=== PATIENT | female | born 1965 | race Hispanic/Latino ===

== ENCOUNTER 2016-10-10 19:21 | Emergency (ER) | payer OTHER ==
[2016-10-10 19:27] VITALS: RESP 16
[2016-10-10] MEDS ORDERED: Sodium Chloride 0.9% 1,000 ML IV STA (21:10)
--- NOTE | 2016-10-10 21:24 | ED PDOC ---
HPI: Abdomen Time Seen by Provider: 10/10/16 21:04 Chief Complaint (Nursing): Abdominal Pain Chief Complaint (Provider): Abdominal Pain/Vomiting History Per: Patient History/Exam Limitations: no limitations Onset/Duration Of Symptoms: Days (x1) Current Symptoms Are (Timing): Still Present Location Of Pain/Discomfort: RUQ Additional Complaint(s): 21:02 Allyssa Neumann is a 50 year old female that presents to the ED with a chief complaint of RUQ pain and vomiting since yesterday. Patient states that she ate a fruit cocktail last night, after which she felt pain that started in her RUQ and radiated all over her abdomen. She reports that she then took two Tylenols, which relieved her pain, but that upon waking up this morning, her pain returned and she experienced an episode of vomiting. She is currently experiencing chills, but denies any fever. Past Medical History Reviewed: Historical Data, Nursing Documentation, Vital Signs Vital Signs: Last Vital Signs Temp 98.5 F 10/10/16 19:24 Pulse 104 H 10/10/16 19:24 Resp 16 10/10/16 19:24 BP 151/78 H 10/10/16 19:24 Pulse Ox 100 10/10/16 21:28 - Family History Family History: States: Unknown Family Hx - Home Medications Home Medications: Ambulatory Orders Medication Instructions Recorded traMADol [Ultram] 50 mg PO TID #12 tab 10/10/16 - Allergies Allergies/Adverse Reactions: Allergies Allergy/AdvReac Type Severity Reaction Status Date / Time No Known Allergies Allergy Verified 10/10/16 19:24 Review of Systems Constitutional: Positive for: Chills. Negative for: Fever Gastrointestinal: Positive for: Vomiting, Abdominal Pain (RUQ) Physical Exam - Reviewed Nursing Documentation Reviewed: Yes Vital Signs Reviewed: Yes - Physical Exam Appears: Positive for: Non-toxic, No Acute Distress Head Exam: Positive for: ATRAUMATIC, NORMOCEPHALIC Skin: Positive for: Normal Color, Warm, Dry Eye Exam: Positive for: Normal appearance, EOMI, PERRL Cardiovascular/Chest: Positive for: Regular Rate, Rhythm. Negative for: Murmur Respiratory: Positive for: Normal Breath Sounds. Negative for: Wheezing Gastrointestinal/Abdominal: Positive for: Soft, Tenderness (mild RUQ tenderness) , Other (equivocal Salgado's sign) Neurologic/Psych: Positive for: Alert, Oriented - Laboratory Results Result Diagrams: 10/10/16 21:46 10/10/16 21:46 - ECG O2 Sat by Pulse Oximetry: 100 (RA) Pulse Ox Interpretation: Normal Medical Decision Making Medical Decision Makin:10 Initial Impression: Gallstones vs. Cholecystitis Initial Plan: * CMP * CBC * Lipase * Urinalysis * Sodium Chloride 1000 mL at 500 mLs/hr * Morphine 2 mg IV * Zofran 4 mg IV * US Gallbladder * Reevaluation 1130 Pt. feeling better, tolerating PO, results given, pt. will reach out to PMD tomorrow, referral given to surgery and told to return for worsening or concerning symptoms. IMPRESSION: Mobile stone in the gallbladder; prominent common duct Patient was not tender over the gallbladder Scribe Attestation: Documented by Michelle Rojas, acting as a scribe for George Angulo MD. Provider Scribe Attestation: All medical record entries made by the Scribe were at my direction and personally dictated by me. I have reviewed the chart and agree that the record accurately reflects my personal performance of the history, physical exam, medical decision making, and the department course for this patient. I have also personally directed, reviewed, and agree with the discharge instructions and disposition. Disposition - Clinical Impression Clinical Impression: Cholelithiasis - Disposition Referrals: Siva Arzate MD [Staff Provider] - Disposition: Routine/Home Disposition Time: 23:59 Condition: STABLE Prescriptions: traMADol [Ultram] 50 mg PO TID #12 tab Instructions: Gallstones (ED), Narcotic Pain Management (ED)
[2016-10-10 21:56] LABS: BASO # 0.1 K/uL (0.0-0.2); BASO % 0.8 % (0.0-2.0); EOS % 0.3 % (0.0-4.0); HEMATOCRIT 40.5 % (34.0-47.0); LYMPH # 0.8 K/uL (1.0-4.3); LYMPH % 12.2 % (20.0-40.0); MEAN CELL VOLUME 90.9 fl (81.0-99.0); MEAN CORPUSCULAR HEMOGLOBIN 30.5 pg (27.0-31.0); MEAN CORPUSCULAR HGB CONC 33.5 g/dL (33.0-37.0); MEAN PLATELET VOLUME 7.3 fl (7.2-11.7); MONO # 0.3 K/uL (0.0-0.8); MONO % 4.6 % (0.0-10.0); NEUT # 5.5 K/uL (1.8-7.0); NEUT % 82.1 % (50.0-75.0); NRBC % 0.1 % (0.0-0.0); RED CELL DISTRIBUTION WIDTH 12.7 % (11.5-14.5); WHITE BLOOD COUNT 6.7 K/uL (4.8-10.8)
[2016-10-10 22:02] LABS: ALB/GLOB RATIO 1.3 (1.0-2.1); ALKALINE PHOSPHATASE 90 U/L (38-126); ALT/SGPT 36 U/L (9-52); AST/SGOT 32 U/L (14-36); BILIRUBIN,TOTAL 0.6 mg/dl (0.2-1.3); BLOOD UREA NITROGEN 10 mg/dl (7-17); CALCIUM 9.8 mg/dL (8.4-10.2); CARBON DIOXIDE 27 mmol/L (22-30); CHLORIDE 100 mmol/L (98-107); GFR AFRICAN-AMERICAN > 60; GLUCOSE,RANDOM 98 mg/dL (65-105); LIPASE 113 U/L (23-300); POTASSIUM 3.9 MMOL/L (3.6-5.0); SODIUM 140 mmol/l (132-148); TOTAL PROTEIN 7.4 G/DL (6.3-8.2)
[2016-10-10 22:30] LABS: RBC URINE 17 /hpf (0-3); URINE BACTERIA FEW (<OCC); URINE BILIRUBIN NEGATIVE (NEGATIVE); URINE BLOOD SMALL (NEGATIVE); URINE COLOR YELLOW (YELLOW); URINE GLUCOSE (UA) NEG (Normal); URINE KETONE 80 mg/dL (NEGATIVE); URINE LEUKOCYTE ESTERASE LARGE Leu/uL (Negative); URINE PROTEIN 100 mg/dL (NEGATIVE); URINE UROBILINOGEN 0.2-1.0 mg/dL (0.2-1.0); WBC URINE 65 /hpf (0-5)
--- NOTE | 2016-10-10 22:48 | US ---
EXAM: US Abdomen Limited, Right Upper Quadrant CLINICAL HISTORY: 50 years old, female; Pain; Abdominal pain; Epigastric; Additional info: Ruq pain, vomiting, R/O cholelithiasis/cystitis TECHNIQUE: Real-time ultrasound of the right upper quadrant with image documentation. EXAM DATE/TIME: 10/10/2016 9:10 PM COMPARISON: There are no prior studies for comparison. FINDINGS: Liver: Liver is unremarkable. There is hepatopedal flow in the main portal vein. Gallbladder: Gallbladder is distended. There is a mobile shadowing stone. There is no sludge or wall thickening. Common bile duct: Proximal common duct measures 8 mm in diameter. Distal duct measures 5 mm in diameter. Pancreas: Pancreas is partially obscured by bowel gas. Right kidney: Right kidney is unremarkable. Aorta: Visualized portions of the aorta and inferior vena cava are unremarkable. IMPRESSION: Mobile stone in the gallbladder; prominent common duct Patient was not tender over the gallbladder
[2016-10-11 00:21] VITALS: BP 118/72; PULSE 86; TEMP 98.2; O2SAT 98
== END 2016-10-11 00:26 | disposition home or self-care (01) ==
LOC: H.ER 19:21
DX: K80.20 Calculus of gallbladder without cholecystitis without obstruction (principal); R11.10 Vomiting, unspecified; R10.11 Right upper quadrant pain

== ENCOUNTER 2016-10-14 14:50 | Inpatient (IN) | payer OTHER ==
[2016-10-14] MEDS ORDERED: Sodium Chloride 0.9% 1,000 ML IV STA (16:05)
[2016-10-14 16:33] LABS: BASO % 0.8 % (0.0-2.0); EOS % 0.2 % (0.0-4.0); HEMATOCRIT 36.3 % (34.0-47.0); LYMPH # 1.3 K/uL (1.0-4.3); MEAN CELL VOLUME 90.2 fl (81.0-99.0); MEAN CORPUSCULAR HEMOGLOBIN 30.7 pg (27.0-31.0); MEAN PLATELET VOLUME 7.3 fl (7.2-11.7); MONO # 0.4 K/uL (0.0-0.8); MONO % 7.3 % (0.0-10.0); NEUT # 4.3 K/uL (1.8-7.0); NEUT % 70.7 % (50.0-75.0); RED CELL DISTRIBUTION WIDTH 12.8 % (11.5-14.5)
[2016-10-14 16:44] LABS: ALB/GLOB RATIO 1.3 (1.0-2.1); ALKALINE PHOSPHATASE 90 U/L (38-126); ALT/SGPT 42 U/L (9-52); AST/SGOT 34 U/L (14-36); BILIRUBIN,TOTAL 0.5 mg/dl (0.2-1.3); BLOOD UREA NITROGEN 15 mg/dl (7-17); CALCIUM 9.5 mg/dL (8.4-10.2); CARBON DIOXIDE 29 mmol/L (22-30); CHLORIDE 98 mmol/L (98-107); GFR AFRICAN-AMERICAN > 60; GLUCOSE,RANDOM 94 mg/dL (65-105); LIPASE 780 U/L (23-300); POTASSIUM 3.9 MMOL/L (3.6-5.0); SODIUM 139 mmol/l (132-148); TOTAL PROTEIN 6.6 G/DL (6.3-8.2)
[2016-10-14 17:19] LABS: PARTIAL THROMBOPLASTIN TIME 25.2 SECONDS (23.3-32.5)
--- NOTE | 2016-10-14 17:21 | ED PDOC ---
HPI: Abdomen Time Seen by Provider: 10/14/16 15:43 Chief Complaint (Nursing): Abdominal Pain Chief Complaint (Provider): Abdominal Pain History Per: Patient History/Exam Limitations: no limitations Onset/Duration Of Symptoms: Days (x5 days since monday) Current Symptoms Are (Timing): Still Present Location Of Pain/Discomfort: RUQ (Radiated from ruq to abdomen) Associated Symptoms: denies: Nausea, Vomiting, Diarrhea Additional Complaint(s): Allyssa Neumann is a 50 year old female with no past medical history prior to arrival, but has a surgical history of 2 C-Sections who presents to the ED with a chief complaint of Abdominal pain that was onset since Monday. The patient came to the ED on Monday and was diagnosed with Gallstones, was fine on Monday and Monday and returned on . Patient claims the pain was located in the RUQ and radiated to the abdomen. Patient denies any attractable vomiting, diarrhea, or urinary symptoms. PCP is Dr. Chilel Past Medical History Reviewed: Historical Data, Nursing Documentation, Vital Signs Vital Signs: Last Vital Signs Temp 98.2 F 10/15/16 08:48 Pulse 68 10/15/16 08:48 Resp 20 10/15/16 08:48 BP 111/75 10/15/16 08:48 Pulse Ox 100 10/15/16 08:48 - Medical History Other PMH: Gallstones - Surgical History Surgical History: (2) - Family History Family History: States: Unknown Family Hx - Social History Current smoker - smoking cessation education provided: No Ex-Smoker (has not smoked in the last 12 months): No Alcohol: Social (once every other week) - Home Medications Home Medications: Ambulatory Orders Medication Instructions Recorded No Known Home Med 10/14/16 - Allergies Allergies/Adverse Reactions: Allergies Allergy/AdvReac Type Severity Reaction Status Date / Time No Known Allergies Allergy Verified 10/10/16 19:24 Review of Systems ROS Statement: Except As Marked, All Systems Reviewed And Found Negative Constitutional: Negative for: Fever, Chills, Sweats Gastrointestinal: Negative for: Vomiting, Diarrhea Genitourinary Female: Positive for: Other (No urinary symptoms) Physical Exam - Reviewed Nursing Documentation Reviewed: Yes Vital Signs Reviewed: Yes - Physical Exam Appears: Positive for: Well, Uncomfortable, In Acute Distress (Mild painful distress) Head Exam: Positive for: ATRAUMATIC, NORMAL INSPECTION, NORMOCEPHALIC Skin: Positive for: Normal Color, Warm, Dry Eye Exam: Positive for: Normal appearance, EOMI, PERRL ENT: Positive for: Pharynx Is (cleare), Other (Dry mucus membrane) Neck: Positive for: Normal, Painless ROM, Supple Cardiovascular/Chest: Positive for: Regular Rate, Rhythm, Chest Non Tender. Negative for: Bradycardia, Tachycardia Respiratory: Positive for: Normal Breath Sounds. Negative for: Wheezing, Respiratory Distress Gastrointestinal/Abdominal: Positive for: Normal Exam, Soft, Other (No Murpheys Sign, No Mcburneys Point Tenderness). Negative for: Tenderness, Mass, Distended , Guarding, Rebound Back: Positive for: Normal Inspection. Negative for: Vertebral Tenderness Extremity: Positive for: Normal ROM, Tenderness (Mild tenderness to palpation) Lymphatic: Negative for: Adenopathy Neurologic/Psych: Positive for: Alert, Oriented. Negative for: Motor/Sensory Deficits - Laboratory Results Result Diagrams: 10/14/16 16:20 10/14/16 16:20 - ECG O2 Sat by Pulse Oximetry: 100 (RA) Pulse Ox Interpretation: Normal Medical Decision Making Medical Decision Makin: Initial Impression: Abdominal pain Initial Plan: * Comp metabolic panel * Lact acid plasma * LDH * Lipase * U-Dip * CBC with differentials * Partial thromboplastin time * Dextrose 5%-0.95 1000ml IV * Morphine 2mg * Sodium chloride 1000ml * Famotidine Pepcid 20mg * Ondansetron Zofran 8mg IV * Urine culture * IV insertion * Urinalysis * Abdomen complete US * Re-Eval Accession No. : [id number] Patient Name / ID : ALMA CALLAHAN / [id number] Exam Date : 10/14/2016 16:47:39 ( Approved ) Study Comment : Sex / Age : F / 50Y Creator : Edilia Fairchild MD Dictator : Edilia Fairchild MD Sugar Mill Worker : Precision Assembler : Edilia Fairchild MD Approver2 : Report Date : 10/14/2016 17:29:57 My Comment : HISTORY: abd pain h/o gallstones COMPARISON: Limited abdominal ultrasound performed 10/10/16 TECHNIQUE: Sonographic evaluation of the abdomen. FINDINGS: LIVER: Measures 13.8 cm in sagittal dimension and appears within normal limits of size , shape, and echotexture. No focal hepatic mass identified. The main portal vein appears patent with normal directional flow. No intrahepatic bile duct dilatation. GALLBLADDER: 2.1 x 1.5 x 2.0 cm gallstone. No gallbladder wall thickening or pericholecystic edema. Negative sonographic Salgado's sign as assessed by the mobile ui/ux designer. COMMON BILE DUCT: Measures 7 mm. PANCREAS: Not well visualized. RIGHT KIDNEY: Measures 11.6 x 5.1 x 4.4cm. No obstructing calculus or hydronephrosis identified. LEFT KIDNEY: Measures 10.4 x 5.4 x 4.2cm. 3.2 x 3.5 x 3.2 cm hypoechoic left lower pole renal lesion, likely cyst. No obstructing calculus or hydronephrosis. SPLEEN: Measures approximately 9.8 cm. AORTA: Limited views appear unremarkable. IVC: Limited views appear unremarkable. OTHER FINDINGS: None. IMPRESSION: Mildly dilated common bile duct. Cholelithiasis. 3.5 cm left renal cyst. Labs demonstrated acute increase of lipase, otherwise no clinically significant lab abnormalities. DW Dr Auguste, covering for PMD Dr Chilel. BARRY Solis GI Fellow for Dr Anatoly Ramesh Surgery resident for Dr Caban. Scribe Attestation: Documented by Nestor Pendleton acting as a scribe for Dr.Melissa Vamsi Figueroa MD. Provider Scribe Attestation: All medical record entries made by the Scribe were at my direction and personally dictated by me. I have reviewed the chart and agree that the record accurately reflects my personal performance of the history, physical exam, medical decision making, and the department course for this patient. I have also personally directed, reviewed, and agree with the discharge instructions and disposition. Disposition - Clinical Impression Clinical Impression: Cholelithiasis, Pancreatitis Counseled Patient/Family Regarding: Studies Performed, Diagnosis - Disposition Disposition Time: 19:00 Condition: SERIOUS - Pt Status Changed To: Hospital Disposition Of: Inpatient - Admit Certification Admit to Inpatient:: After my assessment, the patient will require hospitalization for at least two midnights. This is because of the severity of symptoms shown, intensity of services needed, and/or the medical risk in this patient being treated as an outpatient. - POA Present On Arrival: None
--- NOTE | 2016-10-14 17:31 | US ---
HISTORY: abd pain h/o gallstones COMPARISON: Limited abdominal ultrasound performed 10/10/16 TECHNIQUE: Sonographic evaluation of the abdomen. FINDINGS: LIVER: Measures 13.8 cm in sagittal dimension and appears within normal limits of size, shape, and echotexture. No focal hepatic mass identified. The main portal vein appears patent with normal directional flow. No intrahepatic bile duct dilatation. GALLBLADDER: 2.1 x 1.5 x 2.0 cm gallstone. No gallbladder wall thickening or pericholecystic edema. Negative sonographic Salgado's sign as assessed by the call worker. COMMON BILE DUCT: Measures 7 mm. PANCREAS: Not well visualized. RIGHT KIDNEY: Measures 11.6 x 5.1 x 4.4cm. No obstructing calculus or hydronephrosis identified. LEFT KIDNEY: Measures 10.4 x 5.4 x 4.2cm. 3.2 x 3.5 x 3.2 cm hypoechoic left lower pole renal lesion, likely cyst. No obstructing calculus or hydronephrosis. SPLEEN: Measures approximately 9.8 cm. AORTA: Limited views appear unremarkable. IVC: Limited views appear unremarkable. OTHER FINDINGS: None. IMPRESSION: Mildly dilated common bile duct. Cholelithiasis. 3.5 cm left renal cyst.
[2016-10-14 17:48] LABS: RBC URINE 3 /hpf (0-3); URINE BACTERIA FEW (<OCC); URINE BILIRUBIN NEGATIVE (NEGATIVE); URINE BLOOD SMALL (NEGATIVE); URINE COLOR YELLOW (YELLOW); URINE GLUCOSE (UA) NEG (Normal); URINE KETONE 20 mg/dL (NEGATIVE); URINE LEUKOCYTE ESTERASE MOD Leu/uL (Negative); URINE PROTEIN 100 mg/dL (NEGATIVE); WBC URINE 30 /hpf (0-5)
[2016-10-14] MEDS ORDERED: Piperacillin/Tazobact 3.375 GM in Sodium Chloride 0.9% 100 ML IVPB STA (19:26)
[2016-10-14] MEDS ORDERED: Piperacillin/Tazobact 3.375 gm Inj IVPB ONE (19:40)
[2016-10-14 22:05] VITALS: BMI 26.6
--- NOTE | 2016-10-14 23:00 | CP.PCM.CON ---
History of Present Illness - History of Present Illness History of Present Illness: GENERAL SURGERY CONSULT NOTE FOR DR. NICHOLSON 50yo F with no PMHx who presents to the ED with RUQ abdominal pain and vomiting. The pain began Monday night and she came to the ED on Monday, 10/10. The pain was located in the RUQ and worse after eating. She had an ultrasound which showed cholelithiasis but no cholecystitis. Her labs were normal. She was discharged home with tramadol and to follow up with a surgeon. The pain returned night. Last night she vomited about 7 times, non bloody, and the pain was severe. The pain is now located in the RUQ, epigastric, and LUQ areas. She was unable to tolerate PO intake. She denies diarrhea. Her last BM was yesterday. She denies CP, SOB, fever, or chills. PMHx: none Surgeries: Allergies: none Home medications: none Social history: occasional etoh, smokes a pack every 2-4 days Review of Systems - Review of Systems All systems: reviewed and no additional remarkable complaints except (as per HPI ) Past Patient History - Past Medical History & Family History Past Medical History?: Yes - Past Social History Smoking Status: Light Smoker < 10 Cigarettes Daily - CARDIAC Hx Cardiac Disorders: No - PULMONARY Hx Respiratory Disorders: No - NEUROLOGICAL Hx Neurological Disorder: No - HEENT Hx HEENT Problems: No - RENAL Hx Chronic Kidney Disease: No - ENDOCRINE/METABOLIC Hx Endocrine Disorders: No - HEMATOLOGICAL/ONCOLOGICAL Hx Blood Disorders: No Hx AIDS: No Hx Human Immunodeficiency Virus (HIV): No - INTEGUMENTARY Hx Dermatological Problems: No - MUSCULOSKELETAL/RHEUMATOLOGICAL Hx Musculoskeletal Disorders: No Hx Falls: No - GASTROINTESTINAL Other/Comment: gallstone - GENITOURINARY/GYNECOLOGICAL Hx Genitourinary Disorders: No - PSYCHIATRIC Hx Psychophysiologic Disorder: No Hx Substance Use: No - SURGICAL HISTORY Hx Surgeries: No Hx Section: Yes - ANESTHESIA Hx Anesthesia: Yes Hx Anesthesia Reactions: No Meds Allergies/Adverse Reactions: Allergies Allergy/AdvReac Type Severity Reaction Status Date / Time No Known Allergies Allergy Verified 10/10/16 19:24 - Medications Medications: Current Medications Dextrose/Sodium Chloride (Dextrose 5%-0.9% Ns 500 Ml) 1,000 mls @ 100 mls/hr IV .Q10H TAYO Last Admin: 10/14/16 20:25 Dose: 100 mls/hr Piperacillin Sod/Tazobactam (Sod 3.375 gm/ Sodium Chloride) 100 mls @ 100 mls/ hr IVPB Q8 TAYO Morphine Sulfate (Morphine) 2 mg IVP Q6 PRN PRN Reason: Pain, severe (8-10) Ondansetron HCl (Zofran Inj) 4 mg IVP Q4 PRN PRN Reason: Nausea/Vomiting Physical Exam - Constitutional Appears: Well, Non-toxic, No Acute Distress - Head Exam Head Exam: ATRAUMATIC, NORMAL INSPECTION - Eye Exam Eye Exam: EOMI, Normal appearance - Respiratory Exam Respiratory Exam: NORMAL BREATHING PATTERN. absent: Respiratory Distress - Cardiovascular Exam Cardiovascular Exam: +S1, +S2 - GI/Abdominal Exam GI & Abdominal Exam: Soft, Tenderness (mild tenderness on deep palpation of RUQ) . absent: Distended, Firm, Guarding, Rebound, Rigid Additional comments: Negative Salgado's sign - Extremities Exam Extremities exam: Positive for: normal inspection. Negative for: calf tenderness - Neurological Exam Neurological exam: Alert, CN II-XII Intact, Oriented x3 - Psychiatric Exam Psychiatric exam: Normal Affect, Normal Mood - Skin Skin Exam: Dry, Normal Color, Warm Results - Vital Signs Recent Vital Signs: Last Vital Signs Temp 98.6 F 10/14/16 21:30 Pulse 92 H 10/14/16 21:30 Resp 18 10/14/16 21:30 BP 124/77 10/14/16 21:30 Pulse Ox 94 L 10/14/16 21:30 - Labs Result Diagrams: 10/14/16 16:20 10/14/16 16:20 Assessment & Plan - Assessment and Plan (Free Text) Assessment: 50yo F with no PMHx who presented with RUQ abdominal pain and vomiting and was found to have cholelithiasis and pancreatitis - Afebrile, tachycardic on arrival, now HR normal - No leukocytosis - Bilirubin, LFTs WNL - Lipase elevated at 780 (was 113 on 10/10) - US: 2.1x1.5x2.0cm gallstone, no gallbladder wall thickness or pericholecystic edema, negative sonographic Salgado's sign, CBD dilated at 7mm. - NPO - IV Fluids - Zofran and Morphine PRN - MRCP ordered due to dilated CBD - Discussed plan with Dr. Reinaldo Ramesh PGY-2
[2016-10-15] MEDS: Piperacillin/Tazobact 3.375 GM in Sodium Chloride 0.9% 100 ML IVPB SCH ×3 (00:50→16:12)
--- NOTE | 2016-10-15 08:15 | HP ---
CHIEF COMPLAINT: Abdominal pain. HISTORY OF PRESENT ILLNESS: This is a 50-year-old female without significant past medical or surgica l history who was seen in the Emergency Room a few days ago for abdominal pain and was discharged to follow up with surgeon, but patient continued to have pain which got worse, so patient was brought to Emergency Room and was admitted for further management after finding pancreatitis. At this time, th e patient's pain is controlled with pain medication. REVIEW OF SYSTEMS: Negative for headache, dizziness, syncope, loss of consciousness, chest pain, jovanna rtness of breath, nausea, vomiting, diarrhea, constipation, any new joint or extremity pain. Review of systems of all other organ system is unremarkable. PAST MEDICAL HISTORY: Unremarkable. PAST SURGICAL HISTORY: Unremarkable. PERSONAL HISTORY: The patient is currently a nonsmoker, nondrinker, no substance abuse. MEDICATIONS: The patient was prescribed tramadol in Emergency Room visit, but the patient is not on any chronic medications. ALLERGIES: The patient is not allergic to any medication. FAMILY HISTORY: Noncontributory. PHYSICAL EXAMINATION: GENERAL: Well-built, well-nourished 50-year-old female in no acute distress. VITAL SIGNS: Temperature 98.9, pulse 78, respiration 18, blood pressure 100/60. HEENT: Pupils reacting to light. No JVD, no thyromegaly, no lymphadenopathy, no nystagmus. Normoce phalic, atraumatic skull. HEART: S1, S2 normal, regular. No significant murmur, gallop or rub is heard. LUNGS: Show good bilateral air entry. No rales or rhonchi. ABDOMEN: Soft, nontender, no organomegaly, no fluid. ____ epigastric sensitivity. There is no sign of any acute abdomen. No guarding, no rigidity, no rebound. Bowel sounds are plus and normal. EXTREMITIES: No edema, no calf swelling, no tenderness, no acute ischemia. CENTRAL NERVOUS SYSTEM: The patient is alert, awake, oriented x 3. There is no sign of any acute gr oss focal motor or sensory neurological deficit. DIAGNOSTIC DATA: Available diagnostic data reviewed. WBC 6, hemoglobin 12.1, hematocrit 33.3, plate lets 229. PT 10.9, PTT 25.2, sodium 139, potassium 3.9, chloride 98, bicarb 29, BUN 15, creatinine 0 .7. SMA-12 shows LDH of 298, but lipase level is 580. Urinalysis is also consistent with urinary tr act infection. Abdominal sonogram shows dilated common bile duct and renal cyst. EKG shows normal s inus rhythm without any acute ST-T changes. Chest x-ray is clear. Surgical consult noted and apprec iated. ADMITTING IMPRESSION: Acute pancreatitis, gallstone. PLAN: As ordered. Case and plan discussed with patient. Osmany Auguste MD cc: [id number] TT: 10/15/2016 08:14:36 tn
--- NOTE | 2016-10-15 08:39 | RAD ---
HISTORY: abd pain COMPARISON: No prior. FINDINGS: LUNGS: Single frontal portable view of the chest was obtained. No focal infiltrate is seen. No significant interstitial changes are noted. PLEURA: No significant pleural effusion identified, no pneumothorax apparent. CARDIOVASCULAR: Normal. OSSEOUS STRUCTURES: No significant abnormalities. VISUALIZED UPPER ABDOMEN: Normal. OTHER FINDINGS: Aorta appears to be normal in outline on this limited portable chest exam. IMPRESSION: Unremarkable frontal portable view of the chest. Frontal and lateral view would be suggested when the patient is stable.
--- NOTE | 2016-10-15 09:27 | CARD ---
APPROVED REPORT EKG Measurement Heart [id number] <Conclusion> Normal sinus rhythm Possible Left atrial enlargement Borderline ECG
--- NOTE | 2016-10-15 12:15 | CP.PCM.PN ---
Subjective - Date & Time of Evaluation Date of Evaluation: 10/15/16 Time of Evaluation: 10:00 - Subjective Subjective: GENERAL SURGERY PROGRESS NOTE FOR DR. NICHOLSON Patient seen and examined at bedside. She states that her pain is better than yesterday but still there. The pain is mostly on her right upper lateral abdomen. She denies nausea, vomiting, or back pain. Objective - Vital Signs/Intake and Output Vital Signs (last 24 hours): Temp Pulse Resp BP Pulse Ox 98.2 F 68 20 111/75 100 10/15/16 08:48 10/15/16 08:48 10/15/16 08:48 10/15/16 08:48 10/15/16 08:48 - Medications Medications: Current Medications Dextrose/Sodium Chloride (Dextrose 5%-0.9% Ns 500 Ml) 1,000 mls @ 100 mls/hr IV .Q10H [facility] Last Admin: 10/15/16 02:10 Dose: Not Given Piperacillin Sod/Tazobactam (Sod 3.375 gm/ Sodium Chloride) 100 mls @ 100 mls/ hr IVPB Q8 TAYO Last Admin: 10/15/16 09:31 Dose: 100 mls/hr Morphine Sulfate (Morphine) 2 mg IVP Q6 PRN PRN Reason: Pain, severe (8-10) Last Admin: 10/15/16 12:01 Dose: 2 mg Ondansetron HCl (Zofran Inj) 4 mg IVP Q4 PRN PRN Reason: Nausea/Vomiting - Labs Labs: PT 10.9 SECONDS (9.6-11.2) 10/14/16 16:20 INR 1.05 (0.92-1.08) 10/14/16 16:20 APTT 25.2 SECONDS (23.3-32.5) 10/14/16 16:20 - Constitutional Appears: Non-toxic, No Acute Distress - Head Exam Head Exam: ATRAUMATIC, NORMAL INSPECTION - Respiratory Exam Respiratory Exam: NORMAL BREATHING PATTERN. absent: Respiratory Distress - Cardiovascular Exam Cardiovascular Exam: +S1, +S2 - GI/Abdominal Exam GI & Abdominal Exam: Soft, Tenderness (mild tenderness on deep palpation of RUQ) . absent: Distended, Firm, Guarding, Rigid, Rebound - Neurological Exam Neurological Exam: Alert, Awake, Oriented x3 - Psychiatric Exam Psychiatric exam: Normal Affect, Normal Mood - Skin Skin Exam: Dry, Normal Color, Warm Assessment and Plan - Assessment and Plan (Free Text) Assessment: 50yo F with no PMHx who presented with RUQ abdominal pain and vomiting and was found to have gallstone pancreatitis and dilated CBD - Afebrile, VSS - Bilirubin, LFTs WNL - Lipase elevated at 780 yesterday, will FU tomorrows labs and trend - US: 2.1x1.5x2.0cm gallstone, no gallbladder wall thickness or pericholecystic edema, negative sonographic Salgado's sign, CBD dilated at 7mm. - NPO - IV Fluids - Zofran and Morphine PRN - MRCP done due to dilated CBD, awaiting official report - If MRCP negative, option given to patient of inpatient cholecystectomy once pancreatitis cools down or outpatient elective cholecystectomy - Discussed plan with Dr. Reinaldo Ramesh PGY-2
--- NOTE | 2016-10-15 12:47 | CP.PCM.CON ---
<Kishor Pena - Last Filed: 10/15/16 12:44> History of Present Illness - History of Present Illness History of Present Illness: PGY4 GI Fellow Consult Note Patient is a 50yo female with no significant PMHx who presented to the ED with abdominal pain. The patient presented to the ED on 10/10/16 with complaints of abdominal pain, predominantly in the RUQ. Lab work was unremarkable and U/S revealed cholelithiasis. She was discharged home from the ED with Ultram and given referral for surgical evaluation for elective cholecystectomy. She continued to have pain following returning home and became nauseated with multiple bouts of bilious, nonbloody emesis in the 24 hours leading up to return to the ED. She became unable to tolerate oral intake and thus came to the ED for evaluation. Repeat lab work was again unremarkable and U/S continues to reveal cholelithiais. CBD was noted at 8mm. At present, she has some mild epigastric and RUQ/LUQ abdominal pain. No nausea, vomiting. Eager to eat. PMHx: See HPI PSHx: FHx: Discussed with patient and denies any significant family history Social: 1/2ppd smoker, occasional EtOH use, denies illicit drug use Review of Systems - Constitutional Constitutional: Anorexia, Fatigue. absent: Chills, Fever - EENT Eyes: absent: Change in Vision Nose/Mouth/Throat: absent: Sore Throat - Cardiovascular Cardiovascular: absent: Chest Pain, Dyspnea, Edema - Respiratory Respiratory: absent: Cough, Hemoptysis, Excessive Mucous Production - Gastrointestinal Gastrointestinal: Abdominal Pain, Constipation, Nausea, Vomiting. absent: Belching, Bloating, Cramping, Diarrhea, Dyspepsia, Dysphagia, Heartburn, Hematemesis, Hematochezia, Melena - Genitourinary Genitourinary: absent: Dysuria, Urinary Frequency, Urinary Urgency - Musculoskeletal Musculoskeletal: absent: Back Pain, Neck Pain - Integumentary Integumentary: absent: Dry Skin, New Lesions, Rash - Neurological Neurological: absent: Dizziness, Numbness, Focal Weakness - Psychiatric Psychiatric: absent: Anxiety, Depression - Endocrine Endocrine: absent: Polydipsia, Polyphagia, Polyuria - Hematologic/Lymphatic Hematologic: absent: Easy Bleeding, Easy Bruising, Lymphadenopathy Past Patient History - Past Medical History & Family History Past Medical History?: Yes - Past Social History Smoking Status: Light Smoker < 10 Cigarettes Daily - CARDIAC Hx Cardiac Disorders: No - PULMONARY Hx Respiratory Disorders: No - NEUROLOGICAL Hx Neurological Disorder: No - HEENT Hx HEENT Problems: No - RENAL Hx Chronic Kidney Disease: No - ENDOCRINE/METABOLIC Hx Endocrine Disorders: No - HEMATOLOGICAL/ONCOLOGICAL Hx Blood Disorders: No Hx AIDS: No Hx Human Immunodeficiency Virus (HIV): No - INTEGUMENTARY Hx Dermatological Problems: No - MUSCULOSKELETAL/RHEUMATOLOGICAL Hx Musculoskeletal Disorders: No Hx Falls: No - GASTROINTESTINAL Other/Comment: gallstone - GENITOURINARY/GYNECOLOGICAL Hx Genitourinary Disorders: No - PSYCHIATRIC Hx Psychophysiologic Disorder: No Hx Substance Use: No - SURGICAL HISTORY Hx Surgeries: No Hx Section: Yes - ANESTHESIA Hx Anesthesia: Yes Hx Anesthesia Reactions: No Meds Allergies/Adverse Reactions: Allergies Allergy/AdvReac Type Severity Reaction Status Date / Time No Known Allergies Allergy Verified 10/10/16 19:24 - Medications Medications: Current Medications Dextrose/Sodium Chloride (Dextrose 5%-0.9% Ns 500 Ml) 1,000 mls @ 100 mls/hr IV .Q10H [facility] Last Admin: 10/15/16 02:10 Dose: Not Given Piperacillin Sod/Tazobactam (Sod 3.375 gm/ Sodium Chloride) 100 mls @ 100 mls/ hr IVPB Q8 [facility] Last Admin: 10/15/16 09:31 Dose: 100 mls/hr Morphine Sulfate (Morphine) 2 mg IVP Q6 PRN PRN Reason: Pain, severe (8-10) Last Admin: 10/15/16 12:01 Dose: 2 mg Ondansetron HCl (Zofran Inj) 4 mg IVP Q4 PRN PRN Reason: Nausea/Vomiting Physical Exam - Constitutional Appears: Non-toxic, No Acute Distress - Eye Exam Eye Exam: EOMI, PERRL - ENT Exam ENT Exam: Mucous Membranes Moist - Respiratory Exam Respiratory Exam: Clear to Auscultation Bilateral. absent: Rales, Rhonchi, Wheezes - Cardiovascular Exam Cardiovascular Exam: RRR, +S1, +S2 - GI/Abdominal Exam GI & Abdominal Exam: Normal Bowel Sounds, Soft. absent: Distended, Firm, Guarding, Rigid, Tenderness Additional comments: Salgado's negative - Extremities Exam Extremities exam: Positive for: normal inspection. Negative for: pedal edema - Neurological Exam Neurological exam: Alert, Oriented x3 - Psychiatric Exam Psychiatric exam: Normal Affect, Normal Mood - Skin Skin Exam: Dry, Warm Results - Vital Signs Recent Vital Signs: Last Vital Signs Temp 98.2 F 10/15/16 08:48 Pulse 68 10/15/16 08:48 Resp 20 10/15/16 08:48 BP 111/75 10/15/16 08:48 Pulse Ox 100 10/15/16 08:48 - Labs Result Diagrams: 10/14/16 16:20 10/14/16 16:20 Assessment & Plan - Assessment and Plan (Free Text) Assessment: Patient is a 50yo female with no significant PMHx who presented to the ED with abdominal pain. -Abdominal pain, suspect biliary colic; r/o PUD -Cholelithiasis Plan: -U/S x 2 reviewed; CBD mildly dilated; no evidence of obstruction on lab work and clinically comfortable -MRCP ordered by surgical service, pending - will determine plan based on findings -Advance to clear liquids -Surgical recommendations appreciated -May benefit from nonemergent endoscopy if persistent -Start protonix 40mg PO QAMAC - Date & Time Date: 10/15/16 Time: 12:00 <Jerry Ledbetter MD - Last Filed: 10/15/16 15:53> Meds - Medications Medications: Current Medications Dextrose/Sodium Chloride (Dextrose 5%-0.9% Ns 500 Ml) 1,000 mls @ 100 mls/hr IV .Q10H [facility] Last Admin: 10/15/16 02:10 Dose: Not Given Piperacillin Sod/Tazobactam (Sod 3.375 gm/ Sodium Chloride) 100 mls @ 100 mls/ hr IVPB Q8 [facility] Last Admin: 10/15/16 09:31 Dose: 100 mls/hr Morphine Sulfate (Morphine) 2 mg IVP Q6 PRN PRN Reason: Pain, severe (8-10) Last Admin: 10/15/16 12:01 Dose: 2 mg Ondansetron HCl (Zofran Inj) 4 mg IVP Q4 PRN PRN Reason: Nausea/Vomiting Pantoprazole Sodium (Protonix Ec Tab) 40 mg PO ACB [facility] Polyethylene Glycol (Miralax) 17 gm PO DAILY [facility] Last Admin: 10/15/16 15:27 Dose: 17 gm Results - Vital Signs Recent Vital Signs: Last Vital Signs Temp 98.2 F 10/15/16 08:48 Pulse 68 10/15/16 08:48 Resp 20 10/15/16 08:48 BP 111/75 10/15/16 08:48 Pulse Ox 100 10/15/16 08:48 - Labs Result Diagrams: 10/14/16 16:20 10/14/16 16:20 Attending/Attestation - Attestation I have personally seen and examined this patient.: Yes I have fully participated in the care of the patient.: Yes I have reviewed all pertinent clinical information: Yes Notes (Text): 10/15/16 15:51 Patient seen with GI fellow on rounds. This is a 50 yo female with no significant PMHx who presented to the ED with abdominal pain suspected biliary colic and sonogram showing CBD mildly dilated and cholelithiasis with normal LFT. Pending MRCP read. Clear liquid diet today pending read. Further care as per imaging. PPI daily. .
--- NOTE | 2016-10-15 13:46 | MRI ---
PROCEDURE: Magnetic Resonance Cholangiopancreatography HISTORY: COMPARISON: Ultrasound 10/14/2016. TECHNIQUE: Multiplanar, multisequence MR images of the abdomen were obtained, including heavily T2 weighted MRCP images of the biliary system. Rotating maximum intensity projection images of the biliary system were generated. FINDINGS: MRCP: The common bile duct measures 7-8 millimeters but tapers distally. No ampullary mass is are seen. . No evidence of choledocholithiasis. No intrahepatic biliary ductal dilatation. LIVER: No focal liver mass or intrahepatic ductal dilatation is seen. Liver is otherwise normal in size and signal. GALLBLADDER: Single gallstone is noted in the gallbladder. This measures 1.8 centimeters by 1.6 centimeters in size. No gallbladder wall thickening or pericholecystic fluid is noted. SPLEEN: Unremarkable. PANCREAS: Unremarkable. ADRENALS: Unremarkable. KIDNEYS: There is evidence of a round smoothly marginated anterior midpole left renal cyst measuring 3.3 centimeters x 2.7 centimeters by 3.3 centimeters in size. There appears to be left renal pelvocaliceal dilatation with perhaps minor left ureteral dilatation. No renal calculus is identified on the left. Right kidney is normal in size and signal intensity without pelvocaliceal dilatation, cyst, or calculus. AORTA: No aneurysm. ASCITES: None. OTHER FINDINGS: None. IMPRESSION: No evidence of common bile duct calculus. No evidence of stricture. Common bile duct measures 7-8 millimeters proximally with normal distal tapering. Small gallstone. No gallbladder wall thickening. No intrahepatic ductal dilatation. Left renal cyst. In addition there is evidence of nonspecific left renal pelvocaliceal dilatation, perhaps with minor left ureteral dilatation. An element of UPJ obstruction is not excluded. This requires further clinical follow-up.
[2016-10-15] MEDS: POLYETHYLENE GLYCOL 3350 17 GM/Dose PACKET PO SCH (15:27)
[2016-10-16] MEDS: Piperacillin/Tazobact 3.375 GM in Sodium Chloride 0.9% 100 ML IVPB SCH ×3 (00:19→16:36)
[2016-10-16] MEDS: Pantoprazole 40 mg EC Tab PO SCH (06:35)
[2016-10-16 06:45] LABS: MEAN CELL VOLUME 91.8 fl (81.0-99.0); MEAN CORPUSCULAR HEMOGLOBIN 30.5 pg (27.0-31.0); MEAN CORPUSCULAR HGB CONC 33.3 g/dL (33.0-37.0); RED CELL DISTRIBUTION WIDTH 12.8 % (11.5-14.5); WHITE BLOOD COUNT 4.3 K/uL (4.8-10.8)
[2016-10-16 07:00] LABS: ALB/GLOB RATIO 1.1 (1.0-2.1); ALKALINE PHOSPHATASE 69 U/L (38-126); ALT/SGPT 37 U/L (9-52); AMYLASE 77 U/L (30-110); AST/SGOT 25 U/L (14-36); BILIRUBIN,TOTAL 0.4 mg/dl (0.2-1.3); BLOOD UREA NITROGEN 7 mg/dl (7-17); CALCIUM 8.6 mg/dL (8.4-10.2); CARBON DIOXIDE 28 mmol/L (22-30); CHLORIDE 106 mmol/L (98-107); GFR AFRICAN-AMERICAN > 60; GLUCOSE,RANDOM 105 mg/dL (65-105); LIPASE 284 U/L (23-300); POTASSIUM 3.6 MMOL/L (3.6-5.0); SODIUM 142 mmol/l (132-148); TOTAL PROTEIN 5.5 G/DL (6.3-8.2)
--- NOTE | 2016-10-16 07:58 | PN ---
DATE: 10/16/2016 The patient seen and examined. Interim events noted. Consults noted, appreciated. Surgical and gas troenterology followup and intervention noted and appreciated. The patient remains on regular medica l floor. The patient had increased episodes of pain. Currently, pain is controlled. No chest pain, no shortness of breath. No nausea, vomiting or diarrhea. PHYSICAL EXAMINATION: GENERAL: The patient is in no acute distress. VITAL SIGNS: Stable. HEART: S1, S2 normal, regular. LUNGS: Good bilateral air exchange. ABDOMEN: Soft, nontender. No organomegaly, no fluid. There is mild right upper quadrant. No sign of acute abdomen. No guarding, no rigidity, no rebound. EXTREMITIES: No edema, no calf swelling, no tenderness, no acute ischemia. CENTRAL NERVOUS SYSTEM: Essentially unchanged. DIAGNOSTIC DATA: Available reviewed. MRCP is negative. The patient might need inpatient cholecystectomy. Case and plan discussed with patient. Osmany Auguste MD cc: [id number] TT: 10/16/2016 07:57:19 Confirmation # [id number] Dictation # [id number]
[2016-10-16] MEDS: POLYETHYLENE GLYCOL 3350 17 GM/Dose PACKET PO SCH (08:23)
--- NOTE | 2016-10-16 09:33 | CP.PCM.PN ---
Subjective - Date & Time of Evaluation Date of Evaluation: 10/16/16 Time of Evaluation: 07:00 - Subjective Subjective: GENERAL SURGERY PROGRESS NOTE FOR DR. NICHOLSON Patient seen and examined at bedside. She states that she had some worsening RUQ abdominal pain around 6pm yesterday. Her primary doctor was called and her pain medications were increased which allowed her to sleep some. The pain is now just "discomfort". When she was having the pain, she felt nauseous but it has resolved. GI team advanced patient to [facility] yesterday. Patient states that she is scared to eat because she is afraid the pain will come back. Patient has + UTI however she denies dysuria, frequency or any problems urinating. She is passing flatus and ambulating. Objective - Vital Signs/Intake and Output Vital Signs (last 24 hours): Temp Pulse Resp BP Pulse Ox 97.7 F 69 20 120/74 98 10/16/16 08:23 10/16/16 08:23 10/16/16 08:23 10/16/16 08:23 10/16/16 08:23 - Medications Medications: Current Medications Dextrose/Sodium Chloride (Dextrose 5%-0.9% Ns 500 Ml) 1,000 mls @ 100 mls/hr IV .Q10H [facility] Last Admin: 10/16/16 08:23 Dose: 100 mls/hr Piperacillin Sod/Tazobactam (Sod 3.375 gm/ Sodium Chloride) 100 mls @ 100 mls/ hr IVPB Q8 [facility] Last Admin: 10/16/16 08:23 Dose: 100 mls/hr Morphine Sulfate (Morphine) 4 mg IVP Q4 PRN PRN Reason: Pain, severe (8-10) Last Admin: 10/16/16 04:21 Dose: 4 mg Ondansetron HCl (Zofran Inj) 4 mg IVP Q4 PRN PRN Reason: Nausea/Vomiting Last Admin: 10/15/16 17:26 Dose: 4 mg Pantoprazole Sodium (Protonix Ec Tab) 40 mg PO ACB [facility] Last Admin: 10/16/16 06:35 Dose: 40 mg Polyethylene Glycol (Miralax) 17 gm PO DAILY [facility] Last Admin: 10/16/16 08:23 Dose: 17 gm - Labs Labs: 10/16/16 05:45 10/16/16 05:45 PT 10.9 SECONDS (9.6-11.2) 10/14/16 16:20 INR 1.05 (0.92-1.08) 10/14/16 16:20 APTT 25.2 SECONDS (23.3-32.5) 10/14/16 16:20 - Constitutional Appears: Non-toxic, No Acute Distress - Eye Exam Eye Exam: EOMI, Normal appearance - Respiratory Exam Respiratory Exam: NORMAL BREATHING PATTERN. absent: Respiratory Distress - Cardiovascular Exam Cardiovascular Exam: +S1, +S2 - GI/Abdominal Exam GI & Abdominal Exam: Soft, Tenderness (RUQ). absent: Distended, Firm, Guarding , Rigid, Rebound - Neurological Exam Neurological Exam: Alert, Awake, Oriented x3 - Psychiatric Exam Psychiatric exam: Normal Affect, Normal Mood - Skin Skin Exam: Dry, Normal Color, Warm Assessment and Plan - Assessment and Plan (Free Text) Assessment: 50yo F with no PMHx who presented with RUQ abdominal pain and vomiting and was found to have gallstone pancreatitis and dilated CBD - Afebrile, VSS - Urine cx: gram - rods, pt asymptomatic - Bilirubin, LFTs WNL - Lipase decreased to 284 today, down from 780 on admission - US: 2.1x1.5x2.0cm gallstone, no gallbladder wall thickness or pericholecystic edema, negative sonographic Salgado's sign, CBD dilated at 7mm. - MRCP showed a single gallstone and was negative for cholecystitis or choledocholithiasis - NPO - IV Fluids - Zofran and Morphine PRN - Tentatively plan for OR cholecystectomy on Monday - Discussed plan with Dr. Reinaldo Ramesh PGY-2
--- NOTE | 2016-10-16 12:20 | CP.PCM.PN ---
<Kishor Pena - Last Filed: 10/16/16 12:17> Subjective - Date & Time of Evaluation Date of Evaluation: 10/16/16 Time of Evaluation: 11:50 - Subjective Subjective: PGY4 GI Fellow Progress Note Patient seen and examined bedside this morning. The patient admits to continued RUQ discomfort. Ate liquids but continued to have pain thereafter and was made NPO by surgical service. No other issues. 12 system ROS performed and negative except where stated. Objective - Vital Signs/Intake and Output Vital Signs (last 24 hours): Temp Pulse Resp BP Pulse Ox 97.7 F 69 20 120/74 98 10/16/16 08:23 10/16/16 08:23 10/16/16 08:23 10/16/16 08:23 10/16/16 08:23 - Medications Medications: Current Medications Dextrose/Sodium Chloride (Dextrose 5%-0.9% Ns 500 Ml) 1,000 mls @ 100 mls/hr IV .Q10H [facility] Last Admin: 10/16/16 08:23 Dose: 100 mls/hr Piperacillin Sod/Tazobactam (Sod 3.375 gm/ Sodium Chloride) 100 mls @ 100 mls/ hr IVPB Q8 [facility] Last Admin: 10/16/16 08:23 Dose: 100 mls/hr Morphine Sulfate (Morphine) 4 mg IVP Q4 PRN PRN Reason: Pain, severe (8-10) Last Admin: 10/16/16 10:14 Dose: 4 mg Ondansetron HCl (Zofran Inj) 4 mg IVP Q4 PRN PRN Reason: Nausea/Vomiting Last Admin: 10/15/16 17:26 Dose: 4 mg Pantoprazole Sodium (Protonix Ec Tab) 40 mg PO ACB [facility] Last Admin: 10/16/16 06:35 Dose: 40 mg Polyethylene Glycol (Miralax) 17 gm PO DAILY [facility] Last Admin: 10/16/16 08:23 Dose: 17 gm - Labs Labs: 10/16/16 05:45 10/16/16 05:45 PT 10.9 SECONDS (9.6-11.2) 10/14/16 16:20 INR 1.05 (0.92-1.08) 10/14/16 16:20 APTT 25.2 SECONDS (23.3-32.5) 10/14/16 16:20 - Constitutional Appears: Non-toxic, No Acute Distress - Eye Exam Eye Exam: EOMI, PERRL - ENT Exam ENT Exam: Mucous Membranes Moist - Respiratory Exam Respiratory Exam: Clear to Ausculation Bilateral. absent: Rales, Rhonchi, Wheezes - Cardiovascular Exam Cardiovascular Exam: RRR, +S1, +S2 - GI/Abdominal Exam GI & Abdominal Exam: Guarding, Soft, Tenderness (RUQ), Normal Bowel Sounds. absent: Distended, Firm, Rigid, Organomegaly - Extremities Exam Extremities Exam: Normal Inspection. absent: Pedal Edema - Neurological Exam Neurological Exam: Alert, Awake, Oriented x3 - Psychiatric Exam Psychiatric exam: Normal Affect, Normal Mood - Skin Skin Exam: Dry, Warm Assessment and Plan - Assessment and Plan (Free Text) Assessment: Patient is a 50yo female with no significant PMHx who presented to the ED with abdominal pain. -Abdominal pain, suspect biliary colic -Cholelithiasis Plan: -MRCP unremarkable for choledocolithiasis; only showing cholelithiasis -Plan for inpatient cholecystectomy per surgical service, possibly Monday -Surgery team wants patient NPO, OK to give clear liquids from GI standpoint unless pain becomes severe -There is no evidence of cholangitis -Will defer management to surgical team and sign off at this time. Thank you for letting us participate in the care of your patient. <Jerry Ledbetter MD - Last Filed: 10/16/16 16:40> Objective - Vital Signs/Intake and Output Vital Signs (last 24 hours): Temp Pulse Resp BP Pulse Ox 97.7 F 69 20 120/74 98 10/16/16 08:23 10/16/16 08:23 10/16/16 08:23 10/16/16 08:23 10/16/16 08:23 - Medications Medications: Current Medications Dextrose/Sodium Chloride (Dextrose 5%-0.9% Ns 500 Ml) 1,000 mls @ 100 mls/hr IV .Q10H [facility] Last Admin: 10/16/16 08:23 Dose: 100 mls/hr Piperacillin Sod/Tazobactam (Sod 3.375 gm/ Sodium Chloride) 100 mls @ 100 mls/ hr IVPB Q8 [facility] Last Admin: 10/16/16 08:23 Dose: 100 mls/hr Morphine Sulfate (Morphine) 4 mg IVP Q4 PRN PRN Reason: Pain, severe (8-10) Last Admin: 10/16/16 14:48 Dose: 4 mg Ondansetron HCl (Zofran Inj) 4 mg IVP Q4 PRN PRN Reason: Nausea/Vomiting Last Admin: 10/15/16 17:26 Dose: 4 mg Pantoprazole Sodium (Protonix Ec Tab) 40 mg PO ACB [facility] Last Admin: 10/16/16 06:35 Dose: 40 mg Polyethylene Glycol (Miralax) 17 gm PO DAILY [facility] Last Admin: 10/16/16 08:23 Dose: 17 gm - Labs Labs: 10/16/16 05:45 10/16/16 05:45 PT 10.9 SECONDS (9.6-11.2) 10/14/16 16:20 INR 1.05 (0.92-1.08) 10/14/16 16:20 APTT 25.2 SECONDS (23.3-32.5) 10/14/16 16:20 Attending/Attestation - Attestation I have personally seen and examined this patient.: Yes I have fully participated in the care of the patient.: Yes I have reviewed all pertinent clinical information, including history, physical exam and plan: Yes Notes (Text): 10/16/16 16:38 Patient seen with GI fellow. This is a 50 yo female with no significant PMHx who presented to the ED with abdominal pain in setting of cholelithiasis. MRCP negative for choledocholithiasis. No GI endoluminal procedure planned. Rest of plan as per Surgery. Recommend cholecystectomy. Will sign off now. Thank you for letting us participate in the care of your patient. .
[2016-10-16] MEDS: DiphenhydrAMINE 50 mg/ml Inj IVP PRN (18:06)
[2016-10-17 06:23] LABS: BASO % 0.5 % (0.0-2.0); EOS # 0.1 K/uL (0.0-0.7); EOS % 2.1 % (0.0-4.0); HEMATOCRIT 28.5 % (34.0-47.0); LYMPH # 1.1 K/uL (1.0-4.3); LYMPH % 22.8 % (20.0-40.0); MEAN CELL VOLUME 91.2 fl (81.0-99.0); MEAN PLATELET VOLUME 7.4 fl (7.2-11.7); MONO # 0.3 K/uL (0.0-0.8); MONO % 6.9 % (0.0-10.0); NEUT # 3.2 K/uL (1.8-7.0); NEUT % 67.7 % (50.0-75.0); RED CELL DISTRIBUTION WIDTH 12.7 % (11.5-14.5); WHITE BLOOD COUNT 4.8 K/uL (4.8-10.8)
[2016-10-17 06:34] LABS: ALKALINE PHOSPHATASE 76 U/L (38-126); ALT/SGPT 38 U/L (9-52); AST/SGOT 30 U/L (14-36); BILIRUBIN,TOTAL 0.7 mg/dl (0.2-1.3); BLOOD UREA NITROGEN 5 mg/dl (7-17); CALCIUM 8.6 mg/dL (8.4-10.2); CARBON DIOXIDE 29 mmol/L (22-30); CHLORIDE 102 mmol/L (98-107); GFR AFRICAN-AMERICAN > 60; GLUCOSE,RANDOM 109 mg/dL (65-105); POTASSIUM 3.4 MMOL/L (3.6-5.0); SODIUM 139 mmol/l (132-148); TOTAL PROTEIN 5.6 G/DL (6.3-8.2)
[2016-10-17 06:35] LABS: ALB/GLOB RATIO 1.1 (1.0-2.1)
--- NOTE | 2016-10-17 07:48 | CP.PCM.PN ---
<Gianna Ramirez - Last Filed: 10/17/16 07:45> Subjective - Date & Time of Evaluation Date of Evaluation: 10/17/16 Time of Evaluation: 07:45 - Subjective Subjective: General Surgery - Dr. Naik Pt S&E. AGNES. PT has RUQ/R Flank pain, unchanged. She denies any other complaints. Pt was advanced to [facility] over weekend but was nauseous so she remains NPO at this time. No current N/V, F/C, SOB/Cp. Objective - Vital Signs/Intake and Output Vital Signs (last 24 hours): Temp Pulse Resp BP Pulse Ox 98.9 F 79 18 112/73 96 10/17/16 07:28 10/17/16 07:28 10/17/16 07:28 10/17/16 07:28 10/17/16 07:28 - Medications Medications: Current Medications Diphenhydramine HCl (Benadryl) 50 mg IVP Q6 PRN PRN Reason: Itching / Pruritus Last Admin: 10/16/16 18:06 Dose: 50 mg Dextrose/Sodium Chloride (Dextrose 5%-0.9% Ns 500 Ml) 1,000 mls @ 100 mls/hr IV .Q10H [facility] Last Admin: 10/17/16 03:21 Dose: 100 mls/hr Levofloxacin/Dextrose (Levaquin 500mg) 500 mg in 100 mls @ 100 mls/hr IVPB DAILY [facility] Morphine Sulfate (Morphine) 4 mg IVP Q4 PRN PRN Reason: Pain, severe (8-10) Last Admin: 10/17/16 03:18 Dose: 4 mg Ondansetron HCl (Zofran Inj) 4 mg IVP Q4 PRN PRN Reason: Nausea/Vomiting Last Admin: 10/15/16 17:26 Dose: 4 mg Pantoprazole Sodium (Protonix Ec Tab) 40 mg PO ACB [facility] Last Admin: 10/16/16 06:35 Dose: 40 mg Polyethylene Glycol (Miralax) 17 gm PO DAILY [facility] Last Admin: 10/16/16 08:23 Dose: 17 gm - Labs Labs: 10/17/16 05:50 10/17/16 05:50 PT 10.9 SECONDS (9.6-11.2) 10/14/16 16:20 INR 1.05 (0.92-1.08) 10/14/16 16:20 APTT 25.2 SECONDS (23.3-32.5) 10/14/16 16:20 - Constitutional Appears: No Acute Distress - Head Exam Head Exam: ATRAUMATIC, NORMAL INSPECTION, NORMOCEPHALIC - Eye Exam Eye Exam: Normal appearance. absent: Scleral icterus - ENT Exam ENT Exam: Mucous Membranes Moist - Respiratory Exam Respiratory Exam: NORMAL BREATHING PATTERN. absent: Respiratory Distress - GI/Abdominal Exam GI & Abdominal Exam: Guarding, Soft, Tenderness (RUQ). absent: Distended, Rigid - Neurological Exam Neurological Exam: Alert, Oriented x3 - Psychiatric Exam Psychiatric exam: Normal Affect, Normal Mood - Skin Skin Exam: Dry, Intact Assessment and Plan - Assessment and Plan (Free Text) Assessment: 50F w/ no PMH, with gallstone pancreatitis - Labs improved, LFTs wnl - MRCP negative for choledocholithiasis - Maintain NPO, IVF, Pain control - Tentative plan for Cholecystectomy Monday - Dr Heena Ramirez PGY2 <Daniel Naik - Last Filed: 10/17/16 09:58> Subjective - Date & Time of Evaluation Time of Evaluation: 09:45 - Subjective Subjective: Patient was seen and examined at the bedside. Agree with resident's note above Objective - Vital Signs/Intake and Output Vital Signs (last 24 hours): Temp Pulse Resp BP Pulse Ox 98.9 F 79 18 112/73 96 10/17/16 07:28 10/17/16 07:28 10/17/16 07:28 10/17/16 07:28 10/17/16 07:28 - Medications Medications: Current Medications Diphenhydramine HCl (Benadryl) 50 mg IVP Q6 PRN PRN Reason: Itching / Pruritus Last Admin: 10/16/16 18:06 Dose: 50 mg Levofloxacin/Dextrose (Levaquin 500mg) 500 mg in 100 mls @ 100 mls/hr IVPB DAILY [facility] Last Admin: 10/17/16 08:16 Dose: 100 mls/hr Potassium Chloride 20 meq/ (Sodium Chloride) 1,010 mls @ 125 mls/hr IV .Q8H5M [facility] Stop: 10/18/16 07:53 Morphine Sulfate (Morphine) 4 mg IVP Q4 PRN PRN Reason: Pain, severe (8-10) Last Admin: 10/17/16 03:18 Dose: 4 mg Ondansetron HCl (Zofran Inj) 4 mg IVP Q4 PRN PRN Reason: Nausea/Vomiting Last Admin: 10/15/16 17:26 Dose: 4 mg Pantoprazole Sodium (Protonix Ec Tab) 40 mg PO ACB [facility] Last Admin: 10/17/16 08:16 Dose: 40 mg Polyethylene Glycol (Miralax) 17 gm PO DAILY [facility] Last Admin: 10/17/16 08:16 Dose: Not Given - Labs Labs: 10/17/16 05:50 10/17/16 05:50 PT 10.9 SECONDS (9.6-11.2) 10/14/16 16:20 INR 1.05 (0.92-1.08) 10/14/16 16:20 APTT 25.2 SECONDS (23.3-32.5) 10/14/16 16:20 Assessment and Plan - Assessment and Plan (Free Text) Plan: - Start clear liquid diet - Pain control - IV fluids - Zofran prn - NPO after midnight - Plan for cholecystectomy tomorrow
[2016-10-17] MEDS ORDERED: Potassium Chloride 20 mEq ER Tab PO ONE (07:54)
[2016-10-17] MEDS: Pantoprazole 40 mg EC Tab PO SCH (08:16)
[2016-10-17] MEDS: levoFLOXacin 500 mg in D5W 500 MG/100 ML BAG IVPB SCH (08:16)
[2016-10-17] MEDS: POLYETHYLENE GLYCOL 3350 17 GM/Dose PACKET PO SCH (08:16)
--- NOTE | 2016-10-17 19:13 | PN ---
DATE: 10/17/2016 SUBJECTIVE: The patient is seen today on 10/17/2016. The patient has less abdominal pain. She was admitted for cholecystectomy tomorrow. PHYSICAL EXAMINATION: VITAL SIGNS: Her blood pressure is 133/77, temperature 99, respiratory rate 18, and pulse is 69. HEENT: Pupils equal, reactive to light. Normal-appearing mucosa of the conjunctivae, oropharyngeal and nasal membrane mucosa. NECK: Supple. No JVD, no carotid bruit, no lymph node, no thyromegaly. CHEST AND LUNGS: Bilateral symmetrical expansion, good air exchange. No rales, no rhonchi. CARDIOVASCULAR: PMI not localized. S1, S2. No additional sounds. ABDOMEN: Normoactive bowel sounds. There is mild right upper quadrant tenderness. No organomegaly, no masses. EXTREMITIES: No cyanosis, no clubbing, no edema. CENTRAL NERVOUS SYSTEM: Alert, awake, oriented x 3. No neurological deficits could be appreciated. ASSESSMENT: 1. Acute cholecystitis and pancreatitis. 2. Hypokalemia. PLAN: Supplement potassium, check magnesium, continue IV fluids and follow surgical recommendations. [facility] Alyson Chilel MD cc: [phone] TT: 10/17/2016 19:13:07 Confirmation # [id number] Dictation # [id number] mn
[2016-10-17] MEDS: DiphenhydrAMINE 50 mg/ml Inj IVP PRN (22:06)
[2016-10-18 06:50] LABS: HEMATOCRIT 29.1 % (34.0-47.0); MEAN CELL VOLUME 90.2 fl (81.0-99.0); MEAN CORPUSCULAR HEMOGLOBIN 30.7 pg (27.0-31.0); RED CELL DISTRIBUTION WIDTH 12.4 % (11.5-14.5); WHITE BLOOD COUNT 4.2 K/uL (4.8-10.8)
[2016-10-18 07:08] LABS: PARTIAL THROMBOPLASTIN TIME 27.5 SECONDS (23.3-32.5)
[2016-10-18 07:15] LABS: ALB/GLOB RATIO 1.4 (1.0-2.1); ALKALINE PHOSPHATASE 86 U/L (38-126); ALT/SGPT 50 U/L (9-52); AST/SGOT 40 U/L (14-36); BILIRUBIN,TOTAL 0.6 mg/dl (0.2-1.3); BLOOD UREA NITROGEN 5 mg/dl (7-17); CALCIUM 8.7 mg/dL (8.4-10.2); CARBON DIOXIDE 27 mmol/L (22-30); CHLORIDE 103 mmol/L (98-107); GFR AFRICAN-AMERICAN > 60; GLUCOSE,RANDOM 76 mg/dL (65-105); POTASSIUM 3.9 MMOL/L (3.6-5.0); SODIUM 140 mmol/l (132-148); TOTAL PROTEIN 5.5 G/DL (6.3-8.2)
[2016-10-18] MEDS: Pantoprazole 40 mg EC Tab PO SCH (08:20)
[2016-10-18] MEDS: POLYETHYLENE GLYCOL 3350 17 GM/Dose PACKET PO SCH (08:20)
[2016-10-18] MEDS: levoFLOXacin 500 mg in D5W 500 MG/100 ML BAG IVPB SCH (08:21)
[2016-10-18] MEDS ORDERED: Propofol 10 mg/ml Inj (20 ML) ONE (12:52)
[2016-10-18] MEDS ORDERED: Midazolam 2 MG/2 ML VIAL ONE (12:52)
[2016-10-18] MEDS ORDERED: Rocuronium 10 mg/ml (5 ml) ONE (12:52)
[2016-10-18] MEDS ORDERED: Neostigmine Methylsulfate 3mg/3ml Syringe IV ONE (12:53)
[2016-10-18] MEDS ORDERED: Succinylcholine 200 mg/10 ml Inj IV ONE (12:53)
[2016-10-18] MEDS ORDERED: Bupivacaine 0.5% Inj(30mL) ONE (12:59)
[2016-10-18] MEDS ORDERED: Lidocaine 1% Inj (20ml) ONE (12:59)
[2016-10-18] MEDS ORDERED: Iohexol 300 100 ML IJ ONE (13:19)
[2016-10-18] MEDS ORDERED: Lactated Ringer's 1,000 ML IV ONE ×2 (13:37→15:55)
[2016-10-18] MEDS ORDERED: Bupivacaine 0.5% 50 ML IJ ONE ×2 (14:07)
--- NOTE | 2016-10-18 14:57 | PCM.SURG1 ---
Surgeon's Initial Post Op Note - Surgeon's Notes Surgeon: Dr. Najera Color Printer Operator: Dr. Naik, Dr. Mathis PGY-1 Type of Anesthesia: General Endo Pre-Operative Diagnosis: Gallstone Pancreatitis Operative Findings: See operative Note Post-Operative Diagnosis: Gallstone Pancreatitis Operation Performed: Laparoscopic Cholecystectomy Specimen/Specimens Removed: Gallbladder Estimated Blood Loss: EBL {In ML}: 5 Blood Products Given: N/A Drains Used: No Drains Post-Op Condition: Good Date of Surgery/Procedure: 10/18/16 Time of Surgery/Procedure: 14:57
[2016-10-18] MEDS ORDERED: HYDROmorphone 0.5 mg/0.5 ml ISec IVP PRN ×2 (14:58→15:21)
[2016-10-18] MEDS ORDERED: DiphenhydrAMINE 50 mg/ml Inj IVP PRN (15:21)
[2016-10-18] MEDS ORDERED: Lactated Ringer's 500 ML IV ONE (15:55)
--- NOTE | 2016-10-18 16:03 | OP ---
PROCEDURE DATE: 10/18/2016 OPERATION PERFORMED: Laparoscopic cholecystectomy. SURGEON: Fracisco Najera MD FLAT KNITTER HELPER: Daniel Naik MD SECOND FLAT KNITTER HELPER: ANESTHESIA: General. PREOPERATIVE DIAGNOSIS: Pancreatitis. POSTOPERATIVE DIAGNOSIS: Pancreatitis. OPERATIVE FINDINGS: Cystic duct, cystic artery, critical view obtained. ESTIMATED BLOOD LOSS: Minimal. PREPARATION AND PROCEDURE: The patient was taken to the Operating Room and placed supine on the oper ating table. After induction of general anesthesia, the abdomen was prepped and draped in a standard surgical fashion. A Veress needle was inserted into the abdomen through the umbilicus. The abdomen was insufflated. Once sufficient CO2 was entered into the abdomen, a 10 mm trocar was placed throug h the umbilicus and a diagnostic laparoscopy was performed. The patient was then placed into the rev ersed Trendelenburg left side down position and the subxiphoid and two right-sided trocars were place d under direct vision. The gallbladder was grasped from the fundus and pulled upwards and the neck o f the gallbladder was pulled outwards exposing the triangle of Calot. Blunt dissection with a Kamila grant dissector was used to isolate the contents of the triangle of Calot. Once the contents of the tri angle were isolated. The cystic duct was identified and seen to be entering the gallbladder. The cy stic duct was then clipped and divided. The cystic artery was then encircled clipped and divided in a similar fashion. The gallbladder was then taken off the gallbladder fossa using the electrocautery . Once the gallbladder was off the gallbladder fossa, it was placed into an EndoCatch bag. The righ t upper quadrant was copiously irrigated. The gallbladder fossa was checked for bleeding. There was no evidence of bleeding. The irrigant was removed. The gallbladder was then removed via the umbili peri trocar site. The trocars were then removed under direct vision. The umbilical trocar site was c losed using #0 Vicryl. The skin incisions were closed using #4-0 Monocryl and the patient had 10 cc of 1% Marcaine infiltrated into all the wounds. The patient tolerated the procedure well. There wer e no complications. The sponge, instrument and needle counts were correct at the end of the case. POSTOPERATIVE CONDITION: The patient was then awakened from general anesthesia, transported to the ecovery Room in satisfactory condition. Fracisco Najera MD cc: [id number] TT: 10/18/2016 16:02:40 en
[2016-10-18] MEDS: Lactated Ringer's 1,000 ML IV SCH (16:36)
[2016-10-18] MEDS: DiphenhydrAMINE 50 mg/ml Inj IVP PRN (23:42)
[2016-10-19] MEDS: Lactated Ringer's 1,000 ML IV SCH ×2 (00:21→11:22)
--- NOTE | 2016-10-19 02:04 | PN ---
DATE: 10/18/2016 SUBJECTIVE: The patient is seen today on 10/18/2016, after cholecystectomy. The patient has abdomin al pain. PHYSICAL EXAMINATION: VITAL SIGNS: Blood pressure is 138/83, temperature 99.2, respiratory rate 18, and pulse 89. HEENT: Pupils equal, reactive to light. Normal-appearing mucosa of the conjunctivae, oropharyngeal, and nasal membrane mucosa. NECK: Supple, no JVD, no carotid bruit, no lymph node, no thyromegaly. CHEST AND LUNGS: Bilateral symmetrical expansion, good air exchange, no rales, no rhonchi. CARDIOVASCULAR: PMI not localized. S1, S2. No additional sounds. ABDOMEN: Normoactive bowel sounds, no tenderness, no organomegaly, no masses. EXTREMITIES: No cyanosis, no clubbing, no edema. CENTRAL NERVOUS SYSTEM: Alert, awake, oriented x 3. No neurological deficits could be appreciated. ASSESSMENT: 1. Postoperative status post laparoscopic cholecystectomy. 2. Status post pancreatitis and cholecystitis. PLAN: Follow up surgical recommendations, continue IV fluid, and current pain medications. Kiko Chilel MD cc: [phone] TT: 10/19/2016 02:03:49 Confirmation # [id number] Dictation # [id number] vn
[2016-10-19 07:04] LABS: ALB/GLOB RATIO 1.4 (1.0-2.1); ALKALINE PHOSPHATASE 87 U/L (38-126); ALT/SGPT 57 U/L (9-52); AST/SGOT 50 U/L (14-36); BILIRUBIN,TOTAL 0.6 mg/dl (0.2-1.3); BLOOD UREA NITROGEN 7 mg/dl (7-17); CALCIUM 8.5 mg/dL (8.4-10.2); CARBON DIOXIDE 27 mmol/L (22-30); CHLORIDE 99 mmol/L (98-107); GFR AFRICAN-AMERICAN > 60; GLUCOSE,RANDOM 68 mg/dL (65-105); POTASSIUM 3.8 MMOL/L (3.6-5.0); SODIUM 137 mmol/l (132-148); TOTAL PROTEIN 5.6 G/DL (6.3-8.2)
[2016-10-19 07:07] LABS: BASO % 0.4 % (0.0-2.0); EOS # 0.1 K/uL (0.0-0.7); EOS % 1.2 % (0.0-4.0); HEMATOCRIT 30.2 % (34.0-47.0); LYMPH # 0.9 K/uL (1.0-4.3); LYMPH % 17.9 % (20.0-40.0); MEAN CORPUSCULAR HEMOGLOBIN 30.3 pg (27.0-31.0); MEAN CORPUSCULAR HGB CONC 33.2 g/dL (33.0-37.0); MEAN PLATELET VOLUME 7.7 fl (7.2-11.7); MONO # 0.4 K/uL (0.0-0.8); MONO % 8.5 % (0.0-10.0); NEUT # 3.7 K/uL (1.8-7.0); RED CELL DISTRIBUTION WIDTH 12.6 % (11.5-14.5); WHITE BLOOD COUNT 5.1 K/uL (4.8-10.8)
--- NOTE | 2016-10-19 08:02 | CP.PCM.PN ---
<Michelle Alvarez - Last Filed: 10/19/16 07:58> Subjective - Date & Time of Evaluation Date of Evaluation: 10/19/16 Time of Evaluation: 07:58 - Subjective Subjective: This is a general surgery note for Dr. Najera: 50 y/o female seen at bedside 1 day s/p vira ron. Patient appears in NAd and AAOx3. patient denies any acute events overnight. She states that her pain has improved since yesterday. patient is tolerating liquid diet. Patient denies n/f/ v/d/c/sob. Objective - Vital Signs/Intake and Output Vital Signs (last 24 hours): Temp Pulse Resp BP Pulse Ox 98.4 F 85 20 122/76 95 10/19/16 07:42 10/19/16 07:42 10/19/16 07:42 10/19/16 07:42 10/19/16 07:42 - Medications Medications: Current Medications Diphenhydramine HCl (Benadryl) 50 mg IVP Q6 PRN PRN Reason: Itching / Pruritus Last Admin: 10/18/16 23:42 Dose: 50 mg Hydromorphone HCl (Dilaudid) 0.5 mg IVP Q4 PRN PRN Reason: Pain, severe (8-10) Levofloxacin/Dextrose (Levaquin 500mg) 500 mg in 100 mls @ 100 mls/hr IVPB DAILY [facility] Last Admin: 10/18/16 08:21 Dose: 100 mls/hr Lactated Ringer's (Lactated Ringer's) 1,000 mls @ 100 mls/hr IV .Q10H [facility] Last Admin: 10/19/16 00:21 Dose: 100 mls/hr Morphine Sulfate (Morphine) 4 mg IVP Q4 PRN PRN Reason: Pain, severe (8-10) Last Admin: 10/19/16 04:08 Dose: 4 mg Ondansetron HCl (Zofran Inj) 4 mg IVP Q4 PRN PRN Reason: Nausea/Vomiting Last Admin: 10/15/16 17:26 Dose: 4 mg Pantoprazole Sodium (Protonix Ec Tab) 40 mg PO ACB [facility] Last Admin: 10/18/16 08:20 Dose: Not Given Polyethylene Glycol (Miralax) 17 gm PO DAILY [facility] Last Admin: 10/18/16 08:20 Dose: Not Given - Labs Labs: 10/19/16 06:20 10/19/16 06:20 PT 12.7 SECONDS (9.6-11.2) H 10/18/16 05:35 INR 1.22 (0.92-1.08) H 10/18/16 05:35 APTT 27.5 SECONDS (23.3-32.5) 10/18/16 05:35 - Constitutional Appears: Well, Non-toxic, No Acute Distress - GI/Abdominal Exam GI & Abdominal Exam: Soft, Normal Bowel Sounds Assessment and Plan - Assessment and Plan (Free Text) Assessment: 50 y/o female seen at bedside 1 day s/p lap asaf Plan: -1 day s/p lap asaf -advance to regular diet -patient stable for d/c -follow up with Dr. Najera as outpatient -recommend no heavy lifting over 10 lbs for 4 weeks <Daniel Naik - Last Filed: 10/19/16 11:08> Subjective - Date & Time of Evaluation Time of Evaluation: 11:00 - Subjective Subjective: Patient was seen and examined at the bedside. Agree with resident's note above. Objective - Vital Signs/Intake and Output Vital Signs (last 24 hours): Temp Pulse Resp BP Pulse Ox 98.4 F 85 20 122/76 95 10/19/16 07:42 10/19/16 07:42 10/19/16 07:42 10/19/16 07:42 10/19/16 07:42 - Medications Medications: Current Medications Diphenhydramine HCl (Benadryl) 50 mg IVP Q6 PRN PRN Reason: Itching / Pruritus Last Admin: 10/18/16 23:42 Dose: 50 mg Hydromorphone HCl (Dilaudid) 0.5 mg IVP Q4 PRN PRN Reason: Pain, severe (8-10) Levofloxacin/Dextrose (Levaquin 500mg) 500 mg in 100 mls @ 100 mls/hr IVPB DAILY [facility] Last Admin: 10/19/16 08:50 Dose: 100 mls/hr Lactated Ringer's (Lactated Ringer's) 1,000 mls @ 100 mls/hr IV .Q10H [facility] Last Admin: 10/19/16 00:21 Dose: 100 mls/hr Morphine Sulfate (Morphine) 4 mg IVP Q4 PRN PRN Reason: Pain, severe (8-10) Last Admin: 10/19/16 08:37 Dose: 4 mg Ondansetron HCl (Zofran Inj) 4 mg IVP Q4 PRN PRN Reason: Nausea/Vomiting Last Admin: 10/15/16 17:26 Dose: 4 mg Oxycodone/Acetaminophen (Percocet 5/325 Mg Tab) 1 tab PO Q4 PRN PRN Reason: Pain, moderate (4-7) Stop: 10/22/16 09:47 Pantoprazole Sodium (Protonix Ec Tab) 40 mg PO ACB [facility] Last Admin: 10/19/16 08:41 Dose: 40 mg Polyethylene Glycol (Miralax) 17 gm PO DAILY [facility] Last Admin: 10/19/16 08:41 Dose: Not Given - Labs Labs: 10/19/16 06:20 10/19/16 06:20 PT 12.7 SECONDS (9.6-11.2) H 10/18/16 05:35 INR 1.22 (0.92-1.08) H 10/18/16 05:35 APTT 27.5 SECONDS (23.3-32.5) 10/18/16 05:35 Assessment and Plan - Assessment and Plan (Free Text) Plan: - Clear for discharge home from the surgical stand point - Patient will follow up with Dr. Najera in the office in 10 days to 2 weeks for post-op visit
[2016-10-19] MEDS: Pantoprazole 40 mg EC Tab PO SCH (08:41)
[2016-10-19] MEDS: POLYETHYLENE GLYCOL 3350 17 GM/Dose PACKET PO SCH (08:41)
[2016-10-19] MEDS: levoFLOXacin 500 mg in D5W 500 MG/100 ML BAG IVPB SCH (08:50)
[2016-10-19] MEDS: Oxycodone/Acetaminophen 5/325 mg Tab PO PRN ×2 (12:43→20:11)
--- NOTE | 2016-10-19 13:30 | CP.PCM.PN ---
<Chayito Hernandez - Last Filed: 10/19/16 13:27> Subjective - Date & Time of Evaluation Date of Evaluation: 10/19/16 Time of Evaluation: 13:27 - Subjective Subjective: evaluated with attending. no overnight events. s/p lap asaf. mild abd pain, pain well controlled. Denies f/c, n/v, chest pain, SOB. Tolerating PO, making urine. Objective - Vital Signs/Intake and Output Vital Signs (last 24 hours): Temp Pulse Resp BP Pulse Ox 98.4 F 85 20 122/76 95 10/19/16 07:42 10/19/16 07:42 10/19/16 07:42 10/19/16 07:42 10/19/16 07:42 - Medications Medications: Current Medications Diphenhydramine HCl (Benadryl) 50 mg IVP Q6 PRN PRN Reason: Itching / Pruritus Last Admin: 10/18/16 23:42 Dose: 50 mg Hydromorphone HCl (Dilaudid) 0.5 mg IVP Q4 PRN PRN Reason: Pain, severe (8-10) Levofloxacin/Dextrose (Levaquin 500mg) 500 mg in 100 mls @ 100 mls/hr IVPB DAILY [facility] Last Admin: 10/19/16 08:50 Dose: 100 mls/hr Lactated Ringer's (Lactated Ringer's) 1,000 mls @ 100 mls/hr IV .Q10H [facility] Last Admin: 10/19/16 11:22 Dose: Not Given Morphine Sulfate (Morphine) 4 mg IVP Q4 PRN PRN Reason: Pain, severe (8-10) Last Admin: 10/19/16 08:37 Dose: 4 mg Ondansetron HCl (Zofran Inj) 4 mg IVP Q4 PRN PRN Reason: Nausea/Vomiting Last Admin: 10/15/16 17:26 Dose: 4 mg Oxycodone/Acetaminophen (Percocet 5/325 Mg Tab) 1 tab PO Q4 PRN PRN Reason: Pain, moderate (4-7) Stop: 10/22/16 09:47 Last Admin: 10/19/16 12:43 Dose: 1 tab Pantoprazole Sodium (Protonix Ec Tab) 40 mg PO ACB [facility] Last Admin: 10/19/16 08:41 Dose: 40 mg Polyethylene Glycol (Miralax) 17 gm PO DAILY [facility] Last Admin: 10/19/16 08:41 Dose: Not Given - Labs Labs: 10/19/16 06:20 10/19/16 06:20 PT 12.7 SECONDS (9.6-11.2) H 10/18/16 05:35 INR 1.22 (0.92-1.08) H 10/18/16 05:35 APTT 27.5 SECONDS (23.3-32.5) 10/18/16 05:35 - Constitutional Appears: Non-toxic, No Acute Distress - Head Exam Head Exam: NORMAL INSPECTION - Eye Exam Eye Exam: Normal appearance - ENT Exam ENT Exam: Mucous Membranes Moist - Neck Exam Neck Exam: Normal Inspection - Respiratory Exam Respiratory Exam: Clear to Ausculation Bilateral - Cardiovascular Exam Cardiovascular Exam: REGULAR RHYTHM - GI/Abdominal Exam GI & Abdominal Exam: Soft, Tenderness (minimal), Normal Bowel Sounds Additional comments: bandage CDI - Extremities Exam Extremities Exam: Normal Inspection - Neurological Exam Neurological Exam: Alert, Oriented x3 - Skin Skin Exam: Dry, Warm Assessment and Plan - Assessment and Plan (Free Text) Assessment: 50yo F with no PMHx admitted for cholelithiasis and acute pancreatitis. POD#1 s/p lap asaf -regular diet -pain control -surgery on board, appreciate input -zofran pancreatitis -likely 2/2 cholelithisis -MIVF -advance diet as tolerated -pain control -zofran DVT ppx -SCDs Dispo: likely d/c Thurs if tolerating PO <Osmany Auguste K - Last Filed: 10/21/16 15:52> Objective - Vital Signs/Intake and Output Vital Signs (last 24 hours): Temp Pulse Resp BP Pulse Ox 97.6 F 81 18 112/73 96 10/20/16 16:18 10/20/16 16:18 10/20/16 16:18 10/20/16 16:18 10/20/16 16:18 - Labs Labs: 10/20/16 06:00 10/20/16 06:00 PT 12.7 SECONDS (9.6-11.2) H 10/18/16 05:35 INR 1.22 (0.92-1.08) H 10/18/16 05:35 APTT 27.5 SECONDS (23.3-32.5) 10/18/16 05:35 Assessment and Plan - Assessment and Plan (Free Text) Assessment: Patient seen and examined with residents in rounds. Case, condition, investigative work up and plan discussed in detail. Agree with residents progress note. Plan: As ordered. (Osmany Auguste MD)
[2016-10-20] MEDS: Oxycodone/Acetaminophen 5/325 mg Tab PO PRN (02:26)
[2016-10-20 06:49] LABS: HEMATOCRIT 29.7 % (34.0-47.0); MEAN CELL VOLUME 90.8 fl (81.0-99.0); MEAN CORPUSCULAR HEMOGLOBIN 30.1 pg (27.0-31.0); MEAN CORPUSCULAR HGB CONC 33.2 g/dL (33.0-37.0); RED CELL DISTRIBUTION WIDTH 12.7 % (11.5-14.5); WHITE BLOOD COUNT 4.6 K/uL (4.8-10.8)
[2016-10-20 07:05] LABS: BLOOD UREA NITROGEN 10 mg/dl (7-17); CALCIUM 8.7 mg/dL (8.4-10.2); CARBON DIOXIDE 30 mmol/L (22-30); CHLORIDE 98 mmol/L (98-107); GFR AFRICAN-AMERICAN > 60; GLUCOSE,RANDOM 86 mg/dL (65-105); POTASSIUM 3.9 MMOL/L (3.6-5.0); SODIUM 137 mmol/l (132-148)
--- NOTE | 2016-10-20 09:17 | PN ---
DATE: 10/19/2016 SUBJECTIVE: The patient is seen today 10/19/2016, as she started complaining of significant abdomina l pain and generalized weakness. She is postoperative day #1 status post laparoscopic cholecystectom y. PHYSICAL EXAMINATION: VITAL SIGNS: Blood pressure 121/73, temperature 99, respiratory rate 18, and pulse is 79. HEENT: Pupils equal, reactive to light. Normal-appearing mucosa of the conjunctivae, oropharyngeal and nasal membrane mucosa. NECK: Supple. No JVD. No carotid bruit. CHEST AND LUNGS: Symmetrical expansion, good air exchange. No rales. No rhonchi. CARDIOVASCULAR: PMI not localized. S1, S2. No additional sounds. ABDOMEN: Normoactive bowel sounds. No organomegaly, no masses. The patient has diffuse upper abdom inal tenderness, but no rebound tenderness. No rigidity. EXTREMITIES: No cyanosis, no clubbing, no edema. CENTRAL NERVOUS SYSTEM: Alert, awake, oriented x 3. No neurological deficits could be appreciated. ASSESSMENT: 1. Postoperative day #1 status post laparoscopic cholecystectomy. 2. Status post cholecystitis and pancreatitis. PLAN: Continue current medications, pain management, refer due to the patient's abdomina l pain, and if she continues will be discharged home tomorrow. Kiko Chilel MD cc: [phone] TT: 10/19/2016 21:56:12 Confirmation # [id number] Dictation # [id number] mn
[2016-10-20] MEDS: POLYETHYLENE GLYCOL 3350 17 GM/Dose PACKET PO SCH (09:47)
[2016-10-20] MEDS: Pantoprazole 40 mg EC Tab PO SCH (09:47)
--- NOTE | 2016-10-20 10:06 | CP.PCM.CON ---
History of Present Illness - History of Present Illness History of Present Illness: General Surgery Progress Note for Dr. Najera This 50F was seen and examined this AM at bedside. She reports no acute events overnight. She reports pain yesterday after meals however she denies any current pain. Patient is reporting flatus denying BM. She also denies nausea, vomiting, chest pain, SOB. Past Patient History - Past Medical History & Family History Past Medical History?: Yes - Past Social History Alcohol: Social (once every other week) - CARDIAC Hx Cardiac Disorders: No - PULMONARY Hx Respiratory Disorders: No - NEUROLOGICAL Hx Neurological Disorder: No - HEENT Hx HEENT Problems: No - RENAL Hx Chronic Kidney Disease: No - ENDOCRINE/METABOLIC Hx Endocrine Disorders: No - HEMATOLOGICAL/ONCOLOGICAL Hx Blood Disorders: No Hx AIDS: No Hx Human Immunodeficiency Virus (HIV): No - INTEGUMENTARY Hx Dermatological Problems: No - MUSCULOSKELETAL/RHEUMATOLOGICAL Hx Musculoskeletal Disorders: No Hx Falls: No - GASTROINTESTINAL Other/Comment: gallstone - GENITOURINARY/GYNECOLOGICAL Hx Genitourinary Disorders: No - PSYCHIATRIC Hx Psychophysiologic Disorder: No Hx Substance Use: No - SURGICAL HISTORY Hx Surgeries: No Hx Section: Yes - ANESTHESIA Hx Anesthesia: Yes Hx Anesthesia Reactions: No Meds Home Medications: Home Medication List Medication Instructions Recorded Confirmed Type oxyCODONE/Acetaminophen [Percocet 1 tab PO Q4 PRN #30 tab 10/19/16 Rx 5/325 mg Tab] Allergies/Adverse Reactions: Allergies Allergy/AdvReac Type Severity Reaction Status Date / Time No Known Allergies Allergy Verified 10/10/16 19:24 - Medications Medications: Current Medications Diphenhydramine HCl (Benadryl) 50 mg IVP Q6 PRN PRN Reason: Itching / Pruritus Last Admin: 10/18/16 23:42 Dose: 50 mg Hydromorphone HCl (Dilaudid) 0.5 mg IVP Q4 PRN PRN Reason: Pain, severe (8-10) Lactated Ringer's (Lactated Ringer's) 1,000 mls @ 100 mls/hr IV .Q10H [facility] Last Admin: 10/19/16 11:22 Dose: Not Given Ondansetron HCl (Zofran Inj) 4 mg IVP Q4 PRN PRN Reason: Nausea/Vomiting Last Admin: 10/15/16 17:26 Dose: 4 mg Oxycodone/Acetaminophen (Percocet 5/325 Mg Tab) 1 tab PO Q4 PRN PRN Reason: Pain, moderate (4-7) Stop: 10/22/16 09:47 Last Admin: 10/20/16 02:26 Dose: 1 tab Pantoprazole Sodium (Protonix Ec Tab) 40 mg PO ACB [facility] Last Admin: 10/20/16 09:47 Dose: 40 mg Polyethylene Glycol (Miralax) 17 gm PO DAILY [facility] Last Admin: 10/20/16 09:47 Dose: 17 gm Results - Vital Signs Recent Vital Signs: Last Vital Signs Temp 99.0 F 10/20/16 08:09 Pulse 91 H 10/20/16 08:09 Resp 20 10/20/16 08:09 BP 97/63 L 10/20/16 08:09 Pulse Ox 97 10/20/16 08:09 - Labs Result Diagrams: 10/20/16 06:00 10/20/16 06:00 Labs: Laboratory Results - last 24 hr 10/20/16 10/20/16 06:00 06:00 WBC 4.6 L RBC 3.27 L Hgb 9.9 L Hct 29.7 L MCV 90.8 MCH 30.1 MCHC 33.2 RDW 12.7 Plt Count 160 Sodium 137 Potassium 3.9 Chloride 98 Carbon Dioxide 30 Anion Gap 13 BUN 10 Creatinine 0.7 Est GFR ( Amer) > 60 Est GFR (Non-Af Amer) > 60 Random Glucose 86 Calcium 8.7
--- NOTE | 2016-10-20 10:11 | CP.PCM.PN ---
Subjective - Date & Time of Evaluation Date of Evaluation: 10/20/16 Time of Evaluation: 10:08 - Subjective Subjective: General Surgery Progress Note for Dr. Najera This 89F was seen and examined this AM at bedside. Last night she experienced abdominal pain after eating so she stayed in the hospital an extra night. She is now tolerating diet, passing flatus no nausea or vomiting. Patient denies bowel movements. Patient denies fevers, chills, chest pain, nausea, vomiting or diarrhea. Objective - Vital Signs/Intake and Output Vital Signs (last 24 hours): Temp Pulse Resp BP Pulse Ox 99.0 F 91 H 20 97/63 L 97 10/20/16 08:09 10/20/16 08:09 10/20/16 08:09 10/20/16 08:09 10/20/16 08:09 - Medications Medications: Current Medications Diphenhydramine HCl (Benadryl) 50 mg IVP Q6 PRN PRN Reason: Itching / Pruritus Last Admin: 10/18/16 23:42 Dose: 50 mg Hydromorphone HCl (Dilaudid) 0.5 mg IVP Q4 PRN PRN Reason: Pain, severe (8-10) Lactated Ringer's (Lactated Ringer's) 1,000 mls @ 100 mls/hr IV .Q10H [facility] Last Admin: 10/19/16 11:22 Dose: Not Given Ondansetron HCl (Zofran Inj) 4 mg IVP Q4 PRN PRN Reason: Nausea/Vomiting Last Admin: 10/15/16 17:26 Dose: 4 mg Oxycodone/Acetaminophen (Percocet 5/325 Mg Tab) 1 tab PO Q4 PRN PRN Reason: Pain, moderate (4-7) Stop: 10/22/16 09:47 Last Admin: 10/20/16 02:26 Dose: 1 tab Pantoprazole Sodium (Protonix Ec Tab) 40 mg PO ACB [facility] Last Admin: 10/20/16 09:47 Dose: 40 mg Polyethylene Glycol (Miralax) 17 gm PO DAILY [facility] Last Admin: 10/20/16 09:47 Dose: 17 gm - Labs Labs: 10/20/16 06:00 10/20/16 06:00 PT 12.7 SECONDS (9.6-11.2) H 10/18/16 05:35 INR 1.22 (0.92-1.08) H 10/18/16 05:35 APTT 27.5 SECONDS (23.3-32.5) 10/18/16 05:35 - Constitutional Appears: Non-toxic, No Acute Distress - Head Exam Head Exam: ATRAUMATIC, NORMOCEPHALIC - Eye Exam Eye Exam: EOMI, Normal appearance - Respiratory Exam Respiratory Exam: NORMAL BREATHING PATTERN - Cardiovascular Exam Cardiovascular Exam: REGULAR RHYTHM - GI/Abdominal Exam GI & Abdominal Exam: Soft. absent: Firm, Guarding, Rigid, Tenderness - Extremities Exam Extremities Exam: Normal Inspection - Neurological Exam Neurological Exam: Alert, Awake - Psychiatric Exam Psychiatric exam: Normal Affect, Normal Mood - Skin Skin Exam: Dry, Intact Assessment and Plan - Assessment and Plan (Free Text) Assessment: This is a 50F POD#2 s/p lap asaf and doing well PT is clear for discharge, followup in 7-10. Will discuss with Dr. Reinaldo Mathis PGY-1
[2016-10-20] MEDS ORDERED: Simethicone 80 mg Chewtab PO ONE (14:18)
[2016-10-20 16:19] VITALS: BP 112/73; PULSE 81; RESP 18; TEMP 97.6; O2SAT 96
--- NOTE | 2016-10-21 01:09 | DS ---
REASON FOR ADMISSION: This is a 50-year-old female with no significant past medical histor y, was admitted for cholecystitis and pancreatitis. COURSE OF HOSPITALIZATION: The patient was started on IV fluid and her abdominal pain eventually res olved. The patient had a surgical consultation done and she underwent laparoscopic cholecystectomy. The patient's postoperative course was uneventful and patient was discharged home in stable conditio n to continue pain medications as needed and follow up with primary care physician. FINAL DIAGNOSES: 1. Acute calculous cholecystitis. 2. Pancreatitis. [facility] Alyson Chilel MD cc: 167 TT: 10/21/2016 01:08:55 mn
== END 2016-10-20 16:31 | disposition home or self-care (01) | DRG 417 ==
LOC: H.ER 14:50 → H.ERHOLD 19:23 → H.MEDSURG1 21:34
PROVIDERS: ADMIT Internal Medicine; ATTEND Internal Medicine
PROC: 0FT44ZZ Resection of Gallbladder, Percutaneous Endoscopic Approach (ICD-10-PCS; principal; 2016-10-18 13:00)
DX: K80.00 Calculus of gallbladder with acute cholecystitis without obstruction (principal); K85.90 Acute pancreatitis without necrosis or infection, unspecified; N39.0 Urinary tract infection, site not specified; E87.6 Hypokalemia

== ENCOUNTER 2016-10-27 14:30 | Inpatient (IN) | payer OTHER ==
[2016-10-28 02:11] LABS: ALB/GLOB RATIO 1.4 (1.0-2.1); ALKALINE PHOSPHATASE 118 U/L (38-126); ALT/SGPT 43 U/L (9-52); AST/SGOT 44 U/L (14-36); BILIRUBIN,TOTAL 0.6 mg/dl (0.2-1.3); BLOOD UREA NITROGEN 15 mg/dl (7-17); CALCIUM 9.6 mg/dL (8.4-10.2); CARBON DIOXIDE 21 mmol/L (22-30); CHLORIDE 97 mmol/L (98-107); GFR AFRICAN-AMERICAN > 60; GLUCOSE,RANDOM 67 mg/dL (65-105); LIPASE 131 U/L (23-300); POTASSIUM 4.3 MMOL/L (3.6-5.0); SODIUM 136 mmol/l (132-148); TOTAL PROTEIN 6.8 G/DL (6.3-8.2)
[2016-10-28 02:13] LABS: BASO % 0.7 % (0.0-2.0); EOS % 0.5 % (0.0-4.0); HEMATOCRIT 34.4 % (34.0-47.0); LYMPH # 0.9 K/uL (1.0-4.3); LYMPH % 17.4 % (20.0-40.0); MEAN CELL VOLUME 89.8 fl (81.0-99.0); MEAN CORPUSCULAR HEMOGLOBIN 29.3 pg (27.0-31.0); MEAN CORPUSCULAR HGB CONC 32.7 g/dL (33.0-37.0); MEAN PLATELET VOLUME 7.9 fl (7.2-11.7); MONO # 0.3 K/uL (0.0-0.8); MONO % 5.9 % (0.0-10.0); NEUT # 3.8 K/uL (1.8-7.0); NEUT % 75.5 % (50.0-75.0); NRBC % 0.1 % (0.0-0.0); RED CELL DISTRIBUTION WIDTH 12.9 % (11.5-14.5)
--- NOTE | 2016-10-28 09:40 | CP.PCM.CON ---
<Reji Mathis - Last Filed: 10/28/16 09:57> History of Present Illness - History of Present Illness History of Present Illness: General Surgery Consult Note for Dr. Naik CC: RUQ pain and nausea and vomiting X 3 days This is a 50F with no PMHx who presents to the ED with RUQ abdominal pain and non bloody non bilious emesis since Monday. Patient had a Lap asaf done on 10/17 at [facility]. The pain began wednesday 10/25 and is described as cramping. The patient reports that she has how nothing to eat since monday. She reports that her last BM was monday, however she continues to have flatus. She denies dysuria, SOB, chest pain, diarrhea, fevers, or chills. PMHx: none Surgeries: Allergies: none Home medications: none Social history: occasional etoh, smokes a pack every 2-4 days Review of Systems - Review of Systems All systems: reviewed and no additional remarkable complaints except Past Patient History - Past Medical History & Family History Past Medical History?: Yes - Past Social History Smoking Status: Light Smoker < 10 Cigarettes Daily - CARDIAC Hx Cardiac Disorders: No - PULMONARY Hx Respiratory Disorders: No - NEUROLOGICAL Hx Neurological Disorder: No - HEENT Hx HEENT Problems: No - RENAL Hx Chronic Kidney Disease: No - ENDOCRINE/METABOLIC Hx Endocrine Disorders: No - HEMATOLOGICAL/ONCOLOGICAL Hx Blood Disorders: No Hx AIDS: No Hx Human Immunodeficiency Virus (HIV): No - INTEGUMENTARY Hx Dermatological Problems: No - MUSCULOSKELETAL/RHEUMATOLOGICAL Hx Musculoskeletal Disorders: No Hx Falls: No - GASTROINTESTINAL Other/Comment: gallstone - GENITOURINARY/GYNECOLOGICAL Hx Genitourinary Disorders: No - PSYCHIATRIC Hx Psychophysiologic Disorder: No Hx Substance Use: No - SURGICAL HISTORY Hx Surgeries: No Hx Section: Yes (x1) Hx Cholecystectomy: Yes - ANESTHESIA Hx Anesthesia: Yes Hx Anesthesia Reactions: No Meds Allergies/Adverse Reactions: Allergies Allergy/AdvReac Type Severity Reaction Status Date / Time No Known Allergies Allergy Verified 10/10/16 19:24 - Medications Medications: Current Medications Famotidine (Pepcid) 40 mg IVP DAILY [facility] Physical Exam - Constitutional Appears: Non-toxic, No Acute Distress - Head Exam Head Exam: ATRAUMATIC, NORMOCEPHALIC - Eye Exam Eye Exam: EOMI, Normal appearance - ENT Exam ENT Exam: Mucous Membranes Moist - Respiratory Exam Respiratory Exam: NORMAL BREATHING PATTERN - Cardiovascular Exam Cardiovascular Exam: REGULAR RHYTHM - GI/Abdominal Exam GI & Abdominal Exam: Soft. absent: Distended, Firm, Guarding, Hernia Results - Vital Signs Recent Vital Signs: Last Vital Signs Temp 98.1 F 10/28/16 07:35 Pulse 78 10/28/16 07:35 Resp 18 10/28/16 07:35 BP 112/76 10/28/16 07:35 Pulse Ox 98 10/28/16 07:35 - Labs Result Diagrams: 10/27/16 17:54 10/27/16 17:54 Assessment & Plan - Assessment and Plan (Free Text) Assessment: This is a 50F with no PMH who is POD# 10 s/p lap asaf who presented due to right sided abdominal pain, CT abdomen shows gastric wall thickening. Recommend GI Consult Continue Pepcid recommend Clear liquid diet Serial abdominal exams Continue managment per primary team. D/W Dr. Heena Mathis PGY-1 <Daniel Naik - Last Filed: 10/28/16 10:07> History of Present Illness - History of Present Illness History of Present Illness: Patient was seen and examined at the bedside. Agree with resident's note above Meds - Medications Medications: Current Medications Famotidine (Pepcid) 40 mg IVP DAILY [facility] Results - Vital Signs Recent Vital Signs: Last Vital Signs Temp 98.1 F 10/28/16 07:35 Pulse 78 10/28/16 07:35 Resp 18 10/28/16 07:35 BP 112/76 10/28/16 07:35 Pulse Ox 98 10/28/16 07:35 - Labs Result Diagrams: 10/27/16 17:54 10/27/16 17:54 Assessment & Plan - Assessment and Plan (Free Text) Plan: - start clear liquid diet - Pain control - IV fluids - Pepcid - Recommend GI consultation - Repeat labs in am - Will follow
[2016-10-28 11:11] LABS: AMYLASE 83 U/L (30-110); LIPASE 134 U/L (23-300)
--- NOTE | 2016-10-28 16:43 | CT ---
PROCEDURE: CT Abdomen and Pelvis without intravenous contrast HISTORY: S/P Cholecystectomy, Pain COMPARISON: Comparison is made to the previous MRI dated 10/15/2016. TECHNIQUE: Axial and reformatted coronal and sagittal CT images of the abdomen and pelvis were obtained without IV or oral contrast administration.. Contrast Dose: 0 Radiation dose: Total exam DLP = 447.45 mGy-cm. This CT exam was performed using one or more of the following dose reduction techniques: Automated exposure control, adjustment of the mA and/or kV according to patient size, and/or use of iterative reconstruction technique. FINDINGS: LOWER THORAX: Unremarkable. LIVER: Mild hepatomegaly seen P GALLBLADDER AND BILE DUCTS: Status post cholecystectomy. There is [id number] dilated CBD. PANCREAS: Unremarkable. No gross lesion or ductal dilatation. SPLEEN: Unremarkable. ADRENALS: Unremarkable. No mass. KIDNEYS AND URETERS: The left kidney is smaller than the right. There is 5 millimeter nonobstructing calculus at the upper pole of the left kidney. Cystic lesions seen at the mid to lower left kidney. Mild left hydronephrosis and hydroureter is seen without evidence of obstructing stone. The right kidney is grossly unremarkable. VASCULATURE: Unremarkable. No aortic aneurysm. BOWEL: There is fullness and haziness seen at the region of the pyloric and gastric antrum. Findings could be due to edema. Underlying neoplasm or gastritis is not totally excluded. Mildly dilated small bowel loops at the mid and lower abdomen. Correlate clinically for enteritis. APPENDIX: Unremarkable. Normal appendix. PERITONEUM: Unremarkable. No free fluid. No free air. LYMPH NODES: Unremarkable. No enlarged lymph nodes. BLADDER: Unremarkable. REPRODUCTIVE: Unremarkable. BONES: No acute fracture. OTHER FINDINGS: None. IMPRESSION: Status post cholecystectomy since the previous MRI. Mildly dilated CBD. Fullness seen at the region of the gastric antrum and pyloric as well as proximal duodenum of uncertain etiology. The differential diagnosis includes gastritis or underlying mass or collection. If clinically warranted further assessment or follow up study may be obtained. Left kidney smaller than the right contains nonobstructing calculi. Mild left hydronephrosis noted. Dilated small bowel loops suspicious for enteritis. Preliminary report was submitted by [facility].
[2016-10-29] MEDS: Oxycodone/Acetaminophen 5/325 mg Tab PO PRN ×3 (00:21→20:01)
--- NOTE | 2016-10-29 06:39 | CP.PCM.PN ---
Subjective - Date & Time of Evaluation Date of Evaluation: 10/29/16 Time of Evaluation: 06:32 - Subjective Subjective: General Surgery Progress Note for Dr. Rey This 50F was seen and examined this AM at bedside. Overnight her abdominal pain returned and it was controlled with PO percocet. She currently denies pain, nausea, vomiting, fevers, chills, or chest pain. Objective - Vital Signs/Intake and Output Vital Signs (last 24 hours): Temp Pulse Resp BP Pulse Ox 99 F 85 17 111/74 96 10/29/16 01:00 10/29/16 01:00 10/29/16 01:00 10/29/16 01:00 10/29/16 01:00 Intake and Output: 10/28/16 10/29/16 18:59 06:59 Intake Total 1200 Balance 1200 - Medications Medications: Current Medications Ondansetron HCl (Zofran Inj) 4 mg IVP Q6 PRN PRN Reason: Nausea/Vomiting Oxycodone/Acetaminophen (Percocet 5/325 Mg Tab) 1 tab PO Q8 PRN PRN Reason: Pain, moderate (4-7) Stop: 11/01/16 01:01 Last Admin: 10/29/16 00:21 Dose: 1 tab Pantoprazole Sodium (Protonix Inj) 40 mg IVP ACB TAYO - Constitutional Appears: Non-toxic, No Acute Distress - Head Exam Head Exam: ATRAUMATIC, NORMOCEPHALIC - Eye Exam Eye Exam: EOMI, Normal appearance - ENT Exam ENT Exam: Mucous Membranes Moist - Respiratory Exam Respiratory Exam: Clear to Ausculation Bilateral - Cardiovascular Exam Cardiovascular Exam: REGULAR RHYTHM - GI/Abdominal Exam GI & Abdominal Exam: Soft. absent: Firm, Guarding, Rigid, Tenderness - Extremities Exam Extremities Exam: Normal Inspection - Neurological Exam Neurological Exam: Alert, Awake - Psychiatric Exam Psychiatric exam: Normal Affect, Normal Mood - Skin Skin Exam: Normal Color, Warm Assessment and Plan - Assessment and Plan (Free Text) Assessment: This is a 50F with no PMH who is POD# 11 s/p lap asaf who presented due to right sided abdominal pain, CT abdomen shows gastric wall thickening. Recommend GI Consult Continue Pepcid recommend Clear liquid diet Serial abdominal exams Continue Pain managment Continue management per primary team. D/W Dr. Heena Mathis PGY-1
[2016-10-29] MEDS: Sodium Chloride 0.9% 1,000 ML IV SCH ×2 (08:41→16:57)
--- NOTE | 2016-10-29 11:40 | CP.PCM.CON ---
<Kishor Pena - Last Filed: 10/29/16 11:38> History of Present Illness - History of Present Illness History of Present Illness: PGY4 GI Fellow Consult Note Patient is a 50yo female with no significant PMHx who presented to the ED with recurrent abdominal pain. She was recently admitted and treated for biliary colic with cholecystectoym performed on 10/18/16. She did well post-operatively and returned home without issue. In the initial days following her procedure she was using Percocet to control pain, however symptoms resolved. This past Monday, she developed RUQ and R flank discomfort which was again relieved by her Percocet. On , pain became more severe and Percocet was not helping to alleviate symptoms so she returned to the ED for further evaluation. There is no correlation between meals and onset of pain. Since admission she notes improvement in symptoms, though pain does persist in the right flank. She denies any nausea, vomiting, diarrhea, constipation, anorexia, fever, chills. PMHx: Denies PSHx: FHx: Discussed with patient and denies any significant family history Social: 1/2ppd smoker, occasional EtOH use, denies illicit drug use Endo: EGD ~10 years ago - hiatal hernia per patient Review of Systems - Constitutional Constitutional: absent: Anorexia, Chills, Fatigue, Fever - EENT Eyes: absent: Change in Vision Nose/Mouth/Throat: absent: Sore Throat - Cardiovascular Cardiovascular: absent: Chest Pain, Dyspnea, Edema - Respiratory Respiratory: absent: Cough, Dyspnea, Excessive Mucous Production - Gastrointestinal Gastrointestinal: Abdominal Pain. absent: Constipation, Cramping, Diarrhea, Dyspepsia, Dysphagia, Heartburn, Hematemesis, Hematochezia, Melena, Nausea, Vomiting - Genitourinary Genitourinary: absent: Dysuria, Urinary Frequency, Urinary Urgency - Musculoskeletal Musculoskeletal: absent: Back Pain, Neck Pain - Integumentary Integumentary: Pruritus, Rash. absent: New Lesions - Neurological Neurological: absent: Dizziness, Numbness, Focal Weakness - Psychiatric Psychiatric: absent: Anxiety, Depression - Endocrine Endocrine: absent: Polydipsia, Polyphagia, Polyuria - Hematologic/Lymphatic Hematologic: absent: Easy Bleeding, Easy Bruising, Lymphadenopathy Past Patient History - Past Medical History & Family History Past Medical History?: Yes - Past Social History Smoking Status: Never Smoked - CARDIAC Hx Cardiac Disorders: No - PULMONARY Hx Respiratory Disorders: No - NEUROLOGICAL Hx Neurological Disorder: No - HEENT Hx HEENT Problems: No Other/Comment: reading glasses - RENAL Hx Chronic Kidney Disease: No - ENDOCRINE/METABOLIC Hx Endocrine Disorders: No - HEMATOLOGICAL/ONCOLOGICAL Hx AIDS: No Hx Human Immunodeficiency Virus (HIV): No - INTEGUMENTARY Hx Dermatological Problems: No - MUSCULOSKELETAL/RHEUMATOLOGICAL Hx Falls: No - GASTROINTESTINAL Other/Comment: gallstone - GENITOURINARY/GYNECOLOGICAL Hx Genitourinary Disorders: No - PSYCHIATRIC Hx Psychophysiologic Disorder: No Hx Substance Use: No - SURGICAL HISTORY Hx Surgeries: Yes Hx Section: Yes (x1) Hx Cholecystectomy: Yes (choly lap 10 days ago) - ANESTHESIA Hx Anesthesia: Yes Hx Anesthesia Reactions: No Hx Malignant Hyperthermia: No Has any member of the family had a problem w/ anesthesia?: No Meds Allergies/Adverse Reactions: Allergies Allergy/AdvReac Type Severity Reaction Status Date / Time pcn AdvReac ITCHING Uncoded 10/28/16 17:08 - Medications Medications: Current Medications Sodium Chloride (Sodium Chloride 0.9%) 1,000 mls @ 100 mls/hr IV .Q10H TAY[facility] Stop: 10/30/16 06:37 Last Admin: 10/29/16 08:41 Dose: 100 mls/hr Ondansetron HCl (Zofran Inj) 4 mg IVP Q6 PRN PRN Reason: Nausea/Vomiting Oxycodone/Acetaminophen (Percocet 5/325 Mg Tab) 1 tab PO Q8 PRN PRN Reason: Pain, moderate (4-7) Stop: 11/01/16 01:01 Last Admin: 10/29/16 00:21 Dose: 1 tab Pantoprazole Sodium (Protonix Inj) 40 mg IVP ACB TAYO Last Admin: 10/29/16 08:42 Dose: 40 mg Physical Exam - Constitutional Appears: Non-toxic, No Acute Distress - Eye Exam Eye Exam: EOMI, PERRL - ENT Exam ENT Exam: Mucous Membranes Moist - Respiratory Exam Respiratory Exam: Clear to Auscultation Bilateral. absent: Rales, Rhonchi, Wheezes - Cardiovascular Exam Cardiovascular Exam: RRR, +S1, +S2 - GI/Abdominal Exam GI & Abdominal Exam: Normal Bowel Sounds, Soft. absent: Distended, Firm, Guarding, Organomegaly, Rigid, Tenderness - Extremities Exam Extremities exam: Positive for: normal inspection. Negative for: pedal edema - Neurological Exam Neurological exam: Alert, Oriented x3 - Psychiatric Exam Psychiatric exam: Normal Affect, Normal Mood - Skin Skin Exam: Dry, Rash (chest wall, arms, upper back papular lesions), Warm Results - Vital Signs Recent Vital Signs: Last Vital Signs Temp 98.2 F 10/29/16 08:39 Pulse 77 10/29/16 08:39 Resp 20 10/29/16 08:39 BP 121/76 10/29/16 08:39 Pulse Ox 98 10/29/16 08:39 - Labs Result Diagrams: 10/27/16 17:54 10/27/16 17:54 Assessment & Plan - Assessment and Plan (Free Text) Assessment: Patient is a 50yo female with no significant PMHx who presented to the ED with recurrent abdominal pain. -Right flank pain -Pruritic rash - suspected drug reaction Plan: -CT A/P noted - noncontrast study limits the evaluation of the bowel -If pain persists tomorrow, changes or becomes more severe, consider PO contrast enhanced CT A/P -Protonix 40mg PO QAMAC -Advance diet as tolerated - changed to full liquid - if advanced further recommend low fat meals -Surgery has no plans for intervention at this time; no concern for biliary leak thus we will defer a HIDA scan for now; lab work not suggestive of this and no collections noted on CT -Patient would benefit from non-urgent EGD, however if symptoms continue to improve and she is tolerating diet, patient can be D/C from GI standpoint and this can be performed as an outpatient -Would also benefit from age appropriate colon cancer screening with colonoscopy as she is 50yo, can be performed outpatient -If patient to remain in house, can consider EGD on Monday - Date & Time Date: 10/29/16 Time: 08:00 <Roseline Isidro - Last Filed: 10/29/16 12:15> Meds - Medications Medications: Current Medications Sodium Chloride (Sodium Chloride 0.9%) 1,000 mls @ 100 mls/hr IV .Q10H TAYO Stop: 10/30/16 06:37 Last Admin: 10/29/16 08:41 Dose: 100 mls/hr Ondansetron HCl (Zofran Inj) 4 mg IVP Q6 PRN PRN Reason: Nausea/Vomiting Oxycodone/Acetaminophen (Percocet 5/325 Mg Tab) 1 tab PO Q8 PRN PRN Reason: Pain, moderate (4-7) Stop: 11/01/16 01:01 Last Admin: 10/29/16 11:59 Dose: 1 tab Pantoprazole Sodium (Protonix Ec Tab) 40 mg PO ACB TAYO Results - Vital Signs Recent Vital Signs: Last Vital Signs Temp 98.2 F 10/29/16 08:39 Pulse 77 10/29/16 08:39 Resp 20 10/29/16 08:39 BP 121/76 10/29/16 08:39 Pulse Ox 98 10/29/16 08:39 - Labs Result Diagrams: 10/27/16 17:54 10/27/16 17:54 Attending/Attestation - Attestation I have personally seen and examined this patient.: Yes I have fully participated in the care of the patient.: Yes I have reviewed all pertinent clinical information: Yes Notes (Text): Patient seen and examined with GI fellow. Agree with his note as documented above with the following additions/exceptions. This is a 50 year old female with h/o recent cholecystectomy who is admitted with RUQ abdominal/flank pain. Non contrast CT with pre pyloric/antral wall thickening. She is tolerating liquid diet without nausea or vomiting. Still having mild abdominal pain, maybe slightly improved. Her LFTs, T bili are normal. Last EGD >10 years ago, never had colonoscopy. Recommend continued supportive care, PPI therapy, advance diet slowly as tolerated. Consider HIDA if no improvement. She will need EGD for further evaluation of CT findings; this can be pursued electively as outpatient if pain improves and she is tolerating PO, otherwise can schedule non urgently on Monday. Follow up surgery recommendations. 10/29/16 12:10
[2016-10-29] MEDS: POLYETHYLENE GLYCOL 3350 17 GM/Dose PACKET PO SCH (12:44)
--- NOTE | 2016-10-29 18:34 | HP ---
DATE: 10/28/2016, computer was down. This is a late entry. HISTORY OF PRESENT ILLNESS: The patient is a 50-year-old female with recent history of laparoscopic cholecystectomy who presented for 3 day history of nausea, abdominal pain and vomiting. The patient called Dr. Najera who advised the patient to come to the hospital and she reported to the Emergency Room and she had a workup done including abdominal CAT scan, it showed abnormality at the region of gastric antrum and pyloric as well as proximal duodenum of uncertain etiology. Differential diagnosis includes gastritis, or underlying mass or collection. The patient was kept n.p.o. and admitted for further management and gastroenterology evaluation. The patient stated that after she was discharged from the hospital after the laparoscopic cholecystectomy, she was asymptomatic for 3 days after which she started to develop these new symptoms. OTHER REVIEW OF SYSTEMS: Negative. PHYSICAL EXAMINATION: VITAL SIGNS: Blood pressure over 111/74, temperature 99.5, respiratory rate 17 , pulse 85. HEENT: Pupils equal, reactive to light. Normal-appearing mucosa of the conjunctivae, oropharyngeal and nasal membrane mucosa. NECK: Supple, no JVD, no carotid bruit, no lymph node, no thyromegaly. CHEST AND LUNGS: Bilateral symmetrical expansion, good air exchange, no rales, no rhonchi. CARDIOVASCULAR: PMI not localized. S1, S2. No additional sounds. ABDOMEN: Normoactive bowel sounds, no tenderness, no organomegaly, no masses. EXTREMITIES: No cyanosis, no clubbing, no edema. CENTRAL NERVOUS SYSTEM: Alert, awake, oriented x 3. No neurological deficits could be appreciated. ASSESSMENT: Persistent abdominal pain and vomiting with abnormal CAT scan finding of the stomach and duodenum as per CAT scan report. PLAN: We will keep patient n.p.o., advance diet as tolerated, IV fluids. GI consult and follow recommendations. Protonix and Zofran p.r.n. for nausea and vomiting. Kiko Chilel MD cc: 167 TT: 10/29/2016 18:33:29 jn MTDD
--- NOTE | 2016-10-30 02:21 | CP.PCM.PN ---
Subjective - Date & Time of Evaluation Date of Evaluation: 10/30/16 Time of Evaluation: 02:19 - Subjective Subjective: SURGERY NOTE 50F seen and examined at bedside. Patient resting very comfortably, awake and alert. continues to complain of pain, denies nausea, vomiting. She is tolerating liquid. She states pain is 5/5. Controlled with medication. Objective - Vital Signs/Intake and Output Vital Signs (last 24 hours): Temp Pulse Resp BP Pulse Ox 98.6 F 61 20 126/79 98 10/30/16 00:43 10/30/16 00:43 10/30/16 00:43 10/30/16 00:43 10/30/16 00:43 - Medications Medications: Current Medications Sodium Chloride (Sodium Chloride 0.9%) 1,000 mls @ 100 mls/hr IV .Q10H [facility] Stop: 10/30/16 06:37 Last Admin: 10/29/16 16:57 Dose: Not Given Ondansetron HCl (Zofran Inj) 4 mg IVP Q6 PRN PRN Reason: Nausea/Vomiting Oxycodone/Acetaminophen (Percocet 5/325 Mg Tab) 1 tab PO Q8 PRN PRN Reason: Pain, moderate (4-7) Stop: 11/01/16 01:01 Last Admin: 10/29/16 20:01 Dose: 1 tab Pantoprazole Sodium (Protonix Ec Tab) 40 mg PO ACB TAYO Polyethylene Glycol (Miralax) 17 gm PO DAILY [facility] Last Admin: 10/29/16 12:44 Dose: 17 gm - Constitutional Appears: Non-toxic, Toxic - Head Exam Head Exam: ATRAUMATIC - Respiratory Exam Respiratory Exam: Clear to Ausculation Bilateral, NORMAL BREATHING PATTERN - Cardiovascular Exam Cardiovascular Exam: REGULAR RHYTHM, +S1, +S2 - GI/Abdominal Exam GI & Abdominal Exam: Soft. absent: Distended, Firm, Guarding, Rigid, Tenderness , Rebound Additional comments: previous surgical incisions are clear dry and intact - Neurological Exam Neurological Exam: Alert, Awake - Skin Skin Exam: Dry, Intact, Normal Color, Warm Assessment and Plan - Assessment and Plan (Free Text) Assessment: This is a 50F with no PMH who is POD# 12 s/p lap asaf who presented due to right sided abdominal pain, CT abdomen shows gastric wall thickening. -GI plan EGD monday vs outpatient -Recommend Clear liquid diet -Serial abdominal exams -Continue Pain management -Continue management per primary team. Further recs discuss with attending. Remington Palomares, PGY1
[2016-10-30] MEDS: Oxycodone/Acetaminophen 5/325 mg Tab PO PRN ×2 (03:41→16:36)
[2016-10-30] MEDS ORDERED: Pantoprazole 40 mg EC Tab PO SCH (07:30)
[2016-10-30 07:44] LABS: BASO % 0.6 % (0.0-2.0); EOS # 0.1 K/uL (0.0-0.7); EOS % 2.5 % (0.0-4.0); HEMATOCRIT 28.3 % (34.0-47.0); LYMPH % 32.1 % (20.0-40.0); MEAN CELL VOLUME 89.1 fl (81.0-99.0); MEAN CORPUSCULAR HEMOGLOBIN 29.4 pg (27.0-31.0); MEAN CORPUSCULAR HGB CONC 32.9 g/dL (33.0-37.0); MEAN PLATELET VOLUME 7.7 fl (7.2-11.7); MONO # 0.3 K/uL (0.0-0.8); MONO % 8.6 % (0.0-10.0); NEUT # 1.7 K/uL (1.8-7.0); NEUT % 56.2 % (50.0-75.0); NRBC % 0.1 % (0.0-0.0); RED CELL DISTRIBUTION WIDTH 12.9 % (11.5-14.5); WHITE BLOOD COUNT 3.1 K/uL (4.8-10.8)
[2016-10-30 07:56] LABS: ALB/GLOB RATIO 1.3 (1.0-2.1); ALKALINE PHOSPHATASE 118 U/L (38-126); ALT/SGPT 35 U/L (9-52); AST/SGOT 36 U/L (14-36); BILIRUBIN,TOTAL 0.3 mg/dl (0.2-1.3); BLOOD UREA NITROGEN 5 mg/dl (7-17); CALCIUM 8.7 mg/dL (8.4-10.2); CARBON DIOXIDE 28 mmol/L (22-30); CHLORIDE 103 mmol/L (98-107); GFR AFRICAN-AMERICAN > 60; GLUCOSE,RANDOM 82 mg/dL (65-105); SODIUM 138 mmol/l (132-148); TOTAL PROTEIN 5.4 G/DL (6.3-8.2)
--- NOTE | 2016-10-30 08:32 | PN ---
DATE: 10/29/2016 The patient is seen today, 10/29/2016. She is still complaining of right upper quadrant pain that ___ __. PHYSICAL EXAMINATION: VITAL SIGNS: Blood pressure is 114/69, temperature 97.7, respiratory rate 20, and pulse 82. HEENT: Pupils equal, reactive to light. Normal appearing mucosa of the conjunctivae, oropharyngeal and nasal membrane mucosa. NECK: Supple, no JVD, no carotid bruit, no lymph node, no thyromegaly. CHEST AND LUNGS: Bilateral symmetrical expansion, good air exchange, no rales, no rhonchi. CARDIOVASCULAR: PMI not localized. S1, S2. No additional sounds. ABDOMEN: Normoactive bowel sounds, no tenderness, no organomegaly, no masses. EXTREMITIES: No cyanosis, no clubbing, no edema. CENTRAL NERVOUS SYSTEM: Alert, awake, oriented x 2. No neurological deficits could be appreciated. ASSESSMENT: Postoperative right upper quadrant pain with abnormal findings in the CAT scan. COURSE OF HOSPITALIZATION: Continue pain management. We will advance diet. The patient was seen by gastroenterology, will schedule patient for upper endoscopy. [facility] cc: 167 TT: 10/30/2016 08:32:14 Confirmation # [id number] Dictation # [id number]
[2016-10-30] MEDS: POLYETHYLENE GLYCOL 3350 17 GM/Dose PACKET PO SCH (08:40)
--- NOTE | 2016-10-30 11:06 | CP.PCM.PN ---
<Kishor Pena - Last Filed: 10/30/16 11:03> Subjective - Date & Time of Evaluation Date of Evaluation: 10/30/16 Time of Evaluation: 10:30 - Subjective Subjective: PGY4 GI Fellow Progress Note Patient seen and examined bedside this morning. The patient continues to complain of intermittent right flank pain. No nausea, vomiting. Tolerating advancement in diet without issue. Does have some gas discomfort. No BM since Monday. Denies any recent falls/trauma. 12 system ROS performed and negative except where stated. Objective - Vital Signs/Intake and Output Vital Signs (last 24 hours): Temp Pulse Resp BP Pulse Ox 98.1 F 72 20 118/79 98 10/30/16 08:13 10/30/16 08:13 10/30/16 08:13 10/30/16 08:13 10/30/16 08:13 - Medications Medications: Current Medications Ondansetron HCl (Zofran Inj) 4 mg IVP Q6 PRN PRN Reason: Nausea/Vomiting Oxycodone/Acetaminophen (Percocet 5/325 Mg Tab) 1 tab PO Q8 PRN PRN Reason: Pain, moderate (4-7) Stop: 11/01/16 01:01 Last Admin: 10/30/16 03:41 Dose: 1 tab Pantoprazole Sodium (Protonix Ec Tab) 40 mg PO ACB TAYO Last Admin: 10/30/16 08:40 Dose: 40 mg Polyethylene Glycol (Miralax) 17 gm PO DAILY [facility] Last Admin: 10/30/16 08:40 Dose: 17 gm - Labs Labs: 10/30/16 05:30 10/30/16 05:30 - Constitutional Appears: Non-toxic, No Acute Distress - Eye Exam Eye Exam: EOMI, PERRL - ENT Exam ENT Exam: Mucous Membranes Moist - Respiratory Exam Respiratory Exam: Clear to Ausculation Bilateral. absent: Rales, Rhonchi, Wheezes - Cardiovascular Exam Cardiovascular Exam: RRR, +S1, +S2 - GI/Abdominal Exam GI & Abdominal Exam: Soft, Normal Bowel Sounds. absent: Distended, Firm, Guarding, Rigid, Tenderness, Organomegaly - Extremities Exam Extremities Exam: Normal Inspection. absent: Pedal Edema - Neurological Exam Neurological Exam: Alert, Awake, Oriented x3 - Psychiatric Exam Psychiatric exam: Normal Affect, Normal Mood - Skin Skin Exam: Dry, Warm Assessment and Plan - Assessment and Plan (Free Text) Assessment: Patient is a 50yo female with no significant PMHx who presented to the ED with recurrent abdominal pain. -Right flank pain -Pruritic rash - suspected drug reaction, improved Plan: -Given CT findings and persistent pain, will perform EGD tomorrow -NPO past MN -Tolerating diet as ordered -Continue Protonix 40mg PO QAMAC -Miralax 17g PO QD -Request outpatient follow up for screening colonoscopy <Roseline Isidro - Last Filed: 10/30/16 13:23> Objective - Vital Signs/Intake and Output Vital Signs (last 24 hours): Temp Pulse Resp BP Pulse Ox 98.1 F 72 20 118/79 98 10/30/16 08:13 10/30/16 08:13 10/30/16 08:13 10/30/16 08:13 10/30/16 08:13 - Medications Medications: Current Medications Ondansetron HCl (Zofran Inj) 4 mg IVP Q6 PRN PRN Reason: Nausea/Vomiting Oxycodone/Acetaminophen (Percocet 5/325 Mg Tab) 1 tab PO Q8 PRN PRN Reason: Pain, moderate (4-7) Stop: 11/01/16 01:01 Last Admin: 10/30/16 03:41 Dose: 1 tab Pantoprazole Sodium (Protonix Ec Tab) 40 mg PO ACB TAYO Last Admin: 10/30/16 08:40 Dose: 40 mg Polyethylene Glycol (Miralax) 17 gm PO DAILY [facility] Last Admin: 10/30/16 08:40 Dose: 17 gm - Labs Labs: 10/30/16 05:30 10/30/16 05:30 Attending/Attestation - Attestation I have personally seen and examined this patient.: Yes I have fully participated in the care of the patient.: Yes I have reviewed all pertinent clinical information, including history, physical exam and plan: Yes Notes (Text): Patient seen and examined with GI fellow. Agree with his note as documented above with the following additions/exceptions. This is a 50 year old female with h/o recent lap cholecystectomy who is admitted with abdominal pain. Non contrast CT shows pre pyloric fullness/ thickening of duodenum. Surgical service following. Continue supportive care, PPI therapy. Keep NPO p MN for EGD evaluation tomorrow. Will need elective outpatient screening colonoscopy. 10/30/16 13:22
[2016-10-31] MEDS: Oxycodone/Acetaminophen 5/325 mg Tab PO PRN ×2 (00:45→18:32)
[2016-10-31 07:52] LABS: EOS # 0.1 K/uL (0.0-0.7); EOS % 2.6 % (0.0-4.0); HEMATOCRIT 28.6 % (34.0-47.0); LYMPH # 0.8 K/uL (1.0-4.3); LYMPH % 33.3 % (20.0-40.0); MEAN CELL VOLUME 87.4 fl (81.0-99.0); MEAN CORPUSCULAR HEMOGLOBIN 30.1 pg (27.0-31.0); MEAN CORPUSCULAR HGB CONC 34.5 g/dL (33.0-37.0); MEAN PLATELET VOLUME 7.3 fl (7.2-11.7); MONO # 0.2 K/uL (0.0-0.8); MONO % 7.1 % (0.0-10.0); NEUT # 1.4 K/uL (1.8-7.0); NRBC % 0.1 % (0.0-0.0); RED CELL DISTRIBUTION WIDTH 12.9 % (11.5-14.5); WHITE BLOOD COUNT 2.5 K/uL (4.8-10.8)
[2016-10-31 08:12] LABS: ALB/GLOB RATIO 1.3 (1.0-2.1); ALKALINE PHOSPHATASE 109 U/L (38-126); ALT/SGPT 34 U/L (9-52); AST/SGOT 27 U/L (14-36); BILIRUBIN,TOTAL 0.2 mg/dl (0.2-1.3); BLOOD UREA NITROGEN 5 mg/dl (7-17); CALCIUM 8.6 mg/dL (8.4-10.2); CARBON DIOXIDE 27 mmol/L (22-30); CHLORIDE 103 mmol/L (98-107); GFR AFRICAN-AMERICAN > 60; GLUCOSE,RANDOM 88 mg/dL (65-105); POTASSIUM 3.7 MMOL/L (3.6-5.0); SODIUM 139 mmol/l (132-148); TOTAL PROTEIN 5.6 G/DL (6.3-8.2)
--- NOTE | 2016-10-31 08:34 | CP.PCM.PN ---
<Gianna Ramirez - Last Filed: 10/31/16 08:32> Subjective - Date & Time of Evaluation Date of Evaluation: 10/31/16 Time of Evaluation: 08:33 - Subjective Subjective: General Surgery - Dr. Naik pt S&E. AGNES. Pt states she was tolerating regular food yesterday but she is currently NPO for EGD this morning. She states her pain is improving. She denies any N/V, F/C, SOB/Cp Objective - Vital Signs/Intake and Output Vital Signs (last 24 hours): Temp Pulse Resp BP Pulse Ox 98.3 F 80 16 114/73 97 10/31/16 08:04 10/31/16 08:04 10/31/16 08:04 10/31/16 08:04 10/31/16 08:04 - Medications Medications: Current Medications Ondansetron HCl (Zofran Inj) 4 mg IVP Q6 PRN PRN Reason: Nausea/Vomiting Oxycodone/Acetaminophen (Percocet 5/325 Mg Tab) 1 tab PO Q8 PRN PRN Reason: Pain, moderate (4-7) Stop: 11/01/16 01:01 Last Admin: 10/31/16 00:45 Dose: 1 tab Pantoprazole Sodium (Protonix Ec Tab) 40 mg PO ACB [facility] Last Admin: 10/30/16 08:40 Dose: 40 mg Polyethylene Glycol (Miralax) 17 gm PO DAILY [facility] Last Admin: 10/30/16 08:40 Dose: 17 gm - Labs Labs: 10/31/16 07:46 10/31/16 07:46 - Constitutional Appears: No Acute Distress - Head Exam Head Exam: ATRAUMATIC, NORMAL INSPECTION, NORMOCEPHALIC - Eye Exam Eye Exam: Normal appearance - ENT Exam ENT Exam: Mucous Membranes Moist - Respiratory Exam Respiratory Exam: NORMAL BREATHING PATTERN. absent: Respiratory Distress - Cardiovascular Exam Cardiovascular Exam: REGULAR RHYTHM - GI/Abdominal Exam GI & Abdominal Exam: Soft. absent: Distended, Guarding, Tenderness, Rebound - Neurological Exam Neurological Exam: Alert, Oriented x3 - Psychiatric Exam Psychiatric exam: Normal Affect, Normal Mood - Skin Skin Exam: Dry, Intact <Daniel Naik - Last Filed: 10/31/16 10:13> Subjective - Date & Time of Evaluation Time of Evaluation: 09:30 - Subjective Subjective: Patient was seen and examined at the bedside. Agree with resident's note above Objective - Vital Signs/Intake and Output Vital Signs (last 24 hours): Temp Pulse Resp BP Pulse Ox 98.3 F 80 16 114/73 97 10/31/16 08:04 10/31/16 08:04 10/31/16 08:04 10/31/16 08:04 10/31/16 08:04 - Medications Medications: Current Medications Diphenhydramine HCl (Benadryl) 25 mg IVP ONCE ONE Stop: 10/31/16 10:10 Ondansetron HCl (Zofran Inj) 4 mg IVP Q6 PRN PRN Reason: Nausea/Vomiting Oxycodone/Acetaminophen (Percocet 5/325 Mg Tab) 1 tab PO Q8 PRN PRN Reason: Pain, moderate (4-7) Stop: 11/01/16 01:01 Last Admin: 10/31/16 00:45 Dose: 1 tab Pantoprazole Sodium (Protonix Ec Tab) 40 mg PO ACB [facility] Last Admin: 10/30/16 08:40 Dose: 40 mg Polyethylene Glycol (Miralax) 17 gm PO DAILY [facility] Last Admin: 10/30/16 08:40 Dose: 17 gm - Labs Labs: 10/31/16 07:46 10/31/16 07:46 PT 13.9 SECONDS (9.6-11.2) H 10/31/16 07:46 INR 1.34 (0.92-1.08) H 10/31/16 07:46 Assessment and Plan - Assessment and Plan (Free Text) Plan: - NPO - IV fluids - Pain control - Protonix - For EGD today with GI - Will follow
[2016-10-31] MEDS ORDERED: DiphenhydrAMINE 50 mg/ml Inj IVP ONE ×2 (10:09→23:50)
[2016-10-31] MEDS: Dextrose 5%/0.45% NS 1,000 ML IV SCH ×2 (10:37→20:00)
[2016-10-31] MEDS ORDERED: Lactated Ringer's 500 ML IV ONE (12:58)
[2016-10-31] MEDS ORDERED: Propofol 10 mg/ml Inj (20 ML) ONE ×2 (13:38→13:50)
[2016-10-31] MEDS: POLYETHYLENE GLYCOL 3350 17 GM/Dose PACKET PO SCH (17:53)
[2016-10-31] MEDS: Pantoprazole 40 mg EC Tab PO SCH (17:53)
--- NOTE | 2016-10-31 23:45 | PN ---
DATE: 10/31/2016 SUBJECTIVE: The patient was seen today, 10/31/2016. She still has upper abdominal pain. PHYSICAL EXAMINATION: VITAL SIGNS: Blood pressure 114/73, temperature 98.3, respiratory rate 16 and pulse 80. HEENT: Pupils equal, reactive to light. Normal-appearing mucosa of the conjunctivae, oropharyngeal and nasal membrane mucosa. NECK: Supple, no JVD, no carotid bruit, no lymph node, no thyromegaly. CHEST AND LUNGS: Bilateral symmetrical expansion, good air exchange, no rales, no rhonchi. CARDIOVASCULAR: PMI not localized. S1, S2. No additional sounds. ABDOMEN: Normoactive bowel sounds, no tenderness, no organomegaly, no masses. EXTREMITIES: No cyanosis, no clubbing, no edema. CENTRAL NERVOUS SYSTEM: Alert, awake, oriented x 3. No neurological deficits could be appreciated. ASSESSMENT: Persistent epigastric pain with abnormal finding on CAT scan, rule out peptic ulcer dise ase. Status post laparoscopic cholecystectomy. PLAN: The patient is for an upper endoscopy and will follow recommendations. Continue pain manageme nt. Kiko Chilel MD cc: [phone] TT: 10/31/2016 23:44:35 Confirmation # [id number] Dictation # [id number]
[2016-11-01] MEDS: Oxycodone/Acetaminophen 5/325 mg Tab PO PRN ×3 (00:35→23:33)
[2016-11-01] MEDS ORDERED: Iohexol 240 (50 ml) PO ONE (06:00)
[2016-11-01] MEDS: Dextrose 5%/0.45% NS 1,000 ML IV SCH (06:04)
--- NOTE | 2016-11-01 07:23 | CP.PCM.PN ---
<Reji Mathis - Last Filed: 11/01/16 07:20> Subjective - Date & Time of Evaluation Date of Evaluation: 11/01/16 Time of Evaluation: 07:20 - Subjective Subjective: General Surgery Progress Note for Dr. Najera This 50F was seen and examined this AM at bedside. She reports no acute events overnight. Port sites are clean dry and intact. She is moving her bowels and passing gas. She denies any fevers chills chest pain SOB nausea vomiting or diarrhea. Objective - Vital Signs/Intake and Output Vital Signs (last 24 hours): Temp Pulse Resp BP Pulse Ox 98.5 F 74 20 159/85 H 99 11/01/16 00:21 11/01/16 00:21 11/01/16 00:21 11/01/16 00:21 11/01/16 00:21 - Medications Medications: Current Medications Hydromorphone HCl (Dilaudid) 1 mg IVP Q4H PRN PRN Reason: Pain, severe (8-10) Dextrose/Sodium Chloride (Dextrose 5%/0.45% Ns 1000 Ml) 1,000 mls @ 100 mls/hr IV .Q10H [facility] Stop: 11/01/16 10:15 Last Admin: 11/01/16 06:04 Dose: 100 mls/hr Ondansetron HCl (Zofran Inj) 4 mg IVP Q6 PRN PRN Reason: Nausea/Vomiting Oxycodone/Acetaminophen (Percocet 5/325 Mg Tab) 1 tab PO Q6 PRN PRN Reason: Pain, moderate (4-7) Stop: 11/03/16 18:00 Last Admin: 11/01/16 00:35 Dose: 1 tab Pantoprazole Sodium (Protonix Ec Tab) 40 mg PO BID [facility] Last Admin: 10/31/16 17:53 Dose: 40 mg Polyethylene Glycol (Miralax) 17 gm PO DAILY [facility] Last Admin: 10/31/16 17:53 Dose: 17 gm - Labs Labs: 10/31/16 07:46 10/31/16 07:46 PT 13.9 SECONDS (9.6-11.2) H 10/31/16 07:46 INR 1.34 (0.92-1.08) H 10/31/16 07:46 - Constitutional Appears: Non-toxic, No Acute Distress - Head Exam Head Exam: ATRAUMATIC, NORMOCEPHALIC - Eye Exam Eye Exam: EOMI, Normal appearance - ENT Exam ENT Exam: Mucous Membranes Moist - Respiratory Exam Respiratory Exam: NORMAL BREATHING PATTERN - Cardiovascular Exam Cardiovascular Exam: REGULAR RHYTHM - GI/Abdominal Exam GI & Abdominal Exam: Soft, Tenderness. absent: Distended, Firm, Guarding, Rigid - Extremities Exam Extremities Exam: Normal Inspection - Neurological Exam Neurological Exam: Alert, Awake - Skin Additional comments: Rash noted on upper chest Assessment and Plan - Assessment and Plan (Free Text) Assessment: This is a 50F who is S/P lap aasf on 10/18 who returned with abdominal pain EGD on 10/31 showed a bleeding gastric ulcer. Continue management per gastroenterology Serial abdominal exams Followup CT abdomen Will discuss with Dr. Reinaldo Mathis PGY-3 <Daniel Naik - Last Filed: 11/01/16 18:37> Subjective - Date & Time of Evaluation Time of Evaluation: 18:00 - Subjective Subjective: Patient was seen and examined at the bedside. Agree with resident's note above. EGD results noted. Objective - Vital Signs/Intake and Output Vital Signs (last 24 hours): Temp Pulse Resp BP Pulse Ox 98.8 F 69 20 108/74 98 11/01/16 16:32 11/01/16 16:32 11/01/16 16:32 11/01/16 16:32 11/01/16 16:32 - Medications Medications: Current Medications Diphenhydramine HCl (Benadryl) 25 mg IVP Q6 PRN PRN Reason: Itching / Pruritus Enoxaparin Sodium (Lovenox) 40 mg SC DAILY [facility] PRN Reason: Protocol Last Admin: 11/01/16 15:31 Dose: 40 mg Hydromorphone HCl (Dilaudid) 1 mg IVP Q4H PRN PRN Reason: Pain, severe (8-10) Sodium Chloride (Sodium Chloride 0.9%) 1,000 mls @ 80 mls/hr IV .[id number] [facility] Stop: 11/02/16 13:38 Last Admin: 11/01/16 15:31 Dose: 80 mls/hr Ondansetron HCl (Zofran Inj) 4 mg IVP Q6 PRN PRN Reason: Nausea/Vomiting Oxycodone/Acetaminophen (Percocet 5/325 Mg Tab) 1 tab PO Q6 PRN PRN Reason: Pain, moderate (4-7) Stop: 11/03/16 18:00 Last Admin: 11/01/16 10:57 Dose: 1 tab Pantoprazole Sodium (Protonix Ec Tab) 40 mg PO BID [facility] Last Admin: 11/01/16 17:31 Dose: 40 mg Polyethylene Glycol (Miralax) 17 gm PO DAILY [facility] Last Admin: 11/01/16 08:55 Dose: Not Given - Labs Labs: 11/01/16 07:05 10/31/16 07:46 PT 13.9 SECONDS (9.6-11.2) H 10/31/16 07:46 INR 1.34 (0.92-1.08) H 10/31/16 07:46 Assessment and Plan - Assessment and Plan (Free Text) Plan: - Continue diet - Protonix - Monitor Hb/Hct - Will await the results of the biopsy - Will follow
[2016-11-01 07:50] LABS: HEMATOCRIT 29.4 % (34.0-47.0); MEAN CORPUSCULAR HEMOGLOBIN 29.6 pg (27.0-31.0); MEAN CORPUSCULAR HGB CONC 33.2 g/dL (33.0-37.0); WHITE BLOOD COUNT 2.8 K/uL (4.8-10.8)
[2016-11-01] MEDS ORDERED: Iohexol 300 100 ML IJ ONE (08:47)
[2016-11-01] MEDS ORDERED: Sodium Chloride 0.9% 50 ML IV ONE (08:48)
[2016-11-01] MEDS: POLYETHYLENE GLYCOL 3350 17 GM/Dose PACKET PO SCH (08:55)
[2016-11-01] MEDS: Pantoprazole 40 mg EC Tab PO SCH ×3 (08:55→17:31)
--- NOTE | 2016-11-01 12:04 | CT ---
PROCEDURE: CT scan chest abdomen pelvis dated 11/01/2016 HISTORY: Rule out lymphadenopathy COMPARISON: Comparison made with CT scan abdomen and pelvis dated 10/27/2016. Correlation also made with MRCP 10/15/2016. TECHNIQUE: IV dose administered: 95 cc Omnipaque 300 contrast material. Radiation dose: Total exam DLP = 838.4 mGy-cm. This CT exam was performed using one or more of the following dose reduction techniques: Automated exposure control, adjustment of the mA and/or kV according to patient size, and/or use of iterative reconstruction technique. FINDINGS: CT CHEST WITH CONTRAST: LUNGS: No linear/curvilinear areas of atelectasis some both lower lung wilcox. No evidence of a focal consolidation effusion or pneumothorax. There are no parenchymal nodules or masses seen. MEDIASTINUM: Heart size is within range of normal. No significant pericardial effusion identified. Ascending thoracic aorta measures approximately 2.5 cm and descending thoracic aorta measures approximately 1.95 cm. Pulmonary trunk measures 3.41 cm. Rule out underlying pulmonary arterial hypertension. . There is tiny hiatal hernia. Slight wall thickening of the distal esophagus could be due to protrusion gastric mucosa. Possibility of esophagitis not excluded. . LYMPH NODES: Multiple small to medium sized nonspecific mediastinal lymph nodes are seen in the upper mediastinum as well as pretracheal AP window and periaortic as well as subcarinal regions. . Small bilateral hilar lymph nodes are also present. PLEURA: Unremarkable. No pneumothorax. No pleural fluid. BONES: Minor multilevel degenerative spondylosis of the thoracic spine. There are no compression fracture nor retropulsed fragments. Vertebral bodies exhibit normal stature alignment. Facets normally. OTHER FINDINGS: None. CT ABDOMEN AND PELVIS: LIVER: Liver exhibits normal size measuring approximately 14 cm CC dimension. The mild diffuse fatty hepatic infiltration. No obvious hepatic mass or collection. Minimal central intrahepatic biliary ductal dilatation. Portal and splenic veins are opacified. GALLBLADDER AND BILE DUCTS: Patient is status post cholecystectomy. There appears to be small amount of fluid within the gallbladder fossa ; while this could be postoperative in nature, the possibility of a small bile leak not excluded.. There is also mild dilatation of the common bile duct likely due to cholecystectomy. PANCREAS: The head of the pancreas appears somewhat heterogeneous in appearance possibly due to recent postoperative sequela however some mild edema of cannot be excluded. No while there is no discrete mass seen, consider followup MRI of the pancreas SPLEEN: Spleen exhibits normal size and attenuation pattern without mass collection or calcification. . ADRENALS: Right adrenal nodule unchanged. Slightly nodular appearance of the left adrenal gland suggesting underlying small nodule as well. KIDNEYS AND URETERS: Kidneys exhibit symmetric nephrograms. Again noted is a small calculus measuring approximately 2.99 cm upper pole left kidney. . Persistent the left-sided hydronephrosis with no definitive evidence of obstructing calculus within the left ureter. Again noted is a partially exophytic cyst arising from the anterior aspect midpole left kidney measuring approximately 3.7 cm in dimension. VASCULATURE: Unremarkable. No aortic aneurysm. BOWEL: Evaluation of the bowel is limited due to the incomplete opacification. The stomach is incompletely distended which in part accounts for thick-walled appearance. There does appear to be some edematous changes within the distal half of the gastric arango. Rule out gastritis. Other intrinsic/invasive wall lesion cannot be excluded. EGD may be necessary for definitive diagnosis. . Visualized loops of small bowel exhibit normal contour and caliber. No evidence of acute mechanical small bowel obstruction. Oral contrast material has extended into the colon to the level of the hepatic flexure region. No definitive evidence of abnormal mural wall thickening so far as can be seen. APPENDIX: Re- demonstrated is partially air and contrast filled appendix best visualized on axial series image [id number] PERITONEUM: No gross free intraperitoneal air. LYMPH NODES: Multiple small to medium sized nonspecific retroperitoneal lymph nodes are present. B largest of lymph node in the right inferior the mid body of the pancreas measures approximately 16 mm. BLADDER: Urinary bladder is incompletely distended which may account for thick-walled appearance. Given the patient's mild left-sided hydronephrosis consider cystoscopy followup. REPRODUCTIVE: Uterus and adnexal structures grossly unremarkable. There is small amount of fluid within the cul de sac right greater than left. BONES: Minor multilevel degenerative spondylosis of the lower thoracic and lumbar spine. No acute compression fractures no retropulsed fragments. OTHER FINDINGS: None. IMPRESSION: Status post cholecystectomy with what appears represent small amount of fluid in the gallbladder fossa ; while this could be postoperative in nature, the possibility of a small bile leak not excluded. . Mild intrahepatic biliary ductal dilatation and mild dilatation of the common bile duct. Multiple on small to medium sized retroperitoneal lymph nodes as detailed above. The pancreatic head is somewhat heterogeneous in appearance which could be due to recent postoperative sequela and adjacent crossing duodenum. No definitive mass seen in the pancreatic head however follow-up of MRI of the pancreas may be prudent. Evaluation of the bowel is limited due to the incomplete opacification. The stomach is incompletely distended which in part accounts for thick-walled appearance. There does appear to be some edematous changes within the distal half of the gastric arango. Rule out gastritis. Other intrinsic/invasive wall lesion cannot be excluded. EGD may be necessary for definitive diagnosis. . Again noted is a small calculus measuring approximately 2.85 the facet 100 echo cm upper pole left kidney. . Persistent the left-sided hydronephrosis with no definitive evidence of obstructing calculus within the left ureter. Multiple small to medium-sized nonspecific mediastinal lymph nodes. Small amount of free fluid is felt be present within the cul de sac. Mild linear/curvilinear atelectasis in the posterior lower lung zones. Right adrenal nodule. Nodular appearing left adrenal nodule as above. Findings discussed with nurse practitioner Nini at 11:56 a.m. with written down and read back verification.
[2016-11-01] MEDS ORDERED: DiphenhydrAMINE 50 mg/ml Inj IVP PRN (13:35)
--- NOTE | 2016-11-01 15:15 | NM ---
PROCEDURE: Nuclear Medicine Hepatobiliary Scan Advance point will remain with his HISTORY: R/o bile leak COMPARISON: [facility] 11/01/2016. CT abdomen and pelvis. TECHNIQUE: 5.2 mCi of technetium 99m Mebrofenin was administered intravenously. Planar images of the abdomen were obtained at 5 min intervals to 60 mins. Delayed images were also obtained. FINDINGS: LIVER: Timely and homogenous uptake. COMMON BILE DUCT: identified at 10.0 mins. No evidence of leak of radionuclide status post cholecystectomy. SMALL BOWEL: Identified at 15 mins. IMPRESSION: Status postcholecystectomy, there is no scintigraphic evidence of bile leak.
[2016-11-01] MEDS: Sodium Chloride 0.9% 1,000 ML IV SCH ×2 (15:30→15:31)
[2016-11-01] MEDS: Enoxaparin 40 mg Syringe SC SCH (15:31)
--- NOTE | 2016-11-01 20:20 | CP.PCM.PN ---
Subjective - Date & Time of Evaluation Date of Evaluation: 11/01/16 Time of Evaluation: 13:00 - Subjective Subjective: Tried to see patient but she was off floor for HIDA scan which is negative She is s/p EGD yesterday for persistent RUQ pain EGD - please see full report in [facility]. Cratered deep necrotic ulcer with friability 2.5x2 cm in pre pylorus with pyloric and duodenal bulb edema. Multiple biopsies taken Objective - Vital Signs/Intake and Output Vital Signs (last 24 hours): Temp Pulse Resp BP Pulse Ox 98.8 F 69 20 108/74 98 11/01/16 16:32 11/01/16 16:32 11/01/16 16:32 11/01/16 16:32 11/01/16 16:32 - Medications Medications: Current Medications Diphenhydramine HCl (Benadryl) 25 mg IVP Q6 PRN PRN Reason: Itching / Pruritus Enoxaparin Sodium (Lovenox) 40 mg SC DAILY [facility] PRN Reason: Protocol Last Admin: 11/01/16 15:31 Dose: 40 mg Hydromorphone HCl (Dilaudid) 1 mg IVP Q4H PRN PRN Reason: Pain, severe (8-10) Sodium Chloride (Sodium Chloride 0.9%) 1,000 mls @ 80 mls/hr IV .[id number] [facility] Stop: 11/02/16 13:38 Last Admin: 11/01/16 15:31 Dose: 80 mls/hr Ondansetron HCl (Zofran Inj) 4 mg IVP Q6 PRN PRN Reason: Nausea/Vomiting Oxycodone/Acetaminophen (Percocet 5/325 Mg Tab) 1 tab PO Q6 PRN PRN Reason: Pain, moderate (4-7) Stop: 11/03/16 18:00 Last Admin: 11/01/16 10:57 Dose: 1 tab Pantoprazole Sodium (Protonix Ec Tab) 40 mg PO BID [facility] Last Admin: 11/01/16 17:31 Dose: 40 mg Polyethylene Glycol (Miralax) 17 gm PO DAILY [facility] Last Admin: 11/01/16 08:55 Dose: Not Given - Labs Labs: 11/01/16 07:05 10/31/16 07:46 PT 13.9 SECONDS (9.6-11.2) H 10/31/16 07:46 INR 1.34 (0.92-1.08) H 10/31/16 07:46 Assessment and Plan - Assessment and Plan (Free Text) Assessment: 50 yr old F with CCY 2 weeks ago admitted with persistent RUQ pain s/p EGD showing deep cratered ulcer in pre pylorus. Biopsy pending. Duodenal edema likely cause of early staiety. CT chest and abdomen with lymphadenopathy. Patient can be discharged to home with outpatient follow up for pathology and further work up. HIDA negative for bile leak
[2016-11-02] MEDS: Sodium Chloride 0.9% 1,000 ML IV SCH (02:16)
[2016-11-02 07:40] VITALS: O2SAT 97
--- NOTE | 2016-11-02 07:41 | CP.PCM.PN ---
<Michelle Alvarez - Last Filed: 11/02/16 07:44> Subjective - Date & Time of Evaluation Date of Evaluation: 11/02/16 Time of Evaluation: 07:38 - Subjective Subjective: General Surgery Progress Note for Dr. Najera This 50F was seen and examined this AM at bedside. She reports no acute events overnight. Port sites are clean dry and intact. She is moving her bowels and passing gas. She denies any fevers chills chest pain SOB nausea vomiting or diarrhea. Objective - Vital Signs/Intake and Output Vital Signs (last 24 hours): Temp Pulse Resp BP Pulse Ox 98.3 F 69 19 110/69 99 11/02/16 00:24 11/02/16 00:24 11/02/16 00:24 11/02/16 00:24 11/02/16 00:24 - Medications Medications: Current Medications Diphenhydramine HCl (Benadryl) 25 mg IVP Q6 PRN PRN Reason: Itching / Pruritus Enoxaparin Sodium (Lovenox) 40 mg SC DAILY [facility] PRN Reason: Protocol Last Admin: 11/01/16 15:31 Dose: 40 mg Hydromorphone HCl (Dilaudid) 1 mg IVP Q4H PRN PRN Reason: Pain, severe (8-10) Sodium Chloride (Sodium Chloride 0.9%) 1,000 mls @ 80 mls/hr IV .[id number] [facility] Stop: 11/02/16 13:38 Last Admin: 11/02/16 02:16 Dose: 80 mls/hr Ondansetron HCl (Zofran Inj) 4 mg IVP Q6 PRN PRN Reason: Nausea/Vomiting Oxycodone/Acetaminophen (Percocet 5/325 Mg Tab) 1 tab PO Q6 PRN PRN Reason: Pain, moderate (4-7) Stop: 11/03/16 18:00 Last Admin: 11/01/16 23:33 Dose: 1 tab Pantoprazole Sodium (Protonix Ec Tab) 40 mg PO BID [facility] Last Admin: 11/01/16 17:31 Dose: 40 mg Polyethylene Glycol (Miralax) 17 gm PO DAILY [facility] Last Admin: 11/01/16 08:55 Dose: Not Given - Labs Labs: 11/01/16 07:05 10/31/16 07:46 PT 13.9 SECONDS (9.6-11.2) H 10/31/16 07:46 INR 1.34 (0.92-1.08) H 10/31/16 07:46 - Constitutional Appears: Well, Non-toxic, No Acute Distress - GI/Abdominal Exam GI & Abdominal Exam: Soft, Tenderness Assessment and Plan - Assessment and Plan (Free Text) Assessment: This is a 50F who is S/P lap asaf on 10/18 who returned with abdominal pain EGD on 10/31 showed a bleeding gastric ulcer. Continue management per gastroenterology Serial abdominal exams HIDA- negative for bile leak Will discuss with Dr. Najera <Daniel Naik - Last Filed: 11/02/16 10:21> Subjective - Subjective Subjective: Patient was seen and examined at the bedside. Agree with resident's note above Objective - Vital Signs/Intake and Output Vital Signs (last 24 hours): Temp Pulse Resp BP Pulse Ox 98.0 F 66 17 109/70 97 11/02/16 07:40 11/02/16 07:40 11/02/16 07:40 11/02/16 07:40 11/02/16 07:40 - Medications Medications: Current Medications Diphenhydramine HCl (Benadryl) 25 mg IVP Q6 PRN PRN Reason: Itching / Pruritus Enoxaparin Sodium (Lovenox) 40 mg SC DAILY [facility] PRN Reason: Protocol Last Admin: 11/02/16 08:39 Dose: 40 mg Hydromorphone HCl (Dilaudid) 1 mg IVP Q4H PRN PRN Reason: Pain, severe (8-10) Sodium Chloride (Sodium Chloride 0.9%) 1,000 mls @ 80 mls/hr IV .[id number] [facility] Stop: 11/02/16 13:38 Last Admin: 11/02/16 02:16 Dose: 80 mls/hr Ondansetron HCl (Zofran Inj) 4 mg IVP Q6 PRN PRN Reason: Nausea/Vomiting Oxycodone/Acetaminophen (Percocet 5/325 Mg Tab) 1 tab PO Q6 PRN PRN Reason: Pain, moderate (4-7) Stop: 11/03/16 18:00 Last Admin: 11/01/16 23:33 Dose: 1 tab Pantoprazole Sodium (Protonix Ec Tab) 40 mg PO BID [facility] Last Admin: 11/02/16 08:40 Dose: 40 mg Polyethylene Glycol (Miralax) 17 gm PO DAILY [facility] Last Admin: 11/02/16 08:39 Dose: Not Given - Labs Labs: 11/01/16 07:05 10/31/16 07:46 PT 13.9 SECONDS (9.6-11.2) H 10/31/16 07:46 INR 1.34 (0.92-1.08) H 10/31/16 07:46 Assessment and Plan - Assessment and Plan (Free Text) Plan: - Continue diet - Protonix - Will await for the results of the biopsy - Clear for discharge home from the general surgery stand point - General surgery will sign off - Continue care as per medical team - Please re-consult as needed
[2016-11-02] MEDS: Enoxaparin 40 mg Syringe SC SCH (08:39)
[2016-11-02] MEDS: POLYETHYLENE GLYCOL 3350 17 GM/Dose PACKET PO SCH (08:39)
[2016-11-02] MEDS: Pantoprazole 40 mg EC Tab PO SCH ×2 (08:40→16:07)
--- NOTE | 2016-11-02 10:14 | CP.PCM.PN ---
Subjective - Date & Time of Evaluation Date of Evaluation: 11/02/16 Time of Evaluation: 10:08 - Subjective Subjective: 50 year old female aprox 2 weeks poat op for choleycystectomy, who presented with right flank pain,nausea and vomiting, vomiting and pain has now subsided. ct shows left non obstructing stone with renal calculi mild fullness of collecting system and no obstrucing stone. A incedendental mild hydro not related to present admission. Suggest pt should have urological follow up on discharge. [place] Objective - Vital Signs/Intake and Output Vital Signs (last 24 hours): Temp Pulse Resp BP Pulse Ox 98.0 F 66 17 109/70 97 11/02/16 07:40 11/02/16 07:40 11/02/16 07:40 11/02/16 07:40 11/02/16 07:40 - Medications Medications: Current Medications Diphenhydramine HCl (Benadryl) 25 mg IVP Q6 PRN PRN Reason: Itching / Pruritus Enoxaparin Sodium (Lovenox) 40 mg SC DAILY [facility] PRN Reason: Protocol Last Admin: 11/02/16 08:39 Dose: 40 mg Hydromorphone HCl (Dilaudid) 1 mg IVP Q4H PRN PRN Reason: Pain, severe (8-10) Sodium Chloride (Sodium Chloride 0.9%) 1,000 mls @ 80 mls/hr IV .[id number] [facility] Stop: 11/02/16 13:38 Last Admin: 11/02/16 02:16 Dose: 80 mls/hr Ondansetron HCl (Zofran Inj) 4 mg IVP Q6 PRN PRN Reason: Nausea/Vomiting Oxycodone/Acetaminophen (Percocet 5/325 Mg Tab) 1 tab PO Q6 PRN PRN Reason: Pain, moderate (4-7) Stop: 11/03/16 18:00 Last Admin: 11/01/16 23:33 Dose: 1 tab Pantoprazole Sodium (Protonix Ec Tab) 40 mg PO BID [facility] Last Admin: 11/02/16 08:40 Dose: 40 mg Polyethylene Glycol (Miralax) 17 gm PO DAILY [facility] Last Admin: 11/02/16 08:39 Dose: Not Given - Labs Labs: 11/01/16 07:05 10/31/16 07:46 PT 13.9 SECONDS (9.6-11.2) H 10/31/16 07:46 INR 1.34 (0.92-1.08) H 10/31/16 07:46
--- NOTE | 2016-11-02 10:16 | CP.PCM.CON ---
History of Present Illness - History of Present Illness History of Present Illness: This is a 50 yrs 0ld female who had a cholecystectomy 2 weeks ago. She came in to the ER with c/o right upper quadrant pain. She was found to have a little fullness in the gastric fundus area, but the endoscopy showed a deep ulcer in the gastric fundal area. Her pain is a little less now. The he pathology report is not yet ready. She however has 2-2.5 cms sized lymph nodes in the abdomen which could be from the surgery or the ulcer.. But she also has some mediastinal nodes and pretracheal nodes as well. She does smoke 3-4 cigarettes a week, but has not had a cough or hemoptysis. / Past Patient History - Past Medical History & Family History Past Medical History?: Yes - Past Social History Smoking Status: Never Smoked - CARDIAC Hx Cardiac Disorders: No - PULMONARY Hx Respiratory Disorders: No - NEUROLOGICAL Hx Neurological Disorder: No - HEENT Hx HEENT Problems: No Other/Comment: reading glasses - RENAL Hx Chronic Kidney Disease: No - ENDOCRINE/METABOLIC Hx Endocrine Disorders: No - HEMATOLOGICAL/ONCOLOGICAL Hx AIDS: No Hx Human Immunodeficiency Virus (HIV): No - INTEGUMENTARY Hx Dermatological Problems: No - MUSCULOSKELETAL/RHEUMATOLOGICAL Hx Falls: No - GASTROINTESTINAL Other/Comment: gallstone - GENITOURINARY/GYNECOLOGICAL Hx Genitourinary Disorders: No - PSYCHIATRIC Hx Psychophysiologic Disorder: No Hx Substance Use: No - SURGICAL HISTORY Hx Surgeries: Yes Hx Section: Yes (x1) Hx Cholecystectomy: Yes (choly lap 10 days ago) - ANESTHESIA Hx Anesthesia: Yes Hx Anesthesia Reactions: No Hx Malignant Hyperthermia: No Has any member of the family had a problem w/ anesthesia?: No Meds Allergies/Adverse Reactions: Allergies Allergy/AdvReac Type Severity Reaction Status Date / Time pcn AdvReac ITCHING Uncoded 10/28/16 17:08 - Medications Medications: Current Medications Diphenhydramine HCl (Benadryl) 25 mg IVP Q6 PRN PRN Reason: Itching / Pruritus Enoxaparin Sodium (Lovenox) 40 mg SC DAILY [facility] PRN Reason: Protocol Last Admin: 11/02/16 08:39 Dose: 40 mg Hydromorphone HCl (Dilaudid) 1 mg IVP Q4H PRN PRN Reason: Pain, severe (8-10) Sodium Chloride (Sodium Chloride 0.9%) 1,000 mls @ 80 mls/hr IV .[id number] [facility] Stop: 11/02/16 13:38 Last Admin: 11/02/16 02:16 Dose: 80 mls/hr Ondansetron HCl (Zofran Inj) 4 mg IVP Q6 PRN PRN Reason: Nausea/Vomiting Oxycodone/Acetaminophen (Percocet 5/325 Mg Tab) 1 tab PO Q6 PRN PRN Reason: Pain, moderate (4-7) Stop: 11/03/16 18:00 Last Admin: 11/01/16 23:33 Dose: 1 tab Pantoprazole Sodium (Protonix Ec Tab) 40 mg PO BID [facility] Last Admin: 11/02/16 08:40 Dose: 40 mg Polyethylene Glycol (Miralax) 17 gm PO DAILY [facility] Last Admin: 11/02/16 08:39 Dose: Not Given Physical Exam - Additional Findings Additional findings: Physical exam; Alert, well oriented in no acute distress neck; Supple, no adenopathy Chest; Clear, no rales or rhonchi Heart; RSR, no murmur Abd; Soft, no mass. no h/s megaly Some tenderness RUQ. Results - Vital Signs Recent Vital Signs: Last Vital Signs Temp 98.0 F 11/02/16 07:40 Pulse 66 11/02/16 07:40 Resp 17 11/02/16 07:40 BP 109/70 11/02/16 07:40 Pulse Ox 97 11/02/16 07:40 - Labs Result Diagrams: 11/01/16 07:05 10/31/16 07:46 Assessment & Plan - Assessment and Plan (Free Text) Assessment: Impression; Gastric ulcer s/p cholecystectomy Diffuse adenopathy ? reactive. Plan: PLan; Pt proobably has reactive lymphadenopathy. I would repeat the scan in 3 weeks to see if they are bigger, Have ordered LDH to see if there is any possibility of this being a lymphoma. Will await result of the biopsy from the gastric ulcer. - Date & Time Date: 11/02/16 Time: 10:41
[2016-11-02] MEDS: Oxycodone/Acetaminophen 5/325 mg Tab PO PRN (10:22)
--- NOTE | 2016-11-02 13:17 | CP.PCM.PN ---
Subjective - Date & Time of Evaluation Date of Evaluation: 11/02/16 Time of Evaluation: 13:14 - Subjective Subjective: RFV: Gastric ulcer S: no acute events. No bleeding, vomiting. She feels a bit better but still with upper abdominal pain. Tolerating diet. going home today Objective - Vital Signs/Intake and Output Vital Signs (last 24 hours): Temp Pulse Resp BP Pulse Ox 98.0 F 66 17 109/70 97 11/02/16 07:40 11/02/16 07:40 11/02/16 07:40 11/02/16 07:40 11/02/16 07:40 - Medications Medications: Current Medications Diphenhydramine HCl (Benadryl) 25 mg IVP Q6 PRN PRN Reason: Itching / Pruritus Enoxaparin Sodium (Lovenox) 40 mg SC DAILY [facility] PRN Reason: Protocol Last Admin: 11/02/16 08:39 Dose: 40 mg Hydromorphone HCl (Dilaudid) 1 mg IVP Q4H PRN PRN Reason: Pain, severe (8-10) Sodium Chloride (Sodium Chloride 0.9%) 1,000 mls @ 80 mls/hr IV .[id number] [facility] Stop: 11/02/16 13:38 Last Admin: 11/02/16 02:16 Dose: 80 mls/hr Ondansetron HCl (Zofran Inj) 4 mg IVP Q6 PRN PRN Reason: Nausea/Vomiting Oxycodone/Acetaminophen (Percocet 5/325 Mg Tab) 1 tab PO Q6 PRN PRN Reason: Pain, moderate (4-7) Stop: 11/03/16 18:00 Last Admin: 11/02/16 10:22 Dose: 1 tab Pantoprazole Sodium (Protonix Ec Tab) 40 mg PO BID [facility] Last Admin: 11/02/16 08:40 Dose: 40 mg Polyethylene Glycol (Miralax) 17 gm PO DAILY [facility] Last Admin: 11/02/16 08:39 Dose: Not Given - Labs Labs: 11/01/16 07:05 10/31/16 07:46 PT 13.9 SECONDS (9.6-11.2) H 10/31/16 07:46 INR 1.34 (0.92-1.08) H 10/31/16 07:46 - Constitutional Appears: Well, No Acute Distress - Head Exam Head Exam: ATRAUMATIC, NORMOCEPHALIC - Eye Exam Eye Exam: PERRL Pupil Exam: NORMAL ACCOMODATION - ENT Exam ENT Exam: Mucous Membranes Moist, Normal Oropharynx - Respiratory Exam Respiratory Exam: Clear to Ausculation Bilateral, NORMAL BREATHING PATTERN - Cardiovascular Exam Cardiovascular Exam: REGULAR RHYTHM, +S1, +S2 - GI/Abdominal Exam GI & Abdominal Exam: Soft. absent: Tenderness - Neurological Exam Neurological Exam: Alert, Oriented x3 Assessment and Plan - Assessment and Plan (Free Text) Assessment: 50 year old female with recent cholecysectomy ago admitted with persistent RUQ pain s/p EGD showing deep cratered ulcer in pre pylorus. 1. Gastric ulcer Plan: -await path -continue PPI therapy -diet as tolerated -outpatient follow up for path results and further eval/treatment -HIDA reviewed, no leak -avoid nsaids
--- NOTE | 2016-11-02 14:17 | CP.PCM.PN ---
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 Her CT chest and abdomen was positive for lymph nodes Will schedule EUS for cancer staging Biopsy sent to [facility] for staining and final report Needs oncology and surgical consult Biopsy discussed with patient in detail Biopsy and further plan of care discussed with Dr Chilel Objective - Vital Signs/Intake and Output Vital Signs (last 24 hours): Temp Pulse Resp BP Pulse Ox 98.0 F 66 17 109/70 97 11/02/16 07:40 11/02/16 07:40 11/02/16 07:40 11/02/16 07:40 11/02/16 07:40 - Medications Medications: Current Medications Diphenhydramine HCl (Benadryl) 25 mg IVP Q6 PRN PRN Reason: Itching / Pruritus Enoxaparin Sodium (Lovenox) 40 mg SC DAILY [facility] PRN Reason: Protocol Last Admin: 11/02/16 08:39 Dose: 40 mg Hydromorphone HCl (Dilaudid) 1 mg IVP Q4H PRN PRN Reason: Pain, severe (8-10) Ondansetron HCl (Zofran Inj) 4 mg IVP Q6 PRN PRN Reason: Nausea/Vomiting Oxycodone/Acetaminophen (Percocet 5/325 Mg Tab) 1 tab PO Q6 PRN PRN Reason: Pain, moderate (4-7) Stop: 11/03/16 18:00 Last Admin: 11/02/16 10:22 Dose: 1 tab Pantoprazole Sodium (Protonix Ec Tab) 40 mg PO BID [facility] Last Admin: 11/02/16 08:40 Dose: 40 mg Polyethylene Glycol (Miralax) 17 gm PO DAILY [facility] Last Admin: 11/02/16 08:39 Dose: Not Given - Labs Labs: 11/01/16 07:05 10/31/16 07:46 PT 13.9 SECONDS (9.6-11.2) H 10/31/16 07:46 INR 1.34 (0.92-1.08) H 10/31/16 07:46
[2016-11-02 16:27] VITALS: BP 113/74; PULSE 63; RESP 18; TEMP 99
--- NOTE | 2016-11-03 03:17 | DS ---
REASON FOR ADMISSION: This is a 50-year-old female with history of multiple medical histor y of laparoscopic cholecystectomy, was admitted for upper abdominal pain with nausea and vomiting. COURSE OF HOSPITALIZATION: The patient was admitted to medical floor and she was started on IV fluid for hydration. The patient had a GI consultation done by Dr. Ledbetter. The patient underwent an uppe r endoscopy that showed gastric ulcer was jejunal extension. The patient had a CAT scan of the abdom en that showed lymphadenopathy. The patient's final pathology report was pending at the time of this discharge. Surgical and oncology consultation also were done. The patient will be discharged home on Protonix and pain management to follow up with Dr. Almendarez on Monday at [facility] for end oscopic ultrasound and follow up with Dr. Najera. FINAL DIAGNOSIS: 1. Malignant gastric pouch. 2. Status post cholecystectomy. Kiko Chilel MD cc: 167 TT: 11/03/2016 03:16:38 an
--- NOTE | 2016-11-03 08:04 | PN ---
DATE: 11/01/2016 SUBJECTIVE: The patient was seen on 11/01/2016. She was still complaining of upper abdominal pain. The patient had upper endoscopy done by Dr. Win and she was found to gastric ulcer with some duodenal pathology. PHYSICAL EXAMINATION: VITAL SIGNS: Blood pressure 119/72, temperature 97.8, respiratory rate 16, pulse 76. HEENT: Pupils equal and reactive to light. Normal-appearing mucosa of the conjunctivae, oropharyngeal . NECK: . No carotid bruit. No lymphadenopathy. CHEST AND LUNGS: , no rales, no rhonchi. CARDIOVASCULAR: PMI not localized, S1 and S2. normal intensity. ABDOMEN: Normoactive bowel sounds. No tenderness, no organomegaly, no masses. EXTREMITIES: No cyanosis, no clubbing, no edema. CENTRAL NERVOUS SYSTEM: Awake, alert, and oriented x 3. No neurological deficits could be appreciated. ASSESSMENT: Deep gastric ulcer with duodenal pathology, rule out malignant ulcer. Biopsies were taken and will follow the results. PLAN: The patient also had a CAT scan of the abdomen and pelvis and as well as HIDA . We will follow the recommendations of surgery and oncology. Kiko Chilel MD cc: 167 TT: 11/02/2016 23:40:35 Confirmation # [id number] Dictation # [id number] [id number]
== END 2016-11-02 19:12 | disposition home or self-care (01) | DRG 374 ==
LOC: H.ER 14:30 → H.ERHOLD 10-28 01:20 → H.TEL 10-28 06:39 → H.MEDSURG1 10-28 23:15 → OBSVTOIN 10-29 18:27
PROVIDERS: ADMIT Internal Medicine; ATTEND Internal Medicine
PROC: 0DB78ZX Excision of Stomach, Pylorus, Via Natural or Artificial Opening Endoscopic, Diagnostic (ICD-10-PCS; 2016-10-31)
PROC: 0DB58ZX Excision of Esophagus, Via Natural or Artificial Opening Endoscopic, Diagnostic (ICD-10-PCS; 2016-10-31)
PROC: 0DB98ZX Excision of Duodenum, Via Natural or Artificial Opening Endoscopic, Diagnostic (ICD-10-PCS; principal; 2016-10-31 14:00)
DX: C16.4 Malignant neoplasm of pylorus (principal); K25.4 Chronic or unspecified gastric ulcer with hemorrhage; F17.200 Nicotine dependence, unspecified, uncomplicated; K44.9 Diaphragmatic hernia without obstruction or gangrene; K20.9 Esophagitis, unspecified; L29.9 Pruritus, unspecified; K31.9 Disease of stomach and duodenum, unspecified; Z88.0 Allergy status to penicillin; R59.1 Generalized enlarged lymph nodes

== ENCOUNTER 2016-11-19 14:00 | Inpatient (IN) | payer OTHER ==
[2016-11-19 14:10] VITALS: BMI 25.0
[2016-11-19] MEDS ORDERED: Iohexol 240 (50 ml) PO ONE (14:20)
[2016-11-19] MEDS ORDERED: Sodium Chloride 0.9% 1,000 ML IV STA (14:20)
--- NOTE | 2016-11-19 14:26 | ED PDOC ---
HPI: Abdomen Time Seen by Provider: 11/19/16 14:10 Chief Complaint (Nursing): Abdominal Pain Chief Complaint (Provider): Abd pain History Per: Patient History/Exam Limitations: no limitations Additional Complaint(s): Pt. with pain abd diffuse ongoing since mon. Also with vomit, nonbloody. Suppose to take pain meds percocet but insurance won't cover it till Monday. Was taking tramadol, but got rash from it, so stopped by Dr. Chilel. Pt. dx with stomach CA few days ago after MRI, CT, and endoscopy. Pt. has no back pain , dyspnea, chest pain, fever, cough. No leg pain, dizziness. Past Medical History Reviewed: Nursing Documentation, Vital Signs Vital Signs: Last Vital Signs Temp Pulse 79 11/19/16 17:35 Resp 85 H 11/19/16 17:35 BP 101/62 11/19/16 17:35 Pulse Ox 100 11/19/16 18:26 - Medical History PMH: Denies: HIV, Chronic Kidney Disease Other PMH: Stomach CA - Surgical History Surgical History: Cholecystectomy, (2) Denies: Pacemaker - Family History Family History: States: Unknown Family Hx - Living Arrangements Living Arrangements: With Family - Social History Current smoker - smoking cessation education provided: No Alcohol: None Drugs: Denies - Home Medications Home Medications: Ambulatory Orders Medication Instructions Recorded oxyCODONE/Acetaminophen [Percocet 1 tab PO Q4 PRN #30 tab 10/19/16 5/325 mg Tab] Pantoprazole [Protonix EC Tab] 40 mg PO BID #60 ect 11/02/16 traMADol [Ultram] 1 tab PO Q6 PRN 11/09/16 - Allergies Allergies/Adverse Reactions: Allergies Allergy/AdvReac Type Severity Reaction Status Date / Time peach Allergy RASH Verified 11/04/16 13:43 pcn AdvReac ITCHING Uncoded 10/28/16 17:08 Review of Systems ROS Statement: Except As Marked, All Systems Reviewed And Found Negative Gastrointestinal: Positive for: Nausea, Vomiting, Abdominal Pain. Negative for : Diarrhea Physical Exam - Reviewed Nursing Documentation Reviewed: Yes Vital Signs Reviewed: Yes - Physical Exam Appears: Positive for: Non-toxic, No Acute Distress Head Exam: Positive for: ATRAUMATIC, NORMAL INSPECTION, NORMOCEPHALIC Skin: Positive for: Normal Color, Warm, DRY Eye Exam: Positive for: EOMI, Normal appearance, PERRL ENT: Positive for: Normal ENT Inspection Neck: Positive for: Normal, Painless ROM Cardiovascular/Chest: Positive for: Regular Rate, Rhythm, Chest Non Tender, Other (chest with a scaly nontender erythematous rash 6cm diameter; nonblanching.). Negative for: Edema Respiratory: Positive for: CNT, Normal Breath Sounds Gastrointestinal/Abdominal: Positive for: Bowel Sounds, Soft, Tenderness ( diffuse) Back: Positive for: Normal Inspection. Negative for: L CVA Tenderness, R CVA Tenderness Extremity: Positive for: Normal ROM. Negative for: Tenderness, Pedal Edema Neurologic/Psych: Positive for: Alert, Oriented - Laboratory Results Result Diagrams: 11/19/16 15:32 11/19/16 15:32 Interpretation Of Abn Labs: no acute - ECG ECG: Positive for: Interpreted By Me, Viewed By Me ECG Rhythm: Positive for: Normal QRS, Normal ST Segment, Sinus Rhythm O2 Sat by Pulse Oximetry: 100 Pulse Ox Interpretation: Normal ED OBSERVATION Date of observation admission: 11/19/16 Time of observation admission: 18:23 - Observation admission statement Patient is being placed in observation because:: Abd pain - Goals of Observation Goals of observation are:: eval for pain - Progress Note Progress Note: 11/19/16 18:52 Dr. Gu to take over care. Fu on ct abd/pelvis. Disposition - Clinical Impression Clinical Impression: Abdominal pain - Patient ED Disposition Is Patient to be Admitted: Transfer of Care - Disposition Disposition: Transfer of Care Disposition Time: 18:53 Condition: STABLE Patient Signed Over To: Joel Gu
[2016-11-19] MEDS ORDERED: Iohexol 240 (50 ml) ONE (15:39)
[2016-11-19 15:44] LABS: BASO % 0.3 % (0.0-2.0); HEMATOCRIT 34.9 % (34.0-47.0); LYMPH # 0.4 K/uL (1.0-4.3); LYMPH % 9.4 % (20.0-40.0); MEAN CELL VOLUME 87.3 fl (81.0-99.0); MEAN CORPUSCULAR HEMOGLOBIN 28.4 pg (27.0-31.0); MEAN CORPUSCULAR HGB CONC 32.5 g/dL (33.0-37.0); MEAN PLATELET VOLUME 7.9 fl (7.2-11.7); MONO # 0.2 K/uL (0.0-0.8); MONO % 4.5 % (0.0-10.0); NEUT # 3.5 K/uL (1.8-7.0); NEUT % 85.8 % (50.0-75.0); PLATELET COUNT 207 K/uL (130-400); RED CELL DISTRIBUTION WIDTH 13.9 % (11.5-14.5); WHITE BLOOD COUNT 4.1 K/uL (4.8-10.8)
[2016-11-19 15:55] LABS: ALB/GLOB RATIO 1.6 (1.0-2.1); ALKALINE PHOSPHATASE 122 U/L (38-126); ALT/SGPT 38 U/L (9-52); AST/SGOT 98 U/L (14-36); BILIRUBIN,TOTAL 0.8 mg/dl (0.2-1.3); BLOOD UREA NITROGEN 11 mg/dl (7-17); CALCIUM 9.7 mg/dL (8.4-10.2); CARBON DIOXIDE 20 mmol/L (22-30); CHLORIDE 99 mmol/L (98-107); GFR AFRICAN-AMERICAN > 60; GLUCOSE,RANDOM 83 mg/dL (65-105); LIPASE 132 U/L (23-300); POTASSIUM 3.8 MMOL/L (3.6-5.0); SODIUM 141 mmol/l (132-148); TOTAL PROTEIN 7.3 G/DL (6.3-8.2)
[2016-11-19 16:11] LABS: PARTIAL THROMBOPLASTIN TIME 26.8 Seconds (25.6-37.1)
[2016-11-19 17:00] LABS: NEUTROPHIL 85 % (42-75); REACTIVE LYMPHOCYTES 2 % (0-0); TOTAL CELLS COUNTED 100
[2016-11-19] MEDS ORDERED: Iohexol 300 100 ML IJ ONE (19:12)
[2016-11-19] MEDS ORDERED: Sodium Chloride 0.9% 50 ML IV ONE (19:13)
--- NOTE | 2016-11-19 19:31 | ED PDOC ---
- Laboratory Results Result Diagrams: 11/19/16 15:32 11/19/16 15:32 - ECG O2 Sat by Pulse Oximetry: 100 (RA) Pulse Ox Interpretation: Normal Medical Decision Making Medical Decision Making: Time: 19:00 --Patient is pending CT, reevaluation, and disposition. Time: 20:16 --Ondansetron 4 mg IV --Morphine 4 mg IV --Revaluation Time: 21:06 --CT Abd Pelvis PO & IV Contrast FINDINGS: LOWER THORAX: No infiltrate seen in the lung bases. ABDOMEN: LIVER: Diffuse fatty infiltration of the liver. Focal area of low density in the liver, abutting the falciform ligament, most compatible with focal fatty infiltration. GALLBLADDER AND BILE DUCTS: Focal fluid density again seen in the cholecystectomy bed, suspicious for a small chronic fluid collection. This appears stable compared to the prior CT, measuring 3.3 cm maximally. It does not contain gas. It is most likely a chronic seroma or resolving hematoma, although superimposed infection is difficult to exclude. Stable- appearing biliary ductal dilatation, which may be secondary to the postcholecystectomy state. Recommend correlation with LFTs for laboratory evidence of biliary obstruction. PANCREAS: No evidence of acute pancreatitis. SPLEEN: No acute abnormality of the spleen identified. ADRENALS: Stable appearance of bilateral indeterminate adrenal lesions, the larger, on the right measuring 1.5 cm. KIDNEYS AND URETERS: Stable appearance of moderate to severe left hydroureteronephrosis, with no causative obstructing stones seen. Tiny, nonobstructing left renal stone. Low density lesions in the kidneys bilaterally, the largest, in the left kidney, measuring 3.7 cm, most likely representing cysts. STOMACH AND BOWEL: Grossly stable appearance of a heterogeneously enhancing, masslike area of soft tissue density in the right abdomen, abutting the distal stomach posteriorly and closely associated with its wall, presumably representing the known gastric cancer. Appearance is suggestive of an exophytic mass arising from the distal stomach posterior wall. This measures approximately 6 x 3 cm. It also abuts the proximal pancreas. Stomach is diffusely, mildly thick walled. No evidence of gastric perforation or significant gastric obstruction. There is normal passage of enteric contrast through the stomach, into the small bowel. Otherwise, no significant abnormality of the bowel is identified. No evidence of bowel obstruction. APPENDIX: Appendix is seen, and is within normal limits in appearance. PELVIS: BLADDER: No acute abnormality of the bladder identified. REPRODUCTIVE:No acute abnormality of the reproductive organs is seen. No acute abnormality of the uterus identified. No evidence of large adnexal masses. ABDOMEN and PELVIS: INTRAPERITONEAL SPACE: Compared to the prior study, there is been interval development of infiltrative soft tissue in the omentum, highly suspicious for omental/ peritoneal metastases. Small amount of pelvic free fluid, also seen on the prior CT. No evidence of free air. BONES/JOINTS: Bony structures appear demineralized. SOFT TISSUES: No acute abnormality of the visualized soft tissues is seen. VASCULATURE: No evidence of abdominal aortic aneurysm. No evidence of periaortic hemorrhage. LYMPH NODES: Diffuse lymphadenopathy in the abdomen. This involves the retroperitoneum, including the celiac axis, periportal, portacaval, periaortic, and aortocaval regions. Compared to the prior study, this appears progressed. The largest lymph node, and the celiac axis region, measures 2.5 cm. IMPRESSION: - Compared to a prior CT of 11/01/2016, there are findings suspicious for progression of the known gastric cancer, with development of suspected omental metastases and interval worsening of lymphadenopathy. - Otherwise, no significant change is seen. - Stable 3.3 cm chronic fluid collection in the cholecystectomy bed, most likely a chronic seroma or resolving hematoma. - Persistence of moderate to severe left hydroureteronephrosis, cause not identified. - Small amount pelvic free fluid. - Bilateral indeterminate adrenal lesions. - See above for remaining findings. Time: 20:16 --Ondansetron 4 mg IV --Morphine 4 mg IV Time: 21:58 --Admit to hospital Routine: As inpatient in Med/Surg for gastric cancer under PCP: Dr. Kiko Chilel MD Time: 22:11 --General Surgery Consult: for gastric CA with consulting physician Dr. Vladimir Rey MD. Dr. Naik (Who is covering for Dr. Rey) is already aware. Provider was unable to reach Dr Mir Vizcaino, but consult order placed. Scribe Attestation: Documented by Isamar Blue, acting as a scribe for Joel Gu MD. Provider Scribe Attestation: All medical record entries made by the Scribe were at my direction and personally dictated by me. I have reviewed the chart and agree that the record accurately reflects my personal performance of the history, physical exam, medical decision making, and the department course for this patient. I have also personally directed, reviewed, and agree with the discharge instructions and disposition. Disposition Discussed With DrMainor: Kiko Chilel (Dr Naik aware) - Clinical Impression Clinical Impression: Abdominal pain, Gastric cancer - POA Present On Arrival: None - Disposition Disposition: Routine/Home Disposition Time: 16:20 Condition: STABLE
--- NOTE | 2016-11-19 21:07 | CT ---
EXAM: CT Abdomen and Pelvis With Intravenous Contrast CLINICAL HISTORY: 51 years old, female; Pain; Abdominal pain; Generalized; Prior surgery; Surgery date: 1-6 months; Surgery type: Cholecystectomy oct 18 2016. Gastric ca. Generalized abd pain most ruq luq unable to swallow n v TECHNIQUE: Axial computed tomography images of the abdomen and pelvis with intravenous contrast. This CT exam was performed using one or more of the following dose reduction techniques: automated exposure control, adjustment of the mA and/or kV according to patient size, and/or use of iterative reconstruction technique. Coronal and sagittal reformatted images were created and reviewed. CONTRAST: 98 mL of OMNIPAQUE administered intravenously. EXAM DATE/TIME: 11/19/2016 2:19 PM COMPARISON: Prior CT abdomen and pelvis of 11/01/2016 FINDINGS: LOWER THORAX: No infiltrate seen in the lung bases. ABDOMEN: LIVER: Diffuse fatty infiltration of the liver. Focal area of low density in the liver, abutting the falciform ligament, most compatible with focal fatty infiltration. GALLBLADDER AND BILE DUCTS: Focal fluid density again seen in the cholecystectomy bed, suspicious for a small chronic fluid collection. This appears stable compared to the prior CT, measuring 3.3 cm maximally. It does not contain gas. It is most likely a chronic seroma or resolving hematoma, although superimposed infection is difficult to exclude. Stable-appearing biliary ductal dilatation, which may be secondary to the postcholecystectomy state. Recommend correlation with LFTs for laboratory evidence of biliary obstruction. PANCREAS: No evidence of acute pancreatitis. SPLEEN: No acute abnormality of the spleen identified. ADRENALS: Stable appearance of bilateral indeterminate adrenal lesions, the larger, on the right measuring 1.5 cm. KIDNEYS AND URETERS: Stable appearance of moderate to severe left hydroureteronephrosis, with no causative obstructing stones seen. Tiny, nonobstructing left renal stone. Low density lesions in the kidneys bilaterally, the largest, in the left kidney, measuring 3.7 cm, most likely representing cysts. STOMACH AND BOWEL: Grossly stable appearance of a heterogeneously enhancing, masslike area of soft tissue density in the right abdomen, abutting the distal stomach posteriorly and closely associated with its wall, presumably representing the known gastric cancer. Appearance is suggestive of an exophytic mass arising from the distal stomach posterior wall. This measures approximately 6 x 3 cm. It also abuts the proximal pancreas. Stomach is diffusely, mildly thick walled. No evidence of gastric perforation or significant gastric obstruction. There is normal passage of enteric contrast through the stomach, into the small bowel. Otherwise, no significant abnormality of the bowel is identified. No evidence of bowel obstruction. APPENDIX: Appendix is seen, and is within normal limits in appearance. PELVIS: BLADDER: No acute abnormality of the bladder identified. REPRODUCTIVE:No acute abnormality of the reproductive organs is seen. No acute abnormality of the uterus identified. No evidence of large adnexal masses. ABDOMEN and PELVIS: INTRAPERITONEAL SPACE: Compared to the prior study, there is been interval development of infiltrative soft tissue in the omentum, highly suspicious for omental/peritoneal metastases. Small amount of pelvic free fluid, also seen on the prior CT. No evidence of free air. BONES/JOINTS: Bony structures appear demineralized. SOFT TISSUES: No acute abnormality of the visualized soft tissues is seen. VASCULATURE: No evidence of abdominal aortic aneurysm. No evidence of periaortic hemorrhage. LYMPH NODES: Diffuse lymphadenopathy in the abdomen. This involves the retroperitoneum, including the celiac axis, periportal, portacaval, periaortic, and aortocaval regions. Compared to the prior study, this appears progressed. The largest lymph node, and the celiac axis region, measures 2.5 cm. IMPRESSION: - Compared to a prior CT of 11/01/2016, there are findings suspicious for progression of the known gastric cancer, with development of suspected omental metastases and interval worsening of lymphadenopathy. - Otherwise, no significant change is seen. - Stable 3.3 cm chronic fluid collection in the cholecystectomy bed, most likely a chronic seroma or resolving hematoma. - Persistence of moderate to severe left hydroureteronephrosis, cause not identified. - Small amount pelvic free fluid. - Bilateral indeterminate adrenal lesions. - See above for remaining findings.
[2016-11-20] MEDS: Potassium Chl 20 mEq in D5-NS 1,000 ML IV SCH ×3 (00:45→20:04)
--- NOTE | 2016-11-20 08:46 | CP.PCM.CON ---
<Dane Palomares D - Last Filed: 11/20/16 08:41> History of Present Illness - History of Present Illness History of Present Illness: SURGERY CONSULT NOTE FOR DR. NAIK 51F presents to [facility] with abdominal pain and vomiting that started on Monday after eating. She states the pain resolved after vomiting both on Monday and but persisted on Monday. She states she was recently diagnosed with stage 3 gastric cancer couple of weeks ago. She received an endoscopy for persistent epigastric pain at that time and that was when the mass was found. Repeat Endoscopy staged it as stage 3. She denies change bowel function, fevers , or chills. Abdominal is improving and nausea is also improving. Patient also recently developed rash that she states began when she started taking tramadol. PMH: GastricCa PSH: lap cholecystectomy, EGD Social: tobacco abuse, quit couple weeks ago, rarely drinks alcohol, denies illicit drugs Allergies: peach, tramadol, PCN Past Patient History - Past Medical History & Family History Past Medical History?: Yes - Past Social History Smoking Status: Former Smoker - CARDIAC Hx Cardiac Disorders: No Hx Pacemaker: No - PULMONARY Hx Respiratory Disorders: No - NEUROLOGICAL Hx Neurological Disorder: No - HEENT Hx HEENT Problems: No Other/Comment: reading glasses - RENAL Hx Chronic Kidney Disease: No - ENDOCRINE/METABOLIC Hx Endocrine Disorders: No - HEMATOLOGICAL/ONCOLOGICAL Hx Blood Disorders: No Hx AIDS: No Hx Human Immunodeficiency Virus (HIV): No - INTEGUMENTARY Hx Dermatological Problems: No - MUSCULOSKELETAL/RHEUMATOLOGICAL Hx Musculoskeletal Disorders: No Hx Falls: No - GASTROINTESTINAL Hx Gastrointestinal Disorders: Yes Other/Comment: gallstone - GENITOURINARY/GYNECOLOGICAL Hx Genitourinary Disorders: No - PSYCHIATRIC Hx Psychophysiologic Disorder: No Hx Emotional Abuse: No Hx Physical Abuse: No Hx Substance Use: No - SURGICAL HISTORY Hx Surgeries: Yes Hx Cholecystectomy: Yes - ANESTHESIA Hx Anesthesia: Yes Hx Anesthesia Reactions: No Hx Malignant Hyperthermia: No Has any member of the family had a problem w/ anesthesia?: No Meds Allergies/Adverse Reactions: Allergies Allergy/AdvReac Type Severity Reaction Status Date / Time peach Allergy RASH Verified 11/04/16 13:43 tramadol AdvReac RASH Verified 11/19/16 23:57 pcn AdvReac ITCHING Uncoded 10/28/16 17:08 - Medications Medications: Current Medications Hydromorphone HCl (Dilaudid) 1 mg IVP Q6 PRN PRN Reason: Pain, moderate (4-7) Last Admin: 11/20/16 08:33 Dose: 1 mg Potassium Chloride/Dextrose/Sod Cl (Potassium Chl 20 Meq In D5-Ns) 1,000 mls @ 99.01 mls/hr IV .Q10H6M [facility] Last Admin: 11/20/16 00:45 Dose: 99.01 mls/hr Ondansetron HCl (Zofran Inj) 8 mg IVP Q6 PRN PRN Reason: Nausea/Vomiting Last Admin: 11/20/16 08:03 Dose: 8 mg Pantoprazole Sodium (Protonix Inj) 40 mg IVP Q12 [facility] Last Admin: 11/20/16 08:03 Dose: 40 mg Physical Exam - Constitutional Appears: Non-toxic, No Acute Distress - Head Exam Head Exam: ATRAUMATIC - Eye Exam Eye Exam: EOMI, PERRL - ENT Exam ENT Exam: Mucous Membranes Dry - Respiratory Exam Respiratory Exam: Clear to Auscultation Bilateral, NORMAL BREATHING PATTERN - Cardiovascular Exam Cardiovascular Exam: REGULAR RHYTHM, +S1, +S2 - GI/Abdominal Exam GI & Abdominal Exam: Mass (epigastric), Soft, Tenderness (mildly tender on palpation). absent: Distended, Firm, Guarding, Rebound, Rigid - Extremities Exam Extremities exam: Negative for: pedal edema, tenderness - Neurological Exam Neurological exam: Alert, Oriented x3 - Psychiatric Exam Psychiatric exam: Normal Affect, Normal Mood - Skin Skin Exam: Dry, Intact, Normal Color, Rash (rash on forehead/ears/arms/ neck region (sun exposure pattern) /back), Warm Results - Vital Signs Recent Vital Signs: Last Vital Signs Temp 98.4 F 11/20/16 07:28 Pulse 74 11/20/16 07:28 Resp 20 11/20/16 07:28 BP 106/64 11/20/16 07:28 Pulse Ox 98 11/20/16 07:28 - Labs Result Diagrams: 11/19/16 15:32 11/19/16 15:32 Assessment & Plan - Assessment and Plan (Free Text) Assessment: 51F presents with Gastric cancer CT: progression of known GastricCa with developments of suspected omental mets, worsening of lymphadenopathy abuts pancreas, no sign of perforation or obstruction Plan: - ADAT, pain control - Anti-emetic - Serial abdominal exams - DVT/GI ppx - No surgical intervention required at this time Discussed with Dr Heena Palomares, PGY1 <Daniel Naik - Last Filed: 11/20/16 12:55> History of Present Illness - History of Present Illness History of Present Illness: Patient was seen and examined at the bedside. Agree with resident's note above. Meds - Medications Medications: Current Medications Hydromorphone HCl (Dilaudid) 1 mg IVP Q6 PRN PRN Reason: Pain, moderate (4-7) Last Admin: 11/20/16 08:33 Dose: 1 mg Potassium Chloride/Dextrose/Sod Cl (Potassium Chl 20 Meq In D5-Ns) 1,000 mls @ 99.01 mls/hr IV .Q10H6M [facility] Last Admin: 11/20/16 00:45 Dose: 99.01 mls/hr Ondansetron HCl (Zofran Inj) 8 mg IVP Q6 PRN PRN Reason: Nausea/Vomiting Last Admin: 11/20/16 08:03 Dose: 8 mg Pantoprazole Sodium (Protonix Inj) 40 mg IVP Q12 [facility] Last Admin: 11/20/16 08:03 Dose: 40 mg Results - Vital Signs Recent Vital Signs: Last Vital Signs Temp 98.4 F 11/20/16 07:28 Pulse 74 11/20/16 07:28 Resp 20 11/20/16 07:28 BP 106/64 11/20/16 07:28 Pulse Ox 98 11/20/16 07:28 - Labs Result Diagrams: 11/19/16 15:32 11/19/16 15:32 - Imaging and Cardiology CT scan - abdomen Status: Image reviewed by me, Report reviewed by me Assessment & Plan - Assessment and Plan (Free Text) Plan: - Start clear liquid diet - pain control - Zofran prn - No general surgery intervention at present time - Will follow
--- NOTE | 2016-11-20 14:50 | CARD ---
APPROVED REPORT EKG Measurement Heart [id number] <Conclusion> Normal sinus rhythm Normal ECG
[2016-11-20] MEDS ORDERED: Potassium Chl 20 mEq in NS 1,000 ML IV SCH (17:45)
[2016-11-21] MEDS: Potassium Chl 20 mEq in D5-NS 1,000 ML IV SCH ×2 (00:59→06:36)
[2016-11-21 07:23] LABS: BASO % 0.5 % (0.0-2.0); EOS % 0.7 % (0.0-4.0); HEMATOCRIT 29.6 % (34.0-47.0); LYMPH # 0.7 K/uL (1.0-4.3); LYMPH % 15.8 % (20.0-40.0); MEAN CELL VOLUME 87.9 fl (81.0-99.0); MEAN PLATELET VOLUME 8.2 fl (7.2-11.7); MONO # 0.4 K/uL (0.0-0.8); MONO % 8.5 % (0.0-10.0); NEUT # 3.2 K/uL (1.8-7.0); NEUT % 74.5 % (50.0-75.0); NRBC % 0.1 % (0.0-0.0); RED CELL DISTRIBUTION WIDTH 13.8 % (11.5-14.5); WHITE BLOOD COUNT 4.2 K/uL (4.8-10.8)
[2016-11-21 07:58] LABS: ALB/GLOB RATIO 1.4 (1.0-2.1); ALKALINE PHOSPHATASE 92 U/L (38-126); ALT/SGPT 30 U/L (9-52); BILIRUBIN,TOTAL 0.6 mg/dl (0.2-1.3); BLOOD UREA NITROGEN 6 mg/dl (7-17); CALCIUM 8.7 mg/dL (8.4-10.2); CARBON DIOXIDE 29 mmol/L (22-30); CHLORIDE 106 mmol/L (98-107); GFR AFRICAN-AMERICAN > 60; GLUCOSE,RANDOM 99 mg/dL (65-105); LIPASE 182 U/L (23-300); POTASSIUM 3.5 MMOL/L (3.6-5.0); SODIUM 144 mmol/l (132-148); TOTAL PROTEIN 5.9 G/DL (6.3-8.2)
[2016-11-21 07:59] LABS: AST/SGOT 71 U/L (14-36)
--- NOTE | 2016-11-21 08:00 | CP.PCM.PN ---
<JamesGianna - Last Filed: 11/21/16 08:08> Subjective - Date & Time of Evaluation Date of Evaluation: 11/21/16 Time of Evaluation: 07:58 - Subjective Subjective: General surgery - Dr. Naik Pt S&E. AGNES. Pt complains of epigastric abdominal pain and nausea. She states she is unable to tolerate anything PO. No Fevers/Chills, SOB/CP. Objective - Vital Signs/Intake and Output Vital Signs (last 24 hours): Temp Pulse Resp BP Pulse Ox 98 F 78 20 132/80 97 11/21/16 07:31 11/21/16 07:31 11/21/16 07:31 11/21/16 07:31 11/21/16 07:31 - Medications Medications: Current Medications Hydromorphone HCl (Dilaudid) 1 mg IVP Q3H PRN PRN Reason: Pain, severe (8-10) Potassium Chloride/Dextrose/Sod Cl (Potassium Chl 20 Meq In D5-Ns) 1,000 mls @ 99.01 mls/hr IV .Q10H6M [facility] Last Admin: 11/21/16 06:36 Dose: Not Given Metoclopramide HCl (Reglan) 10 mg IVP ACHS [facility] Ondansetron HCl (Zofran Inj) 4 mg IVP Q4 PRN PRN Reason: Nausea/Vomiting Last Admin: 11/21/16 01:37 Dose: 4 mg Pantoprazole Sodium (Protonix Inj) 40 mg IVP Q12 [facility] Last Admin: 11/20/16 21:40 Dose: 40 mg - Labs Labs: 11/21/16 06:30 PT 15.8 Seconds (9.8-13.1) H 11/19/16 15:32 INR 1.4 (0.9-1.2) H 11/19/16 15:32 APTT 26.8 Seconds (25.6-37.1) 11/19/16 15:32 - Constitutional Appears: No Acute Distress - Head Exam Head Exam: ATRAUMATIC, NORMAL INSPECTION, NORMOCEPHALIC - Eye Exam Eye Exam: Normal appearance - ENT Exam ENT Exam: Mucous Membranes Dry - Respiratory Exam Respiratory Exam: NORMAL BREATHING PATTERN. absent: Respiratory Distress - GI/Abdominal Exam GI & Abdominal Exam: Firm, Soft, Tenderness (epigastric). absent: Distended, Guarding, Rigid, Rebound - Neurological Exam Neurological Exam: Alert, Oriented x3 - Psychiatric Exam Psychiatric exam: Normal Affect, Normal Mood - Skin Skin Exam: Dry, Intact Assessment and Plan - Assessment and Plan (Free Text) Assessment: 51F w/ Gastric AdenoCa -CT concerning for omental mets -Continue liquid diet as tolerated, ice chips -Reglan achs -F/U Oncology recc. -Will follow Dw Dr Heena Ramirez PGy2 <Daniel Naik - Last Filed: 11/21/16 11:19> Subjective - Date & Time of Evaluation Time of Evaluation: 11:00 - Subjective Subjective: Patient was seen and examined at the bedside. Agree with resident's note above. Objective - Vital Signs/Intake and Output Vital Signs (last 24 hours): Temp Pulse Resp BP Pulse Ox 98 F 78 20 132/80 97 11/21/16 07:31 11/21/16 07:31 11/21/16 07:31 11/21/16 07:31 11/21/16 07:31 - Medications Medications: Current Medications Enoxaparin Sodium (Lovenox) 40 mg SC DAILY [facility] PRN Reason: Protocol Hydromorphone HCl (Dilaudid) 1 mg IVP Q3H PRN PRN Reason: Pain, severe (8-10) Last Admin: 11/21/16 09:17 Dose: 1 mg Hydroxyzine Pamoate (Vistaril) 25 mg PO Q8 PRN PRN Reason: Allergy symptoms Last Admin: 11/21/16 10:36 Dose: 25 mg Potassium Chloride/Dextrose/Sod Cl (D5-Ns1l+40meq Kcl) 1,000 mls @ 100 mls/hr IV .Q10H [facility] Stop: 11/22/16 08:10 Last Admin: 11/21/16 11:12 Dose: 100 mls/hr Metoclopramide HCl (Reglan) 10 mg IVP ACHS [facility] Last Admin: 11/21/16 08:15 Dose: 10 mg Ondansetron HCl (Zofran Inj) 4 mg IVP Q4 PRN PRN Reason: Nausea/Vomiting Last Admin: 11/21/16 01:37 Dose: 4 mg Pantoprazole Sodium (Protonix Inj) 40 mg IVP Q12 [facility] Last Admin: 11/21/16 08:12 Dose: 40 mg - Labs Labs: 11/21/16 06:30 11/21/16 06:30 PT 15.8 Seconds (9.8-13.1) H 11/19/16 15:32 INR 1.4 (0.9-1.2) H 11/19/16 15:32 APTT 26.8 Seconds (25.6-37.1) 11/19/16 15:32 Assessment and Plan - Assessment and Plan (Free Text) Plan: - NPO after midnight - Plan for Port-a-cath placement tomorrow - Will follow
--- NOTE | 2016-11-21 08:20 | HP ---
The patient is seen today, 11/20/2016. She is a 51-year-old female recently diagnosed with a gastric adenocarcinoma, presented to Emergency Room with symptoms of upper abdominal pain associate d with severe nausea and decreased oral intake. Initially, patient was treated with PPIs and she was supposed to follow up with oncologist. The patient's pain prompted her to come to Emergency Room fo r management and she further evaluation and management. REVIEW OF SYSTEMS: Other review of systems negative. ALLERGIES: THE PATIENT HAS ALLERGY TO TRAMADOL AND TO PEACH. SOCIAL HISTORY: Ex-smoker, no ETOH or substance abuse. FAMILY HISTORY: Not contributory. MEDICATIONS: Percocet 1 tablet every 4 hours p.r.n. and pantoprazole 40 mg twice a day. PHYSICAL EXAMINATION: GENERAL: The patient is in bed, comfortable, not in any cardiopulmonary distress. VITAL SIGNS: Blood pressure /64, temperature 98.4, respiratory rate 20 and pulse 74. HEENT: Pupils equal, reactive to light. Normal-appearing mucosa of the conjunctivae, oropharyngeal and nasal membrane mucosa. NECK: Supple, no JVD, no carotid bruit, no lymph node, no thyromegaly. CHEST AND LUNGS: Bilateral symmetrical expansion. Good air exchange. CARDIOVASCULAR: PMI not localized. S1, S2. No additional sounds. ABDOMEN: Normoactive bowel sounds. No tenderness, no organomegaly, no masses. EXTREMITIES: clubbing, no edema. CENTRAL NERVOUS SYSTEM: Alert, awake, oriented x 3. No neurological deficits could be appreciated. ASSESSMENT: Worsening gastric ulcer with persistent pain and nausea and vomiting. PLAN: We will start patient on Compazine 25 mg 3 times a day as needed as well as and PPI. Kiko Chilel MD cc: [id number] TT: 11/21/2016 08:19:30 en
--- NOTE | 2016-11-21 08:53 | CP.PCM.CON ---
History of Present Illness - History of Present Illness History of Present Illness: This is a 50 yrs old female who had a cholecystectomy on 10/27/16. 10 days later he started having abdominal pain nausea, vomiting, unable to keep anything down.She had a endoscopy which showed a deep crater ulcer in the prepyloric area of the stomach. The biopsy showed it to be a poorly differentiated adenocarcinoma. A EUS done showed some nodes along the greater curvature. There was an exophytic mass continuous with the mass in the stomach. , She has continued to have nausea and vomiting. No hemetemesis. She also continues to have crampy abdominal maureen. When she had the cholecystectomy she was given antibiotics and developed a rash , which was fading when she was adnitted last time. It got a little better, but once she was started on tramadol. the rash appeared again. Initially there were some retroperitoneal nodes present, but these are less than 2 cms. She now she is on percocet. She has a past h/o 1 c section and cholecystectomy. Was a smoker 1 pack per 3-4 days Drinks socially Past Patient History - Past Medical History & Family History Past Medical History?: Yes - Past Social History Smoking Status: Former Smoker - CARDIAC Hx Cardiac Disorders: No Hx Pacemaker: No - PULMONARY Hx Respiratory Disorders: No - NEUROLOGICAL Hx Neurological Disorder: No - HEENT Hx HEENT Problems: No Other/Comment: reading glasses - RENAL Hx Chronic Kidney Disease: No - ENDOCRINE/METABOLIC Hx Endocrine Disorders: No - HEMATOLOGICAL/ONCOLOGICAL Hx Blood Disorders: No Hx AIDS: No Hx Human Immunodeficiency Virus (HIV): No - INTEGUMENTARY Hx Dermatological Problems: No - MUSCULOSKELETAL/RHEUMATOLOGICAL Hx Musculoskeletal Disorders: No Hx Falls: No - GASTROINTESTINAL Hx Gastrointestinal Disorders: Yes Other/Comment: gallstone - GENITOURINARY/GYNECOLOGICAL Hx Genitourinary Disorders: No - PSYCHIATRIC Hx Psychophysiologic Disorder: No Hx Emotional Abuse: No Hx Physical Abuse: No Hx Substance Use: No - SURGICAL HISTORY Hx Surgeries: Yes Hx Cholecystectomy: Yes - ANESTHESIA Hx Anesthesia: Yes Hx Anesthesia Reactions: No Hx Malignant Hyperthermia: No Has any member of the family had a problem w/ anesthesia?: No Meds Allergies/Adverse Reactions: Allergies Allergy/AdvReac Type Severity Reaction Status Date / Time peach Allergy RASH Verified 11/04/16 13:43 tramadol AdvReac RASH Verified 11/19/16 23:57 pcn AdvReac ITCHING Uncoded 10/28/16 17:08 - Medications Medications: Current Medications Hydromorphone HCl (Dilaudid) 1 mg IVP Q3H PRN PRN Reason: Pain, severe (8-10) Hydroxyzine Pamoate (Vistaril) 25 mg PO Q8 PRN PRN Reason: Allergy symptoms Potassium Chloride/Dextrose/Sod Cl (D5-Ns1l+40meq Kcl) 1,000 mls @ 100 mls/hr IV .Q10H [facility] Stop: 11/22/16 08:10 Metoclopramide HCl (Reglan) 10 mg IVP ACHS [facility] Last Admin: 11/21/16 08:15 Dose: 10 mg Ondansetron HCl (Zofran Inj) 4 mg IVP Q4 PRN PRN Reason: Nausea/Vomiting Last Admin: 11/21/16 01:37 Dose: 4 mg Pantoprazole Sodium (Protonix Inj) 40 mg IVP Q12 [facility] Last Admin: 11/21/16 08:12 Dose: 40 mg Physical Exam - Additional Findings Additional findings: Physical exam; Alert, well oriented in no acute distress. neck; supple, no adenopathy Chest; Clear, no rales or rhonchi Heart;RSR, no murmur Abd; Soft, no mass, no h/s megaly Some tenderness in the epigastric area. Has generalised diffuse urticarial rash all over the body. She feels it is due to the tramadol. Results - Vital Signs Recent Vital Signs: Last Vital Signs Temp 98 F 11/21/16 07:31 Pulse 78 11/21/16 07:31 Resp 20 11/21/16 07:31 BP 132/80 11/21/16 07:31 Pulse Ox 97 11/21/16 07:31 - Labs Result Diagrams: 11/21/16 06:30 11/21/16 06:30 Labs: Laboratory Results - last 24 hr 11/21/16 11/21/16 06:30 06:30 WBC 4.2 L RBC 3.37 L Hgb 9.8 L Hct 29.6 L MCV 87.9 MCH 29.0 MCHC 33.0 RDW 13.8 Plt Count 149 MPV 8.2 Neut % (Auto) 74.5 Lymph % (Auto) 15.8 L [place] % (Auto) 8.5 Eos % (Auto) 0.7 Baso % (Auto) 0.5 Neut # 3.2 Lymph # 0.7 L [place] # 0.4 Eos # 0.0 Baso # 0.0 Sodium 144 Potassium 3.5 L Chloride 106 Carbon Dioxide 29 Anion Gap 13 BUN 6 L Creatinine 0.6 L Est GFR ( Amer) > 60 Est GFR (Non-Af Amer) > 60 Random Glucose 99 Calcium 8.7 Total Bilirubin 0.6 AST 71 H D ALT 30 Alkaline Phosphatase 92 Total Protein 5.9 L Albumin 3.4 L D Globulin 2.5 Albumin/Globulin Ratio 1.4 Lipase 182 Assessment & Plan - Assessment and Plan (Free Text) Assessment: Impression; Gastric cancer stage III. Urticarial rash probably secondary to the tramadol. Plan: Plan; Will request surgeon to place a life port, and will then start alejandra adjuvant chemotherapy with [place] day one and Fluorouracil over 5 days as a continuous infusion.Repeat cycle afer after 28 days . - Date & Time Date: 11/21/16 Time: 09:32
[2016-11-21] MEDS: Potassium Chl 40 mEq in D5-NS 1,000 ML IV SCH ×3 (11:12→23:40)
[2016-11-21] MEDS: Enoxaparin 40 mg Syringe SC SCH (11:57)
[2016-11-21] MEDS: Desoximetasone 0.25% Cream(15 gm) TOP SCH (14:57)
[2016-11-22] MEDS: Potassium Chl 40 mEq in D5-NS 1,000 ML IV SCH (04:40)
[2016-11-22 06:36] LABS: HEMATOCRIT 28.3 % (34.0-47.0); MEAN CELL VOLUME 88.9 fl (81.0-99.0); MEAN CORPUSCULAR HEMOGLOBIN 28.4 pg (27.0-31.0); RED CELL DISTRIBUTION WIDTH 13.8 % (11.5-14.5); WHITE BLOOD COUNT 4.4 K/uL (4.8-10.8)
[2016-11-22 07:04] LABS: BLOOD UREA NITROGEN 3 mg/dl (7-17); CALCIUM 8.5 mg/dL (8.4-10.2); CARBON DIOXIDE 32 mmol/L (22-30); CHLORIDE 103 mmol/L (98-107); GFR AFRICAN-AMERICAN > 60; GLUCOSE,RANDOM 97 mg/dL (65-105); POTASSIUM 4.2 MMOL/L (3.6-5.0); SODIUM 141 mmol/l (132-148)
--- NOTE | 2016-11-22 08:24 | CP.PCM.PN ---
Subjective - Date & Time of Evaluation Date of Evaluation: 11/22/16 Time of Evaluation: 08:21 - Subjective Subjective: Pt seems a little better today. No more nausea or vomiting, and the rash is fading as well. She is going to have a life port placed today, will srat chemotherapytomorrow. Objective - Vital Signs/Intake and Output Vital Signs (last 24 hours): Temp Pulse Resp BP Pulse Ox 98.5 F 109 H 20 122/79 94 L 11/22/16 07:55 11/22/16 07:55 11/22/16 07:55 11/22/16 07:55 11/22/16 07:55 - Medications Medications: Current Medications Desoximetasone (Topicort 0.25%) 0.25 ea TOP DAILY [facility] Last Admin: 11/21/16 14:57 Dose: 1 applic Enoxaparin Sodium (Lovenox) 40 mg SC DAILY [facility] PRN Reason: Protocol Last Admin: 11/21/16 11:57 Dose: 40 mg Hydromorphone HCl (Dilaudid) 1 mg IVP Q3H PRN PRN Reason: Pain, severe (8-10) Last Admin: 11/22/16 07:48 Dose: 1 mg Hydroxyzine HCl (Atarax) 25 mg PO Q8 PRN PRN Reason: Itching / Pruritus Last Admin: 11/22/16 01:22 Dose: 25 mg Metoclopramide HCl (Reglan) 10 mg IVP ACHS [facility] Last Admin: 11/22/16 07:46 Dose: 10 mg Ondansetron HCl (Zofran Inj) 4 mg IVP Q4 PRN PRN Reason: Nausea/Vomiting Last Admin: 11/22/16 04:14 Dose: 4 mg Pantoprazole Sodium (Protonix Inj) 40 mg IVP Q12 [facility] Last Admin: 11/21/16 21:50 Dose: 40 mg - Labs Labs: 11/22/16 05:25 11/22/16 05:25 PT 15.8 Seconds (9.8-13.1) H 11/19/16 15:32 INR 1.4 (0.9-1.2) H 11/19/16 15:32 APTT 26.8 Seconds (25.6-37.1) 11/19/16 15:32
[2016-11-22] MEDS: Desoximetasone 0.25% Cream(15 gm) TOP SCH (09:20)
[2016-11-22] MEDS ORDERED: Lidocaine 1% Inj (20ml) ONE (13:06)
[2016-11-22] MEDS ORDERED: Propofol 10 mg/ml Inj (20 ML) ONE (14:07)
[2016-11-22] MEDS ORDERED: Midazolam 2 MG/2 ML VIAL ONE (14:07)
[2016-11-22] MEDS ORDERED: Succinylcholine 200 mg/10 ml Inj IV ONE (14:08)
[2016-11-22] MEDS ORDERED: Lactated Ringer's 1,000 ML IV ONE (14:20)
[2016-11-22] MEDS ORDERED: ePHEDrine 50 mg/ml Inj ONE (14:34)
[2016-11-22] MEDS ORDERED: Lidocaine 1% Inj (20ml) IJ ONE (14:43)
--- NOTE | 2016-11-22 15:01 | CON ---
DATE: 11/22/2016 REASON FOR CONSULTATION: Left hydronephrosis. BRIEF HISTORY: The patient is a 51-year-old white female with recently diagnosed gastric cancer whic h is now progressing and possibly associated with omental metastasis. The patient comes to the [facility] for this admission with acute right-sided abdominal pain now advancing towards the mid abdominal area. The patient voids with a usual normal stream. She denies any dysuria, gross hematuria, renal colic. She also denies any left quadrant pain or left back pain or renal colic. PAST SURGICAL HISTORY: Includes a lap cholecystectomy done on 10/18/2016 and also done in 1983 and a bone marrow donation many years ago. SOCIAL HISTORY: She was a light smoker, but she stopped 1 month ago. She is a very occasional socia l drinker. ALLERGY: PENICILLIN, TRAMADOL, PEACHES. FAMILY HISTORY: Positive for cancer regarding her sister who had leukemia and a cousin who had cance r. IMAGING: Abdominal pelvic CT done on this admission and compared to the previous CT showed again mod [id number] left hydronephrosis, but similar to the previous CT. She does have worsening of her mass in the right abdomen, indicating a progression of her gastric cancer and now possibly involving the omentum. PAST MEDICAL HISTORY: Includes gastric cancer. PHYSICAL EXAMINATION: GENERAL: Today, she is a well-developed, well-nourished white female. She is alert, she is oriented . VITAL SIGNS: Temperature today is 98.5, pulse rate is 109, blood pressure is 122/79 and respiratory rate is 20. Her O2 sat was 94 on room air. HEENT: Grossly within normal limits. NECK: Supple. Thyroid not palpable. ABDOMEN: Soft, not distended. She has no CVA tenderness, especially on the left side. She does hav e right flank and quadrant tenderness and now also involving the right mid abdominal area. EXTREMITIES: She has full range of motion of both upper and lower extremities. LABORATORY EVALUATION: Today, 11/22/2016, shows a CBC with a WBC count of 4.4, hemoglobin of 9.0, he matocrit of 28.3 and a platelet count of 126,000, which was low. PT, PTT on 11/19/2016 showed a PT o f 15.8, INR of 1.4 and a PTT of 26.8. Also, on 11/19/2016, chemistry showed a sodium of 141, potassi um 3.8, chloride 99, CO2 20, BUN and creatinine were 11 and 0.6 with a GFR of greater than 60, indica ting good renal function. Her glucose was 83, calcium was 9.7, total bilirubin was 0.8, AST was elev ated at 98 and ALT was 38. Alkaline phosphatase was 122. Lipase was 132. UROLOGIC DIAGNOSIS: For this patient is [id number] left hydronephrosis. Etiology or cause f or this is unknown at this time. The patient is relatively asymptomatic regarding her left hydroneph rosis at this time and her renal function is relatively normal. DIAGNOSTIC IMPRESSION: Right now is asymptomatic moderate to severe left hydronephrosis. PLAN: Just to order a urinalysis and observation at this time regarding her left hydronephrosis whic h has been stable since her previous CAT scan. Javon Briceno MD cc:Javon Briceno MD; Kiko Chilel MD [id number] TT: 11/22/2016 14:59:57 Confirmation # [id number] Dictation # [id number] dn
--- NOTE | 2016-11-22 15:17 | PCM.SURG1 ---
Surgeon's Initial Post Op Note - Surgeon's Notes Surgeon: Dr. Najera Commissary Manager: Daria Coyne, PGY1 Pre-Operative Diagnosis: Gastric adenocarcinoma, skin lesions Operative Findings: same Post-Operative Diagnosis: same Operation Performed: life port insertion on L side, biopsy of the left anterior chest skin lesion Specimen/Specimens Removed: skin lesion biopsy Estimated Blood Loss: EBL {In ML}: 3 Date of Surgery/Procedure: 11/22/16 Time of Surgery/Procedure: 14:15
[2016-11-22] MEDS ORDERED: Dexamethasone 4 mg/1 ml IVP PRN (15:20)
[2016-11-22] MEDS ORDERED: HYDROmorphone 0.5 mg/0.5 ml ISec IVP PRN (15:20)
--- NOTE | 2016-11-22 17:23 | RAD ---
PROCEDURE: CHEST RADIOGRAPH, 1 VIEW. Technique: Single view portable semi erect @ 15:50. HISTORY: s/p port placement COMPARISON: 10/14/2016. FINDINGS: LUNGS: Clear. PLEURA: No pneumothorax or pleural fluid seen. CARDIOVASCULAR: No radiographic findings to suggest acute or significant cardiovascular disease. Venous access catheter in stable, satisfactory position. OSSEOUS STRUCTURES: No significant abnormalities. VISUALIZED UPPER ABDOMEN: Normal. OTHER FINDINGS: None. IMPRESSION: No active disease. No acute/significant interval changes.
[2016-11-22 18:41] LABS: RBC URINE 2 /hpf (0-3); URINE BACTERIA RARE (<OCC); URINE BILIRUBIN NEGATIVE (NEGATIVE); URINE BLOOD SMALL (NEGATIVE); URINE COLOR YELLOW (YELLOW); URINE GLUCOSE (UA) NEG (Normal); URINE KETONE NEGATIVE (NEGATIVE); URINE LEUKOCYTE ESTERASE NEG Leu/uL (Negative); URINE PROTEIN 30 mg/dL (NEGATIVE); WBC URINE 2 /hpf (0-5)
--- NOTE | 2016-11-22 21:40 | PN ---
DATE: 11/22/2016 SUBJECTIVE: The patient is seen today, 11/22/2016. She is waiting for a LifePort insertion by milana tan. PHYSICAL EXAMINATION: VITAL SIGNS: Blood pressure was 120/70, temperature 99.5, respiratory rate 20 and pulse 100. HEENT: Pupils equal, reactive to light. Normal-appearing mucosa of the conjunctivae, oropharyngeal and nasal membrane mucosa. NECK: Supple, no JVD. No carotid bruit, no lymph node, no thyromegaly. CHEST AND LUNGS: Bilateral symmetrical expansion, good air exchange. No rales, no rhonchi. CARDIOVASCULAR: PMI not localized, S1, S2, no additional sounds. ABDOMEN: Normoactive bowel sounds. No tenderness, no organomegaly, no masses. EXTREMITIES: No cyanosis, no clubbing, no edema. CENTRAL NERVOUS SYSTEM: Alert, awake, oriented x 3. No neurological deficits could be appreciated. SKIN: The patient had multiple skin rashes maculopapular as well as erythematous patches in the uppe r chest wall as well as in both upper extremities and lower extremities. ASSESSMENT: 1. Stage IV gastric ulcer. 2. Left hydroureter-hydronephrosis. PLAN: The patient does support my suggestion of starting chemotherapy. Will continue . Kiko Chilel MD cc: [phone] TT: 11/22/2016 21:39:44 Confirmation # [id number] Dictation # [id number] mn
[2016-11-22] MEDS ORDERED: Potassium Chl 20 mEq in D5-NS 1,000 ML IV SCH (23:00)
[2016-11-23] MEDS ORDERED: Simethicone 40 mg/0.6 ml Liquid (30 ml) PO ONE (03:24)
[2016-11-23 06:57] LABS: BASO % 0.5 % (0.0-2.0); EOS % 0.2 % (0.0-4.0); HEMATOCRIT 28.1 % (34.0-47.0); LYMPH # 0.4 K/uL (1.0-4.3); LYMPH % 8.5 % (20.0-40.0); MEAN CELL VOLUME 87.8 fl (81.0-99.0); MEAN CORPUSCULAR HEMOGLOBIN 28.2 pg (27.0-31.0); MEAN CORPUSCULAR HGB CONC 32.1 g/dL (33.0-37.0); MEAN PLATELET VOLUME 8.7 fl (7.2-11.7); MONO # 0.5 K/uL (0.0-0.8); NEUT # 4.2 K/uL (1.8-7.0); NEUT % 80.8 % (50.0-75.0); PLATELET COUNT 108 K/uL (130-400); RED CELL DISTRIBUTION WIDTH 14.1 % (11.5-14.5); WHITE BLOOD COUNT 5.2 K/uL (4.8-10.8)
[2016-11-23 07:21] LABS: BLOOD UREA NITROGEN 3 mg/dl (7-17); CALCIUM 8.2 mg/dL (8.4-10.2); CARBON DIOXIDE 29 mmol/L (22-30); CHLORIDE 101 mmol/L (98-107); GFR AFRICAN-AMERICAN > 60; GLUCOSE,RANDOM 104 mg/dL (65-105); POTASSIUM 3.4 MMOL/L (3.6-5.0); SODIUM 139 mmol/l (132-148)
--- NOTE | 2016-11-23 07:43 | CP.PCM.PN ---
Subjective - Date & Time of Evaluation Date of Evaluation: 11/23/16 Time of Evaluation: 07:41 - Subjective Subjective: General Surgery - Dr. Naik Pt S&E. AGNES. Pt had port-a-cath insertion and skin bx yesterday. She is tolerating small amounts of clear liquid diet. Her only complaint is some intermittent stomach pain. She is still having nausea and intermittent vomiting. No F/C, SOB/Cp. Objective - Vital Signs/Intake and Output Vital Signs (last 24 hours): Temp Pulse Resp BP Pulse Ox 98.5 F 113 H 20 113/68 93 L 11/23/16 00:31 11/23/16 00:31 11/23/16 00:31 11/23/16 00:31 11/23/16 00:31 - Medications Medications: Current Medications Desoximetasone (Topicort 0.25%) 0.25 ea TOP DAILY TAYO Last Admin: 11/22/16 09:20 Dose: 1 applic Enoxaparin Sodium (Lovenox) 40 mg SC DAILY TAYO PRN Reason: Protocol Last Admin: 11/21/16 11:57 Dose: 40 mg Hydromorphone HCl (Dilaudid) 1 mg IVP Q3H PRN PRN Reason: Pain, severe (8-10) Last Admin: 11/23/16 05:19 Dose: 1 mg Hydroxyzine HCl (Atarax) 25 mg PO Q8 PRN PRN Reason: Itching / Pruritus Last Admin: 11/22/16 01:22 Dose: 25 mg Potassium Chloride/Dextrose/Sod Cl (Potassium Chl 20 Meq In D5-Ns) 1,000 mls @ 100 mls/hr IV .Q10H TAYO Stop: 11/23/16 22:32 Last Admin: 11/23/16 02:13 Dose: 100 mls/hr Metoclopramide HCl (Reglan) 10 mg IVP ACHS TAYO Last Admin: 11/23/16 07:24 Dose: 10 mg Ondansetron HCl (Zofran Inj) 4 mg IVP Q4 PRN PRN Reason: Nausea/Vomiting Last Admin: 11/23/16 00:38 Dose: 4 mg Pantoprazole Sodium (Protonix Inj) 40 mg IVP Q12 TAYO Last Admin: 11/22/16 21:39 Dose: 40 mg - Labs Labs: 11/23/16 05:30 11/22/16 05:25 PT 15.8 Seconds (9.8-13.1) H 11/19/16 15:32 INR 1.4 (0.9-1.2) H 11/19/16 15:32 APTT 26.8 Seconds (25.6-37.1) 11/19/16 15:32 - Constitutional Appears: No Acute Distress - Head Exam Head Exam: ATRAUMATIC, NORMAL INSPECTION, NORMOCEPHALIC - Eye Exam Eye Exam: Normal appearance - Respiratory Exam Respiratory Exam: NORMAL BREATHING PATTERN. absent: Respiratory Distress - Cardiovascular Exam Additional comments: portacath in place, dressing C/d/I - GI/Abdominal Exam GI & Abdominal Exam: Soft, Tenderness (mild epigstric ttp). absent: Distended - Neurological Exam Neurological Exam: Alert, Oriented x3 - Psychiatric Exam Psychiatric exam: Normal Affect, Normal Mood - Skin Skin Exam: Dry, Intact Assessment and Plan - Assessment and Plan (Free Text) Assessment: 51F w/ Gastric AdenoCa -Continue liquid diet as tolerated, ice chips and supplements -Reglan achs and zofran q4h pRN -Chemotherapy to start as per Dr. Vizcaino -F/U Skin Bx results Dw Dr Heena Ramirez PGY2
[2016-11-23] MEDS ORDERED: Potassium Chl 40 mEq in D5-NS 1,000 ML IV SCH (08:00)
[2016-11-23] MEDS: Enoxaparin 40 mg Syringe SC SCH (08:25)
[2016-11-23] MEDS: Desoximetasone 0.25% Cream(15 gm) TOP SCH (08:29)
[2016-11-23] MEDS ORDERED: SODIUM CHLORIDE 0.9% IV SCH (08:30)
[2016-11-23] MEDS ORDERED: CISPLATIN IV SCH (08:30)
[2016-11-23] MEDS ORDERED: Mannitol 12.5 gm/50 ml Inj IV ONE (08:40)
--- NOTE | 2016-11-23 08:46 | CP.PCM.PN ---
Subjective - Date & Time of Evaluation Date of Evaluation: 11/23/16 Time of Evaluation: 08:44 - Subjective Subjective: Pt is still in a fair amount of pain, but the nausea is better, and the rash is slowly fading. She will start her chemotheray today with cisplatin today and fluorouracil as continuous infusion over 24 hrs x 5 days. Objective - Vital Signs/Intake and Output Vital Signs (last 24 hours): Temp Pulse Resp BP Pulse Ox 97.3 F L 122 H 20 133/70 96 11/23/16 07:58 11/23/16 07:58 11/23/16 07:58 11/23/16 07:58 11/23/16 07:58 - Medications Medications: Current Medications Desoximetasone (Topicort 0.25%) 0.25 ea TOP DAILY TAYO Last Admin: 11/23/16 08:29 Dose: 1 applic Enoxaparin Sodium (Lovenox) 40 mg SC DAILY TAYO PRN Reason: Protocol Last Admin: 11/23/16 08:25 Dose: 40 mg Famotidine (Pepcid) 20 mg IVP STAT STA Stop: 11/23/16 08:25 Hydromorphone HCl (Dilaudid) 1 mg IVP Q3H PRN PRN Reason: Pain, severe (8-10) Last Admin: 11/23/16 08:20 Dose: 1 mg Hydroxyzine HCl (Atarax) 25 mg PO Q8 PRN PRN Reason: Itching / Pruritus Last Admin: 11/22/16 01:22 Dose: 25 mg Diphenhydramine HCl 25 mg/ (Sodium Chloride) 50.5 mls @ 101 mls/hr IVPB ONCE ONE Stop: 11/23/16 08:51 Dexamethasone 10 mg/ Sodium (Chloride) 51 mls @ 102 mls/hr IVPB ONCE ONE Stop: 11/23/16 08:51 Fosaprepitant 150 mg/ Sodium (Chloride) 250 mls @ 500 mls/hr IVPB ONCE ONE Stop: 11/23/16 08:55 Sodium Chloride (Sodium Chloride 0.9%) 500 mls @ 125 mls/hr IV .Q4H TAYO Ondansetron HCl 16 mg/ Sodium (Chloride) 58 mls @ 116 mls/hr IVPB ONCE ONE Stop: 11/23/16 08:51 Cisplatin 130 mg/ Sodium (Chloride) 630 mls @ 0 mls/hr IV ONCE ONE PRN Reason: As Directed Stop: 11/23/16 08:31 Fluorouracil 1,384 mg/ Sodium (Chloride) 1,027.68 mls @ 0 mls/hr IV DAILY TAYO PRN Reason: As Directed Potassium Chloride 20 meq/Magnesium Sulfate 1 gm/ Sodium Chloride 1,012 mls @ 125 mls/hr IV .Q8H6M TAYO Stop: 11/24/16 08:38 Lidocaine/Prilocaine (Lidocaine/Prilocaine 2.5%-2.5%) 1 applic TP ONCE ONE Stop: 11/23/16 08:23 Mannitol (Mannitol) 12.5 gm IV BID ONE Stop: 11/23/16 08:41 Metoclopramide HCl (Reglan) 10 mg IVP ACHS [facility] Last Admin: 11/23/16 07:24 Dose: 10 mg Ondansetron HCl (Zofran Inj) 4 mg IVP Q4 PRN PRN Reason: Nausea/Vomiting Last Admin: 11/23/16 00:38 Dose: 4 mg Pantoprazole Sodium (Protonix Inj) 40 mg IVP Q12 TAYO Last Admin: 11/23/16 08:26 Dose: 40 mg - Labs Labs: 11/23/16 05:30 11/23/16 05:30 PT 15.8 Seconds (9.8-13.1) H 11/19/16 15:32 INR 1.4 (0.9-1.2) H 11/19/16 15:32 APTT 26.8 Seconds (25.6-37.1) 11/19/16 15:32
[2016-11-23] MEDS ORDERED: Fosaprepitant 150 MG in Sodium Chloride 0.9% 250 ML IVPB SCH (09:15)
[2016-11-23] MEDS ORDERED: FAMOTIDINE IVP SCH (09:15)
[2016-11-23] MEDS ORDERED: Dexamethasone 10 MG in Sodium Chloride 0.9% 50 ML IVPB SCH (09:15)
[2016-11-23] MEDS ORDERED: Lidocaine/Prilocaine CREAM 5GM TP SCH (09:15)
[2016-11-23] MEDS ORDERED: SODIUM CHLORIDE 0.9% IVP SCH (09:15)
--- NOTE | 2016-11-23 09:18 | CP.PCM.CON ---
History of Present Illness - History of Present Illness History of Present Illness: 51 yo woman recently diagnosed with stomach cancer, about to start chemotherapy , is referred for pain management. Patient had cholecystectomy in October for abdominal pain, but the pain had persisted despite surgery. She was then diagnosed with gastric CA s/p endo. She continues to have pain in the right abdomen. She's currently on Dilaudid IV, which helps her effectively but only lasts 1-2 hours. She had been on Tramadol before, which caused rash but wasn't effective. She had tolerated Percocet during previous admission, but is now not tolerating PO as of yet. Past Patient History - Past Medical History & Family History Past Medical History?: Yes - Past Social History Smoking Status: Former Smoker - CARDIAC Hx Cardiac Disorders: No Hx Pacemaker: No - PULMONARY Hx Respiratory Disorders: No - NEUROLOGICAL Hx Neurological Disorder: No - HEENT Hx HEENT Problems: No Other/Comment: reading glasses - RENAL Hx Chronic Kidney Disease: No - ENDOCRINE/METABOLIC Hx Endocrine Disorders: No - HEMATOLOGICAL/ONCOLOGICAL Hx Blood Disorders: No Hx AIDS: No Hx Human Immunodeficiency Virus (HIV): No - INTEGUMENTARY Hx Dermatological Problems: No - MUSCULOSKELETAL/RHEUMATOLOGICAL Hx Musculoskeletal Disorders: No Hx Falls: No - GASTROINTESTINAL Hx Gastrointestinal Disorders: Yes Other/Comment: gallstone - GENITOURINARY/GYNECOLOGICAL Hx Genitourinary Disorders: No - PSYCHIATRIC Hx Psychophysiologic Disorder: No Hx Emotional Abuse: No Hx Physical Abuse: No Hx Substance Use: No - SURGICAL HISTORY Hx Surgeries: Yes Hx Cholecystectomy: Yes - ANESTHESIA Hx Anesthesia: Yes Hx Anesthesia Reactions: No Hx Malignant Hyperthermia: No Has any member of the family had a problem w/ anesthesia?: No Meds Allergies/Adverse Reactions: Allergies Allergy/AdvReac Type Severity Reaction Status Date / Time peach Allergy RASH Verified 11/04/16 13:43 tramadol AdvReac RASH Verified 11/19/16 23:57 pcn AdvReac ITCHING Uncoded 10/28/16 17:08 - Medications Medications: Current Medications Desoximetasone (Topicort 0.25%) 0.25 ea TOP DAILY TAYO Last Admin: 11/23/16 08:29 Dose: 1 applic Enoxaparin Sodium (Lovenox) 40 mg SC DAILY TAYO PRN Reason: Protocol Last Admin: 11/23/16 08:25 Dose: 40 mg Hydromorphone HCl (Dilaudid) 1 mg IVP Q3H PRN PRN Reason: Pain, severe (8-10) Last Admin: 11/23/16 08:20 Dose: 1 mg Hydroxyzine HCl (Atarax) 25 mg PO Q8 PRN PRN Reason: Itching / Pruritus Last Admin: 11/22/16 01:22 Dose: 25 mg Diphenhydramine HCl 25 mg/ (Sodium Chloride) 50.5 mls @ 101 mls/hr IVPB ONCE TAYO Stop: 11/23/16 15:00 Dexamethasone 10 mg/ Sodium (Chloride) 51 mls @ 102 mls/hr IVPB ONCE TAYO Stop: 11/23/16 15:00 Fosaprepitant 150 mg/ Sodium (Chloride) 250 mls @ 500 mls/hr IVPB ONCE TAYO Stop: 11/23/16 15:00 Sodium Chloride (Sodium Chloride 0.9%) 500 mls @ 125 mls/hr IV .Q4H TAYO Ondansetron HCl 16 mg/ Sodium (Chloride) 58 mls @ 116 mls/hr IVPB ONCE [facility] Stop: 11/23/16 15:00 Cisplatin 130 mg/ Sodium (Chloride) 630 mls @ 0 mls/hr IV ONCE ONE PRN Reason: As Directed Stop: 11/23/16 08:31 Fluorouracil 1,384 mg/ Sodium (Chloride) 1,027.68 mls @ 0 mls/hr IV DAILY TAYO PRN Reason: As Directed Magnesium Sulfate 1 gm/Potassium Chloride/Sodium Chloride 1,002 mls @ 123.763 mls/hr IV .Q8H6M [facility] Stop: 11/24/16 08:38 Famotidine 20 mg/ Sodium (Chloride) 102 mls @ 204 mls/hr IVP ONCE [facility] Stop: 11/23/16 15:00 Lidocaine/Prilocaine (Lidocaine/Prilocaine 2.5%-2.5%) 1 applic TP ONCE [facility] Stop: 11/23/16 15:00 Mannitol (Mannitol) 12.5 gm IV BID ONE Stop: 11/23/16 08:41 Metoclopramide HCl (Reglan) 10 mg IVP ACHS [facility] Last Admin: 11/23/16 07:24 Dose: 10 mg Ondansetron HCl (Zofran Inj) 4 mg IVP Q4 PRN PRN Reason: Nausea/Vomiting Last Admin: 11/23/16 00:38 Dose: 4 mg Pantoprazole Sodium (Protonix Inj) 40 mg IVP Q12 TAYO Last Admin: 11/23/16 08:26 Dose: 40 mg Potassium Chloride (K-Dur 20 Meq Er Tab) 20 meq PO DAILY TAYO Physical Exam - Respiratory Exam Respiratory Exam: Clear to Auscultation Bilateral - Cardiovascular Exam Cardiovascular Exam: REGULAR RHYTHM - GI/Abdominal Exam GI & Abdominal Exam: Soft, Tenderness Results - Vital Signs Recent Vital Signs: Last Vital Signs Temp 97.3 F L 11/23/16 07:58 Pulse 122 H 11/23/16 07:58 Resp 20 11/23/16 07:58 BP 133/70 11/23/16 07:58 Pulse Ox 96 11/23/16 07:58 - Labs Result Diagrams: 11/23/16 05:30 11/23/16 05:30 Labs: Laboratory Results - last 24 hr 11/22/16 11/23/16 11/23/16 18:26 05:30 05:30 WBC 5.2 RBC 3.20 L Hgb 9.0 L Hct 28.1 L MCV 87.8 MCH 28.2 MCHC 32.1 L RDW 14.1 Plt Count 108 L MPV 8.7 Neut % (Auto) 80.8 H Lymph % (Auto) 8.5 L [place] % (Auto) 10.0 Eos % (Auto) 0.2 Baso % (Auto) 0.5 Neut # 4.2 Lymph # 0.4 L [place] # 0.5 Eos # 0.0 Baso # 0.0 Sodium 139 Potassium 3.4 L Chloride 101 Carbon Dioxide 29 Anion Gap 12 BUN 3 L Creatinine 0.5 L Est GFR ( Amer) > 60 Est GFR (Non-Af Amer) > 60 Random Glucose 104 Calcium 8.2 L Urine Color Yellow Urine Clarity Clear Urine pH 6.0 Ur Specific [place] 1.014 Urine Protein 30 Urine Glucose (UA) Neg Urine Ketones Negative Urine Blood Small Urine Nitrate Negative Urine Bilirubin Negative Urine Urobilinogen 4.0 H Ur Leukocyte Esterase Neg Urine RBC (Auto) 2 Urine Microscopic WBC 2 Ur Squamous Epith Cells 3 Urine Bacteria Rare Assessment & Plan (1) Gastric cancer Assessment and Plan: 51 yo woman w/ newly diagnosed gastric cancer. Patient not tolerating PO well, Dilaudid IV is only helping for 1-2 hours at a time. - start Duragesic 25mcg/hr q72h - continue Dilaudid IV for now, can transition to Percocet after she tolerates PO better Status: Acute
[2016-11-23 10:09] LABS: EOSINOPHIL 2 % (0-7); MYELOCYTE 1 % (0-0); NEUTROPHIL 88 % (42-75); TOTAL CELLS COUNTED 100
[2016-11-23 10:13] LABS: LARGE PLATELETS PRESENT
[2016-11-23] MEDS: NS IV SCH ×2 (10:33→23:26)
[2016-11-23] MEDS: MAGNESIUM SULFATE IV SCH ×2 (10:33→23:26)
[2016-11-23] MEDS: POTASSIUM CHL IV SCH ×2 (10:33→23:26)
[2016-11-23] MEDS: Potassium Chloride 20 mEq ER Tab PO SCH (10:42)
[2016-11-23] MEDS: WATER IV SCH ×2 (13:00→15:48)
[2016-11-23] MEDS: MANNITOL IV SCH ×2 (13:00→15:48)
[2016-11-23] MEDS: DEXTROSE 5% IV SCH ×2 (13:00→15:48)
[2016-11-23] MEDS: Sodium Chloride 0.9% 500 ML IV SCH (13:50)
--- NOTE | 2016-11-23 15:42 | RAD ---
PROCEDURE: Fluoroscopy up to 1 hr. HISTORY: LIFE PORT COMPARISON: None TECHNIQUE: Standard protocol for this study/examination. FINDINGS: Total fluoroscopic time (continuous mode) utilized during the procedure: 15.9 seconds. One image submitted. IMPRESSION: Less than 1 hr fluoroscopic time utilized during performance of the procedure.
[2016-11-23] MEDS: FLUOROURACIL IV SCH (17:00)
[2016-11-23] MEDS: SODIUM CHLORIDE 0.9% IV SCH (17:00)
--- NOTE | 2016-11-23 23:24 | PN ---
DATE: 11/23/2016 SUBJECTIVE: The patient is seen today, 11/23/2016. Her pain is better controlled. The patient had life port inserted yesterday. PHYSICAL EXAMINATION: VITAL SIGNS: Blood pressure is 113/68, temperature 98.5, respiratory rate 20, and pulse 100. HEENT: Pupils equal, reactive to light. Normal-appearing mucosa of the conjunctivae, oropharyngeal and nasal membrane mucosa. NECK: Supple, no JVD, no carotid bruit, no lymph node, no thyromegaly. CHEST AND LUNGS: Bilateral symmetrical expansion, good air exchange, no rales, no rhonchi. CARDIOVASCULAR: PMI not localized. S1, S2. No additional sounds. ABDOMEN: Normoactive bowel sounds, no tenderness, no organomegaly, no masses. EXTREMITIES: No cyanosis, no clubbing, no edema. CENTRAL NERVOUS SYSTEM: Alert, awake, oriented x 3. No neurological deficits could be appreciated. ASSESSMENT: Stage IV malignant gastric ulcer for chemotherapy today by Dr. Vizcaino. PLAN: Continue proton pump inhibitors and pain management. Kiko Chilel MD cc: [id number] TT: 11/23/2016 23:23:41 Confirmation # [id number] Dictation # [id number]
[2016-11-24] MEDS: POTASSIUM CHL IV SCH (00:41)
[2016-11-24] MEDS: MAGNESIUM SULFATE IV SCH (00:41)
[2016-11-24] MEDS: NS IV SCH (00:41)
[2016-11-24] MEDS: Sodium Chloride 0.9% 500 ML IV SCH ×5 (00:42→16:46)
[2016-11-24 06:50] LABS: HEMATOCRIT 27.8 % (34.0-47.0); MEAN CELL VOLUME 87.5 fl (81.0-99.0); MEAN CORPUSCULAR HEMOGLOBIN 28.8 pg (27.0-31.0); MEAN CORPUSCULAR HGB CONC 32.9 g/dL (33.0-37.0); RED CELL DISTRIBUTION WIDTH 14.1 % (11.5-14.5); WHITE BLOOD COUNT 4.9 K/uL (4.8-10.8)
[2016-11-24 07:12] LABS: BLOOD UREA NITROGEN 6 mg/dl (7-17); CALCIUM 8.3 mg/dL (8.4-10.2); CARBON DIOXIDE 29 mmol/L (22-30); CHLORIDE 100 mmol/L (98-107); GFR AFRICAN-AMERICAN > 60; GLUCOSE,RANDOM 100 mg/dL (65-105); POTASSIUM 4.2 MMOL/L (3.6-5.0); SODIUM 137 mmol/l (132-148)
--- NOTE | 2016-11-24 08:04 | CP.PCM.PN ---
Subjective - Date & Time of Evaluation Date of Evaluation: 11/24/16 Time of Evaluation: 08:02 - Subjective Subjective: Pt tolerated the chemo well, and claims she is a littlebetter today. She had one episode of diarrhea today, but is otherwise well. No nausea, vomiting or any other symptoms. She is on the 2nd day of Fluorouracil infusion. Objective - Vital Signs/Intake and Output Vital Signs (last 24 hours): Temp Pulse Resp BP Pulse Ox 98.4 F 81 20 129/81 96 11/24/16 00:20 11/24/16 00:20 11/24/16 00:20 11/24/16 00:20 11/24/16 00:20 - Medications Medications: Current Medications Desoximetasone (Topicort 0.25%) 0.25 ea TOP DAILY TAYO Last Admin: 11/23/16 08:29 Dose: 1 applic Enoxaparin Sodium (Lovenox) 40 mg SC DAILY TAYO PRN Reason: Protocol Last Admin: 11/23/16 08:25 Dose: 40 mg Fentanyl (Duragesic) 1 patch TD Q3D TAYO PRN Reason: Protocol Last Admin: 11/23/16 10:41 Dose: 1 patch Hydromorphone HCl (Dilaudid) 1 mg IVP Q3H PRN PRN Reason: Pain, severe (8-10) Last Admin: 11/24/16 01:45 Dose: 1 mg Hydroxyzine HCl (Atarax) 25 mg PO Q8 PRN PRN Reason: Itching / Pruritus Last Admin: 11/22/16 01:22 Dose: 25 mg Sodium Chloride (Sodium Chloride 0.9%) 500 mls @ 125 mls/hr IV .Q4H TAYO Last Admin: 11/24/16 05:08 Dose: Not Given Cisplatin 130 mg/ Sodium (Chloride) 630 mls @ 420 mls/hr IV ONCE TAYO PRN Reason: As Directed Last Admin: 11/23/16 13:52 Dose: 420 mls/hr Fluorouracil 1,384 mg/ Sodium (Chloride) 1,027.68 mls @ 42.82 mls/hr IV DAILY TAYO PRN Reason: As Directed Stop: 11/28/16 08:59 Last Admin: 11/23/16 17:00 Dose: 42.82 mls/hr Magnesium Sulfate 1 gm/Potassium Chloride/Sodium Chloride 1,002 mls @ 123.763 mls/hr IV .Q8H6M [facility] Stop: 11/24/16 08:38 Last Admin: 11/24/16 00:41 Dose: Not Given Metoclopramide HCl (Reglan) 10 mg IVP ACHS [facility] Last Admin: 11/23/16 21:05 Dose: 10 mg Ondansetron HCl (Zofran Inj) 4 mg IVP Q4 PRN PRN Reason: Nausea/Vomiting Last Admin: 11/23/16 00:38 Dose: 4 mg Pantoprazole Sodium (Protonix Inj) 40 mg IVP Q12 [facility] Last Admin: 11/23/16 21:00 Dose: 40 mg Potassium Chloride (K-Dur 20 Meq Er Tab) 20 meq PO DAILY [facility] Last Admin: 11/23/16 10:42 Dose: 20 meq - Labs Labs: 11/24/16 05:45 11/24/16 05:45 PT 15.8 Seconds (9.8-13.1) H 11/19/16 15:32 INR 1.4 (0.9-1.2) H 11/19/16 15:32 APTT 26.8 Seconds (25.6-37.1) 11/19/16 15:32
[2016-11-24] MEDS: Potassium Chloride 20 mEq ER Tab PO SCH (08:15)
[2016-11-24] MEDS: Enoxaparin 40 mg Syringe SC SCH (08:16)
[2016-11-24] MEDS: Desoximetasone 0.25% Cream(15 gm) TOP SCH (08:16)
--- NOTE | 2016-11-24 08:22 | CP.PCM.PN ---
Subjective - Date & Time of Evaluation Date of Evaluation: 11/24/16 Time of Evaluation: 08:00 - Subjective Subjective: The Fentanyl patch was placed yesterday in the afternoon. The pain is better controlled but she still needed IV pain meds for breakthrough overnight. She denies side effects from the patch. The pain continues to be in the abdomen diffusely. Objective - Vital Signs/Intake and Output Vital Signs (last 24 hours): Temp Pulse Resp BP Pulse Ox 98.4 F 97 H 20 151/92 H 96 11/24/16 08:08 11/24/16 08:08 11/24/16 08:08 11/24/16 08:08 11/24/16 08:08 - Medications Medications: Current Medications Desoximetasone (Topicort 0.25%) 0.25 ea TOP DAILY TAYO Last Admin: 11/24/16 08:16 Dose: 1 applic Enoxaparin Sodium (Lovenox) 40 mg SC DAILY TAYO PRN Reason: Protocol Last Admin: 11/24/16 08:16 Dose: 40 mg Fentanyl (Duragesic) 1 patch TD Q3D TAYO PRN Reason: Protocol Last Admin: 11/23/16 10:41 Dose: 1 patch Hydromorphone HCl (Dilaudid) 1 mg IVP Q3H PRN PRN Reason: Pain, severe (8-10) Last Admin: 11/24/16 08:12 Dose: 1 mg Hydroxyzine HCl (Atarax) 25 mg PO Q8 PRN PRN Reason: Itching / Pruritus Last Admin: 11/22/16 01:22 Dose: 25 mg Sodium Chloride (Sodium Chloride 0.9%) 500 mls @ 125 mls/hr IV .Q4H TAYO Last Admin: 11/24/16 08:17 Dose: Not Given Cisplatin 130 mg/ Sodium (Chloride) 630 mls @ 420 mls/hr IV ONCE TAYO PRN Reason: As Directed Last Admin: 11/23/16 13:52 Dose: 420 mls/hr Fluorouracil 1,384 mg/ Sodium (Chloride) 1,027.68 mls @ 42.82 mls/hr IV DAILY TAYO PRN Reason: As Directed Stop: 11/28/16 08:59 Last Admin: 11/23/16 17:00 Dose: 42.82 mls/hr Magnesium Sulfate 1 gm/Potassium Chloride/Sodium Chloride 1,002 mls @ 123.763 mls/hr IV .Q8H6M [facility] Stop: 11/24/16 08:38 Last Admin: 11/24/16 00:41 Dose: Not Given Metoclopramide HCl (Reglan) 10 mg IVP ACHS [facility] Last Admin: 11/24/16 08:14 Dose: 10 mg Ondansetron HCl (Zofran Inj) 4 mg IVP Q4 PRN PRN Reason: Nausea/Vomiting Last Admin: 11/23/16 00:38 Dose: 4 mg Pantoprazole Sodium (Protonix Inj) 40 mg IVP Q12 [facility] Last Admin: 11/24/16 08:14 Dose: 40 mg Potassium Chloride (K-Dur 20 Meq Er Tab) 20 meq PO DAILY [facility] Last Admin: 11/24/16 08:15 Dose: 20 meq - Labs Labs: 11/24/16 05:45 11/24/16 05:45 PT 15.8 Seconds (9.8-13.1) H 11/19/16 15:32 INR 1.4 (0.9-1.2) H 11/19/16 15:32 APTT 26.8 Seconds (25.6-37.1) 11/19/16 15:32 - Respiratory Exam Respiratory Exam: NORMAL BREATHING PATTERN - Cardiovascular Exam Cardiovascular Exam: REGULAR RHYTHM - GI/Abdominal Exam GI & Abdominal Exam: Soft, Tenderness Assessment and Plan (1) Gastric cancer Assessment & Plan: 51 yo woman w/ gastric CA. On Chemo. - continue Duragesic patch - continue IV Dilaudid for breakthrough for now, can transition to Percocet once she's tolerating PO better - please reconsult PRN Status: Acute
--- NOTE | 2016-11-24 08:56 | CP.PCM.PN ---
Subjective - Date & Time of Evaluation Date of Evaluation: 11/24/16 Time of Evaluation: 07:48 - Subjective Subjective: General Surgery - Dr. Naik Pt S&E. NAEO. 2 days s/p port-a-cath insertion and skin bx. She is tolerating small amounts of clear liquid diet. Pt complains of epigastric abdominal pain accompanied by mild nausea. No V/F/C, SOB/Cp. Objective - Vital Signs/Intake and Output Vital Signs (last 24 hours): Temp Pulse Resp BP Pulse Ox 98.4 F 97 H 20 151/92 H 96 11/24/16 08:08 11/24/16 08:08 11/24/16 08:08 11/24/16 08:08 11/24/16 08:08 - Medications Medications: Current Medications Desoximetasone (Topicort 0.25%) 0.25 ea TOP DAILY TAYO Last Admin: 11/24/16 08:16 Dose: 1 applic Enoxaparin Sodium (Lovenox) 40 mg SC DAILY TAYO PRN Reason: Protocol Last Admin: 11/24/16 08:16 Dose: 40 mg Fentanyl (Duragesic) 1 patch TD Q3D TAYO PRN Reason: Protocol Last Admin: 11/23/16 10:41 Dose: 1 patch Hydromorphone HCl (Dilaudid) 1 mg IVP Q3H PRN PRN Reason: Pain, severe (8-10) Last Admin: 11/24/16 08:12 Dose: 1 mg Hydroxyzine HCl (Atarax) 25 mg PO Q8 PRN PRN Reason: Itching / Pruritus Last Admin: 11/22/16 01:22 Dose: 25 mg Sodium Chloride (Sodium Chloride 0.9%) 500 mls @ 125 mls/hr IV .Q4H TAYO Last Admin: 11/24/16 08:17 Dose: Not Given Cisplatin 130 mg/ Sodium (Chloride) 630 mls @ 420 mls/hr IV ONCE [facility]AYO PRN Reason: As Directed Last Admin: 11/23/16 13:52 Dose: 420 mls/hr Fluorouracil 1,384 mg/ Sodium (Chloride) 1,027.68 mls @ 42.82 mls/hr IV DAILY TAYO PRN Reason: As Directed Stop: 11/28/16 08:59 Last Admin: 11/23/16 17:00 Dose: 42.82 mls/hr Metoclopramide HCl (Reglan) 10 mg IVP ACHS [facility] Last Admin: 11/24/16 08:14 Dose: 10 mg Ondansetron HCl (Zofran Inj) 4 mg IVP Q4 PRN PRN Reason: Nausea/Vomiting Last Admin: 11/23/16 00:38 Dose: 4 mg Pantoprazole Sodium (Protonix Inj) 40 mg IVP Q12 [facility] Last Admin: 11/24/16 08:14 Dose: 40 mg Potassium Chloride (K-Dur 20 Meq Er Tab) 20 meq PO DAILY [facility] Last Admin: 11/24/16 08:15 Dose: 20 meq - Labs Labs: 11/24/16 05:45 11/24/16 05:45 PT 15.8 Seconds (9.8-13.1) H 11/19/16 15:32 INR 1.4 (0.9-1.2) H 11/19/16 15:32 APTT 26.8 Seconds (25.6-37.1) 11/19/16 15:32 - Constitutional Appears: Well, Non-toxic, No Acute Distress - Head Exam Head Exam: ATRAUMATIC, NORMAL INSPECTION, NORMOCEPHALIC - Eye Exam Eye Exam: Normal appearance - ENT Exam ENT Exam: Mucous Membranes Dry - Respiratory Exam Respiratory Exam: NORMAL BREATHING PATTERN. absent: Respiratory Distress - GI/Abdominal Exam GI & Abdominal Exam: Firm, Soft, Tenderness. absent: Rebound - Rectal Exam Rectal Exam: Deferred - Neurological Exam Neurological Exam: Alert, Awake, Oriented x3 - Psychiatric Exam Psychiatric exam: Normal Affect, Normal Mood - Skin Skin Exam: Normal Color, Warm Assessment and Plan - Assessment and Plan (Free Text) Assessment: 51F w/ Gastric AdenoCa Plan: -Encourage PO intake as tolerated -Reglan achs and zofran q4h pRN -Continue Chemotherapy as per Dr. Vizcaino -F/U Skin Bx results Dw Dr Naik
[2016-11-24] MEDS: FLUOROURACIL IV SCH ×2 (16:44→18:15)
[2016-11-24] MEDS: SODIUM CHLORIDE 0.9% IV SCH ×2 (16:44→18:15)
--- NOTE | 2016-11-24 22:58 | PN ---
DATE: 11/24/2016 SUBJECTIVE: The patient is seen today, 11/24/2016. She was started on chemotherapy yesterday after insertion of the port. PHYSICAL EXAMINATION: VITAL SIGNS: , respiratory rate 20, and pulse is 90. HEENT: Pupils equal, reactive to light. Normal-appearing mucosa of the conjunctivae, oropharyngeal, and nasal membrane mucosa. NECK: Supple, no JVD. No carotid bruit. No lymph node. No thyromegaly. CHEST AND LUNGS: Bilateral and symmetric expansion, good air exchange. No rales. No rhonchi. CARDIOVASCULAR: PMI not localized. S1, S2. No additional sounds. ABDOMEN: Normoactive bowel sounds. No tenderness. No organomegaly. No masses. EXTREMITIES: No cyanosis. No clubbing. No edema. CENTRAL NERVOUS SYSTEM: Alert, awake, oriented x 3. No neurological deficits could be appreciated. ASSESSMENT: Stage IV medications, pain management, follow oncology recommendations. Kiko Chilel MD cc: [id number] TT: 11/24/2016 22:57:39 Confirmation # [id number] Dictation # [id number]
[2016-11-25] MEDS: Sodium Chloride 0.9% 500 ML IV SCH ×4 (09:01→21:48)
[2016-11-25] MEDS: Potassium Chloride 20 mEq ER Tab PO SCH (09:12)
[2016-11-25] MEDS: Enoxaparin 40 mg Syringe SC SCH (09:12)
[2016-11-25] MEDS: Desoximetasone 0.25% Cream(15 gm) TOP SCH (09:13)
--- NOTE | 2016-11-25 10:08 | CP.PCM.PN ---
Subjective - Date & Time of Evaluation Date of Evaluation: 11/25/16 Time of Evaluation: 06:30 - Subjective Subjective: General Surgery progress note for Dr. Najera, covering for Dr. Naik Pt s/e at bedside this AM. JASEO. Chemotherapy infusions working well through the port. No complaints of pain from the surgery site. Objective - Vital Signs/Intake and Output Vital Signs (last 24 hours): Temp Pulse Resp BP Pulse Ox 97.8 F 75 20 126/80 99 11/25/16 07:52 11/25/16 07:52 11/25/16 07:52 11/25/16 07:52 11/25/16 07:52 - Medications Medications: Current Medications Desoximetasone (Topicort 0.25%) 0.25 ea TOP DAILY [facility] Last Admin: 11/25/16 09:13 Dose: 1 applic Enoxaparin Sodium (Lovenox) 40 mg SC DAILY [facility] PRN Reason: Protocol Last Admin: 11/25/16 09:12 Dose: 40 mg Fentanyl (Duragesic) 1 patch TD Q3D [facility] PRN Reason: Protocol Last Admin: 11/23/16 10:41 Dose: 1 patch Hydromorphone HCl (Dilaudid) 1 mg IVP Q3H PRN PRN Reason: Pain, severe (8-10) Last Admin: 11/25/16 05:28 Dose: 1 mg Hydroxyzine HCl (Atarax) 25 mg PO Q8 PRN PRN Reason: Itching / Pruritus Last Admin: 11/22/16 01:22 Dose: 25 mg Sodium Chloride (Sodium Chloride 0.9%) 500 mls @ 125 mls/hr IV .Q4H [facility] Last Admin: 11/25/16 09:01 Dose: Not Given Cisplatin 130 mg/ Sodium (Chloride) 630 mls @ 420 mls/hr IV ONCE [facility]O PRN Reason: As Directed Last Admin: 11/23/16 13:52 Dose: 420 mls/hr Fluorouracil 1,384 mg/ Sodium (Chloride) 1,027.68 mls @ 42.82 mls/hr IV DAILY@ 1700 TAYO PRN Reason: As Directed Stop: 11/28/16 16:59 Last Admin: 11/24/16 16:44 Dose: 42.82 mls/hr Metoclopramide HCl (Reglan) 10 mg IVP ACHS [facility] Last Admin: 11/25/16 09:13 Dose: 10 mg Ondansetron HCl (Zofran Inj) 4 mg IVP Q4 PRN PRN Reason: Nausea/Vomiting Last Admin: 11/25/16 03:38 Dose: 4 mg Pantoprazole Sodium (Protonix Inj) 40 mg IVP Q12 [facility] Last Admin: 11/25/16 09:12 Dose: 40 mg Potassium Chloride (K-Dur 20 Meq Er Tab) 20 meq PO DAILY [facility] Last Admin: 11/25/16 09:12 Dose: 20 meq - Labs Labs: 11/24/16 05:45 11/24/16 05:45 PT 15.8 Seconds (9.8-13.1) H 11/19/16 15:32 INR 1.4 (0.9-1.2) H 11/19/16 15:32 APTT 26.8 Seconds (25.6-37.1) 11/19/16 15:32 - Constitutional Appears: Well, Non-toxic, No Acute Distress - Head Exam Head Exam: ATRAUMATIC, NORMOCEPHALIC - Eye Exam Eye Exam: Normal appearance. absent: Conjunctival injection, Scleral icterus - ENT Exam ENT Exam: Mucous Membranes Moist, Normal Oropharynx - Respiratory Exam Respiratory Exam: NORMAL BREATHING PATTERN. absent: Accessory Muscle Use, Respiratory Distress - GI/Abdominal Exam GI & Abdominal Exam: Soft. absent: Distended - Extremities Exam Extremities Exam: absent: Calf Tenderness, Pedal Edema, Tenderness - Neurological Exam Neurological Exam: Alert, Awake, Oriented x3 - Psychiatric Exam Psychiatric exam: Normal Affect, Normal Mood - Skin Additional comments: Multiple discoid red lesions on the arms and legs BL. Area of confluent erythematous skin lesion on the chest around the neck. Surgical incision well approximated with dermabond, no active drainage or bleeding, port working well, no evidence of hematoma Assessment and Plan - Assessment and Plan (Free Text) Assessment: 51F w/ Gastric AdenoCa, POD#3 s/p lifeport placement and skin biopsy Skin pathology: solar elastosis, chronic inflammatory changes, no malignancy Port functioning well, no complications at the incision sites Plan: - Continue Chemotherapy as per Dr. Vizcaino - Patient may benefit from an evaluation for a celiac plexus block for pain management - No further surgical intervention planned at this time - Surgery will sign off at this point--please reach out with any further questions or concerns D/w Dr Reinaldo Coyne, PGY1
[2016-11-25] MEDS: SODIUM CHLORIDE 0.9% IV SCH ×2 (15:55→17:37)
[2016-11-25] MEDS: FLUOROURACIL IV SCH ×2 (15:55→17:37)
--- NOTE | 2016-11-25 23:24 | PN ---
DATE: 11/25/2016 The patient is seen today on 11/25/2016. Pain is better controlled and the patient is currently on c hemotherapy ____. PHYSICAL EXAMINATION: VITAL SIGNS: Blood pressure 131/86, temperature 97.3, respiratory rate 20 and pulse was 72. HEENT: Pupils equal and reactive to light. Normal-appearing mucosa of the conjunctivae, oropharynx and nasal membrane mucosa. NECK: Supple, no JVD, no carotid bruit, no lymph nodes and no thyromegaly. CHEST AND LUNGS: Bilateral symmetrical expansion, good air exchange, no rales and no rhonchi. CARDIOVASCULAR: ____. ABDOMEN: Normoactive bowel sounds, no tenderness, no organomegaly and no masses. EXTREMITIES: No cyanosis, no clubbing and no edema. CENTRAL NERVOUS SYSTEM: Alert, awake and oriented x 3. No neurological deficits could be appreciate d. ASSESSMENT: Stage IV malignant gastric ulcer. PLAN: 1. Continue current chemotherapy and follow recommendations of oncologist. 2. Pain management. Kiko Chilel MD cc: 167 TT: 11/25/2016 23:23:48 Confirmation # [id number] Dictation # [id number]
[2016-11-26] MEDS: Sodium Chloride 0.9% 500 ML IV SCH ×6 (05:06→20:31)
[2016-11-26] MEDS: Potassium Chloride 20 mEq ER Tab PO SCH (08:41)
[2016-11-26] MEDS: Enoxaparin 40 mg Syringe SC SCH (08:41)
[2016-11-26] MEDS: Desoximetasone 0.25% Cream(15 gm) TOP SCH (08:43)
--- NOTE | 2016-11-26 13:42 | PN ---
DATE: 11/26/2016 SUBJECTIVE: The patient is seen today, 11/26/2016. She is on day 4 of chemotherapy. PHYSICAL EXAMINATION: VITAL SIGNS: Blood pressure 131/73, temperature 97.7, respiratory rate 20 and pulse 60. HEENT: Pupils equal, reactive to light. Normal-appearing mucosa of the conjunctivae, oropharyngeal and nasal membrane mucosa. NECK: Supple, no JVD, no carotid bruit, no lymph node, no thyromegaly. CHEST AND LUNGS: Bilateral symmetrical expansion, good air exchange, no rales, no rhonchi. CARDIOVASCULAR: PMI not localized. S1, S2. No additional sounds. ABDOMEN: Normoactive bowel sounds, no tenderness, no organomegaly, no masses. EXTREMITIES: No cyanosis, no clubbing, no edema. CENTRAL NERVOUS SYSTEM: Alert, awake, oriented x 3. No neurological deficits could be appreciated. ASSESSMENT: Stage IV malignant gastric ulcer. PLAN: Continue current chemotherapy and pain management and advance feeding as tolerated. Kiko Chilel MD cc: 167 TT: 11/26/2016 13:42:18 Confirmation # [id number] Dictation # [id number] tn
[2016-11-26] MEDS: SODIUM CHLORIDE 0.9% IV SCH (20:03)
[2016-11-26] MEDS: FLUOROURACIL IV SCH (20:03)
[2016-11-27] MEDS: Sodium Chloride 0.9% 500 ML IV SCH ×5 (00:30→19:36)
[2016-11-27] MEDS: Enoxaparin 40 mg Syringe SC SCH (08:53)
[2016-11-27] MEDS: Potassium Chloride 20 mEq ER Tab PO SCH (08:53)
[2016-11-27] MEDS: Desoximetasone 0.25% Cream(15 gm) TOP SCH (08:54)
--- NOTE | 2016-11-27 10:04 | CP.PCM.PN ---
Subjective - Date & Time of Evaluation Date of Evaluation: 11/27/16 Time of Evaluation: 10:01 - Subjective Subjective: Pt is feeling much better, with no nausea only occasionally. Pain is also better. She appears to be in good spirits She will start the last bag of fluorouracil today. Objective - Vital Signs/Intake and Output Vital Signs (last 24 hours): Temp Pulse Resp BP Pulse Ox 99.1 F 83 20 112/73 98 11/27/16 08:41 11/27/16 08:41 11/27/16 08:41 11/27/16 08:41 11/27/16 08:41 - Medications Medications: Current Medications Desoximetasone (Topicort 0.25%) 0.25 ea TOP DAILY [facility] Last Admin: 11/27/16 08:54 Dose: 1 applic Enoxaparin Sodium (Lovenox) 40 mg SC DAILY [facility] PRN Reason: Protocol Last Admin: 11/27/16 08:53 Dose: 40 mg Fentanyl (Duragesic) 1 patch TD Q3D [facility] PRN Reason: Protocol Last Admin: 11/26/16 15:57 Dose: 1 patch Hydromorphone HCl (Dilaudid) 1 mg IVP Q3H PRN PRN Reason: Pain, severe (8-10) Last Admin: 11/26/16 21:50 Dose: 1 mg Hydroxyzine HCl (Atarax) 25 mg PO Q8 PRN PRN Reason: Itching / Pruritus Last Admin: 11/22/16 01:22 Dose: 25 mg Sodium Chloride (Sodium Chloride 0.9%) 500 mls @ 125 mls/hr IV .Q4H [facility] Last Admin: 11/27/16 08:59 Dose: Not Given Cisplatin 130 mg/ Sodium (Chloride) 630 mls @ 420 mls/hr IV ONCE [facility] PRN Reason: As Directed Last Admin: 11/23/16 13:52 Dose: 420 mls/hr Fluorouracil 1,384 mg/ Sodium (Chloride) 1,027.68 mls @ 42.82 mls/hr IV DAILY@ 1700 T[facility]O PRN Reason: As Directed Stop: 11/28/16 16:59 Last Admin: 11/26/16 20:03 Dose: 42.82 mls/hr Metoclopramide HCl (Reglan) 10 mg IVP ACHS [facility] Last Admin: 11/27/16 07:31 Dose: 10 mg Ondansetron HCl (Zofran Inj) 4 mg IVP Q4 PRN PRN Reason: Nausea/Vomiting Last Admin: 11/27/16 02:16 Dose: 4 mg Pantoprazole Sodium (Protonix Inj) 40 mg IVP Q12 [facility] Last Admin: 11/27/16 08:53 Dose: 40 mg Potassium Chloride (K-Dur 20 Meq Er Tab) 20 meq PO DAILY [facility] Last Admin: 11/27/16 08:53 Dose: 20 meq - Labs Labs: 11/24/16 05:45 11/24/16 05:45 PT 15.8 Seconds (9.8-13.1) H 11/19/16 15:32 INR 1.4 (0.9-1.2) H 11/19/16 15:32 APTT 26.8 Seconds (25.6-37.1) 11/19/16 15:32
[2016-11-27] MEDS: FLUOROURACIL IV SCH (15:54)
[2016-11-27] MEDS: SODIUM CHLORIDE 0.9% IV SCH (15:54)
--- NOTE | 2016-11-27 23:03 | PN ---
DATE: 11/27/2016 SUBJECTIVE: The patient is seen today, 11/27/2016. She is on the last day of chemotherapy. PHYSICAL EXAMINATION: VITAL SIGNS: Blood pressure 112/73, temperature 99.1, respiratory rate 20, and pulse 83. HEENT: Pupils equal, reactive to light. Normal-appearing mucosa of the conjunctivae, oropharyngeal and nasal membrane mucosa. NECK: Supple, no JVD, no carotid bruit, no lymph node, no thyromegaly. CHEST AND LUNGS: Bilateral symmetrical expansion, good air exchange, no rales, no rhonchi. CARDIOVASCULAR: PMI not localized. S1, S2. No additional sounds. ABDOMEN: Normoactive bowel sounds, no tenderness, no organomegaly, no masses. EXTREMITIES: No cyanosis, no clubbing, no edema. CENTRAL NERVOUS SYSTEM: Alert, awake, oriented x 3. No neurological deficits could be appreciated. ASSESSMENT: Stage IV malignant gastric ulcer, currently on chemotherapy day #5. PLAN: Continue current medications and follow oncology recommendations. Pain management. Kiko Chilel MD cc: 167 TT: 11/27/2016 23:02:44 Confirmation # [id number] Dictation # [id number]
[2016-11-28] MEDS: Sodium Chloride 0.9% 500 ML IV SCH ×4 (00:35→12:47)
[2016-11-28] MEDS: Potassium Chloride 20 mEq ER Tab PO SCH (09:05)
[2016-11-28] MEDS: Enoxaparin 40 mg Syringe SC SCH (09:05)
[2016-11-28] MEDS: Desoximetasone 0.25% Cream(15 gm) TOP SCH (09:06)
[2016-11-28 09:39] LABS: HEMATOCRIT 29.4 % (34.0-47.0); MEAN CELL VOLUME 86.9 fl (81.0-99.0); MEAN CORPUSCULAR HEMOGLOBIN 28.1 pg (27.0-31.0); MEAN CORPUSCULAR HGB CONC 32.3 g/dL (33.0-37.0); RED CELL DISTRIBUTION WIDTH 14.1 % (11.5-14.5); WHITE BLOOD COUNT 2.8 K/uL (4.8-10.8)
[2016-11-28 09:50] LABS: BLOOD UREA NITROGEN 13 mg/dl (7-17); CARBON DIOXIDE 33 mmol/L (22-30); CHLORIDE 89 mmol/L (98-107); GFR AFRICAN-AMERICAN > 60; GLUCOSE,RANDOM 97 mg/dL (65-105); POTASSIUM 3.5 MMOL/L (3.6-5.0); SODIUM 133 mmol/l (132-148)
--- NOTE | 2016-11-28 11:32 | CP.PCM.PN ---
Subjective - Date & Time of Evaluation Date of Evaluation: 11/28/16 Time of Evaluation: 11:30 - Subjective Subjective: Pt has done well with chemotherapy ,no side effects . Will be discharged today, to return in 4weeks for the next course of chemotherapy She is on the last day of the fluorocil infusion Objective - Vital Signs/Intake and Output Vital Signs (last 24 hours): Temp Pulse Resp BP Pulse Ox 98.6 F 88 18 99/67 L 97 11/28/16 07:35 11/28/16 07:35 11/28/16 07:35 11/28/16 07:35 11/28/16 07:35 - Medications Medications: Current Medications Desoximetasone (Topicort 0.25%) 0.25 ea TOP DAILY [facility] Last Admin: 11/28/16 09:06 Dose: 1 applic Enoxaparin Sodium (Lovenox) 40 mg SC DAILY [facility] PRN Reason: Protocol Last Admin: 11/28/16 09:05 Dose: 40 mg Fentanyl (Duragesic) 1 patch TD Q3D [facility] PRN Reason: Protocol Last Admin: 11/26/16 15:57 Dose: 1 patch Hydromorphone HCl (Dilaudid) 1 mg IVP Q3H PRN PRN Reason: Pain, severe (8-10) Last Admin: 11/28/16 09:01 Dose: 1 mg Hydroxyzine HCl (Atarax) 25 mg PO Q8 PRN PRN Reason: Itching / Pruritus Last Admin: 11/22/16 01:22 Dose: 25 mg Sodium Chloride (Sodium Chloride 0.9%) 500 mls @ 125 mls/hr IV .Q4H [facility] Last Admin: 11/28/16 09:06 Dose: Not Given Cisplatin 130 mg/ Sodium (Chloride) 630 mls @ 420 mls/hr IV ONCE [facility] PRN Reason: As Directed Last Admin: 11/23/16 13:52 Dose: 420 mls/hr Fluorouracil 1,384 mg/ Sodium (Chloride) 1,027.68 mls @ 42.82 mls/hr IV DAILY@ 1700 [facility] PRN Reason: As Directed Stop: 11/28/16 16:59 Last Admin: 11/27/16 15:54 Dose: 42.82 mls/hr Metoclopramide HCl (Reglan) 10 mg IVP ACHS [facility] Last Admin: 11/28/16 06:40 Dose: 10 mg Ondansetron HCl (Zofran Inj) 4 mg IVP Q4 PRN PRN Reason: Nausea/Vomiting Last Admin: 11/27/16 19:58 Dose: 4 mg Pantoprazole Sodium (Protonix Inj) 40 mg IVP Q12 [facility] Last Admin: 11/28/16 09:06 Dose: 40 mg Potassium Chloride (K-Dur 20 Meq Er Tab) 20 meq PO DAILY [facility] Last Admin: 11/28/16 09:05 Dose: 20 meq - Labs Labs: 11/28/16 09:31 11/28/16 09:31 PT 15.8 Seconds (9.8-13.1) H 11/19/16 15:32 INR 1.4 (0.9-1.2) H 11/19/16 15:32 APTT 26.8 Seconds (25.6-37.1) 11/19/16 15:32
[2016-11-28] MEDS ORDERED: Potassium Chloride 20 mEq ER Tab PO ONE (11:56)
[2016-11-28 16:18] VITALS: BP 101/62; PULSE 93; RESP 20; TEMP 98.3; O2SAT 94
--- NOTE | 2016-11-29 14:24 | DS ---
REASON FOR ADMISSION: This is a 51-year-old female who was recently diagnosed history of s tage IV malignant gastric ulcer, was admitted with severe abdominal pain and persistent vomiting. COURSE OF HOSPITALIZATION: The patient was admitted to medical floor, and she was started on IV flui d and antiemetic medications. The patient also was kept on Protonix 40 mg daily, and she was started on chemotherapy after ____. The patient tolerated the first cycle of chemotherapy very well, and sh diana was discharged in a stable condition to follow up with Dr. Vizcaino. FINAL DIAGNOSES: 1. Stage IV with malignant gastric ulcer, metastatic. 2. Persistent vomiting. Jesus Alyson Chilel MD cc: 167 TT: 11/29/2016 14:23:47 jn
--- NOTE | 2016-11-30 17:11 | OP ---
PROCEDURE DATE: 11/22/2016 OPERATION PERFORMED: Left subclavian Life-Port placement. SURGEON: Fracisco Najera MD SKIP HOIST ENGINEER: vice president integrated. ANESTHESIA: General anesthesia. PREOPERATIVE DIAGNOSIS: Gastric carcinoma. POSTOPERATIVE DIAGNOSIS: Gastric carcinoma. OPERATION: The patient was brought to the Operating Room and placed in the supine position. The rig ht chest was prepped and draped in the usual manner. After adequate IV sedation, the right infraclav icular region was infiltrated with 1% Lidocaine. A transverse incision was made and a subcutaneous p ocket was constructed using blunt and sharp dissection to accept the reservoir. At this point, hemos tasis was obtained using fine chromic catgut ligatures. A percutaneous tapping of the subclavian vei n was done, the guide wire was passed and under direct visualization, making sure the guide wire was passed in the superior vena cava, the needle was removed. A peel-off introducer was passed over the guide wire and the guide wire was removed. At this point, the Life-Port catheter was passed, making sure that the tip was in the superior vena cava. The peel-off was removed and the catheter was conto ured proximally. The catheter and the reservoir were assembled using a bayonet and tying it with a f ine silk tie. At this point, the reservoir was placed within the previously constructed pocket and p rimed with heparinized saline. The subcutaneous tissue was approximated using fine chromic. The ski n was approximated using fine Vicryl. POSTOPERATIVE CONDITION: The patient tolerated the procedure well and was transferred to the Recover y Room in good general status. Fracisco Najera MD cc: 139 TT: 11/30/2016 17:10:08 karyn
== END 2016-11-28 16:56 | disposition home or self-care (01) | DRG 375 ==
LOC: H.ER 14:00 → H.EROBSV 16:21 → OBSVTOIN 21:58 → H.ERHOLD 22:03 → H.MEDSURG1 23:29
PROVIDERS: ADMIT Internal Medicine; ATTEND Internal Medicine
PROC: 0HB5XZX Excision of Chest Skin, External Approach, Diagnostic (ICD-10-PCS; 2016-11-22)
PROC: 0JH60XZ Insertion of Tunneled Vascular Access Device into Chest Subcutaneous Tissue and Fascia, Open Approach (ICD-10-PCS; 2016-11-22)
PROC: 05H633Z Insertion of Infusion Device into Left Subclavian Vein, Percutaneous Approach (ICD-10-PCS; principal; 2016-11-22 14:00)
PROC: 3E03305 Introduction of Other Antineoplastic into Peripheral Vein, Percutaneous Approach (ICD-10-PCS; 2016-11-23)
DX: C16.4 Malignant neoplasm of pylorus (principal); C78.6 Secondary malignant neoplasm of retroperitoneum and peritoneum; N13.30 Unspecified hydronephrosis; Z88.6 Allergy status to analgesic agent; Z88.0 Allergy status to penicillin; Z91.018 Allergy to other foods; Z87.891 Personal history of nicotine dependence; R59.1 Generalized enlarged lymph nodes; L57.8 Other skin changes due to chronic exposure to nonionizing radiation; L50.0 Allergic urticaria; T40.4X5A Adverse effect of other synthetic narcotics, initial encounter; K25.9 Gastric ulcer, unspecified as acute or chronic, without hemorrhage or perforation

== ENCOUNTER 2016-12-04 17:27 | Inpatient (IN) | payer OTHER ==
[2016-12-04 17:28] VITALS: BMI 25.0
[2016-12-04] MEDS ORDERED: Sodium Chloride 0.9% 1,000 ML IV STA (18:55)
--- NOTE | 2016-12-04 18:58 | ED PDOC ---
HPI: Abdomen Time Seen by Provider: 12/04/16 18:07 Chief Complaint (Nursing): Abdominal Pain History Per: Patient Onset/Duration Of Symptoms: Days (2) Current Symptoms Are (Timing): Still Present Location Of Pain/Discomfort: Diffuse Quality Of Discomfort: Unable To Describe Associated Symptoms: Nausea. denies: Vomiting, Diarrhea Exacerbating Factors: None Alleviating Factors: None Additional Complaint(s): Mild diffuse abd pain assoc with nausea. Able to have BM today with small amount of blood. But still ahs urge to go. No fever. Past Medical History Vital Signs: Last Vital Signs Temp 98.3 F 12/04/16 17:53 Pulse 103 H 12/04/16 17:53 Resp 20 12/04/16 17:53 BP 113/71 12/04/16 17:53 Pulse Ox 99 12/04/16 18:57 - Medical History PMH: Malignancy (Gastric) Denies: HIV, Chronic Kidney Disease - Surgical History Surgical History: Cholecystectomy, (2) Denies: Pacemaker - Family History Family History: States: Unknown Family Hx - Home Medications Home Medications: Ambulatory Orders Medication Instructions Recorded Desoximetasone 0.05% [Topicort 0.05 % TP BID 11/19/16 0.05%] Ondansetron [Zofran] 4 mg PO Q6 PRN #20 tab 11/28/16 Pantoprazole [Protonix EC Tab] 40 mg PO BID #30 ect 11/28/16 oxyCODONE/Acetaminophen [Percocet 1 tab PO Q6 #16 tab 11/28/16 5/325 mg Tab] - Allergies Allergies/Adverse Reactions: Allergies Allergy/AdvReac Type Severity Reaction Status Date / Time peach Allergy RASH Verified 12/04/16 18:02 tramadol AdvReac RASH Verified 12/04/16 18:02 pcn AdvReac ITCHING Uncoded 12/04/16 18:02 Review of Systems ROS Statement: Except As Marked, All Systems Reviewed And Found Negative Gastrointestinal: Positive for: Nausea, Abdominal Pain, Hematochezia Physical Exam - Reviewed Nursing Documentation Reviewed: Yes Vital Signs Reviewed: Yes - Physical Exam Appears: Positive for: Non-toxic, No Acute Distress Head Exam: Positive for: ATRAUMATIC, NORMAL INSPECTION, NORMOCEPHALIC Skin: Positive for: Normal Color, Warm, DRY Eye Exam: Positive for: EOMI, Normal appearance, PERRL ENT: Positive for: Normal ENT Inspection Neck: Positive for: Normal, Painless ROM Cardiovascular/Chest: Positive for: Regular Rate, Rhythm Respiratory: Positive for: CNT, Normal Breath Sounds Gastrointestinal/Abdominal: Positive for: Bowel Sounds, Soft, Tenderness (Mild lower abd tenderness bilat) Back: Positive for: Normal Inspection Extremity: Positive for: Normal ROM Neurologic/Psych: Positive for: Alert, Oriented - Laboratory Results Result Diagrams: 12/04/16 19:30 12/04/16 18:05 - ECG O2 Sat by Pulse Oximetry: 99 Disposition - Clinical Impression Clinical Impression: Gastric cancer, Renal failure, Pancytopenia - Patient ED Disposition Is Patient to be Admitted: Yes - Disposition Disposition Time: 20:24 Condition: FAIR - Pt Status Changed To: Hospital Disposition Of: Inpatient - Admit Certification Admit to Inpatient:: After my assessment, the patient will require hospitalization for at least two midnights. This is because of the severity of symptoms shown, intensity of services needed, and/or the medical risk in this patient being treated as an outpatient. - POA Present On Arrival: None
[2016-12-04 19:23] LABS: ALB/GLOB RATIO 1.4 (1.0-2.1); ALBUMIN 4.1 g/dL (3.5-5.0); CALCIUM 8.3 mg/dL (8.4-10.2)
[2016-12-04 19:50] LABS: BASO % 0.4 % (0.0-2.0); HEMOGLOBIN 9.3 g/dL (12.0-16.0); LYMPH # 0.4 K/uL (1.0-4.3); LYMPH % 20.7 % (20.0-40.0); MEAN CELL VOLUME 83.7 fl (81.0-99.0); MEAN CORPUSCULAR HEMOGLOBIN 27.8 pg (27.0-31.0); MEAN CORPUSCULAR HGB CONC 33.2 g/dL (33.0-37.0); MEAN PLATELET VOLUME 8.8 fl (7.2-11.7); MONO # 0.1 K/uL (0.0-0.8); MONO % 5.9 % (0.0-10.0); NEUT # 1.5 K/uL (1.8-7.0); NRBC % 0.2 % (0.0-0.0); RBC 3.33 Mil/uL (3.80-5.20); RED CELL DISTRIBUTION WIDTH 13.9 % (11.5-14.5)
[2016-12-04 19:54] LABS: PLATELET COUNT 32 K/uL (130-400)
[2016-12-04] MEDS ORDERED: Potassium Chloride 10 mEq ER Tab PO STA (19:55)
[2016-12-04] MEDS ORDERED: Potassium Chloride 10 mEq ER Tab PO ONE (20:11)
[2016-12-04 21:57] LABS: BANDS 1 % (0-2); EOSINOPHIL 1 % (0-7); LYMPHOCYTE 28 % (20-50); MONOCYTE 4 % (0-10); NEUTROPHIL 65 % (42-75); TOTAL CELLS COUNTED 100
[2016-12-04 21:58] LABS: PLATELET ESTIMATE MARKEDLY DECREASED (NORMAL)
[2016-12-04 22:08] LABS: ANISOCYTOSIS SLIGHT; MICROCYTOSIS MODERATE; OVALOCYTES SLIGHT; POIKILOCYTOSIS SLIGHT
[2016-12-04 22:09] LABS: HYPOCHROMIC SLIGHT
[2016-12-04 22:37] LABS: URIC ACID 11.4 mg/Dl (2.2-7.5)
[2016-12-04 22:42] LABS: CALCIUM 7.9 mg/dL (8.4-10.2)
[2016-12-05] MEDS ORDERED: Potassium Chloride 20 mEq ER Tab PO ONE (06:05)
[2016-12-05] MEDS ORDERED: Sodium Chloride 0.9% 1,000 ML IV SCH (06:15)
[2016-12-05 07:28] LABS: BASO % 0.1 % (0.0-2.0); EOS % 0.3 % (0.0-4.0); HEMOGLOBIN 8.2 g/dL (12.0-16.0); LYMPH # 0.4 K/uL (1.0-4.3); LYMPH % 6.3 % (20.0-40.0); MEAN CELL VOLUME 84.1 fl (81.0-99.0); MEAN CORPUSCULAR HEMOGLOBIN 28.1 pg (27.0-31.0); MEAN CORPUSCULAR HGB CONC 33.5 g/dL (33.0-37.0); MEAN PLATELET VOLUME 8.1 fl (7.2-11.7); MONO # 0.1 K/uL (0.0-0.8); NEUT # 6.2 K/uL (1.8-7.0); NEUT % 91.3 % (50.0-75.0); RBC 2.92 Mil/uL (3.80-5.20); RED CELL DISTRIBUTION WIDTH 14.2 % (11.5-14.5); WHITE BLOOD COUNT 6.8 K/uL (4.8-10.8)
[2016-12-05 07:45] LABS: PLATELET COUNT 19 K/uL (130-400)
[2016-12-05 07:48] LABS: ALB/GLOB RATIO 1.4 (1.0-2.1); ALBUMIN 3.5 g/dL (3.5-5.0); CALCIUM 7.6 mg/dL (8.4-10.2)
[2016-12-05 08:46] LABS: BANDS 1 % (0-2); LYMPHOCYTE 7 % (20-50); MONOCYTE 1 % (0-10); NEUTROPHIL 91 % (42-75); TOTAL CELLS COUNTED 100
[2016-12-05 08:48] LABS: BURR CELLS SLIGHT; HYPOCHROMIC SLIGHT; OVALOCYTES SLIGHT; PLATELET ESTIMATE DECREASED (NORMAL); TOXIC GRANULATION PRESENT
[2016-12-05] MEDS: Pantoprazole 40 mg EC Tab PO SCH ×2 (09:00→17:07)
[2016-12-05] MEDS ORDERED: DESOXIMETASONE 0.05% TP SCH (09:00)
--- NOTE | 2016-12-05 09:50 | CP.PCM.CON ---
History of Present Illness - History of Present Illness History of Present Illness: This patient who is 51 years of age, came to the emergency room complaining of abdomen pain. Patient was admitted because of multiple problems she was fond to have abnormal kidney function patient apparently was given chemotherapy about 10 days ago and including 5 fluorouracil and cis-confederated goshute. Patient has normal kidney function approximately at the time of this chemotherapy a week ago or so and now serum creatinine going up. Also noted patient has electrolyte imbalance including sodium chloride and potassium. 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 Review of Systems - Constitutional Constitutional: Anorexia, Weight Loss, Weakness - EENT Nose/Mouth/Throat: As Per HPI - Breasts Breasts: As Per HPI - Cardiovascular Cardiovascular: absent: Chest Pain, Leg Edema - Respiratory Respiratory: absent: Cough, Hemoptysis - Gastrointestinal Gastrointestinal: Abdominal Pain, Bloating, Nausea - Genitourinary Genitourinary: As Per HPI, Nocturia - Musculoskeletal Musculoskeletal: Muscle Weakness - Integumentary Integumentary: As Per HPI - Neurological Neurological: As Per HPI - Hematologic/Lymphatic Hematologic: As Per HPI Past Patient History - Infectious Disease Hx of Infectious Diseases: None - Past Medical History & Family History Past Medical History?: Yes - Past Social History Smoking Status: Former Smoker - CARDIAC Hx Pacemaker: No - PULMONARY Hx Respiratory Disorders: No - NEUROLOGICAL Hx Neurological Disorder: No - HEENT Hx HEENT Problems: No Other/Comment: reading glasses - RENAL Hx Chronic Kidney Disease: No - ENDOCRINE/METABOLIC Hx Endocrine Disorders: No - HEMATOLOGICAL/ONCOLOGICAL Hx AIDS: No Hx Cancer: Yes (Gastric Cancer) Hx Chemotherapy: Yes Hx Human Immunodeficiency Virus (HIV): No - INTEGUMENTARY Hx Dermatological Problems: No - MUSCULOSKELETAL/RHEUMATOLOGICAL Hx Musculoskeletal Disorders: No Hx Falls: No - GASTROINTESTINAL Hx Gastrointestinal Disorders: Yes Other/Comment: gallstone - GENITOURINARY/GYNECOLOGICAL Hx Genitourinary Disorders: No - PSYCHIATRIC Hx Psychophysiologic Disorder: No Hx Emotional Abuse: No Hx Physical Abuse: No Hx Substance Use: No - SURGICAL HISTORY Hx Section: Yes Hx Cholecystectomy: Yes - ANESTHESIA Hx Anesthesia: Yes Hx Anesthesia Reactions: No Hx Malignant Hyperthermia: No Has any member of the family had a problem w/ anesthesia?: No Meds Allergies/Adverse Reactions: Allergies Allergy/AdvReac Type Severity Reaction Status Date / Time peach Allergy RASH Verified 12/04/16 18:02 tramadol AdvReac RASH Verified 12/04/16 18:02 pcn AdvReac ITCHING Uncoded 12/04/16 18:02 - Medications Medications: Current Medications Allopurinol (Zyloprim) 300 mg PO DAILY [facility] Home Med (Desoximetasone 0.05% [Topicort 0.05%]) 0.05 % TP BID [facility] Sodium Chloride (Sodium Chloride 0.9%) 1,000 mls @ 80 mls/hr IV .[id number] [facility] Stop: 12/06/16 06:13 Last Admin: 12/05/16 06:30 Dose: 80 mls/hr Ondansetron HCl (Zofran Inj) 4 mg IVP Q6 PRN PRN Reason: Nausea/Vomiting Last Admin: 12/05/16 09:04 Dose: 4 mg Oxycodone/Acetaminophen (Percocet 5/325 Mg Tab) 1 tab PO Q6 PRN PRN Reason: Pain, severe (8-10) Stop: 12/08/16 06:20 Pantoprazole Sodium (Protonix Ec Tab) 40 mg PO BID [facility] Last Admin: 12/05/16 09:00 Dose: 40 mg Physical Exam - Constitutional Appears: No Acute Distress - ENT Exam ENT Exam: Mucous Membranes Moist - Respiratory Exam Respiratory Exam: NORMAL BREATHING PATTERN. absent: Chest Wall Tenderness - Cardiovascular Exam Cardiovascular Exam: REGULAR RHYTHM. absent: Rubs - GI/Abdominal Exam GI & Abdominal Exam: Guarding - Extremities Exam Extremities exam: Negative for: calf tenderness - Back Exam Back exam: absent: CVA tenderness (L), CVA tenderness (R) - Neurological Exam Neurological exam: Alert - Psychiatric Exam Psychiatric exam: Anxious Results - Vital Signs Recent Vital Signs: Last Vital Signs Temp 98.3 F 12/05/16 08:08 Pulse 83 12/05/16 08:08 Resp 18 12/05/16 08:08 BP 108/70 12/05/16 08:08 Pulse Ox 98 12/05/16 08:08 - Labs Result Diagrams: 12/05/16 06:30 12/05/16 06:30 Labs: Laboratory Results - last 24 hr 12/04/16 12/05/16 12/05/16 22:24 06:30 06:30 WBC 6.8 D RBC 2.92 L Hgb 8.2 L Hct 24.5 L MCV 84.1 MCH 28.1 MCHC 33.5 RDW 14.2 Plt Count 19 L* D MPV 8.1 Neut % (Auto) 91.3 H Lymph % (Auto) 6.3 L [place] % (Auto) 2.0 Eos % (Auto) 0.3 Baso % (Auto) 0.1 Neut # 6.2 Lymph # 0.4 L [place] # 0.1 Eos # 0.0 Baso # 0.0 Neutrophils % (Manual) 91 H Band Neutrophils % 1 Lymphocytes % (Manual) 7 L Monocytes % (Manual) 1 Toxic Granulation Present Platelet Estimate Decreased L Hypochromasia (manual) Slight Ovalocytes Slight Delta Cells Slight Sodium 124 L Potassium 3.0 L Chloride 86 L Carbon Dioxide 25 Anion Gap 16 BUN 45 H Creatinine 5.4 H Est GFR ( Amer) 10 Est GFR (Non-Af Amer) 8 Random Glucose 71 Uric Acid 11.4 H Calcium 7.9 L 7.6 L Phosphorus 4.4 Total Bilirubin 0.7 AST 55 H ALT 48 Alkaline Phosphatase 102 Total Protein 6.1 L Albumin 3.5 Globulin 2.5 Albumin/Globulin Ratio 1.4 Assessment & Plan (1) Acute renal injury Assessment and Plan: Most likely patient has acute kidney injury. Serum creatinine hand has risen rapidly in the past couple of days since she was here with normal kidney function than. However today repeat serum creatinine started trending down. Etiology of acute kidney injury could be multifactorial related to perhaps cis- confederated goshute, hyperuricemia . Patient has severe electrolyte imbalance including hyponatremia hypochloremia hypokalemia disease are consistent perhaps with cis-confederated goshute in addition to dehydration. Also patient has left hydroureter from previous study CT scan which was done last admission. My recommendation Continue intravenous 0.9 normal saline patient did not have normal saline overnight at 80 mL/h. Also to give allopurinol 300 mg daily. Stat urinalysis with stat Spot urine for sodium osmolality and creatinine and eosinophils Case discussed with the employment training specialist Dr. Vizcaino. Patient also has pancytopenia which is being monitored. Status: Acute (2) Electrolyte abnormality Status: Acute (3) Gastric cancer Status: Chronic (4) Pancytopenia Status: Acute
--- NOTE | 2016-12-05 10:37 | CP.PCM.CON ---
History of Present Illness - History of Present Illness History of Present Illness: This is a 51 yrs old female who was diagnosed to have a gastric cancer 2 weeks ago. She was given chemotherapy with cisplatin and 5 days of continuous fluorouracil infusion. She had tolerated the treatment well, but came back with weakness , dehydration. She had a cbc of 2.o but the ANC was 1500. Platelets were low tpp. What was surprising was that her creatinine which was normal last week increased to 5.7. and uric acid was 11.5. She is being evaluated by the tent assembler for possible dialysis.. She claims that her appetite is very poor , she has not had much fluid to drink., which may be the cause of her renal failure after the cisplatin. Past Patient History - Infectious Disease Hx of Infectious Diseases: None - Past Medical History & Family History Past Medical History?: Yes - Past Social History Smoking Status: Former Smoker - CARDIAC Hx Pacemaker: No - PULMONARY Hx Respiratory Disorders: No - NEUROLOGICAL Hx Neurological Disorder: No - HEENT Hx HEENT Problems: No Other/Comment: reading glasses - RENAL Hx Chronic Kidney Disease: No - ENDOCRINE/METABOLIC Hx Endocrine Disorders: No - HEMATOLOGICAL/ONCOLOGICAL Hx AIDS: No Hx Cancer: Yes (Gastric Cancer) Hx Chemotherapy: Yes Hx Human Immunodeficiency Virus (HIV): No - INTEGUMENTARY Hx Dermatological Problems: No - MUSCULOSKELETAL/RHEUMATOLOGICAL Hx Musculoskeletal Disorders: No Hx Falls: No - GASTROINTESTINAL Hx Gastrointestinal Disorders: Yes Other/Comment: gallstone - GENITOURINARY/GYNECOLOGICAL Hx Genitourinary Disorders: No - PSYCHIATRIC Hx Psychophysiologic Disorder: No Hx Emotional Abuse: No Hx Physical Abuse: No Hx Substance Use: No - SURGICAL HISTORY Hx Section: Yes Hx Cholecystectomy: Yes - ANESTHESIA Hx Anesthesia: Yes Hx Anesthesia Reactions: No Hx Malignant Hyperthermia: No Has any member of the family had a problem w/ anesthesia?: No Meds Allergies/Adverse Reactions: Allergies Allergy/AdvReac Type Severity Reaction Status Date / Time peach Allergy RASH Verified 12/04/16 18:02 tramadol AdvReac RASH Verified 12/04/16 18:02 pcn AdvReac ITCHING Uncoded 12/04/16 18:02 - Medications Medications: Current Medications Allopurinol (Zyloprim) 300 mg PO DAILY [facility] (Desoximetasone 0.05% [Topicort 0.05%]) 0.05 % TP BID [facility] Sodium Chloride (Sodium Chloride 0.9%) 1,000 mls @ 80 mls/hr IV .[id number] [facility] Stop: 12/06/16 06:13 Last Admin: 12/05/16 06:30 Dose: 80 mls/hr Ondansetron HCl (Zofran Inj) 4 mg IVP Q6 PRN PRN Reason: Nausea/Vomiting Last Admin: 12/05/16 09:04 Dose: 4 mg Oxycodone/Acetaminophen (Percocet 5/325 Mg Tab) 1 tab PO Q6 PRN PRN Reason: Pain, severe (8-10) Stop: 12/08/16 06:20 Pantoprazole Sodium (Protonix Ec Tab) 40 mg PO BID [facility] Last Admin: 12/05/16 09:00 Dose: 40 mg Physical Exam - Additional Findings Additional findings: Physical therapy; Pt is alert, well oriented in no acute distress neck; Supple, no adenopathy Chest; clear, no rales or rhonchi Heart; RSR, no mrmur Abd; Soft, no mass. no h/s megalyTenderness present in the epigastric area. Results - Vital Signs Recent Vital Signs: Last Vital Signs Temp 98.3 F 12/05/16 08:08 Pulse 83 12/05/16 08:08 Resp 18 12/05/16 08:08 BP 108/70 12/05/16 08:08 Pulse Ox 98 12/05/16 08:08 - Labs Result Diagrams: 12/05/16 06:30 12/05/16 06:30 Labs: Laboratory Results - last 24 hr 12/04/16 12/05/16 12/05/16 22:24 06:30 06:30 WBC 6.8 D RBC 2.92 L Hgb 8.2 L Hct 24.5 L MCV 84.1 MCH 28.1 MCHC 33.5 RDW 14.2 Plt Count 19 L* D MPV 8.1 Neut % (Auto) 91.3 H Lymph % (Auto) 6.3 L [place] % (Auto) 2.0 Eos % (Auto) 0.3 Baso % (Auto) 0.1 Neut # 6.2 Lymph # 0.4 L [place] # 0.1 Eos # 0.0 Baso # 0.0 Neutrophils % (Manual) 91 H Band Neutrophils % 1 Lymphocytes % (Manual) 7 L Monocytes % (Manual) 1 Toxic Granulation Present Platelet Estimate Decreased L Hypochromasia (manual) Slight Ovalocytes Slight Janeth Cells Slight Sodium 124 L Potassium 3.0 L Chloride 86 L Carbon Dioxide 25 Anion Gap 16 BUN 45 H Creatinine 5.4 H Est GFR ( Amer) 10 Est GFR (Non-Af Amer) 8 Random Glucose 71 Uric Acid 11.4 H Calcium 7.9 L 7.6 L Phosphorus 4.4 Total Bilirubin 0.7 AST 55 H ALT 48 Alkaline Phosphatase 102 Total Protein 6.1 L Albumin 3.5 Globulin 2.5 Albumin/Globulin Ratio 1.4 Assessment & Plan - Assessment and Plan (Free Text) Assessment: Impression; Gastric cancer on chemotherapy. Plan: Plan will give her granix tonkeep ANC above 2000. will transfuse platelets if there are any signs of bleeding.
[2016-12-05] MEDS: Oxycodone/Acetaminophen 5/325 mg Tab PO PRN (10:48)
[2016-12-05 17:46] LABS: SQUAMOUS EPITHIAL < 1 /hpf (0-5); URINE BACTERIA FEW (<OCC); URINE BILIRUBIN NEGATIVE (NEGATIVE); URINE BLOOD MODERATE (NEGATIVE); URINE CLARITY CLEAR (Clear); URINE COLOR STRAW (YELLOW); URINE GLUCOSE (UA) NEG (Normal); URINE LEUKOCYTE ESTERASE NEG Leu/uL (Negative); URINE NITRATE NEGATIVE (NEGATIVE); URINE PROTEIN NEGATIVE (NEGATIVE); URINE UROBILINOGEN 0.2-1.0 mg/dL (0.2-1.0)
[2016-12-05 17:52] LABS: CREATININE, RANDOM URINE 42.7 mg/dL
--- NOTE | 2016-12-05 18:05 | HP ---
CHIEF COMPLAINT: Abdominal pain. HISTORY OF PRESENT ILLNESS: This is a 51-year-old female, known case of gastric carcinoma, undergoin g chemotherapy. Was having abdominal pain so patient was brought to Emergency Room and was admitted for further management. REVIEW OF SYSTEMS: Positive for abdominal pain, generalized malaise, weakness. Review of systems ot herwise is negative for headache, dizziness, syncope, loss of consciousness, chest pain, shortness of breath, nausea, vomiting, diarrhea, constipation, any new joint or extremity pain. Review of system s of all other organ systems is unremarkable. PAST MEDICAL HISTORY: Significant for gastric carcinoma. PAST SURGICAL HISTORY: Remarkable for cholecystectomy. PERSONAL HISTORY: The patient is currently a nonsmoker, nondrinker, no substance abuse. MEDICATIONS: The patient is on Zofran, Topicort, Protonix and Percocet. ALLERGIES: THE PATIENT IS ALLERGIC TO PEACH, TRAMADOL, AND PENICILLIN. FAMILY HISTORY: Noncontributory. PHYSICAL EXAMINATION: GENERAL: Well-built, well-nourished 51-year-old frustrated female in pain, in no acute distress. VITAL SIGNS: Temperature 98.2, pulse 91, respiration 18, blood pressure 92/62. HEENT: Pupils reacting to light. NECK: No JVD, no thyromegaly, no lymphadenopathy, no nystagmus. Normocephalic, atraumatic skull. HEART: S1, S2 normal, regular. No significant murmur, gallop or rub is heard. LUNGS: Show good bilateral air entry. No rales or rhonchi. ABDOMEN: Soft, nontender, no organomegaly, no fluid. Bowel sounds are plus. EXTREMITIES: No edema, no calf swelling, no tenderness, no acute ischemia. CENTRAL NERVOUS SYSTEM: Essentially unchanged. ABDOMEN: Does not reveal anything acute abdomen. No guarding, no rigidity, no rebound. Bowel sound s are plus and normal. CENTRAL NERVOUS SYSTEM: Essentially unchanged. DIAGNOSTIC DATA: Available diagnostic data reviewed. WBC 2, hemoglobin 9.3, hematocrit 27.9, platel ets 32. Sodium 124, potassium ____, chloride 83, bicarb 25, BUN 48, creatinine 5.9. SMA-12 is unrem arkable except AST of 64. ADMITTING IMPRESSION: Gastric carcinoma, acute renal failure, hyponatremia, ____. telemetry monitor ing does not reveal significant arrhythmias. PLAN: As ordered. Case and plan discussed with patient. Osmany Auguste MD cc: [phone] TT: 12/05/2016 18:04:23 mn
[2016-12-05] MEDS: Potassium CL 10 MEQ/50 ML 50 ML IVPB SCH ×5 (18:54→23:39)
[2016-12-06] MEDS: Potassium CL 10 MEQ/50 ML 50 ML IVPB SCH (00:39)
[2016-12-06 07:17] LABS: HEMOGLOBIN 8.2 g/dL (12.0-16.0); MEAN CELL VOLUME 84.4 fl (81.0-99.0); MEAN CORPUSCULAR HEMOGLOBIN 27.8 pg (27.0-31.0); RBC 2.96 Mil/uL (3.80-5.20); WHITE BLOOD COUNT 6.8 K/uL (4.8-10.8)
[2016-12-06] MEDS: Pantoprazole 40 mg EC Tab PO SCH ×2 (09:10→17:02)
--- NOTE | 2016-12-06 12:03 | CP.PCM.PN ---
Subjective - Date & Time of Evaluation Date of Evaluation: 12/06/16 Time of Evaluation: 11:58 - Subjective Subjective: Pt is feeling much better. Her creatinine is coming down and platelets are slowly coming up.Will watch the CBC. Objective - Vital Signs/Intake and Output Vital Signs (last 24 hours): Temp Pulse Resp BP Pulse Ox 99.1 F 80 18 107/67 99 12/06/16 08:08 12/06/16 08:43 12/06/16 08:08 12/06/16 08:08 12/06/16 08:08 Intake and Output: 12/06/16 12/06/16 06:59 18:59 Intake Total 670 Output Total 1 Balance 669 - Medications Medications: Current Medications Allopurinol (Zyloprim) 300 mg PO DAILY [facility] Last Admin: 12/06/16 09:11 Dose: 300 mg Sodium Chloride (Sodium Chloride 0.9%) 1,000 mls @ 80 mls/hr IV .[id number] [facility] Stop: 12/07/16 09:32 Ondansetron HCl (Zofran Inj) 4 mg IVP Q6 PRN PRN Reason: Nausea/Vomiting Last Admin: 12/05/16 09:04 Dose: 4 mg Oxycodone/Acetaminophen (Percocet 5/325 Mg Tab) 1 tab PO Q6 PRN PRN Reason: Pain, severe (8-10) Stop: 12/08/16 06:20 Last Admin: 12/05/16 10:48 Dose: 1 tab Pantoprazole Sodium (Protonix Ec Tab) 40 mg PO BID [facility] Last Admin: 12/06/16 09:10 Dose: 40 mg - Labs Labs: 12/06/16 05:20 12/06/16 05:20
--- NOTE | 2016-12-06 13:01 | CP.PCM.PN ---
Subjective - Date & Time of Evaluation Date of Evaluation: 12/06/16 Time of Evaluation: 13:00 - Subjective Subjective: Patient awake and conscious She feels much better Less nausea This diarrhea Objective - Vital Signs/Intake and Output Vital Signs (last 24 hours): Temp Pulse Resp BP Pulse Ox 99 F 100 H 18 97/66 L 97 12/06/16 12:00 12/06/16 12:00 12/06/16 12:00 12/06/16 12:00 12/06/16 12:00 Intake and Output: 12/06/16 12/06/16 06:59 18:59 Intake Total 670 Output Total 1 Balance 669 - Medications Medications: Current Medications Allopurinol (Zyloprim) 300 mg PO DAILY [facility] Last Admin: 12/06/16 09:11 Dose: 300 mg Sodium Chloride (Sodium Chloride 0.9%) 1,000 mls @ 80 mls/hr IV .[id number] [facility] Stop: 12/07/16 09:32 Ondansetron HCl (Zofran Inj) 4 mg IVP Q6 PRN PRN Reason: Nausea/Vomiting Last Admin: 12/05/16 09:04 Dose: 4 mg Oxycodone/Acetaminophen (Percocet 5/325 Mg Tab) 1 tab PO Q6 PRN PRN Reason: Pain, severe (8-10) Stop: 12/08/16 06:20 Last Admin: 12/05/16 10:48 Dose: 1 tab Pantoprazole Sodium (Protonix Ec Tab) 40 mg PO BID [facility] Last Admin: 12/06/16 09:10 Dose: 40 mg - Labs Labs: 12/06/16 05:20 12/06/16 05:20 - Constitutional Appears: No Acute Distress - ENT Exam ENT Exam: Mucous Membranes Moist - Respiratory Exam Respiratory Exam: NORMAL BREATHING PATTERN. absent: Chest Wall Tenderness - Cardiovascular Exam Cardiovascular Exam: REGULAR RHYTHM. absent: Rubs - GI/Abdominal Exam GI & Abdominal Exam: Guarding - Extremities Exam Extremities Exam: absent: Calf Tenderness - Back Exam Back Exam: absent: CVA tenderness (L), CVA tenderness (R) - Neurological Exam Neurological Exam: Alert Assessment and Plan (1) Acute renal injury Assessment & Plan: Acute kidney injury appeared to be improving serum creatinine coming down slowly and better than yesterday. Patient making good urine. Hyponatremia improving serum sodium coming up slowly 129 Serum chloride improving Serum potassium corrected Continue normal saline 80 mL/h Repeat uric acid in a day or 2 Status: Acute (2) Electrolyte abnormality Status: Acute (3) Gastric cancer Status: Chronic (4) Pancytopenia Status: Acute
[2016-12-06] MEDS: Sodium Chloride 0.9% 1,000 ML IV SCH ×2 (13:24→23:10)
[2016-12-06] MEDS: Oxycodone/Acetaminophen 5/325 mg Tab PO PRN (16:24)
[2016-12-06] MEDS: Potassium Chloride 20 mEq ER Tab PO SCH (17:02)
[2016-12-07 06:46] LABS: HEMOGLOBIN 8.1 g/dL (12.0-16.0); MEAN CELL VOLUME 84.4 fl (81.0-99.0); MEAN CORPUSCULAR HEMOGLOBIN 27.9 pg (27.0-31.0); MEAN CORPUSCULAR HGB CONC 33.1 g/dL (33.0-37.0); RBC 2.89 Mil/uL (3.80-5.20); RED CELL DISTRIBUTION WIDTH 14.1 % (11.5-14.5); WHITE BLOOD COUNT 3.3 K/uL (4.8-10.8)
--- NOTE | 2016-12-07 08:59 | CP.PCM.PN ---
Subjective - Date & Time of Evaluation Date of Evaluation: 12/07/16 Time of Evaluation: 08:57 - Subjective Subjective: Patient feeling much better Vital sign appears to be stable Kidney function continued to improve Objective - Vital Signs/Intake and Output Vital Signs (last 24 hours): Temp Pulse Resp BP Pulse Ox 98.5 F 88 18 98/61 L 98 12/07/16 08:19 12/07/16 08:19 12/07/16 08:19 12/07/16 08:19 12/07/16 08:19 - Medications Medications: Current Medications Allopurinol (Zyloprim) 300 mg PO DAILY [facility] Last Admin: 12/06/16 09:11 Dose: 300 mg Hydrocortisone (Cortizone 0.5%) 1 applic TOP BID PRN PRN Reason: Itching / Pruritus Last Admin: 12/06/16 23:10 Dose: 1 applic Hydroxyzine HCl (Atarax) 25 mg PO BID PRN PRN Reason: itchiness Last Admin: 12/06/16 23:10 Dose: 25 mg Sodium Chloride (Sodium Chloride 0.9%) 1,000 mls @ 80 mls/hr IV .[id number] [facility] Stop: 12/07/16 09:32 Last Admin: 12/06/16 23:10 Dose: 80 mls/hr Ondansetron HCl (Zofran Inj) 4 mg IVP Q6 PRN PRN Reason: Nausea/Vomiting Last Admin: 12/06/16 14:59 Dose: 4 mg Oxycodone/Acetaminophen (Percocet 5/325 Mg Tab) 1 tab PO Q6 PRN PRN Reason: Pain, severe (8-10) Stop: 12/08/16 06:20 Last Admin: 12/06/16 16:24 Dose: 1 tab Pantoprazole Sodium (Protonix Ec Tab) 40 mg PO BID [facility] Last Admin: 12/06/16 17:02 Dose: 40 mg Potassium Chloride (K-Dur 20 Meq Er Tab) 20 meq PO DAILY [facility] Last Admin: 12/06/16 17:02 Dose: 20 meq - Labs Labs: 12/07/16 05:20 12/07/16 05:20 - Constitutional Appears: No Acute Distress - ENT Exam ENT Exam: Mucous Membranes Moist - Respiratory Exam Respiratory Exam: NORMAL BREATHING PATTERN. absent: Chest Wall Tenderness - GI/Abdominal Exam GI & Abdominal Exam: Firm, Normal Bowel Sounds - Extremities Exam Extremities Exam: absent: Calf Tenderness - Back Exam Back Exam: absent: CVA tenderness (L), CVA tenderness (R) - Neurological Exam Neurological Exam: Alert Assessment and Plan (1) Acute renal injury Assessment & Plan: Acute renal failure continued to improve and on the way of recovery serum creatinine coming down slowly. Continue gentle hydration Hyperuricemia to repeat serum uric acid patient receiving allopurinol Pancytopenia as per hematology platelet count continue to improve. Continue monitoring kidney function Status post chemotherapy about close and 2 weeks ago or so Status: Acute (2) Electrolyte abnormality Status: Acute (3) Gastric cancer Status: Chronic (4) Pancytopenia Status: Acute
[2016-12-07] MEDS: Potassium Chloride 20 mEq ER Tab PO SCH (09:44)
[2016-12-07] MEDS: Pantoprazole 40 mg EC Tab PO SCH ×2 (09:44→17:32)
--- NOTE | 2016-12-07 11:03 | CP.PCM.PN ---
Subjective - Date & Time of Evaluation Date of Evaluation: 12/07/16 Time of Evaluation: 11:02 - Subjective Subjective: Pt is feeling much better. Her creatinine is down to Objective - Vital Signs/Intake and Output Vital Signs (last 24 hours): Temp Pulse Resp BP Pulse Ox 98.5 F 88 18 98/61 L 98 12/07/16 08:19 12/07/16 08:19 12/07/16 08:19 12/07/16 08:19 12/07/16 08:19 - Medications Medications: Current Medications Allopurinol (Zyloprim) 300 mg PO DAILY [facility] Last Admin: 12/07/16 09:44 Dose: 300 mg Hydrocortisone (Cortizone 0.5%) 1 applic TOP BID PRN PRN Reason: Itching / Pruritus Last Admin: 12/06/16 23:10 Dose: 1 applic Hydroxyzine HCl (Atarax) 25 mg PO BID PRN PRN Reason: itchiness Last Admin: 12/06/16 23:10 Dose: 25 mg Sodium Chloride (Sodium Chloride 0.9%) 1,000 mls @ 80 mls/hr IV .[id number] [facility] Stop: 12/08/16 10:53 Ondansetron HCl (Zofran Inj) 4 mg IVP Q6 PRN PRN Reason: Nausea/Vomiting Last Admin: 12/06/16 14:59 Dose: 4 mg Oxycodone/Acetaminophen (Percocet 5/325 Mg Tab) 1 tab PO Q6 PRN PRN Reason: Pain, severe (8-10) Stop: 12/08/16 06:20 Last Admin: 12/06/16 16:24 Dose: 1 tab Pantoprazole Sodium (Protonix Ec Tab) 40 mg PO BID [facility] Last Admin: 12/07/16 09:44 Dose: 40 mg Potassium Chloride (K-Dur 20 Meq Er Tab) 20 meq PO DAILY [facility] Last Admin: 12/07/16 09:44 Dose: 20 meq - Labs Labs: 12/07/16 05:20 12/07/16 05:20
--- NOTE | 2016-12-07 14:41 | CP.PCM.PN ---
Objective - Vital Signs/Intake and Output Vital Signs (last 24 hours): Temp Pulse Resp BP Pulse Ox 98.8 F 94 H 18 97/63 L 98 12/07/16 12:01 12/07/16 12:01 12/07/16 12:01 12/07/16 12:01 12/07/16 12:01 - Medications Medications: Current Medications Allopurinol (Zyloprim) 300 mg PO DAILY [facility] Last Admin: 12/07/16 09:44 Dose: 300 mg Hydrocortisone (Cortizone 0.5%) 1 applic TOP BID PRN PRN Reason: Itching / Pruritus Last Admin: 12/06/16 23:10 Dose: 1 applic Hydroxyzine HCl (Atarax) 25 mg PO BID PRN PRN Reason: itchiness Last Admin: 12/06/16 23:10 Dose: 25 mg Sodium Chloride (Sodium Chloride 0.9%) 1,000 mls @ 80 mls/hr IV .[id number] [facility] Stop: 12/08/16 10:53 Ondansetron HCl (Zofran Inj) 4 mg IVP Q6 PRN PRN Reason: Nausea/Vomiting Last Admin: 12/06/16 14:59 Dose: 4 mg Oxycodone/Acetaminophen (Percocet 5/325 Mg Tab) 1 tab PO Q6 PRN PRN Reason: Pain, severe (8-10) Stop: 12/08/16 06:20 Last Admin: 12/06/16 16:24 Dose: 1 tab Pantoprazole Sodium (Protonix Ec Tab) 40 mg PO BID [facility] Last Admin: 12/07/16 09:44 Dose: 40 mg Potassium Chloride (K-Dur 20 Meq Er Tab) 20 meq PO DAILY [facility] Last Admin: 12/07/16 09:44 Dose: 20 meq - Labs Labs: 12/07/16 05:20 12/07/16 05:20 - Head Exam Head Exam: ATRAUMATIC - Eye Exam Eye Exam: PERRL - Neck Exam Neck Exam: Full ROM - Respiratory Exam Respiratory Exam: NORMAL BREATHING PATTERN - Cardiovascular Exam Cardiovascular Exam: REGULAR RHYTHM - GI/Abdominal Exam GI & Abdominal Exam: Normal Bowel Sounds - Extremities Exam Extremities Exam: Full ROM - Neurological Exam Neurological Exam: Oriented x3 Assessment and Plan - Assessment and Plan (Free Text) Assessment: Assessment Acute renal Failure Metastatic malignant gastric ulcer Plan Continue IV fluids
[2016-12-07] MEDS: Sodium Chloride 0.9% 1,000 ML IV SCH ×2 (15:03→23:40)
--- NOTE | 2016-12-07 20:00 | CP.PCM.PN ---
Subjective - Date & Time of Evaluation Date of Evaluation: 12/06/16 Time of Evaluation: 13:00 - Subjective Subjective: Epigastric pain , no vomiting , Objective - Vital Signs/Intake and Output Vital Signs (last 24 hours): Temp Pulse Resp BP Pulse Ox 99.7 F H 87 20 107/69 99 12/07/16 19:40 12/07/16 19:40 12/07/16 19:40 12/07/16 19:40 12/07/16 19:40 Intake and Output: 12/07/16 12/08/16 18:59 06:59 Intake Total 1280 Balance 1280 - Medications Medications: Current Medications Allopurinol (Zyloprim) 300 mg PO DAILY [facility] Last Admin: 12/07/16 09:44 Dose: 300 mg Hydrocortisone (Cortizone 0.5%) 1 applic TOP BID PRN PRN Reason: Itching / Pruritus Last Admin: 12/06/16 23:10 Dose: 1 applic Hydroxyzine HCl (Atarax) 25 mg PO BID PRN PRN Reason: itchiness Last Admin: 12/06/16 23:10 Dose: 25 mg Sodium Chloride (Sodium Chloride 0.9%) 1,000 mls @ 80 mls/hr IV .[id number] [facility] Stop: 12/08/16 10:53 Last Admin: 12/07/16 15:03 Dose: 80 mls/hr Ondansetron HCl (Zofran Inj) 4 mg IVP Q6 PRN PRN Reason: Nausea/Vomiting Last Admin: 12/06/16 14:59 Dose: 4 mg Oxycodone/Acetaminophen (Percocet 5/325 Mg Tab) 1 tab PO Q6 PRN PRN Reason: Pain, severe (8-10) Stop: 12/08/16 06:20 Last Admin: 12/06/16 16:24 Dose: 1 tab Pantoprazole Sodium (Protonix Ec Tab) 40 mg PO BID [facility] Last Admin: 12/07/16 17:32 Dose: 40 mg Potassium Chloride (K-Dur 20 Meq Er Tab) 20 meq PO DAILY [facility] Last Admin: 12/07/16 09:44 Dose: 20 meq - Labs Labs: 12/07/16 05:20 12/07/16 05:20 - Head Exam Head Exam: ATRAUMATIC - Eye Exam Eye Exam: Normal appearance, PERRL - ENT Exam ENT Exam: Mucous Membranes Moist - Neck Exam Neck Exam: Full ROM - Respiratory Exam Respiratory Exam: NORMAL BREATHING PATTERN - Cardiovascular Exam Cardiovascular Exam: REGULAR RHYTHM - GI/Abdominal Exam GI & Abdominal Exam: Normal Bowel Sounds - Extremities Exam Extremities Exam: Full ROM - Neurological Exam Neurological Exam: Oriented x3 Assessment and Plan - Assessment and Plan (Free Text) Assessment: Acute Renal Failure , likely ATN Metastatic malignant gastric ulcer Plan: Continue IV fluids , f/u nephrology recommendations
[2016-12-07] MEDS: Oxycodone/Acetaminophen 5/325 mg Tab PO PRN (21:02)
--- NOTE | 2016-12-08 08:33 | CP.PCM.PN ---
Subjective - Date & Time of Evaluation Date of Evaluation: 12/08/16 (N) Time of Evaluation: 08:31 - Subjective Subjective: Pt ois feeling better, but is very pale and tired. Will give 2 units of packed cells since the hgbis only 8.1gms. Chemistry result not yet available, Objective - Vital Signs/Intake and Output Vital Signs (last 24 hours): Temp Pulse Resp BP Pulse Ox 98.4 F 96 H 18 108/67 97 12/08/16 08:00 12/08/16 08:00 12/08/16 08:00 12/08/16 08:00 12/08/16 08:00 - Medications Medications: Current Medications Allopurinol (Zyloprim) 300 mg PO DAILY [facility] Last Admin: 12/07/16 09:44 Dose: 300 mg Hydrocortisone (Cortizone 0.5%) 1 applic TOP BID PRN PRN Reason: Itching / Pruritus Last Admin: 12/06/16 23:10 Dose: 1 applic Hydroxyzine HCl (Atarax) 25 mg PO BID PRN PRN Reason: itchiness Last Admin: 12/06/16 23:10 Dose: 25 mg Sodium Chloride (Sodium Chloride 0.9%) 1,000 mls @ 80 mls/hr IV .[id number] [facility] Stop: 12/08/16 10:53 Last Admin: 12/07/16 23:40 Dose: 80 mls/hr Ondansetron HCl (Zofran Inj) 4 mg IVP Q6 PRN PRN Reason: Nausea/Vomiting Last Admin: 12/07/16 21:02 Dose: 4 mg Pantoprazole Sodium (Protonix Ec Tab) 40 mg PO BID [facility] Last Admin: 12/07/16 17:32 Dose: 40 mg Potassium Chloride (K-Dur 20 Meq Er Tab) 20 meq PO DAILY [facility] Last Admin: 12/07/16 09:44 Dose: 20 meq - Labs Labs: 12/07/16 05:20 12/07/16 05:20
[2016-12-08] MEDS: Pantoprazole 40 mg EC Tab PO SCH ×2 (08:58→17:00)
[2016-12-08] MEDS: Potassium Chloride 20 mEq ER Tab PO SCH (08:58)
[2016-12-08 09:37] LABS: CALCIUM 7.5 mg/dL (8.4-10.2)
--- NOTE | 2016-12-08 10:32 | CP.PCM.CON ---
History of Present Illness - History of Present Illness History of Present Illness: Patient feeling much better Urine output probably better as well. Serum creatinine Coming down and kidney function improving Physical exam Chest no rales Heart no rubs Abdomen some minor tenderness Extremity no edema Impression and plan Patient recovering from acute renal failure likely to be acute tubular necrosis Electrolyte appears to be good Continue gentle hydration Repeat serum uric acid Past Patient History - Infectious Disease Hx of Infectious Diseases: None - Past Medical History & Family History Past Medical History?: Yes - Past Social History Smoking Status: Former Smoker - CARDIAC Hx Pacemaker: No - PULMONARY Hx Respiratory Disorders: No - NEUROLOGICAL Hx Neurological Disorder: No - HEENT Hx HEENT Problems: No Other/Comment: reading glasses - RENAL Hx Chronic Kidney Disease: No - ENDOCRINE/METABOLIC Hx Endocrine Disorders: No - HEMATOLOGICAL/ONCOLOGICAL Hx AIDS: No Hx Cancer: Yes (Gastric Cancer) Hx Chemotherapy: Yes Hx Human Immunodeficiency Virus (HIV): No - INTEGUMENTARY Hx Dermatological Problems: No - MUSCULOSKELETAL/RHEUMATOLOGICAL Hx Musculoskeletal Disorders: No Hx Falls: No - GASTROINTESTINAL Hx Gastrointestinal Disorders: Yes Other/Comment: gallstone - GENITOURINARY/GYNECOLOGICAL Hx Genitourinary Disorders: No - PSYCHIATRIC Hx Psychophysiologic Disorder: No Hx Emotional Abuse: No Hx Physical Abuse: No Hx Substance Use: No - SURGICAL HISTORY Hx Section: Yes Hx Cholecystectomy: Yes - ANESTHESIA Hx Anesthesia: Yes Hx Anesthesia Reactions: No Hx Malignant Hyperthermia: No Has any member of the family had a problem w/ anesthesia?: No Meds Allergies/Adverse Reactions: Allergies Allergy/AdvReac Type Severity Reaction Status Date / Time peach Allergy RASH Verified 12/04/16 18:02 tramadol AdvReac RASH Verified 12/04/16 18:02 pcn AdvReac ITCHING Uncoded 12/04/16 18:02 - Medications Medications: Current Medications Allopurinol (Zyloprim) 300 mg PO DAILY [facility] Last Admin: 12/08/16 08:58 Dose: 300 mg Hydrocortisone (Cortizone 0.5%) 1 applic TOP BID PRN PRN Reason: Itching / Pruritus Last Admin: 12/06/16 23:10 Dose: 1 applic Hydroxyzine HCl (Atarax) 25 mg PO BID PRN PRN Reason: itchiness Last Admin: 12/06/16 23:10 Dose: 25 mg Sodium Chloride (Sodium Chloride 0.9%) 1,000 mls @ 80 mls/hr IV .[id number] [facility] Stop: 12/08/16 10:53 Last Admin: 12/07/16 23:40 Dose: 80 mls/hr Sodium Chloride (Sodium Chloride 0.9%) 1,000 mls @ 80 mls/hr IV .[id number] [facility] Stop: 12/09/16 09:57 Ondansetron HCl (Zofran Inj) 4 mg IVP Q6 PRN PRN Reason: Nausea/Vomiting Last Admin: 12/07/16 21:02 Dose: 4 mg Pantoprazole Sodium (Protonix Ec Tab) 40 mg PO BID [facility] Last Admin: 12/08/16 08:58 Dose: 40 mg Potassium Chloride (K-Dur 20 Meq Er Tab) 20 meq PO DAILY [facility] Last Admin: 12/08/16 08:58 Dose: 20 meq Results - Vital Signs Recent Vital Signs: Last Vital Signs Temp 98.4 F 12/08/16 08:00 Pulse 96 H 12/08/16 08:00 Resp 18 12/08/16 08:00 BP 108/67 12/08/16 08:00 Pulse Ox 97 12/08/16 08:00 - Labs Result Diagrams: 12/07/16 05:20 12/08/16 09:00 Labs: Laboratory Results - last 24 hr 12/08/16 12/08/16 09:00 09:00 Sodium 136 Potassium 3.9 Chloride 104 Carbon Dioxide 25 Anion Gap 11 BUN 20 H Creatinine 2.6 H Est GFR ( Amer) 23 Est GFR (Non-Af Amer) 19 Random Glucose 90 Calcium 7.5 L Crossmatch See Detail BBK History Checked Patient has bt Assessment & Plan (1) Acute renal injury Status: Acute (2) Electrolyte abnormality Status: Acute (3) Gastric cancer Status: Chronic (4) Pancytopenia Status: Acute
--- NOTE | 2016-12-08 11:25 | CARD ---
APPROVED REPORT EKG Measurement Heart [id number] HI [id number] [id number] <Conclusion> Normal sinus rhythm Normal ECG
[2016-12-08] MEDS: Sodium Chloride 0.9% 1,000 ML IV SCH (12:21)
[2016-12-08] MEDS: Oxycodone/Acetaminophen 5/325 mg Tab PO PRN (15:11)
--- NOTE | 2016-12-08 22:11 | CP.PCM.PN ---
Subjective - Date & Time of Evaluation Date of Evaluation: 12/08/16 Time of Evaluation: 11:00 - Subjective Subjective: Less abdominal pain , no vomiting Objective - Vital Signs/Intake and Output Vital Signs (last 24 hours): Temp Pulse Resp BP Pulse Ox 99.3 F 89 15 102/64 97 12/08/16 19:40 12/08/16 19:40 12/08/16 19:40 12/08/16 19:40 12/08/16 19:40 Intake and Output: 12/08/16 12/09/16 18:59 06:59 Intake Total 1450 Balance 1450 - Medications Medications: Current Medications Allopurinol (Zyloprim) 300 mg PO DAILY [facility] Last Admin: 12/08/16 08:58 Dose: 300 mg Hydrocortisone (Cortizone 0.5%) 1 applic TOP BID PRN PRN Reason: Itching / Pruritus Last Admin: 12/06/16 23:10 Dose: 1 applic Hydroxyzine HCl (Atarax) 25 mg PO BID PRN PRN Reason: itchiness Last Admin: 12/06/16 23:10 Dose: 25 mg Sodium Chloride (Sodium Chloride 0.9%) 1,000 mls @ 80 mls/hr IV .[id number] [facility] Stop: 12/09/16 09:57 Last Admin: 12/08/16 12:21 Dose: Not Given Ondansetron HCl (Zofran Inj) 4 mg IVP Q6 PRN PRN Reason: Nausea/Vomiting Last Admin: 12/07/16 21:02 Dose: 4 mg Oxycodone/Acetaminophen (Percocet 5/325 Mg Tab) 1 tab PO Q6 PRN PRN Reason: Pain, moderate (4-7) Stop: 12/11/16 14:49 Last Admin: 12/08/16 15:11 Dose: 1 tab Pantoprazole Sodium (Protonix Ec Tab) 40 mg PO BID [facility] Last Admin: 12/08/16 17:00 Dose: 40 mg Potassium Chloride (K-Dur 20 Meq Er Tab) 20 meq PO DAILY [facility] Last Admin: 12/08/16 08:58 Dose: 20 meq - Labs Labs: 12/07/16 05:20 12/08/16 09:00 - Head Exam Head Exam: ATRAUMATIC, NORMOCEPHALIC - Eye Exam Eye Exam: Normal appearance, PERRL - ENT Exam ENT Exam: Mucous Membranes Moist - Neck Exam Neck Exam: Full ROM - Respiratory Exam Respiratory Exam: NORMAL BREATHING PATTERN - Cardiovascular Exam Cardiovascular Exam: REGULAR RHYTHM - GI/Abdominal Exam GI & Abdominal Exam: Normal Bowel Sounds - Extremities Exam Extremities Exam: Full ROM - Neurological Exam Neurological Exam: Oriented x3 Assessment and Plan - Assessment and Plan (Free Text) Assessment: Acute Renal Failure Metastatic malignant gastric ulcer Anemia , multifactorial Plan: Transfuse 2 units of PRBCs continue IV fluids
[2016-12-09] MEDS: Sodium Chloride 0.9% 1,000 ML IV SCH ×2 (00:06→13:10)
[2016-12-09] MEDS: Oxycodone/Acetaminophen 5/325 mg Tab PO PRN ×2 (00:07→23:25)
[2016-12-09 07:19] LABS: HEMOGLOBIN 9.8 g/dL (12.0-16.0); MEAN CELL VOLUME 86.2 fl (81.0-99.0); MEAN CORPUSCULAR HEMOGLOBIN 29.6 pg (27.0-31.0); MEAN CORPUSCULAR HGB CONC 34.4 g/dL (33.0-37.0); PLATELET COUNT 119 K/uL (130-400); RED CELL DISTRIBUTION WIDTH 14.4 % (11.5-14.5); WHITE BLOOD COUNT 3.5 K/uL (4.8-10.8)
[2016-12-09 07:28] LABS: CALCIUM 7.1 mg/dL (8.4-10.2)
[2016-12-09] MEDS: Potassium Chloride 20 mEq ER Tab PO SCH (08:51)
[2016-12-09] MEDS: Pantoprazole 40 mg EC Tab PO SCH ×2 (08:52→16:48)
--- NOTE | 2016-12-09 10:14 | CP.PCM.PN ---
Subjective - Date & Time of Evaluation Date of Evaluation: 12/09/16 Time of Evaluation: 10:13 - Subjective Subjective: Pt has no complaintsat this time. She got 2 units of packed cells yesterday. Today the WBC is 3/.8, hgb 9.8 her creatinine is down further to 2.5., and platelets are 119K. Have stressed the importance of drinking a lot of water. Objective - Vital Signs/Intake and Output Vital Signs (last 24 hours): Temp Pulse Resp BP Pulse Ox 98.7 F 83 18 101/58 L 97 12/09/16 08:00 12/09/16 08:00 12/09/16 08:00 12/09/16 08:00 12/09/16 08:00 - Medications Medications: Current Medications Allopurinol (Zyloprim) 300 mg PO DAILY [facility] Last Admin: 12/09/16 08:52 Dose: 300 mg Hydrocortisone (Cortizone 0.5%) 1 applic TOP BID PRN PRN Reason: Itching / Pruritus Last Admin: 12/06/16 23:10 Dose: 1 applic Hydroxyzine HCl (Atarax) 25 mg PO BID PRN PRN Reason: itchiness Last Admin: 12/06/16 23:10 Dose: 25 mg Ondansetron HCl (Zofran Inj) 4 mg IVP Q6 PRN PRN Reason: Nausea/Vomiting Last Admin: 12/09/16 00:08 Dose: 4 mg Oxycodone/Acetaminophen (Percocet 5/325 Mg Tab) 1 tab PO Q6 PRN PRN Reason: Pain, moderate (4-7) Stop: 12/11/16 14:49 Last Admin: 12/09/16 00:07 Dose: 1 tab Pantoprazole Sodium (Protonix Ec Tab) 40 mg PO BID [facility] Last Admin: 12/09/16 08:52 Dose: 40 mg Potassium Chloride (K-Dur 20 Meq Er Tab) 20 meq PO DAILY [facility] Last Admin: 12/09/16 08:51 Dose: 20 meq - Labs Labs: 12/09/16 06:45 12/09/16 06:45
--- NOTE | 2016-12-09 10:39 | CP.PCM.PN ---
Subjective - Date & Time of Evaluation Date of Evaluation: 12/09/16 Time of Evaluation: 10:36 - Subjective Subjective: Patient appeared to be improving appetite getting better Serum creatinine coming down And acute kidney injury appeared to be improving and recovering slowly. Physical exam Chest clear no rales Abdomen soft with some guarding Extremity no edema Heart no rubs Impression and plan Acute kidney injury patient is recovering continue gentle hydration Gastric CA with metastatic disease Serum uric acid came down and the last one was around 6 responded to allopurinol. Objective - Vital Signs/Intake and Output Vital Signs (last 24 hours): Temp Pulse Resp BP Pulse Ox 98.7 F 83 18 101/58 L 97 12/09/16 08:00 12/09/16 08:00 12/09/16 08:00 12/09/16 08:00 12/09/16 08:00 - Medications Medications: Current Medications Allopurinol (Zyloprim) 300 mg PO DAILY [facility] Last Admin: 12/09/16 08:52 Dose: 300 mg Hydrocortisone (Cortizone 0.5%) 1 applic TOP BID PRN PRN Reason: Itching / Pruritus Last Admin: 12/06/16 23:10 Dose: 1 applic Hydroxyzine HCl (Atarax) 25 mg PO BID PRN PRN Reason: itchiness Last Admin: 12/06/16 23:10 Dose: 25 mg Ondansetron HCl (Zofran Inj) 4 mg IVP Q6 PRN PRN Reason: Nausea/Vomiting Last Admin: 12/09/16 00:08 Dose: 4 mg Oxycodone/Acetaminophen (Percocet 5/325 Mg Tab) 1 tab PO Q6 PRN PRN Reason: Pain, moderate (4-7) Stop: 12/11/16 14:49 Last Admin: 12/09/16 00:07 Dose: 1 tab Pantoprazole Sodium (Protonix Ec Tab) 40 mg PO BID [facility] Last Admin: 12/09/16 08:52 Dose: 40 mg Potassium Chloride (K-Dur 20 Meq Er Tab) 20 meq PO DAILY [facility] Last Admin: 12/09/16 08:51 Dose: 20 meq - Labs Labs: 12/09/16 06:45 12/09/16 06:45 Assessment and Plan (1) Acute renal injury Status: Acute (2) Electrolyte abnormality Status: Acute (3) Gastric cancer Status: Chronic (4) Pancytopenia Status: Acute
[2016-12-09 11:37] LABS: BANDS 9 % (0-2); EOSINOPHIL 4 % (0-7); LYMPHOCYTE 19 % (20-50); MONOCYTE 19 % (0-10); NEUTROPHIL 49 % (42-75); PLATELET ESTIMATE SLIGHTLY DECREASED (NORMAL); TOTAL CELLS COUNTED 100
[2016-12-09 11:38] LABS: ANISOCYTOSIS SLIGHT; BURR CELLS SLIGHT; GIANT PLATELETS PRESENT; LARGE PLATELETS PRESENT; OVALOCYTES SLIGHT; POIKILOCYTOSIS SLIGHT
[2016-12-09 11:41] LABS: SCHISTOCYTES SLIGHT; TARGET CELLS SLIGHT
--- NOTE | 2016-12-09 16:05 | CP.PCM.PN ---
Subjective - Date & Time of Evaluation Date of Evaluation: 12/09/16 Time of Evaluation: 11:00 - Subjective Subjective: Continue to feel better and tolerate diet Objective - Vital Signs/Intake and Output Vital Signs (last 24 hours): Temp Pulse Resp BP Pulse Ox 98.5 F 85 20 96/55 L 90 L 12/09/16 15:47 12/09/16 15:47 12/09/16 15:47 12/09/16 15:47 12/09/16 15:47 - Medications Medications: Current Medications Allopurinol (Zyloprim) 300 mg PO DAILY [facility] Last Admin: 12/09/16 08:52 Dose: 300 mg Hydrocortisone (Cortizone 0.5%) 1 applic TOP BID PRN PRN Reason: Itching / Pruritus Last Admin: 12/06/16 23:10 Dose: 1 applic Hydroxyzine HCl (Atarax) 25 mg PO BID PRN PRN Reason: itchiness Last Admin: 12/06/16 23:10 Dose: 25 mg Sodium Chloride (Sodium Chloride 0.9%) 1,000 mls @ 80 mls/hr IV .[id number] [facility] Stop: 12/10/16 12:16 Last Admin: 12/09/16 13:10 Dose: 80 mls/hr Ondansetron HCl (Zofran Inj) 4 mg IVP Q6 PRN PRN Reason: Nausea/Vomiting Last Admin: 12/09/16 00:08 Dose: 4 mg Oxycodone/Acetaminophen (Percocet 5/325 Mg Tab) 1 tab PO Q6 PRN PRN Reason: Pain, moderate (4-7) Stop: 12/11/16 14:49 Last Admin: 12/09/16 00:07 Dose: 1 tab Pantoprazole Sodium (Protonix Ec Tab) 40 mg PO BID [facility] Last Admin: 12/09/16 08:52 Dose: 40 mg Potassium Chloride (K-Dur 20 Meq Er Tab) 20 meq PO DAILY [facility] Last Admin: 12/09/16 08:51 Dose: 20 meq - Labs Labs: 12/09/16 06:45 12/09/16 06:45 - Constitutional Appears: Well - Head Exam Head Exam: ATRAUMATIC, NORMOCEPHALIC - Eye Exam Eye Exam: EOMI, Normal appearance Pupil Exam: PERRL - ENT Exam ENT Exam: Mucous Membranes Moist, Normal Exam - Neck Exam Neck Exam: Full ROM, Normal Inspection - Respiratory Exam Respiratory Exam: Clear to Ausculation Bilateral, NORMAL BREATHING PATTERN - Cardiovascular Exam Cardiovascular Exam: REGULAR RHYTHM - GI/Abdominal Exam GI & Abdominal Exam: Soft, Normal Bowel Sounds - Extremities Exam Extremities Exam: Full ROM - Back Exam Back Exam: NORMAL INSPECTION - Neurological Exam Neurological Exam: Altered, Oriented x3 - Skin Skin Exam: Normal Color Assessment and Plan - Assessment and Plan (Free Text) Assessment: Acute renal failure Metastatic malignant gastric ulcer Anemia , multifactorial , S/P PRBCs transfusion. Plan: Continue IV fluids as kidney function continue to improve.
[2016-12-09] MEDS ORDERED: Magnesium Hydroxide Susp 30 ml UD PO ONE (23:24)
[2016-12-10] MEDS: Sodium Chloride 0.9% 1,000 ML IV SCH (01:00)
[2016-12-10] MEDS ORDERED: Pantoprazole 40 mg EC Tab PO ONE (09:00)
[2016-12-10] MEDS ORDERED: Oxycodone/Acetaminophen 5/325 mg Tab ONE (09:00)
[2016-12-10] MEDS ORDERED: Potassium Chloride 20 mEq ER Tab PO ONE (09:00)
[2016-12-10] MEDS ORDERED: Bismuth Subsalicylate 262 mg/15 ml Sus (240 ml) ONE (09:00)
--- NOTE | 2016-12-10 09:29 | CP.PCM.PN ---
Subjective - Date & Time of Evaluation Date of Evaluation: 12/10/16 Time of Evaluation: 09:27 - Subjective Subjective: Pt is feeling well. No nausea or vomiting, eating well. Her Creatinine is coming down with hydration. CBC is normal with an ANC of 5200. Objective - Vital Signs/Intake and Output Vital Signs (last 24 hours): Temp Pulse Resp BP Pulse Ox 97.7 F 82 18 99/63 L 96 12/10/16 08:00 12/10/16 08:00 12/10/16 08:00 12/10/16 08:00 12/10/16 08:00 - Medications Medications: Current Medications Allopurinol (Zyloprim) 300 mg PO DAILY [facility] Last Admin: 12/09/16 08:52 Dose: 300 mg Hydrocortisone (Cortizone 0.5%) 1 applic TOP BID PRN PRN Reason: Itching / Pruritus Last Admin: 12/10/16 04:38 Dose: 1 applic Hydroxyzine HCl (Atarax) 25 mg PO BID PRN PRN Reason: itchiness Last Admin: 12/10/16 04:44 Dose: 25 mg Sodium Chloride (Sodium Chloride 0.9%) 1,000 mls @ 80 mls/hr IV .[id number] [facility] Stop: 12/10/16 12:16 Last Admin: 12/10/16 01:00 Dose: 80 mls/hr Ondansetron HCl (Zofran Inj) 4 mg IVP Q6 PRN PRN Reason: Nausea/Vomiting Last Admin: 12/09/16 20:02 Dose: 4 mg Oxycodone/Acetaminophen (Percocet 5/325 Mg Tab) 1 tab PO Q6 PRN PRN Reason: Pain, moderate (4-7) Stop: 12/11/16 14:49 Last Admin: 12/09/16 23:25 Dose: 1 tab Pantoprazole Sodium (Protonix Ec Tab) 40 mg PO BID [facility] Last Admin: 12/09/16 16:48 Dose: 40 mg Potassium Chloride (K-Dur 20 Meq Er Tab) 20 meq PO DAILY [facility] Last Admin: 12/09/16 08:51 Dose: 20 meq - Labs Labs: 12/09/16 06:45 12/09/16 06:45
[2016-12-10] MEDS: Potassium Chloride 20 mEq ER Tab PO SCH (10:40)
[2016-12-10] MEDS: Pantoprazole 40 mg EC Tab PO SCH (10:40)
[2016-12-10 11:23] LABS: BASO % 0.1 % (0.0-2.0); EOS # 0.2 K/uL (0.0-0.7); HEMOGLOBIN 9.8 g/dL (12.0-16.0); LYMPH % 6.2 % (20.0-40.0); MEAN CELL VOLUME 88.1 fl (81.0-99.0); MEAN CORPUSCULAR HEMOGLOBIN 28.9 pg (27.0-31.0); MEAN CORPUSCULAR HGB CONC 32.8 g/dL (33.0-37.0); MEAN PLATELET VOLUME 8.3 fl (7.2-11.7); MONO % 6.4 % (0.0-10.0); NEUT % 86.3 % (50.0-75.0); RBC 3.41 Mil/uL (3.80-5.20); RED CELL DISTRIBUTION WIDTH 14.7 % (11.5-14.5); WHITE BLOOD COUNT 16.2 K/uL (4.8-10.8)
[2016-12-10] MEDS: Oxycodone/Acetaminophen 5/325 mg Tab PO PRN (20:00)
--- NOTE | 2016-12-10 21:26 | CP.PCM.PN ---
Subjective - Date & Time of Evaluation Date of Evaluation: 12/10/16 Time of Evaluation: 09:00 - Subjective Subjective: Continue to feel better , no vomiting . Objective - Vital Signs/Intake and Output Vital Signs (last 24 hours): Temp Pulse Resp BP Pulse Ox 99.6 F 89 20 103/66 97 12/10/16 20:45 12/10/16 20:45 12/10/16 20:45 12/10/16 20:45 12/10/16 20:45 - Medications Medications: Current Medications Allopurinol (Zyloprim) 300 mg PO DAILY [facility] Last Admin: 12/10/16 10:40 Dose: 300 mg Hydrocortisone (Cortizone 0.5%) 1 applic TOP BID PRN PRN Reason: Itching / Pruritus Last Admin: 12/10/16 04:38 Dose: 1 applic Hydroxyzine HCl (Atarax) 25 mg PO BID PRN PRN Reason: itchiness Last Admin: 12/10/16 04:44 Dose: 25 mg Ondansetron HCl (Zofran Inj) 4 mg IVP Q6 PRN PRN Reason: Nausea/Vomiting Last Admin: 12/09/16 20:02 Dose: 4 mg Oxycodone/Acetaminophen (Percocet 5/325 Mg Tab) 1 tab PO Q6 PRN PRN Reason: Pain, moderate (4-7) Stop: 12/11/16 14:49 Last Admin: 12/10/16 20:00 Dose: 1 tab Pantoprazole Sodium (Protonix Ec Tab) 40 mg PO BID [facility] Last Admin: 12/10/16 10:40 Dose: 40 mg Potassium Chloride (K-Dur 20 Meq Er Tab) 20 meq PO DAILY [facility] Last Admin: 12/10/16 10:40 Dose: 20 meq - Labs Labs: 12/10/16 10:00 12/09/16 06:45 Assessment and Plan - Assessment and Plan (Free Text) Assessment: Acute renal failure Metastatic malignant gastric ulcer Anemia , multifactorial , S/P PRBCs transfusion. Plan: Since kidney function continue to improve , we will continue IV fluids. Repeat CMP in the morning.
--- NOTE | 2016-12-10 22:01 | CP.PCM.PN ---
Subjective - Date & Time of Evaluation Date of Evaluation: 12/10/16 Time of Evaluation: 16:00 - Subjective Subjective: Follow up Nephrology Consultation Note Assessment: Stable Non-oliguric Acute Kidney Injury (N17.9) Improved with IVF. etiology not certain , differential includes: ATN, chemo related nephrotoxicity, Allergic interstitial nephritis. Left hydroureteronephrosis: evaluated by metastatic gastric Ca on chemotherapy Hypokalemia and Hyponatremia Pancytopenia Skin Rash Plan Renal Function improving. electrolytes stable: continue with IVF, maintain hemodynamis stable Monitor Input/Output, daily weights and renal function with basic metabolic panel May repeat renal sono if renal function deteriorates Dose meds/antibiotics for reduced GFR. Avoid fleets enema/magnesium based laxatives. Avoid nephrotoxins/NSAIDs/ iodinated contrast (unless needed emergently) Glycemic control Further work up for as per primary team Thanks for allowing me to participate in care of your patient. Will follow patient with you. Please call if any Qs Dr Mejia Gilbert Office: [phone] Subjective: Noted events overnight. Patients feels okay. Denies chest pain, palpitation, shortness of breath, leg swelling. No urinary complaints. c/o skin rash for last few weeks Physical Examination: General Appearance: Comfortable, in no acute respiratory distress, co- operative. Vitals reviewed and noted as below Lungs: Normal respiratory rate/effort. Breath sounds bilateral equal and clear Heart: Normal rate. s1s2 normal. No rub or gallop. Extremities: no edema. Neurological: Patient is alert, awake and oriented to person, place and time. No focal deficit. Strength bilateral appropriate and equal Skin: Warm and dry. Normal turgor. has erythematous rash. Palpitation: Normal elasticity for age Abdomen: Abdomen is soft. Bowel sounds +. There is no abdominal tenderness, no guarding/rigidity or organomegaly : kidney or bladder not palpable Labs/imaging reviewed. Past medical history, past surgical history, family history, social history, allergy reviewed Objective - Vital Signs/Intake and Output Vital Signs (last 24 hours): Temp Pulse Resp BP Pulse Ox 99.6 F 89 20 103/66 97 12/10/16 20:45 12/10/16 20:45 12/10/16 20:45 12/10/16 20:45 12/10/16 20:45 - Medications Medications: Current Medications Allopurinol (Zyloprim) 300 mg PO DAILY [facility] Last Admin: 12/10/16 10:40 Dose: 300 mg Hydrocortisone (Cortizone 0.5%) 1 applic TOP BID PRN PRN Reason: Itching / Pruritus Last Admin: 12/10/16 04:38 Dose: 1 applic Hydroxyzine HCl (Atarax) 25 mg PO BID PRN PRN Reason: itchiness Last Admin: 12/10/16 04:44 Dose: 25 mg Ondansetron HCl (Zofran Inj) 4 mg IVP Q6 PRN PRN Reason: Nausea/Vomiting Last Admin: 12/09/16 20:02 Dose: 4 mg Oxycodone/Acetaminophen (Percocet 5/325 Mg Tab) 1 tab PO Q6 PRN PRN Reason: Pain, moderate (4-7) Stop: 12/11/16 14:49 Last Admin: 12/10/16 20:00 Dose: 1 tab Pantoprazole Sodium (Protonix Ec Tab) 40 mg PO BID [facility] Last Admin: 12/10/16 10:40 Dose: 40 mg Potassium Chloride (K-Dur 20 Meq Er Tab) 20 meq PO DAILY [facility] Last Admin: 12/10/16 10:40 Dose: 20 meq - Labs Labs: 12/10/16 10:00 12/09/16 06:45
[2016-12-10] MEDS ORDERED: Bismuth Subsalicylate 262 mg/15 ml Sus (240 ml) PO PRN (22:29)
[2016-12-11] MEDS: Potassium Chloride 20 mEq ER Tab PO SCH (08:39)
[2016-12-11] MEDS: Pantoprazole 40 mg EC Tab PO SCH ×2 (08:39→16:42)
[2016-12-11 08:51] LABS: BASO % 0.1 % (0.0-2.0); EOS # 0.1 K/uL (0.0-0.7); EOS % 0.5 % (0.0-4.0); HEMOGLOBIN 10.1 g/dL (12.0-16.0); LYMPH # 1.1 K/uL (1.0-4.3); LYMPH % 4.2 % (20.0-40.0); MEAN CELL VOLUME 87.3 fl (81.0-99.0); MEAN CORPUSCULAR HEMOGLOBIN 28.8 pg (27.0-31.0); MEAN PLATELET VOLUME 8.4 fl (7.2-11.7); MONO # 1.5 K/uL (0.0-0.8); MONO % 5.8 % (0.0-10.0); NEUT # 23.2 K/uL (1.8-7.0); NEUT % 89.4 % (50.0-75.0); PLATELET COUNT 218 K/uL (130-400); RBC 3.52 Mil/uL (3.80-5.20); RED CELL DISTRIBUTION WIDTH 14.6 % (11.5-14.5)
[2016-12-11 08:56] LABS: ALB/GLOB RATIO 1.4 (1.0-2.1); ALBUMIN 3.1 g/dL (3.5-5.0); CALCIUM 7.3 mg/dL (8.4-10.2)
[2016-12-11 10:49] LABS: BANDS 9 % (0-2); EOSINOPHIL 1 % (0-7); LYMPHOCYTE 8 % (20-50); MONOCYTE 2 % (0-10); NEUTROPHIL 80 % (42-75); PLATELET ESTIMATE NORMAL (NORMAL); TOTAL CELLS COUNTED 100
[2016-12-11 10:51] LABS: ANISOCYTOSIS SLIGHT; GIANT PLATELETS PRESENT; LARGE PLATELETS PRESENT; OVALOCYTES SLIGHT; POIKILOCYTOSIS SLIGHT
[2016-12-11] MEDS: Oxycodone/Acetaminophen 5/325 mg Tab PO PRN (13:09)
--- NOTE | 2016-12-11 15:20 | CP.PCM.PN ---
Subjective - Date & Time of Evaluation Date of Evaluation: 12/11/16 Time of Evaluation: 15:19 - Subjective Subjective: Follow up Nephrology Consultation Note Assessment: Stable Non-oliguric Acute Kidney Injury (N17.9) Improved with IVF which favors pre- renal etiology although not certain, other differential includes: ATN, chemo related nephrotoxicity, Allergic interstitial nephritis. Left hydroureteronephrosis: evaluated by metastatic gastric Ca on chemotherapy Hypokalemia and Hyponatremia Pancytopenia Skin Rash Plan Renal Function improving. electrolytes stable: continue with IVF, maintain hemodynamics stable Monitor Input/Output, daily weights and renal function with basic metabolic panel May repeat renal sono if renal function deteriorates Dose meds/antibiotics for reduced GFR. Avoid fleets enema/magnesium based laxatives. Avoid nephrotoxins/NSAIDs/ iodinated contrast (unless needed emergently) Glycemic control Further work up for as per primary team Thanks for allowing me to participate in care of your patient. Will follow patient with you. Please call if any Qs Dr Mejia Gilbert Office: [phone] Subjective: Noted events overnight. Patients feels okay. Denies chest pain, palpitation, shortness of breath, leg swelling. No urinary complaints. c/o skin rash for last few weeks. reports nausea due to IVF Physical Examination: General Appearance: Comfortable, in no acute respiratory distress, co- operative. Vitals reviewed and noted as below Lungs: Normal respiratory rate/effort. Breath sounds bilateral equal and clear Heart: Normal rate. s1s2 normal. No rub or gallop. Extremities: no edema. Neurological: Patient is alert, awake and oriented to person, place and time. No focal deficit. Strength bilateral appropriate and equal Skin: Warm and dry. Normal turgor. has erythematous rash. Palpitation: Normal elasticity for age Abdomen: Abdomen is soft. Bowel sounds +. There is no abdominal tenderness, no guarding/rigidity or organomegaly : kidney or bladder not palpable Labs/imaging reviewed. Past medical history, past surgical history, family history, social history, allergy reviewed Objective - Vital Signs/Intake and Output Vital Signs (last 24 hours): Temp Pulse Resp BP Pulse Ox 98.6 F 79 20 100/64 98 12/11/16 08:23 12/11/16 08:23 12/11/16 08:23 12/11/16 08:23 12/11/16 08:23 - Medications Medications: Current Medications Allopurinol (Zyloprim) 300 mg PO DAILY [facility] Last Admin: 12/11/16 10:07 Dose: 300 mg Bismuth Subsalicylate (Pepto-Bismol) 524 mg PO BID PRN PRN Reason: GI distress Hydrocortisone (Cortizone 0.5%) 1 applic TOP BID PRN PRN Reason: Itching / Pruritus Last Admin: 12/10/16 04:38 Dose: 1 applic Hydroxyzine HCl (Atarax) 25 mg PO BID PRN PRN Reason: itchiness Last Admin: 12/11/16 05:29 Dose: 25 mg Ondansetron HCl (Zofran Inj) 4 mg IVP Q6 PRN PRN Reason: Nausea/Vomiting Last Admin: 12/11/16 13:10 Dose: 4 mg Pantoprazole Sodium (Protonix Ec Tab) 40 mg PO BID [facility] Last Admin: 12/11/16 08:39 Dose: 40 mg Potassium Chloride (K-Dur 20 Meq Er Tab) 20 meq PO DAILY [facility] Last Admin: 12/11/16 08:39 Dose: 20 meq - Labs Labs: 12/11/16 06:00 12/11/16 06:00
--- NOTE | 2016-12-11 19:49 | CP.PCM.PN ---
Subjective - Date & Time of Evaluation Date of Evaluation: 12/11/16 Time of Evaluation: 08:15 - Subjective Subjective: Pt. is able to tolerate diet . She is on IV fluids. Objective - Vital Signs/Intake and Output Vital Signs (last 24 hours): Temp Pulse Resp BP Pulse Ox 98.5 F 89 20 106/68 95 12/11/16 16:16 12/11/16 16:16 12/11/16 16:16 12/11/16 16:16 12/11/16 16:16 - Medications Medications: Current Medications Allopurinol (Zyloprim) 300 mg PO DAILY [facility] Last Admin: 12/11/16 10:07 Dose: 300 mg Bismuth Subsalicylate (Pepto-Bismol) 524 mg PO BID PRN PRN Reason: GI distress Hydrocortisone (Cortizone 0.5%) 1 applic TOP BID PRN PRN Reason: Itching / Pruritus Last Admin: 12/10/16 04:38 Dose: 1 applic Hydroxyzine HCl (Atarax) 25 mg PO BID PRN PRN Reason: itchiness Last Admin: 12/11/16 05:29 Dose: 25 mg Ondansetron HCl (Zofran Inj) 4 mg IVP Q6 PRN PRN Reason: Nausea/Vomiting Last Admin: 12/11/16 18:05 Dose: 4 mg Pantoprazole Sodium (Protonix Ec Tab) 40 mg PO BID [facility] Last Admin: 12/11/16 16:42 Dose: 40 mg Potassium Chloride (K-Dur 20 Meq Er Tab) 20 meq PO DAILY [facility] Last Admin: 12/11/16 08:39 Dose: 20 meq - Labs Labs: 12/11/16 06:00 12/11/16 06:00 Assessment and Plan - Assessment and Plan (Free Text) Assessment: Acute renal failure Metastatic malignant gastric ulcer Anemia , multifactorial , S/P PRBCs transfusion. [place] [id number] Plan: Continue IV fluids ID consult for leucocytosis Follow Hematology recommendations.
[2016-12-11] MEDS ORDERED: Oxycodone/Acetaminophen 5/325 mg Tab PO PRN (23:08)
[2016-12-12 08:09] VITALS: RESP 18
[2016-12-12] MEDS: Potassium Chloride 20 mEq ER Tab PO SCH (08:24)
[2016-12-12] MEDS: Pantoprazole 40 mg EC Tab PO SCH (08:24)
--- NOTE | 2016-12-12 09:18 | CP.PCM.PN ---
Subjective - Date & Time of Evaluation Date of Evaluation: 12/12/16 Time of Evaluation: 09:13 - Subjective Subjective: Pt is feeling well, no nausea or vomiting. She still has the rash and she feels it may be the sheets, because it is better at home. She has been on granix for the past 5 days and the wbc are 26. She can be discharged from my point of view. Objective - Vital Signs/Intake and Output Vital Signs (last 24 hours): Temp Pulse Resp BP Pulse Ox 98.8 F 90 18 101/55 L 96 12/12/16 08:09 12/12/16 08:09 12/12/16 08:09 12/12/16 08:09 12/12/16 08:09 - Medications Medications: Current Medications Allopurinol (Zyloprim) 300 mg PO DAILY [facility] Last Admin: 12/12/16 08:24 Dose: 300 mg Bismuth Subsalicylate (Pepto-Bismol) 524 mg PO BID PRN PRN Reason: GI distress Hydrocortisone (Cortizone 0.5%) 1 applic TOP BID PRN PRN Reason: Itching / Pruritus Last Admin: 12/12/16 00:46 Dose: 1 applic Hydroxyzine HCl (Atarax) 25 mg PO BID PRN PRN Reason: itchiness Last Admin: 12/11/16 23:18 Dose: 25 mg Ondansetron HCl (Zofran Inj) 4 mg IVP Q6 PRN PRN Reason: Nausea/Vomiting Last Admin: 12/11/16 18:05 Dose: 4 mg Oxycodone/Acetaminophen (Percocet 5/325 Mg Tab) 1 tab PO Q6 PRN PRN Reason: Pain, severe (8-10) Stop: 12/14/16 23:09 Last Admin: 12/11/16 23:18 Dose: 1 tab Pantoprazole Sodium (Protonix Ec Tab) 40 mg PO BID [facility] Last Admin: 12/12/16 08:24 Dose: 40 mg Potassium Chloride (K-Dur 20 Meq Er Tab) 20 meq PO DAILY [facility] Last Admin: 12/12/16 08:24 Dose: 20 meq - Labs Labs: 12/11/16 06:00 12/11/16 06:00
--- NOTE | 2016-12-12 10:46 | CP.PCM.PN ---
Subjective - Date & Time of Evaluation Date of Evaluation: 12/12/16 Time of Evaluation: 10:44 - Subjective Subjective: No new event reported Patient appeared to be taken oral intake No significant changes clinically Physical exam Awake no distress Chest no rales Heart no rubs Abdomen soft Extremity no edema Impression and plan Acute kidney injury keep improving serum creatinine down to 2.0 Serum sodium and chloride has been corrected Gastric CA as per oncology However it's noted that WBC has gone up to 26,000 to be discussed with the primary team. Objective - Vital Signs/Intake and Output Vital Signs (last 24 hours): Temp Pulse Resp BP Pulse Ox 98.8 F 90 18 101/55 L 96 12/12/16 08:09 12/12/16 08:09 12/12/16 08:09 12/12/16 08:09 12/12/16 08:09 - Medications Medications: Current Medications Allopurinol (Zyloprim) 300 mg PO DAILY [facility] Last Admin: 12/12/16 08:24 Dose: 300 mg Bismuth Subsalicylate (Pepto-Bismol) 524 mg PO BID PRN PRN Reason: GI distress Hydrocortisone (Cortizone 0.5%) 1 applic TOP BID PRN PRN Reason: Itching / Pruritus Last Admin: 12/12/16 00:46 Dose: 1 applic Hydroxyzine HCl (Atarax) 25 mg PO BID PRN PRN Reason: itchiness Last Admin: 12/11/16 23:18 Dose: 25 mg Ondansetron HCl (Zofran Inj) 4 mg IVP Q6 PRN PRN Reason: Nausea/Vomiting Last Admin: 12/11/16 18:05 Dose: 4 mg Oxycodone/Acetaminophen (Percocet 5/325 Mg Tab) 1 tab PO Q6 PRN PRN Reason: Pain, severe (8-10) Stop: 12/14/16 23:09 Last Admin: 12/11/16 23:18 Dose: 1 tab Pantoprazole Sodium (Protonix Ec Tab) 40 mg PO BID [facility] Last Admin: 12/12/16 08:24 Dose: 40 mg Potassium Chloride (K-Dur 20 Meq Er Tab) 20 meq PO DAILY [facility] Last Admin: 12/12/16 08:24 Dose: 20 meq - Labs Labs: 12/11/16 06:00 12/11/16 06:00 Assessment and Plan (1) Acute renal injury Status: Acute (2) Electrolyte abnormality Status: Acute (3) Gastric cancer Status: Chronic (4) Pancytopenia Status: Acute
--- NOTE | 2016-12-12 11:15 | CP.PCM.CON ---
History of Present Illness - History of Present Illness History of Present Illness: Infectious Disease Consultation Note- asked to see this patient at the request of for leukocytosis. HPI- Patient is a 51 year old female who was diagnosed with metastatic gastric CA recently and undergoing CTX as per and apparently pt. came to hospital with c/o weakness and and dehydration and leukopenia and thrombocytopenia and acute renal insufficiency. as per medical records and the nurse pt. has been receiving granix for her leukopenia past 5 days and her renal insufficiency was apaprently secondary to dehydrationa nd ahs resolved and pt. is being d/c home today. Pt. also states she is being d/c home today. She has confluent allergic type rash all over her body and she explain it developed the first time she was admitted to [facility] and it gets better while she is at home and she thinks she is allergic to the bed sheets here. as Per med records she did get skin bx of the lesions and it was not malignant and was read as questionable necrosis vs inflammation. Review of Systems - Review of Systems Review of Systems: ROS- denies any fever or chills, denies any SANCHES, denies any cough, denies any sob, denies any chest pain, denies any abd pain now, denies any N/V, denies any dysurea, denies any diarrhea generalized rash as per pt. everytime she gets admitted to hospital and it's itchy and as per pt. gets much betetr once she goes to her house. denies any recent travel and denies any sick contacts adn denies any animal exposure. Pt. denies any recent antibiotic exposure as well except when she had her choelcystectomy in october Past Patient History - Infectious Disease Hx of Infectious Diseases: None - Past Medical History & Family History Past Medical History?: Yes - Past Social History Smoking Status: Former Smoker - CARDIAC Hx Cardiac Disorders: No - PULMONARY Hx Respiratory Disorders: No - NEUROLOGICAL Hx Neurological Disorder: No - HEENT Hx HEENT Problems: No Other/Comment: reading glasses - RENAL Hx Chronic Kidney Disease: No - ENDOCRINE/METABOLIC Hx Endocrine Disorders: No - HEMATOLOGICAL/ONCOLOGICAL Hx Cancer: Yes (Gastric Cancer) Hx Chemotherapy: Yes - INTEGUMENTARY Hx Dermatological Problems: No - MUSCULOSKELETAL/RHEUMATOLOGICAL Hx Musculoskeletal Disorders: No Hx Falls: No - GASTROINTESTINAL Hx Gastrointestinal Disorders: Yes Other/Comment: gallstone - GENITOURINARY/GYNECOLOGICAL Hx Genitourinary Disorders: No - PSYCHIATRIC Hx Psychophysiologic Disorder: No Hx Emotional Abuse: No Hx Physical Abuse: No Hx Substance Use: No - SURGICAL HISTORY Hx Section: Yes Hx Cholecystectomy: Yes - ANESTHESIA Hx Anesthesia: Yes Hx Anesthesia Reactions: No Hx Malignant Hyperthermia: No Has any member of the family had a problem w/ anesthesia?: No Meds Allergies/Adverse Reactions: Allergies Allergy/AdvReac Type Severity Reaction Status Date / Time peach Allergy RASH Verified 12/04/16 18:02 tramadol AdvReac RASH Verified 12/04/16 18:02 pcn AdvReac ITCHING Uncoded 12/04/16 18:02 - Medications Medications: Current Medications Allopurinol (Zyloprim) 300 mg PO DAILY [facility] Last Admin: 12/12/16 08:24 Dose: 300 mg Bismuth Subsalicylate (Pepto-Bismol) 524 mg PO BID PRN PRN Reason: GI distress Hydrocortisone (Cortizone 0.5%) 1 applic TOP BID PRN PRN Reason: Itching / Pruritus Last Admin: 12/12/16 00:46 Dose: 1 applic Hydroxyzine HCl (Atarax) 25 mg PO BID PRN PRN Reason: itchiness Last Admin: 12/11/16 23:18 Dose: 25 mg Ondansetron HCl (Zofran Inj) 4 mg IVP Q6 PRN PRN Reason: Nausea/Vomiting Last Admin: 12/12/16 11:04 Dose: 4 mg Oxycodone/Acetaminophen (Percocet 5/325 Mg Tab) 1 tab PO Q6 PRN PRN Reason: Pain, severe (8-10) Stop: 12/14/16 23:09 Last Admin: 12/11/16 23:18 Dose: 1 tab Pantoprazole Sodium (Protonix Ec Tab) 40 mg PO BID [facility] Last Admin: 12/12/16 08:24 Dose: 40 mg Potassium Chloride (K-Dur 20 Meq Er Tab) 20 meq PO DAILY [facility] Last Admin: 12/12/16 08:24 Dose: 20 meq Physical Exam - Constitutional Appears: Non-toxic, No Acute Distress - Head Exam Head Exam: ATRAUMATIC - Eye Exam Eye Exam: EOMI, PERRL - ENT Exam ENT Exam: Normal Oropharynx - Neck Exam Neck exam: Positive for: Full Rom - Respiratory Exam Respiratory Exam: Clear to Auscultation Bilateral, NORMAL BREATHING PATTERN - Cardiovascular Exam Cardiovascular Exam: RRR, +S1, +S2 - GI/Abdominal Exam GI & Abdominal Exam: Normal Bowel Sounds, Soft Additional comments: NT, ND - Extremities Exam Additional comments: No edema b/l LE - Neurological Exam Neurological exam: Alert, Oriented x3 - Skin Skin Exam: Rash Additional comments: generalized macular rash on her chest and back and b/l arms and legs , no nblanching, pruritic, not warm Results - Vital Signs Recent Vital Signs: Last Vital Signs Temp 98.8 F 12/12/16 08:09 Pulse 90 12/12/16 08:09 Resp 18 12/12/16 08:09 BP 101/55 L 12/12/16 08:09 Pulse Ox 96 12/12/16 08:09 - Labs Result Diagrams: 12/11/16 06:00 12/11/16 06:00 Labs: Laboratory Results - last 72 hr 12/10/16 12/11/16 12/11/16 10:00 06:00 06:00 WBC 16.2 H D 26.0 H D RBC 3.41 L 3.52 L Hgb 9.8 L 10.1 L Hct 30.0 L 30.7 L MCV 88.1 87.3 MCH 28.9 28.8 MCHC 32.8 L 33.0 RDW 14.7 H 14.6 H Plt Count 172 218 MPV 8.3 8.4 Neut % (Auto) 86.3 H 89.4 H Lymph % (Auto) 6.2 L 4.2 L [place] % (Auto) 6.4 5.8 Eos % (Auto) 1.0 0.5 Baso % (Auto) 0.1 0.1 Neut # 14.0 H 23.2 H Lymph # 1.0 1.1 [place] # 1.0 H 1.5 H Eos # 0.2 0.1 Baso # 0.0 0.0 Neutrophils % (Manual) 80 H Band Neutrophils % 9 H Lymphocytes % (Manual) 8 L Monocytes % (Manual) 2 Eosinophils % (Manual) 1 Platelet Estimate Normal Large Platelets Present Giant Platelets Present Poikilocytosis (manual Slight Anisocytosis (manual) Slight Ovalocytes Slight Sodium 137 Potassium 4.3 Chloride 102 Carbon Dioxide 30 Anion Gap 10 BUN 13 Creatinine 2.0 H Est GFR ( Amer) 32 Est GFR (Non-Af Amer) 26 Random Glucose 67 Calcium 7.3 L Total Bilirubin 0.3 AST 57 H ALT 34 Alkaline Phosphatase 115 Total Protein 5.3 L Albumin 3.1 L Globulin 2.2 Albumin/Globulin Ratio 1.4 Assessment & Plan (1) Gastric cancer Status: Chronic (2) Acute renal injury Status: Acute (3) Leukocytosis Status: Acute (4) Rash and nonspecific skin eruption Status: Acute - Assessment and Plan (Free Text) Assessment: A/P- 51 year old female with recently diagnosed metastatic stomach cancer undergoing chemo and pancytopenia post chemo s/p granix past 5 days . pt's sudden leukocytosis is most likely secondary to the 5 days of granix she has been receiving as per oncologist for her leukopenia and Hence doubt any infectious process. pt. has been afebrile and apparenly is being d./c home today. her generalized bosy rash which as per pt. has been present since 10/2016 most likely an allergic type rash , not sure , whether its secondary to her chemo or possibly something in her immediate environement. plan- since she is undergoing chemo would advise to check blood cx just to make sure no infection which I highly doubt and the result can be f/u as outpatient. check cxr prior to d/c today. check UA. monitor her wbc by her oncologist postt Granix. would advise a derm consult as outpatient for her generalized rash. Thank you for allowing met o take part in the care of this patient. all above d/w patient and LABOR RELATIONS REPRESENTATIVE Priscilla as well.
--- NOTE | 2016-12-12 14:58 | RAD ---
HISTORY: Leukocytosis COMPARISON: Comparison chest dated 11/22/2016 TECHNIQUE: Chest PA and lateral FINDINGS: LUNGS: No change left-sided MediPort with tip in the SVC. Mild bibasilar atelectasis and or scarring. There may be minor localized pleural thickening or small effusion in the right CP angle region PLEURA: No significant pleural effusion identified. No pneumothorax apparent. CARDIOVASCULAR: Normal. OSSEOUS STRUCTURES: No significant abnormalities. VISUALIZED UPPER ABDOMEN: Normal. OTHER FINDINGS: None. IMPRESSION: Mild bibasilar atelectasis and or scarring. There may be minor localized pleural thickening right or small effusion in the right CP angle region
[2016-12-12 16:01] VITALS: BP 103/70; PULSE 109; TEMP 98.1; O2SAT 93
== END 2016-12-12 16:32 | disposition home or self-care (01) | DRG 683 ==
LOC: H.ER 17:27 → H.ERHOLD 20:20 → H.TEL 22:43 → H.MEDSURG1 12-11 00:18
PROVIDERS: ADMIT Internal Medicine; ATTEND Internal Medicine
PROC: 30233N1 Transfusion of Nonautologous Red Blood Cells into Peripheral Vein, Percutaneous Approach (ICD-10-PCS; principal; 2016-12-08)
DX: N17.0 Acute kidney failure with tubular necrosis (principal); C16.9 Malignant neoplasm of stomach, unspecified; D61.818 Other pancytopenia; E87.8 Other disorders of electrolyte and fluid balance, not elsewhere classified; E87.1 Hypo-osmolality and hyponatremia; N13.4 Hydroureter; E86.0 Dehydration; E87.6 Hypokalemia; Z88.0 Allergy status to penicillin; Z88.6 Allergy status to analgesic agent; Z91.018 Allergy to other foods; Z87.891 Personal history of nicotine dependence; R21 Rash and other nonspecific skin eruption; D72.829 Elevated white blood cell count, unspecified

== ENCOUNTER 2016-12-20 13:25 | Inpatient (IN) | payer OTHER ==
[2016-12-20 13:25] VITALS: BMI 25.0
[2016-12-20] MEDS ORDERED: Sodium Chloride 0.9% 1,000 ML IV STA (14:12)
--- NOTE | 2016-12-20 14:35 | ED PDOC ---
HPI: Abdomen Time Seen by Provider: 12/20/16 14:04 Chief Complaint (Nursing): Abdominal Pain Chief Complaint (Provider): Abdominal Pain History Per: Patient History/Exam Limitations: no limitations Onset/Duration Of Symptoms: Hrs (prior to arrival ) Additional Complaint(s): Allyssa Neumann is a 51 year old female undergoing chemotherapy for Gastric Cancer, with last treatment done 2 weeks prior to arrival, complains of abdominal pain, nausea, vomiting, and dehydration. The patient states feeling cramping in both of her hands and has taken Percocet, without relief. PMD: Ari Chilel Past Medical History Reviewed: Historical Data, Nursing Documentation, Vital Signs Vital Signs: Last Vital Signs Temp 98.0 F 12/20/16 13:57 Pulse 99 H 12/20/16 13:57 Resp 18 12/20/16 13:57 BP 104/64 12/20/16 14:00 Pulse Ox 99 12/20/16 15:52 - Medical History PMH: Malignancy (Gastric) Denies: HIV, Chronic Kidney Disease - Surgical History Surgical History: Cholecystectomy, (2) Denies: Pacemaker - Family History Family History: States: Unknown Family Hx - Social History Current smoker - smoking cessation education provided: No Ex-Smoker (has not smoked in the last 12 months): Yes Alcohol: None Drugs: Denies - Home Medications Home Medications: Ambulatory Orders Medication Instructions Recorded Desoximetasone 0.05% [Topicort 0.05 % TP BID 11/19/16 0.05%] Ondansetron [Zofran Tab] 4 mg PO Q6 PRN #20 tab 11/28/16 Pantoprazole [Protonix EC Tab] 40 mg PO BID #30 ect 11/28/16 oxyCODONE/Acetaminophen [Percocet 1 tab PO Q6 #16 tab 11/28/16 5/325 mg Tab] Allopurinol [Zyloprim] 300 mg PO DAILY #14 tab 12/12/16 - Allergies Allergies/Adverse Reactions: Allergies Allergy/AdvReac Type Severity Reaction Status Date / Time peach Allergy RASH Verified 12/04/16 18:02 tramadol AdvReac RASH Verified 12/04/16 18:02 pcn AdvReac ITCHING Uncoded 12/04/16 18:02 Review of Systems ROS Statement: Except As Marked, All Systems Reviewed And Found Negative Constitutional: Positive for: Other (dehydration) Gastrointestinal: Positive for: Nausea, Vomiting, Abdominal Pain Musculoskeletal: Positive for: Hand Pain (cramping in both hands ) Physical Exam - Reviewed Nursing Documentation Reviewed: Yes Vital Signs Reviewed: Yes - Physical Exam Appears: Positive for: Non-toxic, In Acute Distress (moderate painful distress) Head Exam: Positive for: ATRAUMATIC, NORMAL INSPECTION, NORMOCEPHALIC Skin: Positive for: Normal Color, Warm, Dry Eye Exam: Positive for: Normal appearance ENT: Positive for: Normal ENT Inspection Neck: Positive for: Normal, Painless ROM Cardiovascular/Chest: Positive for: Regular Rate, Rhythm, Chest Non Tender Respiratory: Positive for: Normal Breath Sounds. Negative for: Respiratory Distress Gastrointestinal/Abdominal: Positive for: Bowel Sounds, Soft, Tenderness ( chronic generalized abdominal tenderness ). Negative for: Guarding, Rebound Back: Positive for: Normal Inspection Extremity: Positive for: Normal ROM Neurologic/Psych: Positive for: Alert, Oriented - Laboratory Results Result Diagrams: 12/20/16 14:45 12/20/16 14:45 - ECG Interpretation Of ECG: NSR @ 89, prolonged QT, no ST-T changes. O2 Sat by Pulse Oximetry: 99 (RA) Pulse Ox Interpretation: Normal - Physician Consult Information Time Consulting Physican Contacted: 15:57 Physician Contacted: Yazmin Abdi Outcome Of Conversation: Agrees with plan, also order PTH RP, will consult. Medical Decision Making Medical Decision Making: Impression: Abdominal pain, vomiting, gastric CA, dehydration Plan: * Type and Screen Stat * EKG ED * COMP Metabolic Panel * Lipase Stat * ED Urine Dipstick (POC) Stat * CBC (With Differential) Stat * PTT [COAG] Stat * Prothrombin Time [COAG] Stat * Urinalysis Stat * Morphine 4 mg IV Stat * Sodium Chloride 0.9% 1,000 ml IV 1,000 mls/hr * Zofran Inj 4 mg IV Stat * Reevaluation Scribe Attestation: Documented by Argenis Lopes, acting as a scribe for Lorena Restrepo MD. Provider Scribe Attestation: All medical record entries made by the Scribe were at my direction and personally dictated by me. I have reviewed the chart and agree that the record accurately reflects my personal performance of the history, physical exam, medical decision making, and the department course for this patient. I have also personally directed, reviewed, and agree with the discharge instructions and disposition. Disposition - Clinical Impression Clinical Impression: Vomiting, Gastric cancer, Hypocalcemia - Patient ED Disposition Is Patient to be Admitted: Yes - Disposition Disposition Time: 15:45 Condition: STABLE - Pt Status Changed To: Hospital Disposition Of: Inpatient - Admit Certification Admit to Inpatient:: After my assessment, the patient will require hospitalization for at least two midnights. This is because of the severity of symptoms shown, intensity of services needed, and/or the medical risk in this patient being treated as an outpatient. - POA Present On Arrival: None
[2016-12-20 15:08] LABS: EOS % 0.2 % (0.0-4.0); HEMOGLOBIN 10.5 g/dL (12.0-16.0); LYMPH # 0.3 K/uL (1.0-4.3); LYMPH % 6.9 % (20.0-40.0); MEAN CELL VOLUME 85.6 fl (81.0-99.0); MEAN CORPUSCULAR HGB CONC 33.9 g/dL (33.0-37.0); MONO # 0.3 K/uL (0.0-0.8); NEUT # 3.5 K/uL (1.8-7.0); NEUT % 84.9 % (50.0-75.0); NRBC % 0.2 % (0.0-0.0); PLATELET COUNT 163 K/uL (130-400); RBC 3.63 Mil/uL (3.80-5.20); RED CELL DISTRIBUTION WIDTH 14.8 % (11.5-14.5); WHITE BLOOD COUNT 4.2 K/uL (4.8-10.8)
[2016-12-20 15:16] LABS: ALB/GLOB RATIO 1.5 (1.0-2.1); ALBUMIN 3.8 g/dL (3.5-5.0); CALCIUM 6.3 mg/dL (8.4-10.2)
[2016-12-20 15:21] LABS: INR 1.4 (0.9-1.2); PARTIAL THROMBOPLASTIN TIME 27.6 Seconds (25.6-37.1); PROTHROMBIN TIME 15.4 Seconds (9.8-13.1)
[2016-12-20] MEDS ORDERED: Potassium Chloride 20 mEq ER Tab PO STA (15:23)
[2016-12-20] MEDS ORDERED: Potassium Chloride 20 mEq ER Tab PO ONE (16:26)
[2016-12-20 16:32] LABS: ANISOCYTOSIS SLIGHT; BANDS 4 % (0-2); LYMPHOCYTE 7 % (20-50); MONOCYTE 10 % (0-10); MYELOCYTE 2 % (0-0); NEUTROPHIL 77 % (42-75); PLATELET ESTIMATE NORMAL (NORMAL); TOTAL CELLS COUNTED 100
[2016-12-20 16:33] LABS: HYPOCHROMIC SLIGHT; OVALOCYTES SLIGHT; SCHISTOCYTES SLIGHT
[2016-12-20 17:12] LABS: SQUAMOUS EPITHIAL < 1 /hpf (0-5); URINE AMORPHOUS SEDIMENT RARE /ul (<OCC); URINE BACTERIA OCC (<OCC); URINE BILIRUBIN NEGATIVE (NEGATIVE); URINE BLOOD SMALL (NEGATIVE); URINE CLARITY SLIGHTY-CLOUDY (Clear); URINE COLOR YELLOW (YELLOW); URINE GLUCOSE (UA) NEG (Normal); URINE LEUKOCYTE ESTERASE LARGE Leu/uL (Negative); URINE NITRATE NEGATIVE (NEGATIVE); URINE PROTEIN 30 mg/dL (NEGATIVE); URINE UROBILINOGEN 0.2-1.0 mg/dL (0.2-1.0)
--- NOTE | 2016-12-20 17:31 | RAD ---
HISTORY: Vomiting COMPARISON: 12/12/2016 two-view chest FINDINGS: LUNGS: No significant interval change compared to the prior examination(s). PLEURA: No significant pleural effusion identified, no pneumothorax apparent. CARDIOVASCULAR: No radiographic findings to suggest acute or significant cardiovascular disease. Venous access catheter in stable, satisfactory position. OSSEOUS STRUCTURES: No significant abnormalities. VISUALIZED UPPER ABDOMEN: Normal. OTHER FINDINGS: None. IMPRESSION: No significant interval change compared to the prior examination(s). Basilar, lower lobe atelectatic changes again identified.
[2016-12-20] MEDS ORDERED: Magnesium Sulfate 2 gm/50 ml 2 GM/50 ML BAG IVPB ONE (18:25)
[2016-12-21] MEDS ORDERED: Morphine 4 MG/ML VIAL IVP ONE (05:03)
[2016-12-21 05:31] LABS: ALB/GLOB RATIO 1.3 (1.0-2.1); ALBUMIN 3.1 g/dL (3.5-5.0); CALCIUM 6.3 mg/dL (8.4-10.2)
[2016-12-21 05:43] LABS: T4 13.8 ug/dl (5.5-11.0)
[2016-12-21] MEDS ORDERED: Magnesium Sulfate 4 gm/100 ml 4 GM/100 ML BAG IVPB ONE (06:09)
--- NOTE | 2016-12-21 07:33 | CARD ---
APPROVED REPORT EKG Measurement Heart [id number] <Conclusion> Normal sinus rhythm Prolonged QT Abnormal ECG
[2016-12-21] MEDS ORDERED: Magnesium Sulfate 2 gm/50 ml 2 GM/50 ML BAG IVPB ONE ×2 (10:37→14:57)
[2016-12-21] MEDS: Morphine 4 MG/ML VIAL IVP PRN ×2 (13:49→22:47)
--- NOTE | 2016-12-21 22:49 | CP.PCM.PN ---
Subjective - Date & Time of Evaluation Date of Evaluation: 12/21/16 Time of Evaluation: 11:00 - Subjective Subjective: Rashes all over with . itching , decreased vomiting. Objective - Vital Signs/Intake and Output Vital Signs (last 24 hours): Temp Pulse Resp BP Pulse Ox 98.8 F 83 18 100/64 98 12/21/16 18:02 12/21/16 18:02 12/21/16 18:02 12/21/16 18:02 12/21/16 18:02 - Medications Medications: Current Medications Allopurinol (Zyloprim) 300 mg PO DAILY [facility] Last Admin: 12/21/16 09:17 Dose: 300 mg Calcitriol (Rocaltrol) 0.5 mcg PO BID [facility] Last Admin: 12/21/16 09:16 Dose: 0.5 mcg Famotidine (Pepcid) 20 mg PO BID [facility] Last Admin: 12/21/16 18:10 Dose: 20 mg Hydroxyzine HCl (Atarax) 25 mg PO Q8 PRN PRN Reason: Itching / Pruritus Last Admin: 12/21/16 14:55 Dose: 25 mg Morphine Sulfate (Morphine) 4 mg IVP Q4 PRN PRN Reason: Pain, moderate (4-7) Last Admin: 12/21/16 13:49 Dose: 4 mg Ondansetron HCl (Zofran Inj) 4 mg IVP Q6 PRN PRN Reason: Nausea/Vomiting Last Admin: 12/21/16 09:12 Dose: 4 mg - Labs Labs: 12/21/16 04:20 PT 15.4 Seconds (9.8-13.1) H 12/20/16 14:45 INR 1.4 (0.9-1.2) H 12/20/16 14:45 APTT 27.6 Seconds (25.6-37.1) 12/20/16 14:45 - Head Exam Head Exam: ATRAUMATIC, NORMOCEPHALIC - Eye Exam Eye Exam: Normal appearance - ENT Exam ENT Exam: Mucous Membranes Moist - Neck Exam Neck Exam: Full ROM - Respiratory Exam Respiratory Exam: Clear to Ausculation Bilateral, NORMAL BREATHING PATTERN - Cardiovascular Exam Cardiovascular Exam: REGULAR RHYTHM - GI/Abdominal Exam GI & Abdominal Exam: Soft, Normal Bowel Sounds
--- NOTE | 2016-12-21 23:03 | CP.PCM.HP ---
History of Present Illness - History of Present Illness History of Present Illness: 51 years old white female with history of metastatic malignant gastric ulcer. Pt. presented to ER with symptoms of generalized cramps . She was found to have hypomagnesemia and hypocalcimia. Patient was admitted to telemetry for further management. Past Patient History - Infectious Disease Hx of Infectious Diseases: None - Past Medical History & Family History Past Medical History?: Yes - Past Social History Smoking Status: Former Smoker - CARDIAC Hx Cardiac Disorders: No - PULMONARY Hx Respiratory Disorders: No - NEUROLOGICAL Hx Neurological Disorder: No - HEENT Hx HEENT Problems: No Other/Comment: reading glasses - RENAL Hx Chronic Kidney Disease: No - ENDOCRINE/METABOLIC Hx Endocrine Disorders: No - HEMATOLOGICAL/ONCOLOGICAL Hx Blood Disorders: No Hx Blood Transfusions: Yes Hx Blood Transfusion Reaction: No Hx Human Immunodeficiency Virus (HIV): No - INTEGUMENTARY Hx Dermatological Problems: Yes Other/Comment: Body rash. - MUSCULOSKELETAL/RHEUMATOLOGICAL Hx Musculoskeletal Disorders: No Hx Falls: No - GASTROINTESTINAL Hx Gastrointestinal Disorders: Yes Hx Nausea: Yes Hx Vomiting: Yes Other/Comment: gallstone. stomach Ca - GENITOURINARY/GYNECOLOGICAL Hx Genitourinary Disorders: No - PSYCHIATRIC Hx Psychophysiologic Disorder: No Hx Emotional Abuse: No Hx Physical Abuse: No Hx Substance Use: No - SURGICAL HISTORY Hx Surgeries: Yes Hx Cholecystectomy: Yes (October 2016) - ANESTHESIA Hx Anesthesia: Yes Hx Anesthesia Reactions: No Hx Malignant Hyperthermia: No Has any member of the family had a problem w/ anesthesia?: No Meds Allergies/Adverse Reactions: Allergies Allergy/AdvReac Type Severity Reaction Status Date / Time peach Allergy RASH Verified 12/04/16 18:02 tramadol AdvReac RASH Verified 12/04/16 18:02 pcn AdvReac ITCHING Uncoded 12/04/16 18:02 Physical Exam - Head Exam Head Exam: ATRAUMATIC, NORMOCEPHALIC - Eye Exam Eye Exam: EOMI, PERRL - ENT Exam ENT Exam: Mucous Membranes Moist, Normal Exam - Neck Exam Neck exam: Positive for: Full Rom - Respiratory Exam Respiratory Exam: Clear to Auscultation Bilateral, NORMAL BREATHING PATTERN - Cardiovascular Exam Cardiovascular Exam: REGULAR RHYTHM - GI/Abdominal Exam GI & Abdominal Exam: Soft - Extremities Exam Extremities exam: Positive for: full ROM - Additional Findings Additional findings: Genarelized rashes all over upper extremities and chest. Results - Vital Signs Recent Vital Signs: Last Vital Signs Temp 98.8 F 12/21/16 18:02 Pulse 83 12/21/16 18:02 Resp 18 12/21/16 18:02 BP 100/64 12/21/16 18:02 Pulse Ox 98 12/21/16 18:02 - Labs Result Diagrams: 12/20/16 14:45 12/21/16 04:20 Labs: Laboratory Results - last 24 hr 12/20/16 12/21/16 12/21/16 16:35 04:20 04:20 Sodium 134 Potassium 3.6 Chloride 96 L Carbon Dioxide 26 Anion Gap 16 BUN 15 Creatinine 1.3 H Est GFR ( Amer) 52 Est GFR (Non-Af Amer) 43 POC Glucose (mg/dL) Random Glucose 67 Calcium 6.3 L Phosphorus 3.5 Magnesium 1.0 L* D Total Bilirubin 0.9 AST 100 H D ALT 50 Alkaline Phosphatase 148 H D Total Protein 5.5 L Albumin 3.1 L Globulin 2.4 Albumin/Globulin Ratio 1.3 25-OH Vitamin D Total < 12.8 L Thyroxine (T4) 13.8 H TSH 3rd Generation 1.50 PTH Intact Whole Molec 47 Cortisol AM Sample 13.0 12/21/16 10:58 Sodium Potassium Chloride Carbon Dioxide Anion Gap BUN Creatinine Est GFR ( Amer) Est GFR (Non-Af Amer) POC Glucose (mg/dL) 98 Random Glucose Calcium Phosphorus Magnesium Total Bilirubin AST ALT Alkaline Phosphatase Total Protein Albumin Globulin Albumin/Globulin Ratio 25-OH Vitamin D Total Thyroxine (T4) TSH 3rd Generation PTH Intact Whole Molec Cortisol AM Sample Assessment & Plan - Assessment and Plan (Free Text) Assessment: Hypomagnesemia Hypocalcemia Metastatic malignant gastric ulcer Generalized skin rashes of undetermined etiology. Plan: Electrolyte supplement. Dermatology consult Repeat blood test Endocrinology consult. - Date & Time Date: 12/21/16 Time: 11:15
[2016-12-22] MEDS: Morphine 4 MG/ML VIAL IVP PRN ×3 (08:34→23:32)
[2016-12-22] MEDS ORDERED: Magnesium Sulfate 2 gm/50 ml 2 GM/50 ML BAG IVPB ONE (08:54)
[2016-12-22] MEDS: Magnesium Oxide 400 mg Tab UD PO SCH ×2 (10:15→16:47)
[2016-12-22] MEDS ORDERED: Ergocalciferol 50,000 Intl Units Cap PO SCH (11:15)
[2016-12-22 12:54] LABS: CALCIUM 7.2 mg/dL (8.4-10.2); MAGNESIUM 2.4 MG/DL (1.6-2.3)
[2016-12-22 16:02] VITALS: RESP 18; O2SAT 93
[2016-12-22] MEDS: Ergocalciferol 50,000 Intl Units Cap PO SCH (16:50)
[2016-12-23] MEDS: Ergocalciferol 50,000 Intl Units Cap PO SCH (08:27)
[2016-12-23] MEDS: Magnesium Oxide 400 mg Tab UD PO SCH (08:27)
[2016-12-23 08:35] VITALS: BP 91/59; PULSE 107; TEMP 99.9
[2016-12-23] MEDS: Morphine 4 MG/ML VIAL IVP PRN (09:13)
[2016-12-23 10:31] LABS: BLOOD UREA NITROGEN 14 mg/dl (7-17); CALCIUM 8.1 mg/dL (8.4-10.2); GFR AFRICAN-AMERICAN > 60; GFR NON-AFRICAN AMERICAN 52; MAGNESIUM 2.1 MG/DL (1.6-2.3)
--- NOTE | 2016-12-23 17:57 | PN ---
DATE: 12/22/2016 SUBJECTIVE: The patient is seen today, 12/22/2016. She is still having generalized rashes on the upper extremities and lower extremities which is mildly itching. PHYSICAL EXAMINATION VITAL SIGNS: Blood pressure is 104/66, temperature 100, respiratory rate 20 and pulse 100. HEENT: Pupils equally reactive to light. Normal-appearing mucosa. [place] conjunctiva. mucosa. NECK: Supple. No JVD. No carotid bruits. No lymph nodes. No thyromegaly. CHEST AND LUNGS: Bilateral symmetrical expansion. Good air exchange. No rales. No rhonchi. CARDIOVASCULAR SYSTEM: PMI not recognized. S1, S2. No additional sounds. ABDOMEN: Normoactive bowel sounds. No tenderness. No organomegaly. No masses. EXTREMITIES: No cyanosis. No clubbing. No edema. CERTIFIED FLIGHT INSTRUCTOR: Alert, awake and oriented x3. No neurological deficit could be appreciated. SKIN: Wide spread erythematous maculopapular as well as patchy lesions all over the trunk as well as the upper extremities. LABORATORY DATA: Blood work showed magnesium 2.4 and calcium 7.2. ASSESSMENT: 1. Severe symptomatic hypomagnesemia and hypocalcemia. 2. Diffuse skin rashes, likely reaction to certain medication or environmental. 3. Metastatic malignant gastric ulcer. PLAN: 1. Dermatology consult and follow the recommendations. 2. Follow the recommendations of endocrinology consultants and continue current pain medication and we stopped the pantoprazole because of the hypomagnesemia, and the patient is currently on famotidine 20 mg twice a day. Kiko Chilel MD
--- NOTE | 2016-12-26 11:08 | DS ---
REASON FOR ADMISSION: This is a 51-year-old female with multiple medical problems including metastatic malignant gastric ulcer was admitted for diffuse muscle cramping, found to be severely hypomagnesemic and hypocalcemic. COURSE DURING HOSPITALIZATION: The patent was admitted to medical floor and the patient was for the electrolytes that were deficient. The patient's symptoms . . The patient was advised to stop the pantoprazole and continue just the H2 blockers. The patient was advised to .
--- NOTE | 2016-12-27 06:41 | PN ---
ENDO FOLLOWUP NOTE ROOM #655. This is a 51-year-old female admitted with symptomatic hypocalcemia, most likely related to the recent chemotherapy as given with supervening marked hypomagnesemia and eventual hypocalcemia as noted. She has received vigorous IV hydration and aggressive replacement of magnesium and calcium and vitamin D accordingly. Her constitutional symptoms have improved and her upper and lower extremity cramping also was subsided as noted. The latest chemistry showed a BUN of 15, sodium 134, potassium 3.6, chloride 96, CO2 26, glucose 67 and creatinine of 1.3. Her calcium level is down to 6.3 yesterday and today is improved now at 7.2 with a magnesium level initially of 1.0 and now is 2.4. Her vitamin D level is less than 12.8. Her thyroid studies are normal with a TSH of 1.50, T4 of 13.8, indicative of the so called acute sick euthyroid syndrome. Her parathyroid hormone intact level is 104, which is really a compensatory rise to significant underlying hypocalcemia. Her cortisol level is 13.0 mcg/dL. So at this time, she clearly has a multifactorial etiology for the hypocalcemia with underlying severe hypomagnesemia and hypovitaminosis D as noted. We will obtain serum chemistries and supplements accordingly as needed and we will also obtain serial calcium levels and vitamin D levels and determine the need to adjust the dose replacement accordingly. We will continue the calcitriol given at 0.5 mcg b.i.d. as ordered. We will continue also the magnesium oxide supplementation as given. We will obtain serial chemistries and advise accordingly. Yazmin Abdi MD
--- NOTE | 2016-12-28 19:10 | PN ---
This is Dr. Yazmin Abdi dictating an endocrinology follow up for patient Thanh Han at [facility]. Room 655. This is a 51 y/o F with known Hx of gastric carcinoma with ongoing chemotherapy , as noted, and presented here with intractable nausea, vomiting, distention, supervening dehydration and concomitant cramping in both upper and lower extremities. She has been referred now for evaluation of symptomatic hypocalcemia, as noted. She also has a significant electrocardiographic findings of a prolonged QT interval, as noted. She was initially admitted to ICU for closer hemodynamic monitoring and has improved since then, both clinically and hemodynamically, as noted thereof. A significant fact is that she also had marked hypomagnesemia, which contributes significantly to hypocalcemia, and she has received several bolus infusions of magnesium sulfate , as noted. Her initial calcium level was 6.3. His latest chemistries showed: BUN: 15 Sodium: 134 Potassium: 3.6 Chloride: 96 CO2: 26 Glucose: 67 Creatinine: 1.3 Calcium: 6.3 Albumin: 3.1 Her magnesium level is 1.0 today. With a corrected calcium of 7.2 mg/dL. Her vitamin D level is actually less than 12.8 g/dL. The thyroid studies showed a T4 of 13.8 with a TSH of 1.50, indicative of the so-called "acute sick euthyroid syndrome." Her cortisone level is 15.0 mg/dL. Her parathyroid hormone intact level is 47, which is actually a compensatory slight elevation of her PTH because of the underlying significant hypocalcemia. This actually explains any parathyroid or autoimmune related parathyroid conditions causing the hypocalcemia. The most likely etiology is some multifactorial cough of the hypocalcemia with significant hypomagnesemia, recent dehydration, intractable vomiting, and significant calcium lost thereof. This is clearly from undernutrition and dehydration contributing to the significant hypocalcemia. Moreover, this also hypovitaminosis D contributing to the aforementioned hypocalcemia, with impaired obstruction of calcium levels in the GI tract. At this time, will continue the Vitamin D supplementation, as ordered by me at initially on admission with Calcitriol given as 0.5 g BID as ordered. Will also continue with magnesium supplementation by IV bolus infusions, as ordered. Calcium supplementations will also be added accordingly. Will obtain chemistries of supplements as needed. Yazmin Abdi MD
[2016-12-29] MEDS ORDERED: Ergocalciferol 50,000 Intl Units Cap PO SCH (09:00)
--- NOTE | 2016-12-29 10:28 | PN ---
DATE OF SERVICE: 12/23/2016 SUBJECTIVE: This is a 51-year-old female hospital with *------*. The patient's chemistries today showed a BUN of 14, sodium 131, potassium 4.0, chloride 90, CO2 of 32, glucose 82, and creatinine 1.1. Calcium level is now 8.1, with magnesium level of 2.1. Her vitamin D is less than 12.3. Her parathyroid hormone level is 104 which is actual compensatory elevation for symptomatic hypocalcemia *------*. Yazmin Abdi MD
== END 2016-12-23 14:13 | disposition home or self-care (01) | DRG 641 ==
LOC: H.ER 13:25 → H.ERHOLD 15:49 → H.ICU/CCU 18:14 → H.MEDSURG1 12-21 17:52
PROVIDERS: ADMIT Internal Medicine; ATTEND Internal Medicine
DX: E83.51 Hypocalcemia (principal); C16.9 Malignant neoplasm of stomach, unspecified; C79.9 Secondary malignant neoplasm of unspecified site; E86.0 Dehydration; R21 Rash and other nonspecific skin eruption; R11.2 Nausea with vomiting, unspecified; Z88.0 Allergy status to penicillin; Z88.6 Allergy status to analgesic agent; E83.42 Hypomagnesemia; Z87.891 Personal history of nicotine dependence; Z91.018 Allergy to other foods

== ENCOUNTER 2017-01-02 11:33 | Inpatient (IN) | payer OTHER ==
[2017-01-02 11:33] VITALS: BMI 25.0
[2017-01-02] MEDS ORDERED: Sodium Chloride 0.9% 1,000 ML IV STA ×2 (12:06→15:05)
[2017-01-02 12:34] LABS: HEMOGLOBIN 10.1 g/dL (12.0-16.0); LYMPH # 0.6 K/uL (1.0-4.3); LYMPH % 4.2 % (20.0-40.0); MEAN CORPUSCULAR HEMOGLOBIN 28.6 pg (27.0-31.0); MEAN CORPUSCULAR HGB CONC 33.2 g/dL (33.0-37.0); MEAN PLATELET VOLUME 8.8 fl (7.2-11.7); MONO # 1.1 K/uL (0.0-0.8); MONO % 8.3 % (0.0-10.0); NEUT # 11.7 K/uL (1.8-7.0); NEUT % 87.5 % (50.0-75.0); NRBC % 0.1 % (0.0-0.0); PLATELET COUNT 151 K/uL (130-400); RBC 3.53 Mil/uL (3.80-5.20); RED CELL DISTRIBUTION WIDTH 16.5 % (11.5-14.5); WHITE BLOOD COUNT 13.3 K/uL (4.8-10.8)
[2017-01-02 12:51] LABS: ALB/GLOB RATIO 1.3 (1.0-2.1); ALBUMIN 4.1 g/dL (3.5-5.0); CALCIUM 9.5 mg/dL (8.4-10.2); MAGNESIUM 1.8 MG/DL (1.6-2.3)
[2017-01-02 13:40] LABS: ANISOCYTOSIS SLIGHT; BANDS 1 % (0-2); HYPOCHROMIC SLIGHT; LYMPHOCYTE 2 % (20-50); MONOCYTE 7 % (0-10); NEUTROPHIL 90 % (42-75); OVALOCYTES SLIGHT; PLATELET ESTIMATE NORMAL (NORMAL); TOTAL CELLS COUNTED 100
[2017-01-02 13:41] LABS: SCHISTOCYTES SLIGHT
[2017-01-02] MEDS ORDERED: Potassium Chloride 20 mEq ER Tab PO STA (15:06)
[2017-01-02] MEDS ORDERED: Potassium Chloride 20 mEq ER Tab PO ONE (15:19)
--- NOTE | 2017-01-02 15:21 | ED PDOC ---
HPI: Abdomen Time Seen by Provider: 01/02/17 11:50 Chief Complaint (Nursing): Abdominal Pain Chief Complaint (Provider): Nausea, vomiting, abdominal pain (gastric CA) History Per: Patient History/Exam Limitations: no limitations Onset/Duration Of Symptoms: Days (3) Outside of [place] travel?: No Current Symptoms Are (Timing): Still Present Severity: Moderate Pain Scale Rating Of: 6 Location Of Pain/Discomfort: Epigastric Quality Of Discomfort: Sharp Associated Symptoms: Nausea, Vomiting, Loss Of Appetite. denies: Fever, Chills , Diarrhea Exacerbating Factors: None Alleviating Factors: None Last Bowel Movement: Today Additional Complaint(s): Pt states she has zofran at home but it is not helping at home. PT reports nausea and vomiting for 3 days. Pt state she was diagnosed with gastric CA 5 months ago. Pt had one round of chemo in November. Pt states she has intermittent pain and nausea/vomiting which leads to dehydration. Denies fever/chills. Past Medical History Reviewed: Historical Data, Nursing Documentation, Vital Signs Vital Signs: Last Vital Signs Temp 98.3 F 01/02/17 11:36 Pulse 85 01/02/17 12:42 Resp 20 01/02/17 12:42 BP 102/62 01/02/17 12:42 Pulse Ox 98 01/02/17 12:42 - Medical History PMH: Malignancy (Gastric) Denies: HIV, Chronic Kidney Disease - Surgical History Surgical History: Cholecystectomy (October 2016), (2) Denies: Pacemaker - Family History Family History: States: Unknown Family Hx - Living Arrangements Living Arrangements: With Family - Social History Current smoker - smoking cessation education provided: No - Home Medications Home Medications: Ambulatory Orders Medication Instructions Recorded Ondansetron [Zofran Tab] 4 mg PO Q6 PRN #20 tab 11/28/16 Allopurinol [Zyloprim] 300 mg PO DAILY #14 tab 12/12/16 Ergocalciferol [Drisdol 50,000 1 cap PO ALIN #8 cap 12/23/16 Intl Units Cap] Magnesium Oxide [Mag-Ox] 400 mg PO BID #14 tab 12/23/16 Omeprazole 20 mg PO DAILY #30 ecc 12/23/16 hydrOXYzine HCl [Atarax] 25 mg PO Q8 PRN #14 tab 07/14/17 oxyCODONE/Acetaminophen [Percocet 1 ea PO Q6 PRN #20 tab 12/23/16 5/325 mg Tab] - Allergies Allergies/Adverse Reactions: Allergies Allergy/AdvReac Type Severity Reaction Status Date / Time peach Allergy RASH Verified 12/04/16 18:02 tramadol AdvReac RASH Verified 12/04/16 18:02 pcn AdvReac ITCHING Uncoded 12/04/16 18:02 Review of Systems ROS Statement: Except As Marked, All Systems Reviewed And Found Negative Gastrointestinal: Positive for: Nausea, Vomiting, Abdominal Pain Physical Exam - Reviewed Nursing Documentation Reviewed: Yes Vital Signs Reviewed: Yes - Physical Exam Appears: Positive for: Well, Non-toxic, No Acute Distress Head Exam: Positive for: ATRAUMATIC, NORMAL INSPECTION, NORMOCEPHALIC Skin: Positive for: Normal Color, Warm, DRY Eye Exam: Positive for: Normal appearance ENT: Positive for: Normal ENT Inspection Neck: Positive for: Normal, Painless ROM Cardiovascular/Chest: Positive for: Regular Rate, Rhythm Respiratory: Positive for: Normal Breath Sounds. Negative for: Accessory Muscle Use, Respiratory Distress Gastrointestinal/Abdominal: Positive for: Bowel Sounds, Soft, Tenderness ( Epigastric ). Negative for: Normal Exam Back: Positive for: Normal Inspection Extremity: Positive for: Normal ROM. Negative for: Tenderness Neurologic/Psych: Positive for: Alert, Oriented - Laboratory Results Result Diagrams: 01/02/17 12:10 01/02/17 12:10 - ECG O2 Sat by Pulse Oximetry: 98 Medical Decision Making Medical Decision Making: Discussed with Dr. Chilel for admission. Labs and case reviewed with Dr. Marquez. Disposition - Clinical Impression Clinical Impression: Dehydration, Electrolyte abnormality - Patient ED Disposition Is Patient to be Admitted: Yes - Disposition Disposition Time: 15:19 Condition: STABLE
[2017-01-02] MEDS: Potassium Chl 20 mEq in D5-NS 1,000 ML IV SCH (22:35)
[2017-01-03] MEDS: Oxycodone/Acetaminophen 5/325 mg Tab PO PRN (05:39)
[2017-01-03 06:24] LABS: ALB/GLOB RATIO 1.2 (1.0-2.1); ALBUMIN 2.9 g/dL (3.5-5.0); CALCIUM 8.4 mg/dL (8.4-10.2)
[2017-01-03 09:29] LABS: SQUAMOUS EPITHIAL 1 /hpf (0-5); URINE BACTERIA MANY (<OCC); URINE BILIRUBIN NEGATIVE (NEGATIVE); URINE BLOOD NEGATIVE (NEGATIVE); URINE CLARITY TURBID (Clear); URINE COLOR AMBER (YELLOW); URINE GLUCOSE (UA) NEG (Normal); URINE LEUKOCYTE ESTERASE LARGE Leu/uL (Negative); URINE NITRATE NEGATIVE (NEGATIVE); URINE PROTEIN 100 mg/dL (NEGATIVE)
[2017-01-03] MEDS: Magnesium Oxide 400 mg Tab UD PO SCH ×2 (10:14→17:04)
[2017-01-03] MEDS: Enoxaparin 40 mg Syringe SC SCH (10:14)
[2017-01-03] MEDS: Potassium Chl 20 mEq in D5-NS 1,000 ML IV SCH ×2 (10:15→19:30)
--- NOTE | 2017-01-03 10:19 | CARD ---
APPROVED REPORT EKG Measurement Heart [id number] <Conclusion> Normal sinus rhythm Possible Left atrial enlargement Nonspecific ST abnormality Prolonged QT Abnormal ECG baseline artefact present
[2017-01-03] MEDS: Pantoprazole 40 mg EC Tab PO SCH ×2 (10:20→10:24)
[2017-01-03] MEDS: Morphine 4 MG/ML VIAL IVP PRN (21:23)
[2017-01-04] MEDS: Potassium Chl 20 mEq in D5-NS 1,000 ML IV SCH ×2 (00:49→17:20)
[2017-01-04] MEDS: Morphine 4 MG/ML VIAL IVP PRN ×2 (06:42→20:42)
[2017-01-04 06:53] LABS: ALB/GLOB RATIO 1.1 (1.0-2.1); ALBUMIN 2.8 g/dL (3.5-5.0); CALCIUM 8.5 mg/dL (8.4-10.2); MAGNESIUM 1.8 MG/DL (1.6-2.3)
[2017-01-04 07:26] LABS: HEMOGLOBIN 7.9 g/dL (12.0-16.0); MEAN CELL VOLUME 87.1 fl (81.0-99.0); MEAN CORPUSCULAR HEMOGLOBIN 29.2 pg (27.0-31.0); MEAN CORPUSCULAR HGB CONC 33.5 g/dL (33.0-37.0); RBC 2.69 Mil/uL (3.80-5.20); RED CELL DISTRIBUTION WIDTH 17.6 % (11.5-14.5); WHITE BLOOD COUNT 7.6 K/uL (4.8-10.8)
[2017-01-04] MEDS: Enoxaparin 40 mg Syringe SC SCH (09:34)
[2017-01-04] MEDS: Magnesium Oxide 400 mg Tab UD PO SCH ×2 (09:35→17:19)
[2017-01-04] MEDS: Oxycodone/Acetaminophen 5/325 mg Tab PO PRN ×2 (09:38→23:25)
[2017-01-04] MEDS ORDERED: Albuterol-Ipratrop 3 mg / 0.5 (3 ml) UD INH PRN (10:16)
--- NOTE | 2017-01-04 13:01 | US ---
HISTORY: elevated LFT COMPARISON: Abdomen pelvis CT examination 11/19/2016. TECHNIQUE: Sonographic evaluation of the abdomen. FINDINGS: LIVER: Measures 13.7 cm. There is a hypoechoic structure appreciated at the inferior margins of the right lower liver approximating the anterior edge of the gallbladder fossa measuring 3.0 x 3.0 x 2.2 cm which appears hypodense on CT 11/19/2016. Follow-up MRI is advised without contrast to better characterize this area as this is not definitive on ultrasound basis for focal fatty infiltration. Focal fatty sparing is a possibility within a diffuse fatty infiltrated liver. Center intrahepatic biliary dilatation is appreciated including common hepatic duct measuring 14 mm and proximal common bile duct measuring 16 mm. This is likely a function of prior cholecystectomy is not significantly changed in the interval. A small isoechoic lesion is questioned abutting the inferior margins of the right lobe liver at the upper right pararenal space which is not seen the prior CT. MRI may be used for better characterization of this area as well GALLBLADDER: Prior cholecystectomy again evident. COMMON BILE DUCT: Measures 16 mm. No choledocholithiasis. PANCREAS: None identified as per technologist due to overlying bowel gas. RIGHT KIDNEY: Measures 11.2cm. Normal echogenicity. No calculus, mass, or hydronephrosis. LEFT KIDNEY: Measures 10.3cm. A mildly exophytic cyst is again seen related to the midpole left kidney measuring 3.6 x 3.3 x 3.4 cm. Mild left hydronephrosis is reiterated from an indeterminate etiology. SPLEEN: Normal in size and contour. No mass. AORTA: No aneurysmal dilatation. IVC: Unremarkable. OTHER FINDINGS: None. IMPRESSION: 1. 3.0 cm hypoechoic lesion seen at the right lobe liver abutting the gallbladder fossa potentially reflecting focal fatty sparing however a primary or metastatic hepatic lesions not excluded and follow-up MRI is advised without contrast. A separate lesion is suggested posterior to the right lobe liver in the upper right para renal space which is not seen in prior CT and may be artifactual. MRI can further characterize this area as well. 2. Prior cholecystectomy again evident. Prominent central intrahepatic and extrahepatic biliary dilatation is appreciated once again. 3. Mild left hydronephrosis. 3.6 cm simple cyst left renal cyst again evident. 4. Pancreas not identified due to overlying bowel gas.
--- NOTE | 2017-01-05 00:06 | PN ---
DATE: 01/04/2017 SUBJECTIVE: The patient is more *------* today and she is not able to eat. She also vomited 2 times. PHYSICAL EXAMINATION VITAL SIGNS: Blood pressure is 103/67, temperature 98.7, respiratory rate 18 and pulse 90. HEENT: Pale mucosa and conjunctivae. Icteric sclerae. NECK: Supple. No JVD. No carotid bruit. No lymph node, no thyromegaly. CARDIOPULMONARY: PMI not localized. S1, S2. No additional sounds. CHEST AND LUNGS: Bilateral symmetrical expansion. Good air exchange. No rales, no rhonchi. ABDOMEN: Normoactive bowel sounds. No tenderness. No organomegaly. No masses. EXTREMITIES: No cyanosis, no clubbing, no edema. COMPUTER TEACHER: Alert, awake, oriented x2. No neurological deficits could be appreciated. ASSESSMENT: Metastatic malignant gastric ulcer, elevated liver enzymes and bilirubin, persistent nausea and vomiting. PLAN: We will give the patient Compazine compensatory and continue IV fluids. abd. ultrasound. Guarded prognosis. Kiko Chilel MD [facility]
[2017-01-05] MEDS: Morphine 4 MG/ML VIAL IVP PRN ×2 (03:50→08:10)
[2017-01-05] MEDS: Potassium Chl 20 mEq in D5-NS 1,000 ML IV SCH ×4 (04:56→23:00)
[2017-01-05 07:44] LABS: MEAN CELL VOLUME 89.4 fl (81.0-99.0); MEAN CORPUSCULAR HEMOGLOBIN 29.3 pg (27.0-31.0); MEAN CORPUSCULAR HGB CONC 32.7 g/dL (33.0-37.0); RBC 2.12 Mil/uL (3.80-5.20); RED CELL DISTRIBUTION WIDTH 17.9 % (11.5-14.5); WHITE BLOOD COUNT 6.2 K/uL (4.8-10.8)
[2017-01-05 07:49] LABS: ALBUMIN 2.3 g/dL (3.5-5.0); ALT/SGPT 158 U/L (9-52); AST/SGOT 310 U/L (14-36); BLOOD UREA NITROGEN 16 mg/dl (7-17); CALCIUM 7.5 mg/dL (8.4-10.2); GFR AFRICAN-AMERICAN > 60; GFR NON-AFRICAN AMERICAN > 60; HEMOGLOBIN 6.2 g/dL (12.0-16.0)
--- NOTE | 2017-01-05 09:05 | HP ---
HISTORY OF PRESENT ILLNESS: She is a 61-year-old female with history of metastatic malignant gastric ulcer, status post one cycle of chemotherapy. The patient presented to emergency room with symptoms of generalized weakness, nausea, and persistent vomiting. The patient had used few home medications including Zofran without improvement. The patient was evaluated in the emergency room and she was found to be dehydrated with BUN of 70 and creatinine of 1.9. The patient was started on IV fluid and admitted for further management. The patient decided at last admission to be treated in [facility] oncology [place] and she missed a cycle of chemotherapy, they have scheduled 5 cycles of chemotherapy. Currently at the time of this examination, the patient is afebrile and other review of system is negative. ALLERGIES: THE PATIENT HAS ALLERGIES TO TRAMADOL AND *------*. HOME MEDICATIONS: The patient is on, 1. Oxycodone/acetaminophen. 2. Zofran. 3. Omeprazole. 4. Magnesium oxide. 5. Allopurinol. 6. Ergocalciferol. PAST MEDICAL HISTORY: Metastatic malignant gastric ulcer, hyperuricemia, anemia multifactorial, and hypomagnesemia. FAMILY HISTORY: Noncontributory. SOCIAL HISTORY: No history of smoking, EtOH or substance abuse. PHYSICAL EXAMINATION GENERAL: The patient is in bed, comfortable at the time of this examination . VITAL SIGNS: Blood pressure 98/60, temperature 97.8, respiratory rate 18, and pulse 81. HEENT: Pupils are equal and reactive to light. Normal-appearing mucosa of the conjunctivae, oropharynx and nasal membrane mucosa. NECK: Supple. No JVD. No carotid bruit. No lymph node. No thyromegaly. CHEST AND LUNGS: Bilaterally symmetrical expansion. Good air exchange. No rales. No rhonchi. CARDIOVASCULAR SYSTEM: PMI not localized. S1 and S2. No additional sounds. ABDOMEN: Normoactive bowel sounds. No tenderness. No organomegaly. No masses. EXTREMITIES: No cyanosis. No clubbing. No edema. 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 No neurological deficit could be appreciated. ASSESSMENT: Metastatic malignant gastric ulcer, anemia multifactorial, dehydration, prerenal azotemia with elevation of BUN and creatinine, hypokalemia, hypomagnesemia. PLAN: Continue current IV fluids and pain management and we will switch the proton pump inhibitor to H2 belem. [facility] MD [facility] # [id number] [place]
[2017-01-05] MEDS: Magnesium Oxide 400 mg Tab UD PO SCH ×2 (10:16→17:35)
[2017-01-05 10:47] LABS: INR 1.7 (0.9-1.2)
--- NOTE | 2017-01-05 12:39 | CP.PCM.CON ---
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 As per patient she has not been able to hold down meals and has had non bilious vomiting. Her last abdominal imaging shows peritoneal mets. She denies diarrhea, constipation, fever, chills , rectal bleeding. Review of Systems - Review of Systems Review of Systems: 12 point ROS unremarkable except that documented in HPI Past Patient History - Infectious Disease Hx of Infectious Diseases: None - Past Medical History & Family History Past Medical History?: Yes - Past Social History Smoking Status: Former Smoker - CARDIAC Hx Pacemaker: No - PULMONARY Hx Respiratory Disorders: No - NEUROLOGICAL Hx Neurological Disorder: No - HEENT Hx HEENT Problems: No Other/Comment: reading glasses - RENAL Hx Chronic Kidney Disease: Yes (ARF) - ENDOCRINE/METABOLIC Hx Endocrine Disorders: No - HEMATOLOGICAL/ONCOLOGICAL Hx Blood Disorders: (stomach ca) - INTEGUMENTARY Hx Dermatological Problems: Yes Other/Comment: Body rash. - MUSCULOSKELETAL/RHEUMATOLOGICAL Hx Falls: No - GASTROINTESTINAL Hx Gastrointestinal Disorders: Yes Hx Nausea: Yes Hx Vomiting: Yes Other/Comment: gallstone. stomach Ca - GENITOURINARY/GYNECOLOGICAL Hx Genitourinary Disorders: No - PSYCHIATRIC Hx Substance Use: No - SURGICAL HISTORY Hx Cholecystectomy: Yes (October 2016) - ANESTHESIA Hx Anesthesia: Yes Hx Anesthesia Reactions: No Hx Malignant Hyperthermia: No Meds Allergies/Adverse Reactions: Allergies Allergy/AdvReac Type Severity Reaction Status Date / Time peach Allergy RASH Verified 12/04/16 18:02 tramadol AdvReac RASH Verified 12/04/16 18:02 pcn AdvReac ITCHING Uncoded 12/04/16 18:02 - Medications Medications: Current Medications Albuterol/Ipratropium (Duoneb 3 Mg/0.5 Mg (3 Ml) Ud) 3 ml INH RQ6 PRN PRN Reason: Shortness of Breath Allopurinol (Zyloprim) 100 mg PO DAILY [facility] Last Admin: 01/04/17 09:40 Dose: 100 mg Ergocalciferol (Drisdol 50,000 Intl Units Cap) 1 cap PO ALIN [facility] Famotidine (Pepcid) 20 mg IVP Q12 [facility] Last Admin: 01/05/17 08:18 Dose: 20 mg Hydroxyzine HCl (Atarax) 25 mg PO Q8 PRN PRN Reason: Itching / Pruritus Ceftriaxone Sodium 1 gm/ (Sodium Chloride) 100 mls @ 100 mls/hr IVPB DAILY [facility] Last Admin: 01/05/17 08:20 Dose: 100 mls/hr Potassium Chloride/Dextrose/Sod Cl (Potassium Chl 20 Meq In D5-Ns) 1,000 mls @ 100 mls/hr IV .Q10H [facility] Stop: 01/06/17 12:04 Magnesium Oxide (Mag-Ox) 400 mg PO BID [facility] Last Admin: 01/05/17 10:16 Dose: 400 mg Metoclopramide HCl (Reglan) 10 mg IVP Q6 TAYO Morphine Sulfate (Morphine) 2 mg IVP Q4 PRN PRN Reason: Pain, moderate (4-7) Last Admin: 01/05/17 08:10 Dose: 2 mg Morphine Sulfate (Morphine) 4 mg IVP Q4 PRN PRN Reason: Pain, severe (8-10) Oxycodone/Acetaminophen (Percocet 5/325 Mg Tab) 1 tab PO Q6 PRN PRN Reason: Pain, moderate (4-7) Stop: 01/05/17 21:32 Last Admin: 01/04/17 23:25 Dose: 1 tab Prochlorperazine (Compazine Rectal Supp) 25 mg RC Q8H PRN PRN Reason: Nausea/Vomiting Last Admin: 01/04/17 20:08 Dose: 25 mg Physical Exam - Constitutional Appears: Non-toxic, Older Than Stated Age, Cachectic - Head Exam Head Exam: ATRAUMATIC, NORMAL INSPECTION, NORMOCEPHALIC - Eye Exam Eye Exam: EOMI, Normal appearance, PERRL - ENT Exam ENT Exam: Mucous Membranes Dry, Normal Oropharynx - Respiratory Exam Respiratory Exam: Clear to Auscultation Bilateral, NORMAL BREATHING PATTERN - Cardiovascular Exam Cardiovascular Exam: REGULAR RHYTHM, RRR, +S1, +S2 - GI/Abdominal Exam GI & Abdominal Exam: Normal Bowel Sounds, Soft - Neurological Exam Neurological exam: Alert, Oriented x3 - Psychiatric Exam Psychiatric exam: Normal Affect, Normal Mood - Skin Skin Exam: Dry, Intact Results - Vital Signs Recent Vital Signs: Last Vital Signs Temp 98.7 F 01/05/17 09:00 Pulse 108 H 01/05/17 09:00 Resp 20 01/05/17 09:00 BP 105/70 01/05/17 09:00 Pulse Ox 96 01/05/17 09:00 - Labs Result Diagrams: 01/05/17 06:00 01/05/17 06:00 Labs: Laboratory Results - last 24 hr 01/05/17 01/05/17 01/05/17 06:00 06:00 10:05 WBC 6.2 RBC 2.12 L Hgb 6.2 L* Hct 18.9 L MCV 89.4 D MCH 29.3 MCHC 32.7 L RDW 17.9 H Plt Count 58 L D PT INR Sodium 136 Potassium 4.8 Chloride 102 Carbon Dioxide 31 H Anion Gap 8 L BUN 16 Creatinine 0.9 Est GFR ( Amer) > 60 Est GFR (Non-Af Amer) > 60 Random Glucose 329 H Calcium 7.5 L Total Bilirubin 4.7 H AST 310 H D ALT 158 H D Alkaline Phosphatase 538 H Total Protein 4.6 L Albumin 2.3 L Globulin 2.3 Albumin/Globulin Ratio 1.0 Blood Type O POSITIVE Antibody Screen Negative Crossmatch See Detail BBK History Checked Patient has bt 01/05/17 10:05 WBC RBC Hgb Hct MCV MCH MCHC RDW Plt Count PT 19.0 H INR 1.7 H Sodium Potassium Chloride Carbon Dioxide Anion Gap BUN Creatinine Est GFR ( Amer) Est GFR (Non-Af Amer) Random Glucose Calcium Total Bilirubin AST ALT Alkaline Phosphatase Total Protein Albumin Globulin Albumin/Globulin Ratio Blood Type Antibody Screen Crossmatch BBK History Checked Assessment & Plan - Assessment and Plan (Free Text) Assessment: 51 yr old F with recently diagnosed 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 One cycle of chemotherapy in November. Currently has GI obstructive symptoms of inability to eat and vomiting. Will get CT abdomen and pelvis with IV contrast and plan further intervention in case she requires stent. Plan: - Trend daily labs and fever curve - IVF - Supportive care - Blood transfusion as needed - CT abdomen and pelvis with IV contrast - Oncology follow up - GI/DVT prophylaxis - Discussed with the team - Will follow
[2017-01-05] MEDS: Ergocalciferol 50,000 Intl Units Cap PO SCH (12:51)
--- NOTE | 2017-01-05 13:08 | RAD ---
HISTORY: f/u COMPARISON: 12/20/2016 FINDINGS: LUNGS: No active pulmonary disease. PLEURA: Probable small right pleural effusion. No left pleural effusion. CARDIOVASCULAR: Left central venous infusion port. OSSEOUS STRUCTURES: No significant abnormalities. VISUALIZED UPPER ABDOMEN: Normal. OTHER FINDINGS: None. IMPRESSION: Probable small right pleural effusion. No acute infiltrate.
[2017-01-06] MEDS: Potassium Chl 20 mEq in D5-NS 1,000 ML IV SCH (04:42)
[2017-01-06] MEDS: Morphine 4 MG/ML VIAL IVP PRN ×4 (06:13→20:57)
[2017-01-06 07:07] LABS: HEMOGLOBIN 10.2 g/dL (12.0-16.0); MEAN CELL VOLUME 88.2 fl (81.0-99.0); MEAN CORPUSCULAR HEMOGLOBIN 29.8 pg (27.0-31.0); MEAN CORPUSCULAR HGB CONC 33.8 g/dL (33.0-37.0); RBC 3.41 Mil/uL (3.80-5.20); RED CELL DISTRIBUTION WIDTH 16.2 % (11.5-14.5); WHITE BLOOD COUNT 11.3 K/uL (4.8-10.8)
[2017-01-06 07:27] LABS: BLOOD UREA NITROGEN 15 mg/dl (7-17); CALCIUM 8.3 mg/dL (8.4-10.2); GFR AFRICAN-AMERICAN > 60; GFR NON-AFRICAN AMERICAN > 60
--- NOTE | 2017-01-06 07:39 | CP.PCM.PN ---
<Paola Hutson - Last Filed: 01/06/17 10:38> Subjective - Date & Time of Evaluation Date of Evaluation: 01/06/17 Time of Evaluation: 06:40 - Subjective Subjective: GI Fellow PGY4 Progress Note Pt seen and evaluated at bedside, pt reports feeling a little better this am after pain medication and anti-emetic. Pt does report unable to hold down liquids last night and 2 episodes of loose BM brown in color, no melena or hematochezia. Pt is having constant diffuse abdominal pain that improves only slightly after pain medication. Pt denies any fevers, chills, CP, SOB, or palpitations. Per nursing, tolerated blood transfusions yesterday with no issues. ROS: A 12pt ROS was obtained and was negative except as above. Objective - Vital Signs/Intake and Output Vital Signs (last 24 hours): Temp Pulse Resp BP Pulse Ox 98.8 F 96 H 20 122/79 97 01/06/17 05:12 01/06/17 05:12 01/06/17 05:12 01/06/17 05:12 01/06/17 05:12 - Medications Medications: Current Medications Albuterol/Ipratropium (Duoneb 3 Mg/0.5 Mg (3 Ml) Ud) 3 ml INH RQ6 PRN PRN Reason: Shortness of Breath Allopurinol (Zyloprim) 100 mg PO DAILY [facility] Last Admin: 01/05/17 12:52 Dose: 100 mg Ergocalciferol (Drisdol 50,000 Intl Units Cap) 1 cap PO ALIN [facility] Last Admin: 01/05/17 12:51 Dose: 1 cap Famotidine (Pepcid) 20 mg IVP Q12 [facility] Last Admin: 01/05/17 21:28 Dose: 20 mg Hydroxyzine HCl (Atarax) 25 mg PO Q8 PRN PRN Reason: Itching / Pruritus Ceftriaxone Sodium 1 gm/ (Sodium Chloride) 100 mls @ 100 mls/hr IVPB DAILY [facility] Last Admin: 01/05/17 08:20 Dose: 100 mls/hr Potassium Chloride/Dextrose/Sod Cl (Potassium Chl 20 Meq In D5-Ns) 1,000 mls @ 100 mls/hr IV .Q10H [facility] Stop: 01/06/17 12:04 Last Admin: 01/06/17 04:42 Dose: 100 mls/hr Magnesium Oxide (Mag-Ox) 400 mg PO BID [facility] Last Admin: 01/05/17 17:35 Dose: 400 mg Metoclopramide HCl (Reglan) 10 mg IVP Q6 [facility] Last Admin: 01/06/17 04:42 Dose: 10 mg Morphine Sulfate (Morphine) 2 mg IVP Q4 PRN PRN Reason: Pain, moderate (4-7) Last Admin: 01/05/17 08:10 Dose: 2 mg Morphine Sulfate (Morphine) 4 mg IVP Q4 PRN PRN Reason: Pain, severe (8-10) Last Admin: 01/06/17 06:13 Dose: 4 mg Prochlorperazine (Compazine Rectal Supp) 25 mg RC Q8H PRN PRN Reason: Nausea/Vomiting Last Admin: 01/04/17 20:08 Dose: 25 mg - Labs Labs: 01/06/17 05:40 01/06/17 05:40 PT 19.0 Seconds (9.8-13.1) H 01/05/17 10:05 INR 1.7 (0.9-1.2) H 01/05/17 10:05 - Constitutional Appears: No Acute Distress, Cachectic - Head Exam Head Exam: ATRAUMATIC, NORMAL INSPECTION, NORMOCEPHALIC - Eye Exam Eye Exam: EOMI, Normal appearance, PERRL - ENT Exam ENT Exam: Mucous Membranes Moist, Normal Exam - Neck Exam Neck Exam: Full ROM, Normal Inspection - Respiratory Exam Respiratory Exam: Clear to Ausculation Bilateral, NORMAL BREATHING PATTERN - Cardiovascular Exam Cardiovascular Exam: RRR, +S1, +S2 - GI/Abdominal Exam GI & Abdominal Exam: Soft, Tenderness, Normal Bowel Sounds. 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 Pt presenting after recent treatment in November with nausea and vomiting. 1. Gastric adenocarcinoma 2. Anemia 3. Pancytopenia 4. Dehydration 5. Transaminitis 6. UTI 7. Nausea and Vomiting Plan: -CTA/P pending with recent diagnosis of gastric adenocarcinoma and peritoneal/ duodenal mets to r/o and obstruction that can be causing nausea, vomiting and need for possible stent -Continue Supportive care for nausea and vomiting, multifactorial from cancer, chemotherapy and current infection -Clear liquid diet -Anemia and Pancytopenia likely from chemotherapy s/p 2U PRBCs with Hgb 10.2 from 6.2, hemodynamically stable, no active bleeding -No emergent endoscopic evaluation at this time, fu with CTA/P -UTI Kliebsiella, continue IV Rocephin -Dehydration improving continue IVF hydration -Diarrhea likely from chemotherapy and abx, continue to monitor at this time since improving -Transaminitis, trending down likely from chemotherapy, r/o liver mets, obstructive pathology <Anatoly OLMEDO,Jerry - Last Filed: 01/06/17 12:59> Objective - Vital Signs/Intake and Output Vital Signs (last 24 hours): Temp Pulse Resp BP Pulse Ox 97.6 F 101 H 18 127/83 97 01/06/17 12:00 01/06/17 12:00 01/06/17 12:00 01/06/17 12:00 01/06/17 12:00 - Medications Medications: Current Medications Albuterol/Ipratropium (Duoneb 3 Mg/0.5 Mg (3 Ml) Ud) 3 ml INH RQ6 PRN PRN Reason: Shortness of Breath Allopurinol (Zyloprim) 100 mg PO DAILY [facility] Last Admin: 01/06/17 10:39 Dose: 100 mg Docusate Sodium (Colace) 100 mg PO BID [facility] Last Admin: 01/06/17 10:46 Dose: 100 mg Ergocalciferol (Drisdol 50,000 Intl Units Cap) 1 cap PO ALIN [facility] Last Admin: 01/05/17 12:51 Dose: 1 cap Famotidine (Pepcid) 20 mg IVP Q12 [facility] Last Admin: 01/06/17 10:52 Dose: 20 mg Hydroxyzine HCl (Atarax) 25 mg PO Q8 PRN PRN Reason: Itching / Pruritus Ceftriaxone Sodium 1 gm/ (Sodium Chloride) 100 mls @ 100 mls/hr IVPB DAILY [facility] Last Admin: 01/06/17 10:45 Dose: 100 mls/hr Lactulose (Enulose) 10 gm PO DAILY PRN PRN Reason: Constipation Magnesium Oxide (Mag-Ox) 400 mg PO BID [facility] Last Admin: 01/06/17 10:38 Dose: 400 mg Morphine Sulfate (Morphine) 2 mg IVP Q4 PRN PRN Reason: Pain, moderate (4-7) Last Admin: 01/05/17 08:10 Dose: 2 mg Morphine Sulfate (Morphine) 4 mg IVP Q4 PRN PRN Reason: Pain, severe (8-10) Last Admin: 01/06/17 12:30 Dose: 4 mg Ondansetron HCl (Zofran Inj) 4 mg IVPB Q4 PRN PRN Reason: Nausea/Vomiting Last Admin: 01/06/17 10:44 Dose: 4 mg Prochlorperazine (Compazine Rectal Supp) 25 mg RC Q8H PRN PRN Reason: Nausea/Vomiting Last Admin: 01/04/17 20:08 Dose: 25 mg - Labs Labs: 01/06/17 05:40 01/06/17 05:40 PT 19.0 Seconds (9.8-13.1) H 01/05/17 10:05 INR 1.7 (0.9-1.2) H 01/05/17 10:05 Attending/Attestation - Attestation I have personally seen and examined this patient.: Yes I have fully participated in the care of the patient.: Yes I have reviewed all pertinent clinical information, including history, physical exam and plan: Yes Notes (Text): 01/06/17 12:56 This is a 51 yr old F with recently diagnosed poorly differentiated gastric adenoCA with duodenal and peritoneal mets now admitted with dehydration, anemia , thrombocytopenia. One cycle of chemotherapy in November. Currently has GI obstructive symptoms of inability to eat and vomiting. CT abdomen with omental caking and liver mets with lymphadenopathy and biliary obstruction. Will discuss with GI nursing service administrator regarding stenting vs jejunal feeding tube. Currently has coagulopathy and will require FFP for goal INR less than 1.5 on day of procedure likely next week - IVF - Supportive care - Blood transfusion as needed - Oncology follow up appreciated - GI/DVT prophylaxis - Discussed with the team - Will follow
[2017-01-06] MEDS ORDERED: Lactulose 10 gm/15 ml Syrup PO PRN (08:52)
--- NOTE | 2017-01-06 09:07 | CP.PCM.CON ---
History of Present Illness - History of Present Illness History of Present Illness: This is a 51 yrs old female well known to me. She was diagnosed to have a poorly differentiated adenocarcinoma about 2 months ago. There was evidence of duodenal and some peritoneal disease. She was started on chemotherapy with Cisplatin and fluorouracil., She however has continued to be unable to eat, gets dehydrated and has had a few admissions. This time she has non bilious vomiting and she unable to keep anything down. I would like to continue her chemotherapy which might be her only chance to get anywhere with the tumor shrinking. A CT scan has been ordered to see if and where a obstruction may be, Past Patient History - Infectious Disease Hx of Infectious Diseases: None - Past Medical History & Family History Past Medical History?: Yes - Past Social History Smoking Status: Former Smoker - CARDIAC Hx Pacemaker: No - PULMONARY Hx Respiratory Disorders: No - NEUROLOGICAL Hx Neurological Disorder: No - HEENT Hx HEENT Problems: No Other/Comment: reading glasses - RENAL Hx Chronic Kidney Disease: Yes (ARF) - ENDOCRINE/METABOLIC Hx Endocrine Disorders: No - HEMATOLOGICAL/ONCOLOGICAL Hx Blood Disorders: (stomach ca) - INTEGUMENTARY Hx Dermatological Problems: Yes Other/Comment: Body rash. - MUSCULOSKELETAL/RHEUMATOLOGICAL Hx Falls: No - GASTROINTESTINAL Hx Gastrointestinal Disorders: Yes Hx Nausea: Yes Hx Vomiting: Yes Other/Comment: gallstone. stomach Ca - GENITOURINARY/GYNECOLOGICAL Hx Genitourinary Disorders: No - PSYCHIATRIC Hx Substance Use: No - SURGICAL HISTORY Hx Cholecystectomy: Yes (October 2016) - ANESTHESIA Hx Anesthesia: Yes Hx Anesthesia Reactions: No Hx Malignant Hyperthermia: No Meds Allergies/Adverse Reactions: Allergies Allergy/AdvReac Type Severity Reaction Status Date / Time peach Allergy RASH Verified 12/04/16 18:02 tramadol AdvReac RASH Verified 12/04/16 18:02 pcn AdvReac ITCHING Uncoded 12/04/16 18:02 - Medications Medications: Current Medications Albuterol/Ipratropium (Duoneb 3 Mg/0.5 Mg (3 Ml) Ud) 3 ml INH RQ6 PRN PRN Reason: Shortness of Breath Allopurinol (Zyloprim) 100 mg PO DAILY [facility] Last Admin: 01/05/17 12:52 Dose: 100 mg Docusate Sodium (Colace) 100 mg PO BID [facility] Ergocalciferol (Drisdol 50,000 Intl Units Cap) 1 cap PO ALIN [facility] Last Admin: 01/05/17 12:51 Dose: 1 cap Famotidine (Pepcid) 20 mg IVP Q12 [facility] Last Admin: 01/05/17 21:28 Dose: 20 mg Hydroxyzine HCl (Atarax) 25 mg PO Q8 PRN PRN Reason: Itching / Pruritus Ceftriaxone Sodium 1 gm/ (Sodium Chloride) 100 mls @ 100 mls/hr IVPB DAILY [facility] Last Admin: 01/05/17 08:20 Dose: 100 mls/hr Potassium Chloride/Dextrose/Sod Cl (Potassium Chl 20 Meq In D5-Ns) 1,000 mls @ 100 mls/hr IV .Q10H [facility] Stop: 01/06/17 12:04 Last Admin: 01/06/17 04:42 Dose: 100 mls/hr Lactulose (Enulose) 10 gm PO DAILY PRN PRN Reason: Constipation Magnesium Oxide (Mag-Ox) 400 mg PO BID [facility] Last Admin: 01/05/17 17:35 Dose: 400 mg Morphine Sulfate (Morphine) 2 mg IVP Q4 PRN PRN Reason: Pain, moderate (4-7) Last Admin: 01/05/17 08:10 Dose: 2 mg Morphine Sulfate (Morphine) 4 mg IVP Q4 PRN PRN Reason: Pain, severe (8-10) Last Admin: 01/06/17 06:13 Dose: 4 mg Ondansetron HCl (Zofran Inj) 4 mg IVPB Q4 PRN PRN Reason: Nausea/Vomiting Prochlorperazine (Compazine Rectal Supp) 25 mg RC Q8H PRN PRN Reason: Nausea/Vomiting Last Admin: 01/04/17 20:08 Dose: 25 mg Physical Exam - Additional Findings Additional findings: Physical exam,; Alert. well oriented constantly vomiting. Neck ; Supple , no adenopathy Chesy; Clear, no tales or rhonchi Heart; RSR, no murmur Abd; Soft, tenderness in the epigastric area. Results - Vital Signs Recent Vital Signs: Last Vital Signs Temp 98.9 F 01/06/17 08:01 Pulse 98 H 01/06/17 08:01 Resp 18 01/06/17 08:01 BP 126/63 01/06/17 08:01 Pulse Ox 97 01/06/17 08:01 - Labs Result Diagrams: 01/06/17 05:40 01/06/17 05:40 Labs: Laboratory Results - last 24 hr 01/05/17 01/05/17 01/06/17 10:05 10:05 05:40 WBC 11.3 H D RBC 3.41 L Hgb 10.2 L D Hct 30.1 L MCV 88.2 MCH 29.8 MCHC 33.8 RDW 16.2 H Plt Count 71 L PT 19.0 H INR 1.7 H Sodium Potassium Chloride Carbon Dioxide Anion Gap BUN Creatinine Est GFR ( Amer) Est GFR (Non-Af Amer) Random Glucose Calcium Blood Type O POSITIVE Antibody Screen Negative Crossmatch See Detail BBK History Checked Patient has bt 01/06/17 05:40 WBC RBC Hgb Hct MCV MCH MCHC RDW Plt Count PT INR Sodium 135 Potassium 4.2 Chloride 98 Carbon Dioxide 30 Anion Gap 11 BUN 15 Creatinine 0.8 Est GFR ( Amer) > 60 Est GFR (Non-Af Amer) > 60 Random Glucose 104 Calcium 8.3 L Blood Type Antibody Screen Crossmatch BBK History Checked Assessment & Plan - Assessment and Plan (Free Text) Assessment: iMPRESSION; Gastric cancer with extension into the duodenum and peritoneum. ? obstruction with nausea,vomiting and dehydration. Plan: Plan; Will change the reglan to zofran q 4 [address] Will speak [address] Ledbetter re a possible tube placement in the jejunum ands do tube feeding until the tumor responds to chemotherapy. - Date & Time Date: 01/06/17 Time: :
[2017-01-06] MEDS ORDERED: Iohexol 300 100 ML IJ ONE (09:51)
[2017-01-06] MEDS ORDERED: Sodium Chloride 0.9% 50 ML IV ONE (09:51)
[2017-01-06] MEDS: Magnesium Oxide 400 mg Tab UD PO SCH ×2 (10:38→16:39)
--- NOTE | 2017-01-06 11:00 | CT ---
PROCEDURE: CT Abdomen and Pelvis with contrast HISTORY: cbd dilatation, n/v, COMPARISON: Comparison is made to the previous CT dated 11/19/2016 TECHNIQUE: Contrast dose: 95 cc of Omnipaque 300. Axial and reformatted coronal and sagittal CT images of the abdomen and pelvis were obtained after IV contrast administration. Radiation dose: Total exam DLP = 367.38 mGy-cm. This CT exam was performed using one or more of the following dose reduction techniques: Automated exposure control, adjustment of the mA and/or kV according to patient size, and/or use of iterative reconstruction technique. FINDINGS: LOWER THORAX: Hazy opacities at the visualized portion of the lower lungs may represent atelectasis. No evidence of mass lesion or pleural effusion. LIVER: Interval worsening of intrahepatic biliary ductal dilatation since the previous exam. There are 2 adjacent low-attenuation lesion at the right liver lobe adjacent to the gallbladder fossa with the largest lesion measures 15 millimeter. The portal vein is patent. There is narrowing of the proximal portion of the portal vein at the arcenio hepatis region adjacent to the pancreatic head likely due to enlarged lymph nodes compressing on the portal vein and distal splenic vein GALLBLADDER AND BILE DUCTS: Patient status post cholecystectomy. There is moderate dilatation of the proximal CBD. The mid and distal CBD is not dilated. PANCREAS: Mild dietitian of the main pancreatic duct is noted which appears more prominent compared to the previous exam. No definite evidence of pancreatic head mass lesion in this study. No evidence of pancreatitis. SPLEEN: Unremarkable. ADRENALS: Again seen is heterogeneous nodule at the right adrenal gland measures 1.6 centimeter. There is also left adrenal gland nodule measures 11.5 millimeter. KIDNEYS AND URETERS: Re- demonstration of moderate left hydronephrosis and hydroureter. There is nonobstructing stone at the upper pole of the left kidney measures 4 millimeter. The right kidney is grossly unremarkable. VASCULATURE: Unremarkable. No aortic aneurysm. BOWEL: The stomach is not distended therefore cannot be evaluated. No evidence of bowel obstruction. Mildly dilated small bowel loops seen at the mid and lower abdomen likely due to bowel ileus. The possibility of enteritis is not totally excluded. APPENDIX: No evidence of appendicitis. PERITONEUM: Interval appearance of small ascites in the abdomen and pelvis since the previous exam. No evidence of free air. There are new foci of nodular density in the anterior aspect of the omentum suspicious for metastasis and omental caking seen at the mid to upper abdomen. LYMPH NODES: Interval worsening of upper abdomen lymphadenopathy since the previous exam. There are large lymphadenopathy at the arcenio hepatis region gastric hepatic ligament region para-aortic region and adjacent to the pancreatic head as well as in the mid abdomen adjacent to the aorta. Findings consistent with metastasis likely from the patient gastric cancer. BLADDER: Unremarkable. REPRODUCTIVE: Unremarkable. BONES: No acute fracture. OTHER FINDINGS: None. IMPRESSION: Interval worsening of upper abdomen lymphadenopathy since the previous exam. Interval worsening of intrahepatic biliary ductal dilatation and dilated proximal CBD since the previous study. Findings could be due to compression on the CBD by enlarged arcenio hepatis and para pancreatic lymphadenopathy. The possibility of pancreatic head neoplasm is less likely. Interval appearance of mild ascites in the abdomen since the previous exam. Interval appearance of nodular enhancing lesions in the omentum suspicious for omental caking and omental metastasis. Mildly dilated small bowel loops at the mid and lower abdomen could be due to bowel ileus versus enteritis. Two adjacent low-attenuation lesions in the right liver lobe adjacent to the gallbladder fossa of uncertain etiology. The possibility of metastasis is not excluded. Stable moderate left hydronephrosis and hydroureter without evidence of obstructing stone. 4 millimeter nonobstructing calculus at the upper pole of the left kidney.
--- NOTE | 2017-01-06 15:32 | CP.PCM.PN ---
Subjective - Date & Time of Evaluation Date of Evaluation: 12/21/16 - Subjective Subjective: This is a 51 y/o F with known Hx of gastric carcinoma with ongoing chemotherapy , as noted, and presented here with intractable nausea, vomiting, distention, supervening dehydration and concomitant cramping in both upper and lower extremities. She has been referred now for evaluation of symptomatic hypocalcemia, as noted. She also has a significant electrocardiographic findings of a prolonged QT interval, as noted. She was initially admitted to ICU for closer hemodynamic monitoring and has improved since then, both clinically and hemodynamically, as noted thereof. A significant fact is that she also had marked hypomagnesemia, which contributes significantly to hypocalcemia, and she has received several bolus infusions of magnesium sulfate , as noted. Her initial calcium level was 6.3. Objective - Vital Signs/Intake and Output Vital Signs (last 24 hours): Temp Pulse Resp BP Pulse Ox 97.6 F 101 H 18 127/83 97 01/06/17 12:00 01/06/17 12:00 01/06/17 12:00 01/06/17 12:00 01/06/17 12:00 - Medications Medications: Current Medications Albuterol/Ipratropium (Duoneb 3 Mg/0.5 Mg (3 Ml) Ud) 3 ml INH RQ6 PRN PRN Reason: Shortness of Breath Allopurinol (Zyloprim) 100 mg PO DAILY [facility] Last Admin: 01/06/17 10:39 Dose: 100 mg Docusate Sodium (Colace) 100 mg PO BID [facility] Last Admin: 01/06/17 10:46 Dose: 100 mg Ergocalciferol (Drisdol 50,000 Intl Units Cap) 1 cap PO ALIN [facility] Last Admin: 01/05/17 12:51 Dose: 1 cap Famotidine (Pepcid) 20 mg IVP Q12 [facility] Last Admin: 01/06/17 10:52 Dose: 20 mg Hydroxyzine HCl (Atarax) 25 mg PO Q8 PRN PRN Reason: Itching / Pruritus Ceftriaxone Sodium 1 gm/ (Sodium Chloride) 100 mls @ 100 mls/hr IVPB DAILY [facility] Last Admin: 01/06/17 10:45 Dose: 100 mls/hr Lactulose (Enulose) 10 gm PO DAILY PRN PRN Reason: Constipation Magnesium Oxide (Mag-Ox) 400 mg PO BID [facility] Last Admin: 01/06/17 10:38 Dose: 400 mg Morphine Sulfate (Morphine) 2 mg IVP Q4 PRN PRN Reason: Pain, moderate (4-7) Last Admin: 01/05/17 08:10 Dose: 2 mg Morphine Sulfate (Morphine) 4 mg IVP Q4 PRN PRN Reason: Pain, severe (8-10) Last Admin: 01/06/17 12:30 Dose: 4 mg Ondansetron HCl (Zofran Inj) 4 mg IVPB Q4 PRN PRN Reason: Nausea/Vomiting Last Admin: 01/06/17 10:44 Dose: 4 mg Prochlorperazine (Compazine Rectal Supp) 25 mg RC Q8H PRN PRN Reason: Nausea/Vomiting Last Admin: 01/04/17 20:08 Dose: 25 mg - Labs Labs: 01/06/17 05:40 01/06/17 05:40 PT 19.0 Seconds (9.8-13.1) H 01/05/17 10:05 INR 1.7 (0.9-1.2) H 01/05/17 10:05 His latest chemistries showed: BUN: 15 Sodium: 134 Potassium: 3.6 Chloride: 96 CO2: 26 Glucose: 67 Creatinine: 1.3 Calcium: 6.3 Albumin: 3.1 Her magnesium level is 1.0 today. Assessment and Plan - Assessment and Plan (Free Text) Plan: With a corrected calcium of 7.2 mg/dL. Her vitamin D level is actually less than 12.8 g/dL. The thyroid studies showed a T4 of 13.8 with a TSH of 1.50, indicative of the so-called "acute sick euthyroid syndrome." Her cortisone level is 15.0 mg/dL. Her parathyroid hormone intact level is 47, which is actually a compensatory slight elevation of her PTH because of the underlying significant hypocalcemia. This actually explains any parathyroid or autoimmune related parathyroid conditions causing the hypocalcemia. The most likely etiology is some multifactorial cough of the hypocalcemia with significant hypomagnesemia, recent dehydration, intractable vomiting, and significant calcium lost thereof. This is clearly from undernutrition and dehydration contributing to the significant hypocalcemia. Moreover, this also hypovitaminosis D contributing to the aforementioned hypocalcemia, with impaired obstruction of calcium levels in the GI tract. At this time, will continue the Vitamin D supplementation, as ordered by me at initially on admission with Calcitriol given as 0.5 g BID as ordered. Will also continue with magnesium supplementation by IV bolus infusions, as ordered. Calcium supplementations will also be added accordingly. Will obtain chemistries of supplements as needed.
[2017-01-07] MEDS: Morphine 4 MG/ML VIAL IVP PRN ×5 (01:25→23:43)
--- NOTE | 2017-01-07 03:03 | PN ---
DATE: 01/06/2017 SUBJECTIVE: The patient is seen today on 01/06/2017. She still having nausea and abdominal pain. The patient had a CAT scan of the abdomen and pelvis with IV contrast that showed worsening of the disease since previous study, both in lymph node and liver metastasis. PHYSICAL EXAMINATION VITAL SIGNS: Blood pressure 125/82, temperature 98.2, respiratory rate 14, and pulse 90. HEENT: Pupils are equal, reactive to light. Normal-appearing mucosa of the conjunctivae, oropharynx and nasal membrane mucosa. NECK: Supple. No JVD. No carotid bruit. No lymph node. No thyromegaly. CHEST/LUNGS: Bilateral symmetrical expansion. Good air exchange. No rales. No rhonchi. CARDIOVASCULAR SYSTEM: PMI not localized. S1, S2. No additional sounds. ABDOMEN: Normoactive bowel sounds. The patient has generalized tenderness, but no rebound tenderness or no rigidity. No organomegaly. No masses. EXTREMITIES: No cyanosis, no clubbing, no edema. TOOL ROOM ATTENDANT: Alert, awake, oriented x2. No neurological deficit could be appreciated. LABORATORY DATA: CAT scan findings as above. Blood work done today showed increase of hemoglobin to 10.2 as per blood transfusion and platelets 71,000. BUN is 16 and creatinine 0.8. ASSESSMENT: 1. 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 2. Obstructive jaundice and hepatic cholestasis. 3. Urinary tract infection. PLAN: Continue current antibiotics and follow recommendations of gastroenterology and hematology/oncology. Guarded prognosis. We will give the both pain management as well as antiemetics. Kiko Chilel MD
[2017-01-07] MEDS: Magnesium Oxide 400 mg Tab UD PO SCH ×4 (08:40→18:40)
[2017-01-07] MEDS: Potassium Chl 20 mEq in D5-NS 1,000 ML IV SCH ×3 (13:11→23:44)
--- NOTE | 2017-01-07 13:11 | CP.PCM.PN ---
Subjective - Date & Time of Evaluation Date of Evaluation: 01/07/17 Time of Evaluation: 13:07 - Subjective Subjective: Pt's CT scan shows marked progression of the disease. She has what appears to be a pyloric obstruction, tumopr extending to the pancreas, liver and peritoneum. She is unable to keep anything down, and is constantly vomiting almost all the time. She is to be seen by the surgeon tomorrow to see if a feeding tube can be placed,but the prognosis is extremely poor. Objective - Vital Signs/Intake and Output Vital Signs (last 24 hours): Temp Pulse Resp BP Pulse Ox 98.1 F 94 H 18 98/62 L 97 01/07/17 12:12 01/07/17 12:12 01/07/17 12:12 01/07/17 12:12 01/07/17 12:12 Intake and Output: 01/07/17 01/07/17 06:59 18:59 Intake Total 1200 Balance 1200 - Medications Medications: Current Medications Albuterol/Ipratropium (Duoneb 3 Mg/0.5 Mg (3 Ml) Ud) 3 ml INH RQ6 PRN PRN Reason: Shortness of Breath Allopurinol (Zyloprim) 100 mg PO DAILY [facility] Last Admin: 01/07/17 08:41 Dose: 100 mg Docusate Sodium (Colace) 100 mg PO BID [facility] Last Admin: 01/07/17 08:40 Dose: 100 mg Ergocalciferol (Drisdol 50,000 Intl Units Cap) 1 cap PO ALIN [facility] Last Admin: 01/05/17 12:51 Dose: 1 cap Famotidine (Pepcid) 20 mg IVP Q12 [facility] Last Admin: 01/07/17 08:44 Dose: 20 mg Hydroxyzine HCl (Atarax) 25 mg PO Q8 PRN PRN Reason: Itching / Pruritus Ceftriaxone Sodium 1 gm/ (Sodium Chloride) 100 mls @ 100 mls/hr IVPB DAILY [facility] Last Admin: 01/07/17 08:44 Dose: 100 mls/hr Potassium Chloride/Dextrose/Sod Cl (Potassium Chl 20 Meq In D5-Ns) 1,000 mls @ 100 mls/hr IV .Q10H [facility] Stop: 01/08/17 11:49 Lactulose (Enulose) 10 gm PO DAILY PRN PRN Reason: Constipation Magnesium Oxide (Mag-Ox) 400 mg PO BID [facility] Last Admin: 01/07/17 08:40 Dose: 400 mg Morphine Sulfate (Morphine) 2 mg IVP Q4 PRN PRN Reason: Pain, moderate (4-7) Last Admin: 01/07/17 09:03 Dose: 2 mg Morphine Sulfate (Morphine) 4 mg IVP Q4 PRN PRN Reason: Pain, severe (8-10) Last Admin: 01/07/17 05:38 Dose: 4 mg Ondansetron HCl (Zofran Inj) 4 mg IVPB Q4 PRN PRN Reason: Nausea/Vomiting Last Admin: 01/07/17 08:40 Dose: 4 mg Prochlorperazine (Compazine Rectal Supp) 25 mg RC Q8H PRN PRN Reason: Nausea/Vomiting Last Admin: 01/04/17 20:08 Dose: 25 mg - Labs Labs: 01/06/17 05:40 01/06/17 05:40 PT 19.0 Seconds (9.8-13.1) H 01/05/17 10:05 INR 1.7 (0.9-1.2) H 01/05/17 10:05
--- NOTE | 2017-01-07 14:40 | CP.PCM.PN ---
<Kishor Pena - Last Filed: 01/07/17 14:37> Subjective - Date & Time of Evaluation Date of Evaluation: 01/07/17 Time of Evaluation: 13:00 - Subjective Subjective: PGY5 GI Fellow Progress Note Patient seen and examined bedside this morning. Remains very nauseated and cannot tolerate any PO intake, including liquid. Denies any ney abdominal pain at this time. No new events overnight. 12 system ROS performed and negative except where stated. Objective - Vital Signs/Intake and Output Vital Signs (last 24 hours): Temp Pulse Resp BP Pulse Ox 98.1 F 94 H 18 98/62 L 97 01/07/17 12:12 01/07/17 12:12 01/07/17 12:12 01/07/17 12:12 01/07/17 12:12 Intake and Output: 01/07/17 01/07/17 06:59 18:59 Intake Total 1200 Balance 1200 - Medications Medications: Current Medications Albuterol/Ipratropium (Duoneb 3 Mg/0.5 Mg (3 Ml) Ud) 3 ml INH RQ6 PRN PRN Reason: Shortness of Breath Allopurinol (Zyloprim) 100 mg PO DAILY [facility] Last Admin: 01/07/17 08:41 Dose: 100 mg Docusate Sodium (Colace) 100 mg PO BID [facility] Last Admin: 01/07/17 08:40 Dose: 100 mg Ergocalciferol (Drisdol 50,000 Intl Units Cap) 1 cap PO ALIN [facility] Last Admin: 01/05/17 12:51 Dose: 1 cap Famotidine (Pepcid) 20 mg IVP Q12 [facility] Last Admin: 01/07/17 08:44 Dose: 20 mg Hydroxyzine HCl (Atarax) 25 mg PO Q8 PRN PRN Reason: Itching / Pruritus Ceftriaxone Sodium 1 gm/ (Sodium Chloride) 100 mls @ 100 mls/hr IVPB DAILY [facility] Last Admin: 01/07/17 08:44 Dose: 100 mls/hr Potassium Chloride/Dextrose/Sod Cl (Potassium Chl 20 Meq In D5-Ns) 1,000 mls @ 100 mls/hr IV .Q10H [facility] Stop: 01/08/17 11:49 Last Admin: 01/07/17 13:11 Dose: 100 mls/hr Lactulose (Enulose) 10 gm PO DAILY PRN PRN Reason: Constipation Magnesium Oxide (Mag-Ox) 400 mg PO BID [facility] Last Admin: 01/07/17 08:40 Dose: 400 mg Morphine Sulfate (Morphine) 2 mg IVP Q4 PRN PRN Reason: Pain, moderate (4-7) Last Admin: 01/07/17 09:03 Dose: 2 mg Morphine Sulfate (Morphine) 4 mg IVP Q4 PRN PRN Reason: Pain, severe (8-10) Last Admin: 01/07/17 05:38 Dose: 4 mg Ondansetron HCl (Zofran Inj) 4 mg IVPB Q4 PRN PRN Reason: Nausea/Vomiting Last Admin: 01/07/17 13:12 Dose: 4 mg Prochlorperazine (Compazine Rectal Supp) 25 mg RC Q8H PRN PRN Reason: Nausea/Vomiting Last Admin: 01/04/17 20:08 Dose: 25 mg - Labs Labs: 01/06/17 05:40 01/06/17 05:40 PT 19.0 Seconds (9.8-13.1) H 01/05/17 10:05 INR 1.7 (0.9-1.2) H 01/05/17 10:05 - Constitutional Appears: No Acute Distress, Chronically Ill - Eye Exam Eye Exam: EOMI, PERRL - ENT Exam ENT Exam: Mucous Membranes Moist - Respiratory Exam Respiratory Exam: Clear to Ausculation Bilateral. absent: Rales, Rhonchi, Wheezes - Cardiovascular Exam Cardiovascular Exam: RRR, +S1, +S2 - GI/Abdominal Exam GI & Abdominal Exam: Soft, Normal Bowel Sounds. absent: Distended, Firm, Guarding, Rigid, Tenderness, Organomegaly - Extremities Exam Extremities Exam: Normal Inspection. 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 -Gastric adenocarcinoma -Gastric outlet obstruction 2/2 malignant stricture -Abdominal ascites -Pancytopenia likely a result of chemotherapy -UTI Plan: -Supportive care -Patient cannot tolerate solid or liquid diet PO; will need direct enteral feeding via jejunostomy -PEJ cannot be performed endoscopically at this time given abdominal ascites -Consider surgical consultation for jejunostomy, if amenable to surgical intervention -IV ABX as ordered <Jerry Ledbetter MD - Last Filed: 01/07/17 16:24> Objective - Vital Signs/Intake and Output Vital Signs (last 24 hours): Temp Pulse Resp BP Pulse Ox 98.1 F 94 H 18 98/62 L 97 01/07/17 12:12 01/07/17 12:12 01/07/17 12:12 01/07/17 12:12 01/07/17 12:12 Intake and Output: 01/07/17 01/07/17 06:59 18:59 Intake Total 1200 Balance 1200 - Medications Medications: Current Medications Albuterol/Ipratropium (Duoneb 3 Mg/0.5 Mg (3 Ml) Ud) 3 ml INH RQ6 PRN PRN Reason: Shortness of Breath Allopurinol (Zyloprim) 100 mg PO DAILY [facility] Last Admin: 01/07/17 08:41 Dose: 100 mg Docusate Sodium (Colace) 100 mg PO BID [facility] Last Admin: 01/07/17 08:40 Dose: 100 mg Ergocalciferol (Drisdol 50,000 Intl Units Cap) 1 cap PO ALIN [facility] Last Admin: 01/05/17 12:51 Dose: 1 cap Famotidine (Pepcid) 20 mg IVP Q12 [facility] Last Admin: 01/07/17 08:44 Dose: 20 mg Hydroxyzine HCl (Atarax) 25 mg PO Q8 PRN PRN Reason: Itching / Pruritus Ceftriaxone Sodium 1 gm/ (Sodium Chloride) 100 mls @ 100 mls/hr IVPB DAILY [facility] Last Admin: 01/07/17 08:44 Dose: 100 mls/hr Potassium Chloride/Dextrose/Sod Cl (Potassium Chl 20 Meq In D5-Ns) 1,000 mls @ 100 mls/hr IV .Q10H [facility] Stop: 01/08/17 11:49 Last Admin: 01/07/17 13:11 Dose: 100 mls/hr Lactulose (Enulose) 10 gm PO DAILY PRN PRN Reason: Constipation Magnesium Oxide (Mag-Ox) 400 mg PO BID [facility] Last Admin: 01/07/17 08:40 Dose: 400 mg Morphine Sulfate (Morphine) 2 mg IVP Q4 PRN PRN Reason: Pain, moderate (4-7) Last Admin: 01/07/17 09:03 Dose: 2 mg Morphine Sulfate (Morphine) 4 mg IVP Q4 PRN PRN Reason: Pain, severe (8-10) Last Admin: 01/07/17 15:44 Dose: 4 mg Ondansetron HCl (Zofran Inj) 4 mg IVPB Q4 PRN PRN Reason: Nausea/Vomiting Last Admin: 01/07/17 13:12 Dose: 4 mg Prochlorperazine (Compazine Rectal Supp) 25 mg RC Q8H PRN PRN Reason: Nausea/Vomiting Last Admin: 01/04/17 20:08 Dose: 25 mg - Labs Labs: 01/06/17 05:40 01/06/17 05:40 PT 19.0 Seconds (9.8-13.1) H 01/05/17 10:05 INR 1.7 (0.9-1.2) H 01/05/17 10:05 Attending/Attestation - Attestation I have personally seen and examined this patient.: Yes I have fully participated in the care of the patient.: Yes I have reviewed all pertinent clinical information, including history, physical exam and plan: Yes Notes (Text): 01/07/17 16:21 Patient seen with GI fellow on rounds. 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 Needs palliative feeding - would consult surgery for gastroenterostomy due to ascites and likely not able to pass endoscope due to carcinoma spread in stomach. Discussed with oncologist and attempted to reach primary team twice. IVF and supportive care. Poor prognosis. GI/DVT prophylaxis. Will follow after surgical recommendations
--- NOTE | 2017-01-07 23:08 | PN ---
DAILY PROGRESS NOTE DATE: 01/07/2017 SUBJECTIVE: She is not nauseated and her abdominal pain is controlled. PHYSICAL EXAMINATION VITAL SIGNS: Blood pressure is 111/76, temperature 98.8, respiratory rate 18 and pulse 90. HEENT: Pupil equal and reactive to light. Normal appearing mucosa of the conjunctivae, oropharyngeal, and nasal membrane mucosa. NECK: Supple. No JVD. No carotid bruit. No lymph nodes. No thyromegaly. CHEST/LUNGS: Bilateral symmetrical expansion. Good air exchange. No rales. No rhonchi. CARDIOVASCULAR: PMI not localized. S1 and S2. No additional sounds. ABDOMEN: Normoactive bowel sounds. There is diffuse tenderness, but no rebound tenderness or rigidity. EXTREMITIES: No cyanosis. No clubbing. No edema. 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 No neurological deficit could be appreciated. ASSESSMENT: 1. Metastatic malignant gastric ulcer with worsening metastasis as per CAT scan of the abdomen done on 01/06/2017. The patient was trying to transfer her care to [facility]. 2. Obstructive jaundice. PLAN: Continue pain management and antibiotics. Follow GI and hematology recommendations. Guarded prognosis. Kiko Chilel MD MTDD
--- NOTE | 2017-01-08 07:29 | CP.PCM.CON ---
History of Present Illness - History of Present Illness History of Present Illness: GENERAL SURGERY CONSULT NOTE FOR DR. 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 She initially presented on 01/02 with generalized weakness, nausea and vomiting that was not relieved by the Zofran at home. She was also found to have pancytopenia and Klebsiella UTI. CT Abd/Pelvis was done which showed mild ascites, nodular lesions in omentum suspicious for omental mets, 2 possible mets in the liver, mild dilated small bowel loops, lymphadenopathy, biliary obstruction. Patient has gastric outlet obstruction likely secondary to malignant stricture. Since patient cannot tolerate solid or liquid PO, surgery was requested to place direct enteral feeding tube via jejunostomy. Patient states that she would like a feeding tube placed. She states that she vomits everything she eats or drinks, even water. 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 Nicholson Allergies: tramadol, peach, penicillin Past Patient History - Infectious Disease Hx of Infectious Diseases: None - Past Medical History & Family History Past Medical History?: Yes - Past Social History Smoking Status: Former Smoker - CARDIAC Hx Pacemaker: No - PULMONARY Hx Respiratory Disorders: No - NEUROLOGICAL Hx Neurological Disorder: No - HEENT Hx HEENT Problems: No Other/Comment: reading glasses - RENAL Hx Chronic Kidney Disease: Yes (ARF) - ENDOCRINE/METABOLIC Hx Endocrine Disorders: No - HEMATOLOGICAL/ONCOLOGICAL Hx Blood Disorders: (stomach ca) - INTEGUMENTARY Hx Dermatological Problems: Yes Other/Comment: Body rash. - MUSCULOSKELETAL/RHEUMATOLOGICAL Hx Falls: No - GASTROINTESTINAL Hx Gastrointestinal Disorders: Yes Hx Nausea: Yes Hx Vomiting: Yes Other/Comment: gallstone. stomach Ca - GENITOURINARY/GYNECOLOGICAL Hx Genitourinary Disorders: No - PSYCHIATRIC Hx Substance Use: No - SURGICAL HISTORY Hx Cholecystectomy: Yes (October 2016) - ANESTHESIA Hx Anesthesia: Yes Hx Anesthesia Reactions: No Hx Malignant Hyperthermia: No Meds Allergies/Adverse Reactions: Allergies Allergy/AdvReac Type Severity Reaction Status Date / Time peach Allergy RASH Verified 12/04/16 18:02 tramadol AdvReac RASH Verified 12/04/16 18:02 pcn AdvReac ITCHING Uncoded 12/04/16 18:02 - Medications Medications: Current Medications Albuterol/Ipratropium (Duoneb 3 Mg/0.5 Mg (3 Ml) Ud) 3 ml INH RQ6 PRN PRN Reason: Shortness of Breath Allopurinol (Zyloprim) 100 mg PO DAILY [facility] Last Admin: 01/07/17 08:41 Dose: 100 mg Docusate Sodium (Colace) 100 mg PO BID [facility] Last Admin: 01/07/17 17:33 Dose: Not Given Ergocalciferol (Drisdol 50,000 Intl Units Cap) 1 cap PO ALIN [facility] Last Admin: 01/05/17 12:51 Dose: 1 cap Famotidine (Pepcid) 20 mg IVP Q12 [facility] Last Admin: 01/07/17 21:02 Dose: 20 mg Hydroxyzine HCl (Atarax) 25 mg PO Q8 PRN PRN Reason: Itching / Pruritus Ceftriaxone Sodium 1 gm/ (Sodium Chloride) 100 mls @ 100 mls/hr IVPB DAILY [facility] Last Admin: 01/07/17 08:44 Dose: 100 mls/hr Potassium Chloride/Dextrose/Sod Cl (Potassium Chl 20 Meq In D5-Ns) 1,000 mls @ 100 mls/hr IV .Q10H [facility] Stop: 01/08/17 11:49 Last Admin: 01/07/17 23:44 Dose: 100 mls/hr Lactulose (Enulose) 10 gm PO DAILY PRN PRN Reason: Constipation Magnesium Oxide (Mag-Ox) 400 mg PO BID [facility] Last Admin: 01/07/17 18:40 Dose: 400 mg Morphine Sulfate (Morphine) 2 mg IVP Q4 PRN PRN Reason: Pain, moderate (4-7) Last Admin: 01/07/17 09:03 Dose: 2 mg Morphine Sulfate (Morphine) 4 mg IVP Q4 PRN PRN Reason: Pain, severe (8-10) Last Admin: 01/07/17 23:43 Dose: 4 mg Ondansetron HCl (Zofran Inj) 4 mg IVPB Q4 PRN PRN Reason: Nausea/Vomiting Last Admin: 01/08/17 02:04 Dose: 4 mg Prochlorperazine (Compazine Rectal Supp) 25 mg RC Q8H PRN PRN Reason: Nausea/Vomiting Last Admin: 01/04/17 20:08 Dose: 25 mg Physical Exam - Constitutional Appears: Non-toxic, No Acute Distress - Head Exam Head Exam: ATRAUMATIC, NORMAL INSPECTION - Eye Exam Eye Exam: EOMI, Normal appearance, Scleral icterus - Respiratory Exam Respiratory Exam: NORMAL BREATHING PATTERN. absent: Respiratory Distress - Cardiovascular Exam Cardiovascular Exam: +S1, +S2 - GI/Abdominal Exam GI & Abdominal Exam: Soft. 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 Surgery consulted for jejunostomy - Anemia, thrombocytopenia - Elevated bili and LFTs - CT Abd/Pelvis = mild ascites, nodular lesions in omentum suspicious for omental mets, 2 possible mets in the liver, mild dilated small bowel loops, lymphadenopathy, biliary obstruction - Patient states that she would like a feeding tube - Will discuss plan with Dr. Nicholson regarding possible jejunostomy Germaine Ramesh PGY-3
[2017-01-08] MEDS: Potassium Chl 20 mEq in D5-NS 1,000 ML IV SCH ×2 (08:00→16:29)
[2017-01-08] MEDS: Magnesium Oxide 400 mg Tab UD PO SCH (09:51)
[2017-01-08] MEDS: Morphine 4 MG/ML VIAL IVP PRN ×2 (10:03→14:13)
--- NOTE | 2017-01-08 15:10 | PN ---
SUBJECTIVE: The patient is seen today on January 08, 2017. She is not in any cardiopulmonary distress, but the patient continues to have nausea and abdominal pain. PHYSICAL EXAMINATION VITAL SIGNS: Blood pressure 116/71, temperature 97.6, respiratory rate 20, and pulse 89. HEENT: Pupils equal and reactive to light. Normal appearing mucosa of the conjunctivae, oropharyngeal, and nasal membrane mucosa. NECK: Supple. No JVD. No carotid bruit. No lymph nodes. No thyromegaly. CHEST/LUNGS: Bilateral symmetrical expansion. Good air exchange. No rales. No rhonchi. CARDIOVASCULAR: PMI not localized. S1 and S2. No additional sounds. ABDOMEN: There is epigastric and diffuse tenderness, but no rebound tenderness or rigidity. EXTREMITIES: No cyanosis. No clubbing. No edema. 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 No neurological deficit could be appreciated. ASSESSMENT: 1. Metastatic malignant gastric ulcer with metastasis to the duodenum, lymph nodes, as well as the liver. 2. Obstructive jaundice. 3. Persistent nausea and vomiting and symptoms of gastric outlet obstruction. PLAN: We will follow GI recommendations. Surgery was called for placing a duodenal tube for feeding. We will continue IV fluid and pain management. Cardiac prognosis and discussed the patient's condition with Dr. Vizcaino and at this point the treatment is palliative. Kiko Chilel MD
[2017-01-08] MEDS: HYDROmorphone 0.5 mg/0.5 ml ISec IVP PRN (17:48)
[2017-01-09] MEDS: Potassium Chl 20 mEq in D5-NS 1,000 ML IV SCH ×2 (00:32→14:07)
[2017-01-09] MEDS: HYDROmorphone 0.5 mg/0.5 ml ISec IVP PRN ×4 (01:03→16:19)
[2017-01-09 07:12] LABS: MEAN CELL VOLUME 88.4 fl (81.0-99.0); MEAN CORPUSCULAR HEMOGLOBIN 30.1 pg (27.0-31.0); RED CELL DISTRIBUTION WIDTH 17.6 % (11.5-14.5); WHITE BLOOD COUNT 7.6 K/uL (4.8-10.8)
[2017-01-09 07:21] LABS: ALBUMIN 2.6 g/dL (3.5-5.0); BLOOD UREA NITROGEN 16 mg/dl (7-17); CALCIUM 8.4 mg/dL (8.4-10.2); GFR AFRICAN-AMERICAN > 60; GFR NON-AFRICAN AMERICAN > 60
[2017-01-09 07:32] LABS: ALT/SGPT 101 U/L (9-52); AST/SGOT 139 U/L (14-36)
--- NOTE | 2017-01-09 08:33 | CP.PCM.PN ---
Subjective - Date & Time of Evaluation Date of Evaluation: 01/09/17 Time of Evaluation: 07:00 - Subjective Subjective: GENERAL SURGERY PROGRESS NOTE FOR DR. NICHOLSON Patient seen and examined at bedside. She states that she vomits every time after she eats or drinks anything. Last night she didn't vomit because she didn' t attempt to eat anything. She reports pain in her bilateral upper abdomen. Objective - Vital Signs/Intake and Output Vital Signs (last 24 hours): Temp Pulse Resp BP Pulse Ox 98.1 F 83 20 116/73 99 01/09/17 07:42 01/09/17 07:42 01/09/17 07:42 01/09/17 07:42 01/09/17 07:42 - Medications Medications: Current Medications Albuterol/Ipratropium (Duoneb 3 Mg/0.5 Mg (3 Ml) Ud) 3 ml INH RQ6 PRN PRN Reason: Shortness of Breath Allopurinol (Zyloprim) 100 mg PO DAILY [facility] Last Admin: 01/08/17 09:53 Dose: Not Given Ergocalciferol (Drisdol 50,000 Intl Units Cap) 1 cap PO ALIN [facility] Last Admin: 01/05/17 12:51 Dose: 1 cap Famotidine (Pepcid) 20 mg IVP Q12 [facility] Last Admin: 01/08/17 21:54 Dose: 20 mg Hydromorphone HCl (Dilaudid) 1 mg IVP Q4H PRN PRN Reason: Pain, severe (8-10) Last Admin: 01/09/17 07:43 Dose: 1 mg Hydroxyzine HCl (Atarax) 25 mg PO Q8 PRN PRN Reason: Itching / Pruritus Potassium Chloride/Dextrose/Sod Cl (Potassium Chl 20 Meq In D5-Ns) 1,000 mls @ 100 mls/hr IV .Q10H [facility] Stop: 01/09/17 14:17 Last Admin: 01/09/17 00:32 Dose: Not Given Lactulose (Enulose) 10 gm PO DAILY PRN PRN Reason: Constipation Morphine Sulfate (Morphine) 4 mg IVP Q2 PRN PRN Reason: Pain, moderate (4-7) Ondansetron HCl (Zofran Inj) 4 mg IVPB Q4 PRN PRN Reason: Nausea/Vomiting Last Admin: 01/09/17 04:47 Dose: 4 mg Prochlorperazine (Compazine Rectal Supp) 25 mg RC Q8H PRN PRN Reason: Nausea/Vomiting Last Admin: 01/04/17 20:08 Dose: 25 mg - Labs Labs: 01/09/17 06:10 01/09/17 06:10 PT 19.0 Seconds (9.8-13.1) H 01/05/17 10:05 INR 1.7 (0.9-1.2) H 01/05/17 10:05 - Constitutional Appears: No Acute Distress, Chronically Ill - Eye Exam Eye Exam: Scleral icterus - Cardiovascular Exam Cardiovascular Exam: +S1, +S2 - GI/Abdominal Exam GI & Abdominal Exam: Soft, Tenderness (mild tenderness upper abdomen). 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 Surgery consulted for jejunostomy - Pancytopenia - Elevated bili and LFTs - CT Abd/Pelvis = mild ascites, nodular lesions in omentum suspicious for omental mets, 2 possible mets in the liver, mild dilated small bowel loops, lymphadenopathy, biliary obstruction - No surgical intervention planned at this time due to ascites and risk of leak - GI planning on EGD/ERCP with possible duodenal stent and biliary stent at [facility] on Mon - Discussed plan with Dr. Reinaldo Ramesh PGY-3
[2017-01-09 09:26] LABS: INR 1.8 (0.9-1.2)
--- NOTE | 2017-01-09 10:15 | CP.PCM.PN ---
Subjective - Date & Time of Evaluation Date of Evaluation: 01/09/17 Time of Evaluation: 10:03 - Subjective Subjective: Pt is getting increasingly jaundiced, and weak . there is progression of disease. She was supposed to go to [facility] for a second opinion, but she she does not wan to do anything unless she can keep food down. It was explained to her that unless she got some chemo(which was her only chance to decrease the size of tumor) the tumor was not going to shrink. She however wanted to go to [facility] for a second opinion re chemotherapy. At bthis time I feel thet disease is too advanced for it to make any difference in her prognosis. Objective - Vital Signs/Intake and Output Vital Signs (last 24 hours): Temp Pulse Resp BP Pulse Ox 98.1 F 83 20 116/73 99 01/09/17 07:42 01/09/17 07:42 01/09/17 07:42 01/09/17 07:42 01/09/17 07:42 - Medications Medications: Current Medications Albuterol/Ipratropium (Duoneb 3 Mg/0.5 Mg (3 Ml) Ud) 3 ml INH RQ6 PRN PRN Reason: Shortness of Breath Allopurinol (Zyloprim) 100 mg PO DAILY [facility] Last Admin: 01/09/17 09:05 Dose: Not Given Ergocalciferol (Drisdol 50,000 Intl Units Cap) 1 cap PO ALIN [facility] Last Admin: 01/05/17 12:51 Dose: 1 cap Famotidine (Pepcid) 20 mg IVP Q12 [facility] Last Admin: 01/09/17 09:07 Dose: 20 mg Hydromorphone HCl (Dilaudid) 1 mg IVP Q4H PRN PRN Reason: Pain, severe (8-10) Last Admin: 01/09/17 07:43 Dose: 1 mg Hydroxyzine HCl (Atarax) 25 mg PO Q8 PRN PRN Reason: Itching / Pruritus Potassium Chloride/Dextrose/Sod Cl (Potassium Chl 20 Meq In D5-Ns) 1,000 mls @ 100 mls/hr IV .Q10H [facility] Stop: 01/09/17 14:17 Last Admin: 01/09/17 00:32 Dose: Not Given Lactulose (Enulose) 10 gm PO DAILY PRN PRN Reason: Constipation Morphine Sulfate (Morphine) 4 mg IVP Q2 PRN PRN Reason: Pain, moderate (4-7) Ondansetron HCl (Zofran Inj) 4 mg IVPB Q4 PRN PRN Reason: Nausea/Vomiting Last Admin: 01/09/17 09:08 Dose: 4 mg Prochlorperazine (Compazine Rectal Supp) 25 mg RC Q8H PRN PRN Reason: Nausea/Vomiting Last Admin: 01/04/17 20:08 Dose: 25 mg - Labs Labs: 01/09/17 06:10 01/09/17 06:10 PT 21.0 Seconds (9.8-13.1) H 01/09/17 08:20 INR 1.8 (0.9-1.2) H 01/09/17 08:20
--- NOTE | 2017-01-09 13:14 | CP.PCM.PN ---
<Paola Hutson - Last Filed: 01/09/17 15:06> Subjective - Date & Time of Evaluation Date of Evaluation: 01/09/17 Time of Evaluation: 11:45 - Subjective Subjective: GI Fellow PGY4 Progress Note Pt seen and evaluated at bedside, pt unable to hold down solids or liquids. Pt is having constant diffuse abdominal pain that improves only slightly after pain medication. Pt is getting more jaundiced and weak during the hospital course. Pt says that she is still interested in chemotherapy and receiving a feeding tube for some sort of nutrition. ROS: A 12pt ROS was obtained and was negative except as above. Objective - Vital Signs/Intake and Output Vital Signs (last 24 hours): Temp Pulse Resp BP Pulse Ox 98.1 F 83 20 116/73 99 01/09/17 07:42 01/09/17 07:42 01/09/17 07:42 01/09/17 07:42 01/09/17 07:42 - Medications Medications: Current Medications Albuterol/Ipratropium (Duoneb 3 Mg/0.5 Mg (3 Ml) Ud) 3 ml INH RQ6 PRN PRN Reason: Shortness of Breath Allopurinol (Zyloprim) 100 mg PO DAILY [facility] Last Admin: 01/09/17 09:05 Dose: Not Given Ergocalciferol (Drisdol 50,000 Intl Units Cap) 1 cap PO ALIN [facility] Last Admin: 01/05/17 12:51 Dose: 1 cap Famotidine (Pepcid) 20 mg IVP Q12 [facility] Last Admin: 01/09/17 09:07 Dose: 20 mg Hydromorphone HCl (Dilaudid) 1 mg IVP Q4H PRN PRN Reason: Pain, severe (8-10) Last Admin: 01/09/17 11:53 Dose: 1 mg Hydroxyzine HCl (Atarax) 25 mg PO Q8 PRN PRN Reason: Itching / Pruritus Potassium Chloride/Dextrose/Sod Cl (Potassium Chl 20 Meq In D5-Ns) 1,000 mls @ 100 mls/hr IV .Q10H [facility] Stop: 01/09/17 14:17 Last Admin: 01/09/17 00:32 Dose: Not Given Lactulose (Enulose) 10 gm PO DAILY PRN PRN Reason: Constipation Morphine Sulfate (Morphine) 4 mg IVP Q2 PRN PRN Reason: Pain, moderate (4-7) Ondansetron HCl (Zofran Inj) 4 mg IVPB Q4 PRN PRN Reason: Nausea/Vomiting Last Admin: 01/09/17 09:08 Dose: 4 mg Prochlorperazine (Compazine Rectal Supp) 25 mg RC Q8H PRN PRN Reason: Nausea/Vomiting Last Admin: 01/04/17 20:08 Dose: 25 mg - Labs Labs: 01/09/17 06:10 01/09/17 06:10 PT 21.0 Seconds (9.8-13.1) H 01/09/17 08:20 INR 1.8 (0.9-1.2) H 01/09/17 08:20 - Constitutional Appears: Older Than Stated Age, Chronically Ill - Head Exam Head Exam: ATRAUMATIC, NORMAL INSPECTION, NORMOCEPHALIC - Eye Exam Eye Exam: EOMI, Normal appearance, Scleral icterus - ENT Exam ENT Exam: Mucous Membranes Moist, Normal Exam - Neck Exam Neck Exam: Full ROM, Normal Inspection - Respiratory Exam Respiratory Exam: Clear to Ausculation Bilateral, NORMAL BREATHING PATTERN - Cardiovascular Exam Cardiovascular Exam: RRR, +S1, +S2 - GI/Abdominal Exam GI & Abdominal Exam: Soft, Tenderness, Normal Bowel Sounds - Rectal Exam Rectal Exam: Deferred - Back Exam Back Exam: NORMAL INSPECTION - Neurological Exam Neurological Exam: Alert, Awake, Oriented x3 - Psychiatric Exam Psychiatric exam: Normal Affect, Normal Mood - Skin Skin Exam: Dry, Intact, Warm Additional comments: Jaundice Assessment and Plan - Assessment and Plan (Free Text) Assessment: This is 51yF recently diagnosed with 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 Pt presenting after recent treatment in November with nausea and vomiting. 1. Gastric adenocarcinoma with mets 2. Gastric outlet obstruction 2/2 malignant stricture 3. Nausea and Vomiting 4. Abdominal ascites 5. Hyperbilirubinemia/Transaminitis 6. Coagulopathy 7. Pancytopenia 8. Dehydration 9. UTI Plan: -Pt with worsening obstruction, cannot tolerate solids or liquids -Plan for EGD/ERCP with duodenal stent and billiary stent on Monday at [facility] with Dr. Tejada -Plan for possible +/-PEJ for direct enteral feeding via jejunostomy with procedure on Monday -Case discussed with the surgical team, concerned about abdominal ascites/ leakage and risk of infection with peritonitis, so no surgical intervention planned at this time -Continue supportive care for abdominal pain, nausea and vomiting with pain medication and anti-emetics -Clear liquid diet as tolerated -Anemia and Pancytopenia likely from chemotherapy s/p 2U PRBCs with Hgb 9.0 from 6.2, hemodynamically stable, no active bleeding -Dehydration improving continue IVF hydration -Hyperbilirubinemia/Transaminitis, trending up likely from liver mets and obstructive pathology -UTI Kliebsiella, treated with abx -Monitor Platelets and INR tomorrow and possible need for transfusion and FFP, will wait on labs in am to make final recommendation -Will continue to follow pt closely <Jerry Ledbetter MD - Last Filed: 01/09/17 19:43> Objective - Vital Signs/Intake and Output Vital Signs (last 24 hours): Temp Pulse Resp BP Pulse Ox 98.1 F 76 20 110/69 98 01/09/17 15:59 01/09/17 15:59 01/09/17 15:59 01/09/17 15:59 01/09/17 15:59 - Medications Medications: Current Medications Albuterol/Ipratropium (Duoneb 3 Mg/0.5 Mg (3 Ml) Ud) 3 ml INH RQ6 PRN PRN Reason: Shortness of Breath Allopurinol (Zyloprim) 100 mg PO DAILY [facility] Last Admin: 01/09/17 09:05 Dose: Not Given Ergocalciferol (Drisdol 50,000 Intl Units Cap) 1 cap PO ALIN [facility] Last Admin: 01/05/17 12:51 Dose: 1 cap Famotidine (Pepcid) 20 mg IVP Q12 [facility] Last Admin: 01/09/17 09:07 Dose: 20 mg Hydromorphone HCl (Dilaudid) 1 mg IVP Q4H PRN PRN Reason: Pain, severe (8-10) Last Admin: 01/09/17 16:19 Dose: 1 mg Hydroxyzine HCl (Atarax) 25 mg PO Q8 PRN PRN Reason: Itching / Pruritus Lactulose (Enulose) 10 gm PO DAILY PRN PRN Reason: Constipation Morphine Sulfate (Morphine) 4 mg IVP Q2 PRN PRN Reason: Pain, moderate (4-7) Last Admin: 01/09/17 14:10 Dose: 4 mg Ondansetron HCl (Zofran Inj) 4 mg IVPB Q4 PRN PRN Reason: Nausea/Vomiting Last Admin: 01/09/17 18:14 Dose: 4 mg Phytonadione (Vitamin K Tab) 10 mg PO DAILY [facility] Stop: 01/10/17 17:00 Last Admin: 01/09/17 15:00 Dose: 10 mg Prochlorperazine (Compazine Rectal Supp) 25 mg RC Q8H PRN PRN Reason: Nausea/Vomiting Last Admin: 01/04/17 20:08 Dose: 25 mg - Labs Labs: 01/09/17 06:10 01/09/17 06:10 PT 21.0 Seconds (9.8-13.1) H 01/09/17 08:20 INR 1.8 (0.9-1.2) H 01/09/17 08:20 Attending/Attestation - Attestation I have personally seen and examined this patient.: Yes I have fully participated in the care of the patient.: Yes I have reviewed all pertinent clinical information, including history, physical exam and plan: Yes Notes (Text): 01/09/17 19:38 Patient seen with GI fellow on rounds this afternoon. Agree with assessment and plan. 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 Pt presenting after recent treatment in November with nausea and vomiting likely due to gastric outlet obstruction. painless jaundice due to liver mets. Unable to tolerate any diet. Needs nutrition and obstruction relief. Plan for EGD/ ERCP with possible duodenal stent and biliary stent and possible jejunostomy at [facility] [place] on monday with GI skate boarder. Small amount of ascites noted on imaging. Discussed with patient regarding potential ascitic fluid leakage and peritonitis risk. Continue anti emetics, IVF and supportive care. UTI klebsiella to be treated per primary team. Will monitor platelets and INR in case needs product transfusion
[2017-01-09] MEDS: Morphine 4 MG/ML VIAL IVP PRN ×2 (14:10→23:56)
--- NOTE | 2017-01-09 20:06 | PN ---
DATE: 01/09/2017 SUBJECTIVE: The patient is seen today, 01/09/2017. She still has nausea and remarkable decrease of oral intake. PHYSICAL EXAMINATION: VITAL SIGNS: Blood pressure is 110/69, temperature 98.1, respiratory rate 20, and pulse 76. HEENT: Pupils equal and reactive light. Normal-appearing mucosa of the conjunctivae, oropharyngeal, and nasal membrane mucosa. NECK: Supple. No JVD. No carotid bruit. No lymph node. No thyromegaly. CHEST AND LUNGS: Bilateral symmetrical expansion. Good air exchange. No rales. No rhonchi. CARDIOVASCULAR: PMI not localized. S1, S2. No additional sounds. ABDOMEN: Normoactive bowel sounds. No tenderness. No organomegaly. No masses. EXTREMITIES: No cyanosis, no clubbing, no edema. [employer]: Alert, awake, oriented x2. No neurological deficit could be appreciated. ASSESSMENT: Obstructive jaundice, malignant metastatic gastric ulcer, coagulopathy secondary to decreased oral intake with possible vitamin K deficiency and INR is 1.8 today. PLAN: We will give the patient vitamin K. Follow GI/surgery recommendation regarding feeding. Discussed with the patient the oncology treatment and she still wants the treatment to be done in [place], as per her statement that she will try to get an appointment at [place] with an oncologist. Guarded prognosis given the worsening of the patient's disease and the inability to eat with persistent nausea and vomiting secondary to possible gastric outlet obstruction. Kiko Chilel MD
[2017-01-10] MEDS: Morphine 4 MG/ML VIAL IVP PRN ×5 (05:06→23:00)
[2017-01-10] MEDS: Potassium Chl 20 mEq in D5-NS 1,000 ML IV SCH ×2 (06:30→17:25)
--- NOTE | 2017-01-10 07:25 | CP.PCM.PN ---
Subjective - Date & Time of Evaluation Date of Evaluation: 01/10/17 Time of Evaluation: 07:21 - Subjective Subjective: General Surgery - Dr. Najera Pt S&E. Pt reports that she has been vomiting/spitting up small amounts of liquids/anything she tries to drink. She is unable to keep anything down. Pt also complains of mild abdominal pain in the upper abdomen. She denies any other complaints. No F/C, SOB/CP. Objective - Vital Signs/Intake and Output Vital Signs (last 24 hours): Temp Pulse Resp BP Pulse Ox 97.7 F 85 18 121/74 95 01/10/17 00:40 01/10/17 00:40 01/10/17 00:40 01/10/17 00:40 01/10/17 00:40 - Medications Medications: Current Medications Albuterol/Ipratropium (Duoneb 3 Mg/0.5 Mg (3 Ml) Ud) 3 ml INH RQ6 PRN PRN Reason: Shortness of Breath Allopurinol (Zyloprim) 100 mg PO DAILY [facility] Last Admin: 01/09/17 09:05 Dose: Not Given Ergocalciferol (Drisdol 50,000 Intl Units Cap) 1 cap PO ALIN [facility] Last Admin: 01/05/17 12:51 Dose: 1 cap Famotidine (Pepcid) 20 mg IVP Q12 [facility] Last Admin: 01/09/17 20:03 Dose: 20 mg Hydromorphone HCl (Dilaudid) 1 mg IVP Q4H PRN PRN Reason: Pain, severe (8-10) Last Admin: 01/09/17 16:19 Dose: 1 mg Hydroxyzine HCl (Atarax) 25 mg PO Q8 PRN PRN Reason: Itching / Pruritus Potassium Chloride/Dextrose/Sod Cl (Potassium Chl 20 Meq In D5-Ns) 1,000 mls @ 100 mls/hr IV .Q10H [facility] Stop: 01/11/17 05:44 Lactulose (Enulose) 10 gm PO DAILY PRN PRN Reason: Constipation Metoclopramide HCl (Reglan) 10 mg IVP Q6 PRN PRN Reason: Nausea/Vomiting Last Admin: 01/10/17 02:12 Dose: 10 mg Morphine Sulfate (Morphine) 4 mg IVP Q2 PRN PRN Reason: Pain, moderate (4-7) Last Admin: 01/10/17 05:06 Dose: 4 mg Ondansetron HCl (Zofran Inj) 4 mg IVP Q4 PRN PRN Reason: Nausea/Vomiting Last Admin: 01/10/17 05:07 Dose: 4 mg Phytonadione (Vitamin K Tab) 10 mg PO DAILY [facility] Stop: 01/10/17 17:00 Last Admin: 01/09/17 15:00 Dose: 10 mg Prochlorperazine (Compazine Rectal Supp) 25 mg RC Q8H PRN PRN Reason: Nausea/Vomiting Last Admin: 01/04/17 20:08 Dose: 25 mg - Labs Labs: 01/09/17 06:10 01/09/17 06:10 PT 21.0 Seconds (9.8-13.1) H 01/09/17 08:20 INR 1.8 (0.9-1.2) H 01/09/17 08:20 - Constitutional Appears: No Acute Distress - Head Exam Head Exam: ATRAUMATIC, NORMAL INSPECTION, NORMOCEPHALIC - Eye Exam Eye Exam: Normal appearance - Respiratory Exam Respiratory Exam: NORMAL BREATHING PATTERN. absent: Respiratory Distress - GI/Abdominal Exam GI & Abdominal Exam: Soft. absent: Distended, Firm, Guarding, Tenderness, Rebound - Neurological Exam Neurological Exam: Alert, Oriented x3 - Psychiatric Exam Psychiatric exam: Depressed - Skin Skin Exam: Dry, Intact Assessment and Plan - Assessment and Plan (Free Text) Assessment: 51yo F w/ metastatic gastric adenoca, on palliative chemo, with intractable vomiting, unable to tolerate PO - TBili trending up - F/U GI - Surgery consulted for poss. jejunosotomy tube - Will DW Dr. Reinaldo Ramirez PGY3
[2017-01-10] MEDS ORDERED: Phytonadione 10 MG in Dextrose 5% In Water 50 ML IV ONE (07:45)
--- NOTE | 2017-01-10 07:51 | CP.PCM.PN ---
<Kihsor Pena - Last Filed: 01/10/17 07:49> Subjective - Date & Time of Evaluation Date of Evaluation: 01/10/17 Time of Evaluation: 07:30 - Subjective Subjective: PGY5 GI Fellow Progress Note Patient seen and examined bedside this morning. The patient admits to continued nausea and vomiting. Rhodes at bedside with emesis noted. Abdominal pain in the LUQ to the lower and right sides. Still unable to tolerate much PO. 12 system ROS performed and negative except where stated. Objective - Vital Signs/Intake and Output Vital Signs (last 24 hours): Temp Pulse Resp BP Pulse Ox 97.7 F 85 18 121/74 95 01/10/17 00:40 01/10/17 00:40 01/10/17 00:40 01/10/17 00:40 01/10/17 00:40 - Medications Medications: Current Medications Albuterol/Ipratropium (Duoneb 3 Mg/0.5 Mg (3 Ml) Ud) 3 ml INH RQ6 PRN PRN Reason: Shortness of Breath Allopurinol (Zyloprim) 100 mg PO DAILY [facility] Last Admin: 01/09/17 09:05 Dose: Not Given Ergocalciferol (Drisdol 50,000 Intl Units Cap) 1 cap PO ALIN [facility] Last Admin: 01/05/17 12:51 Dose: 1 cap Famotidine (Pepcid) 20 mg IVP Q12 [facility] Last Admin: 01/09/17 20:03 Dose: 20 mg Hydromorphone HCl (Dilaudid) 1 mg IVP Q4H PRN PRN Reason: Pain, severe (8-10) Last Admin: 01/09/17 16:19 Dose: 1 mg Hydroxyzine HCl (Atarax) 25 mg PO Q8 PRN PRN Reason: Itching / Pruritus Potassium Chloride/Dextrose/Sod Cl (Potassium Chl 20 Meq In D5-Ns) 1,000 mls @ 100 mls/hr IV .Q10H [facility] Stop: 01/11/17 05:44 Phytonadione 10 mg/ Dextrose 51 mls @ 51 mls/hr IV ONCE ONE Stop: 01/10/17 08:44 Lactulose (Enulose) 10 gm PO DAILY PRN PRN Reason: Constipation Metoclopramide HCl (Reglan) 10 mg IVP Q6 PRN PRN Reason: Nausea/Vomiting Last Admin: 01/10/17 02:12 Dose: 10 mg Morphine Sulfate (Morphine) 4 mg IVP Q2 PRN PRN Reason: Pain, moderate (4-7) Last Admin: 01/10/17 05:06 Dose: 4 mg Ondansetron HCl (Zofran Inj) 4 mg IVP Q4 PRN PRN Reason: Nausea/Vomiting Last Admin: 01/10/17 05:07 Dose: 4 mg Prochlorperazine (Compazine Rectal Supp) 25 mg RC Q8H PRN PRN Reason: Nausea/Vomiting Last Admin: 01/04/17 20:08 Dose: 25 mg - Labs Labs: 01/09/17 06:10 01/09/17 06:10 PT 21.0 Seconds (9.8-13.1) H 01/09/17 08:20 INR 1.8 (0.9-1.2) H 01/09/17 08:20 - Constitutional Appears: No Acute Distress, Chronically Ill - Eye Exam Eye Exam: EOMI, PERRL, Scleral icterus - ENT Exam ENT Exam: Mucous Membranes Moist - Respiratory Exam Respiratory Exam: Clear to Ausculation Bilateral. absent: Rales, Rhonchi, Wheezes - Cardiovascular Exam Cardiovascular Exam: RRR, +S1, +S2 - GI/Abdominal Exam GI & Abdominal Exam: Soft, Tenderness (LUQ), Normal Bowel Sounds. absent: Distended, Firm, Guarding, Rigid, Organomegaly - Extremities Exam Extremities Exam: Normal Inspection. 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 -Gastric adenocarcinoma -Gastric outlet obstruction 2/2 malignant stricture -Coagulopathy -Hyperbilirubinemia, suspect obstructive jaundice -Abdominal ascites -Pancytopenia likely a result of chemotherapy -UTI Plan: -Continue supportive care -Plan for EGD/ERCP tomorrow with possible duodenal, biliary stenting as well as placement of PEJ if amenable -Change Vit K supp to IV today; pt not absorpbing Vit K as she likely has biliary obstruction from mass -Surgical team following -NPO past MN -IV ABX/IVF as ordered <Jerry Ledbetter MD - Last Filed: 01/10/17 15:13> Objective - Vital Signs/Intake and Output Vital Signs (last 24 hours): Temp Pulse Resp BP Pulse Ox 98.2 F 87 18 116/75 98 01/10/17 08:00 01/10/17 08:00 01/10/17 08:00 01/10/17 08:00 01/10/17 08:00 - Medications Medications: Current Medications Albuterol/Ipratropium (Duoneb 3 Mg/0.5 Mg (3 Ml) Ud) 3 ml INH RQ6 PRN PRN Reason: Shortness of Breath Allopurinol (Zyloprim) 100 mg PO DAILY [facility] Last Admin: 01/10/17 08:09 Dose: 100 mg Ergocalciferol (Drisdol 50,000 Intl Units Cap) 1 cap PO ALIN [facility] Last Admin: 01/05/17 12:51 Dose: 1 cap Famotidine (Pepcid) 20 mg IVP Q12 [facility] Last Admin: 01/10/17 08:07 Dose: 20 mg Hydromorphone HCl (Dilaudid) 1 mg IVP Q4H PRN PRN Reason: Pain, severe (8-10) Last Admin: 01/09/17 16:19 Dose: 1 mg Hydroxyzine HCl (Atarax) 25 mg PO Q8 PRN PRN Reason: Itching / Pruritus Potassium Chloride/Dextrose/Sod Cl (Potassium Chl 20 Meq In D5-Ns) 1,000 mls @ 100 mls/hr IV .Q10H [facility] Stop: 01/11/17 05:44 Last Admin: 01/10/17 06:30 Dose: 100 mls/hr Lactulose (Enulose) 10 gm PO DAILY PRN PRN Reason: Constipation Metoclopramide HCl (Reglan) 10 mg IVP Q6 PRN PRN Reason: Nausea/Vomiting Last Admin: 01/10/17 13:51 Dose: 10 mg Morphine Sulfate (Morphine) 4 mg IVP Q2 PRN PRN Reason: Pain, moderate (4-7) Last Admin: 01/10/17 12:07 Dose: 4 mg Ondansetron HCl (Zofran Inj) 4 mg IVP Q4 PRN PRN Reason: Nausea/Vomiting Last Admin: 01/10/17 10:57 Dose: 4 mg Prochlorperazine (Compazine Rectal Supp) 25 mg RC Q8H PRN PRN Reason: Nausea/Vomiting Last Admin: 01/04/17 20:08 Dose: 25 mg - Labs Labs: 01/10/17 08:15 01/10/17 08:15 PT 19.6 Seconds (9.8-13.1) H 01/10/17 08:15 INR 1.7 (0.9-1.2) H 01/10/17 08:15 Attending/Attestation - Attestation I have personally seen and examined this patient.: Yes I have fully participated in the care of the patient.: Yes I have reviewed all pertinent clinical information, including history, physical exam and plan: Yes Notes (Text): 01/10/17 15:12 Patient seen with GI fellow on rounds this afternoon. Agree with assessment and plan. 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 Pt presenting after recent treatment in November with nausea and vomiting likely due to gastric outlet obstruction. painless jaundice due to liver mets. Unable to tolerate any diet. Needs nutrition and obstruction relief. Plan for EGD/ ERCP with possible duodenal stent and biliary stent and possible jejunostomy at [facility] on monday with GI pacu nurse. Small amount of ascites noted on imaging. Discussed with patient regarding potential ascitic fluid leakage and peritonitis risk. Continue anti emetics, IVF and supportive care. Needs magnesium replacement prior to endoscopy. UTI klebsiella to be treated per primary team. Will monitor platelets and INR in case needs product transfusion
[2017-01-10 08:18] LABS: HEMOGLOBIN 8.1 g/dL (12.0-16.0); MEAN CELL VOLUME 89.3 fl (81.0-99.0); MEAN CORPUSCULAR HEMOGLOBIN 30.1 pg (27.0-31.0); MEAN CORPUSCULAR HGB CONC 33.6 g/dL (33.0-37.0); RBC 2.68 Mil/uL (3.80-5.20); WHITE BLOOD COUNT 7.1 K/uL (4.8-10.8)
[2017-01-10 08:37] LABS: ALBUMIN 2.4 g/dL (3.5-5.0); ALT/SGPT 85 U/L (9-52); AST/SGOT 126 U/L (14-36); BLOOD UREA NITROGEN 12 mg/dl (7-17); CALCIUM 8.1 mg/dL (8.4-10.2); GFR AFRICAN-AMERICAN > 60; GFR NON-AFRICAN AMERICAN > 60
[2017-01-10 08:41] LABS: INR 1.7 (0.9-1.2); PROTHROMBIN TIME 19.6 Seconds (9.8-13.1)
[2017-01-10] MEDS ORDERED: Phytonadione 10 mg/ml Inj (Adult) IV ONE (10:00)
[2017-01-10] MEDS ORDERED: Magnesium Sulfate 2 gm/50 ml 2 GM/50 ML BAG IVPB ONE (14:00)
[2017-01-10] MEDS ORDERED: Magnesium Sulfate 4 gm/100 ml 4 GM/100 ML BAG IVPB ONE (16:30)
[2017-01-10] MEDS: HYDROmorphone 0.5 mg/0.5 ml ISec IVP PRN (17:20)
[2017-01-11] MEDS: Potassium Chl 20 mEq in D5-NS 1,000 ML IV SCH ×2 (02:00→04:09)
[2017-01-11] MEDS: Morphine 4 MG/ML VIAL IVP PRN ×2 (04:10→10:02)
--- NOTE | 2017-01-11 07:11 | CP.PCM.PN ---
Subjective - Date & Time of Evaluation Date of Evaluation: 01/11/17 Time of Evaluation: 07:09 - Subjective Subjective: General Surgery - Dr. Najera Pt S&E. JASEO. Pt states she had some juice last night and has not vomited overnight. She still has nausea and mild abdominal pain in the epigastric region. No F/C, SOB/CP. She is NPO and aware of plan for EGD/ERCP with poss. stent and poss. pej with GI team. Objective - Vital Signs/Intake and Output Vital Signs (last 24 hours): Temp Pulse Resp BP Pulse Ox 99 F 108 H 18 126/80 99 01/10/17 15:54 01/10/17 15:54 01/10/17 15:54 01/10/17 15:54 01/10/17 15:54 - Medications Medications: Current Medications Albuterol/Ipratropium (Duoneb 3 Mg/0.5 Mg (3 Ml) Ud) 3 ml INH RQ6 PRN PRN Reason: Shortness of Breath Allopurinol (Zyloprim) 100 mg PO DAILY [facility] Last Admin: 01/10/17 08:09 Dose: 100 mg Ergocalciferol (Drisdol 50,000 Intl Units Cap) 1 cap PO ALIN [facility] Last Admin: 01/05/17 12:51 Dose: 1 cap Famotidine (Pepcid) 20 mg IVP Q12 [facility] Last Admin: 01/10/17 20:27 Dose: 20 mg Hydromorphone HCl (Dilaudid) 1 mg IVP Q4H PRN PRN Reason: Pain, severe (8-10) Last Admin: 01/10/17 17:20 Dose: 1 mg Hydroxyzine HCl (Atarax) 25 mg PO Q8 PRN PRN Reason: Itching / Pruritus Lactulose (Enulose) 10 gm PO DAILY PRN PRN Reason: Constipation Metoclopramide HCl (Reglan) 10 mg IVP Q6 PRN PRN Reason: Nausea/Vomiting Last Admin: 01/11/17 02:21 Dose: 10 mg Morphine Sulfate (Morphine) 4 mg IVP Q2 PRN PRN Reason: Pain, moderate (4-7) Last Admin: 01/11/17 04:10 Dose: 4 mg Ondansetron HCl (Zofran Inj) 4 mg IVP Q4 PRN PRN Reason: Nausea/Vomiting Last Admin: 01/11/17 05:29 Dose: 4 mg Prochlorperazine (Compazine Rectal Supp) 25 mg RC Q8H PRN PRN Reason: Nausea/Vomiting Last Admin: 01/04/17 20:08 Dose: 25 mg - Labs Labs: 01/10/17 08:15 01/10/17 08:15 PT 19.6 Seconds (9.8-13.1) H 01/10/17 08:15 INR 1.7 (0.9-1.2) H 01/10/17 08:15 - Constitutional Appears: No Acute Distress - Head Exam Head Exam: ATRAUMATIC, NORMAL INSPECTION, NORMOCEPHALIC - Eye Exam Eye Exam: Scleral icterus - Respiratory Exam Respiratory Exam: NORMAL BREATHING PATTERN. absent: Respiratory Distress - Cardiovascular Exam Cardiovascular Exam: REGULAR RHYTHM - GI/Abdominal Exam GI & Abdominal Exam: Soft, Tenderness (mild ttp). absent: Distended, Firm - Neurological Exam Neurological Exam: Alert, Oriented x3 - Psychiatric Exam Psychiatric exam: Flat Affect - Skin Skin Exam: Dry, Intact Assessment and Plan - Assessment and Plan (Free Text) Assessment: 51yo F w/ metastatic gastric adenoca, on palliative chemo, with intractable vomiting, unable to tolerate PO - GI team planning for ERCP with poss. stent, poss PEJ tube today, at [facility] - No plans for general surgery intervention at this time - Will follow with you BARRY Ramirez PGY3
[2017-01-11 07:30] LABS: BASO % 0.5 % (0.0-2.0); EOS % 0.1 % (0.0-4.0); HEMOGLOBIN 8.2 g/dL (12.0-16.0); LYMPH # 0.4 K/uL (1.0-4.3); LYMPH % 5.1 % (20.0-40.0); MEAN CORPUSCULAR HEMOGLOBIN 30.3 pg (27.0-31.0); MEAN PLATELET VOLUME 8.8 fl (7.2-11.7); MONO # 0.5 K/uL (0.0-0.8); MONO % 6.2 % (0.0-10.0); NEUT # 6.7 K/uL (1.8-7.0); NEUT % 88.1 % (50.0-75.0); PLATELET COUNT 50 K/uL (130-400); RED CELL DISTRIBUTION WIDTH 18.1 % (11.5-14.5); WHITE BLOOD COUNT 7.6 K/uL (4.8-10.8)
[2017-01-11 07:38] LABS: ALBUMIN 2.7 g/dL (3.5-5.0); ALT/SGPT 85 U/L (9-52); AST/SGOT 135 U/L (14-36); BLOOD UREA NITROGEN 8 mg/dl (7-17); CALCIUM 8.4 mg/dL (8.4-10.2); GFR AFRICAN-AMERICAN > 60; GFR NON-AFRICAN AMERICAN > 60; MAGNESIUM 1.7 MG/DL (1.6-2.3)
[2017-01-11 07:45] LABS: INR 1.4 (0.9-1.2); PROTHROMBIN TIME 14.7 Seconds (9.8-13.1)
[2017-01-11 10:21] LABS: LYMPHOCYTE 2 % (20-50); MONOCYTE 3 % (0-10); NEUTROPHIL 95 % (42-75); TOTAL CELLS COUNTED 100
[2017-01-11 10:23] LABS: ANISOCYTOSIS SLIGHT; PLATELET ESTIMATE DECREASED (NORMAL)
[2017-01-11 10:24] LABS: HYPOCHROMIC SLIGHT; LARGE PLATELETS PRESENT; SCHISTOCYTES SLIGHT
--- NOTE | 2017-01-11 11:21 | CP.PCM.PN ---
Subjective - Date & Time of Evaluation Date of Evaluation: 01/11/17 Time of Evaluation: 11:18 - Subjective Subjective: Pt was able to keep some juice down for a couple of hours., but then started vomiting again. She is going for a ercp with stent placement as well a jejunostomy tube if possible. Prognosis poor Objective - Vital Signs/Intake and Output Vital Signs (last 24 hours): Temp Pulse Resp BP Pulse Ox 98.2 F 115 H 20 138/79 97 01/11/17 07:39 01/11/17 07:39 01/11/17 07:39 01/11/17 07:39 01/11/17 07:39 - Medications Medications: Current Medications Albuterol/Ipratropium (Duoneb 3 Mg/0.5 Mg (3 Ml) Ud) 3 ml INH RQ6 PRN PRN Reason: Shortness of Breath Allopurinol (Zyloprim) 100 mg PO DAILY [facility] Last Admin: 01/11/17 08:36 Dose: Not Given Ergocalciferol (Drisdol 50,000 Intl Units Cap) 1 cap PO ALIN [facility] Last Admin: 01/05/17 12:51 Dose: 1 cap Famotidine (Pepcid) 20 mg IVP Q12 [facility] Last Admin: 01/11/17 08:36 Dose: 20 mg Hydromorphone HCl (Dilaudid) 1 mg IVP Q4H PRN PRN Reason: Pain, severe (8-10) Last Admin: 01/10/17 17:20 Dose: 1 mg Hydroxyzine HCl (Atarax) 25 mg PO Q8 PRN PRN Reason: Itching / Pruritus Lactulose (Enulose) 10 gm PO DAILY PRN PRN Reason: Constipation Metoclopramide HCl (Reglan) 10 mg IVP Q6 PRN PRN Reason: Nausea/Vomiting Last Admin: 01/11/17 08:24 Dose: 10 mg Morphine Sulfate (Morphine) 4 mg IVP Q2 PRN PRN Reason: Pain, moderate (4-7) Last Admin: 01/11/17 10:02 Dose: 4 mg Ondansetron HCl (Zofran Inj) 4 mg IVP Q4 PRN PRN Reason: Nausea/Vomiting Last Admin: 01/11/17 05:29 Dose: 4 mg Prochlorperazine (Compazine Rectal Supp) 25 mg RC Q8H PRN PRN Reason: Nausea/Vomiting Last Admin: 01/04/17 20:08 Dose: 25 mg - Labs Labs: 01/11/17 07:20 01/11/17 07:20 PT 14.7 Seconds (9.8-13.1) H 01/11/17 07:20 INR 1.4 (0.9-1.2) H 01/11/17 07:20
--- NOTE | 2017-01-11 13:37 | PN ---
DATE: 01/11/2017 SUBJECTIVE: The patient seen and examined. The patient . The patient is awake, responsive. pain controlled with pain medication. No chest pain. No shortness of breath. PHYSICAL EXAMINATION: GENERAL: The patient is in no acute distress. VITAL SIGNS: Stable. HEART: S1 and S2, normal and regular. LUNGS: Bilateral air entry. ABDOMEN: Soft, nontender. No sign of acute abdomen. No guarding, no rigidity, no rebound. EXTREMITIES: No edema, no calf swelling, no tenderness. No acute ischemia. CENTRAL NERVOUS SYSTEM: Essentially unchanged. SKIN: The patient is jaundiced. DIAGNOSTIC DATA: Available diagnostic data reviewed. ASSESSMENT: The patient's gastroenterology consult and followup noted and appreciated. Overall, the patient is hemodynamically stable; however, the long-term functional prognosis remains poor due to underlying malignant condition. PLAN: As ordered. Case and plan discussed with the patient. Osmany Auguste MD
--- NOTE | 2017-01-11 16:30 | PN ---
DATE: 01/10/2017 SUBJECTIVE: The patient was seen on 01/10/2017. She was still having nausea and barely can keep any fluids without vomiting. PHYSICAL EXAMINATION: VITAL SIGNS: Blood pressure 116/75, temperature 98.2, respiratory rate 18, and pulse 87. HEENT: Pupils are equal and reactive to light. Normal-appearing mucosa. Conjunctivae, icterus sclerae. NECK: Supple. No JVD. No carotid bruit. No lymph node. No thyromegaly. CHEST AND LUNGS: Bilateral symmetrical expansion. Good air exchange. No rales. No rhonchi. CARDIOVASCULAR: PMI not localized. S1, S2. No additional sounds. ABDOMEN: Normoactive bowel sounds. There is generalized tenderness, but no rebound tenderness. No organomegaly. No masses. No rigidity. EXTREMITIES: No cyanosis, no clubbing, no edema. [employer]: Alert, awake, oriented x3. No neurological deficit could be appreciated. ASSESSMENT: 1. Metastatic malignant gastric ulcer. 2. Coagulopathy secondary to decreased oral intake. 3. Obstructive jaundice with hepatic cholestasis secondary to liver metastasis. PLAN: The patient was scheduled by sidehand for ERCP with possible stent placement and opening of gastric outlet obstruction. Currently continue the IV fluid and supplement electrolytes. Guarded prognosis. Kiko Chilel MD
--- NOTE | 2017-01-11 16:40 | PN ---
DAILY PROGRESS NOTE DATE: 01/05/2017 SUBJECTIVE: The patient is seen today on 01/05/2017. She is still nauseous and has upper abdominal pain. PHYSICAL EXAMINATION: VITAL SIGNS: Blood pressure 100/62, temperature 98.8, respiratory rate 14, and pulse 99. HEENT: Clean mucosa of the conjunctiva. NECK: Supple. No JVD. No carotid bruit. No lymph node. No thyromegaly. CHEST AND LUNGS: Bilateral symmetrical expansion. Good air exchange. No rales and no rhonchi. CARDIOVASCULAR: PMI not localized. S1 and S2. No additional sounds. ABDOMEN: Normoactive bowel sounds. Epigastric tenderness. EXTREMITIES: No cyanosis, no clubbing, no edema. [employer]: Alert, awake, and oriented x2. No neurological deficit could be appreciated. ASSESSMENT: 1. Metastatic malignant gastric ulcer. 2. Picture of elevated liver enzymes with picture of obstructive jaundice and increased bilirubin. 3. Thrombocytopenia. 4. Anemia. PLAN: Hematology and GI consult and follow their recommendations. A 2 units packed RBC transfusion if it is okay with hematology. We will continue antiemetics and pain medications as well as H2 blockers. The prognosis is guarded at this point given the patient's general condition. Kiko Chilel MD
[2017-01-12 06:07] LABS: HEMOGLOBIN 7.4 g/dL (12.0-16.0); MEAN CELL VOLUME 88.9 fl (81.0-99.0); MEAN CORPUSCULAR HEMOGLOBIN 30.6 pg (27.0-31.0); MEAN CORPUSCULAR HGB CONC 34.4 g/dL (33.0-37.0); RBC 2.42 Mil/uL (3.80-5.20); RED CELL DISTRIBUTION WIDTH 18.2 % (11.5-14.5); WHITE BLOOD COUNT 6.5 K/uL (4.8-10.8)
[2017-01-12 06:15] LABS: ALBUMIN 2.7 g/dL (3.5-5.0); ALT/SGPT 68 U/L (9-52); AST/SGOT 122 U/L (14-36); BLOOD UREA NITROGEN 16 mg/dl (7-17); CALCIUM 8.2 mg/dL (8.4-10.2); GFR AFRICAN-AMERICAN > 60; GFR NON-AFRICAN AMERICAN > 60; MAGNESIUM 1.3 MG/DL (1.6-2.3)
--- NOTE | 2017-01-12 08:38 | CP.PCM.PN ---
<Paola Hutson - Last Filed: 01/12/17 09:52> Subjective - Date & Time of Evaluation Date of Evaluation: 01/12/17 Time of Evaluation: 07:45 - Subjective Subjective: GI Fellow PGY4 Progress Note Pt seen and evaluated at bedside, pt reports that she is still unable to hold down liquids and was throwing up last night. She is still having diffuse abdominal pain that is the same as before and has not worsened since procedure. Pt requesting anti-emetic and pain medication. Discussed with pt plan for abdominal flat plate today and encouraged clear liquid diet after IV Zofran is given to see if pt can tolerate liquids today. ROS: A 12pt ROS was obtained and was negative except as above. Objective - Vital Signs/Intake and Output Vital Signs (last 24 hours): Temp Pulse Resp BP Pulse Ox 98.9 F 105 H 18 119/73 96 01/12/17 07:26 01/12/17 07:26 01/12/17 07:26 01/12/17 07:26 01/12/17 07:26 - Medications Medications: Current Medications Albuterol/Ipratropium (Duoneb 3 Mg/0.5 Mg (3 Ml) Ud) 3 ml INH RQ6 PRN PRN Reason: Shortness of Breath Allopurinol (Zyloprim) 100 mg PO DAILY [facility] Last Admin: 01/11/17 08:36 Dose: Not Given Ergocalciferol (Drisdol 50,000 Intl Units Cap) 1 cap PO ALIN [facility] Last Admin: 01/05/17 12:51 Dose: 1 cap Famotidine (Pepcid) 20 mg IVP Q12 [facility] Last Admin: 01/11/17 21:42 Dose: 20 mg Hydromorphone HCl (Dilaudid) 1 mg IVP Q4H PRN PRN Reason: Pain, severe (8-10) Last Admin: 01/10/17 17:20 Dose: 1 mg Hydroxyzine HCl (Atarax) 25 mg PO Q8 PRN PRN Reason: Itching / Pruritus Lactulose (Enulose) 10 gm PO DAILY PRN PRN Reason: Constipation Metoclopramide HCl (Reglan) 10 mg IVP Q6 PRN PRN Reason: Nausea/Vomiting Last Admin: 01/11/17 08:24 Dose: 10 mg Morphine Sulfate (Morphine) 4 mg IVP Q2 PRN PRN Reason: Pain, moderate (4-7) Last Admin: 01/11/17 10:02 Dose: 4 mg Ondansetron HCl (Zofran Inj) 4 mg IVP Q4 PRN PRN Reason: Nausea/Vomiting Last Admin: 01/12/17 02:12 Dose: 4 mg Prochlorperazine (Compazine Rectal Supp) 25 mg RC Q8H PRN PRN Reason: Nausea/Vomiting Last Admin: 01/04/17 20:08 Dose: 25 mg - Labs Labs: 01/12/17 05:10 01/12/17 05:10 PT 14.7 Seconds (9.8-13.1) H 01/11/17 07:20 INR 1.4 (0.9-1.2) H 01/11/17 07:20 - Constitutional Appears: Older Than Stated Age, Chronically Ill - Head Exam Head Exam: ATRAUMATIC, NORMAL INSPECTION, NORMOCEPHALIC - Eye Exam Eye Exam: EOMI, PERRL, Scleral icterus Pupil Exam: PERRL - ENT Exam ENT Exam: Mucous Membranes Moist, Normal Exam - Neck Exam Neck Exam: Full ROM, Normal Inspection - Respiratory Exam Respiratory Exam: Clear to Ausculation Bilateral, NORMAL BREATHING PATTERN - Cardiovascular Exam Cardiovascular Exam: REGULAR RHYTHM, +S1, +S2 - GI/Abdominal Exam GI & Abdominal Exam: Soft, Normal Bowel Sounds. 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 Pt presenting after recent treatment in November with nausea and vomiting. 1. Gastric adenocarcinoma with mets 2. 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 Nausea and Vomiting 4. Abdominal ascites 5. Hyperbilirubinemia/Transaminitis s/p billiary stent 6. Coagulopathy 7. Pancytopenia Plan: -s/p ERCP with duodenal and billiary stent -Clear liquid diet as tolerated -Plan for Abdominal Xray today -Anemia and Pancytopenia likely from chemotherapy, recommend 1UPRBC transfusion -Dehydration improving continue IVF hydration -Hyperbilirubinemia/Transaminitis, from liver mets and obstructive pathology now trending down after stent placement, continue to monitor -Will continue to follow pt closely <Jerry Ledbetter MD - Last Filed: 01/12/17 10:16> Objective - Vital Signs/Intake and Output Vital Signs (last 24 hours): Temp Pulse Resp BP Pulse Ox 98.9 F 105 H 18 119/73 96 01/12/17 07:26 01/12/17 07:26 01/12/17 07:26 01/12/17 07:26 01/12/17 07:26 - Medications Medications: Current Medications Albuterol/Ipratropium (Duoneb 3 Mg/0.5 Mg (3 Ml) Ud) 3 ml INH RQ6 PRN PRN Reason: Shortness of Breath Allopurinol (Zyloprim) 100 mg PO DAILY [facility] Last Admin: 01/12/17 08:41 Dose: 100 mg Ergocalciferol (Drisdol 50,000 Intl Units Cap) 1 cap PO ALIN [facility] Last Admin: 01/12/17 08:40 Dose: 1 cap Famotidine (Pepcid) 20 mg IVP Q12 [facility] Last Admin: 01/12/17 08:40 Dose: 20 mg Hydromorphone HCl (Dilaudid) 1 mg IVP Q4H PRN PRN Reason: Pain, severe (8-10) Last Admin: 01/10/17 17:20 Dose: 1 mg Hydroxyzine HCl (Atarax) 25 mg PO Q8 PRN PRN Reason: Itching / Pruritus Potassium Chloride/Dextrose/Sod Cl (Potassium Chl 20 Meq In D5-Ns) 1,000 mls @ 100 mls/hr IV .Q10H [facility] Stop: 01/13/17 09:10 Magnesium Sulfate 1 gm/ (Dextrose) 102 mls @ 102 mls/hr IV ONCE ONE PRN Reason: 1 GM/HR Stop: 01/12/17 10:29 Lactulose (Enulose) 10 gm PO DAILY PRN PRN Reason: Constipation Metoclopramide HCl (Reglan) 10 mg IVP Q6 PRN PRN Reason: Nausea/Vomiting Last Admin: 01/11/17 08:24 Dose: 10 mg Morphine Sulfate (Morphine) 4 mg IVP Q2 PRN PRN Reason: Pain, moderate (4-7) Last Admin: 01/11/17 10:02 Dose: 4 mg Ondansetron HCl (Zofran Inj) 4 mg IVP Q4 PRN PRN Reason: Nausea/Vomiting Last Admin: 01/12/17 02:12 Dose: 4 mg Prochlorperazine (Compazine Rectal Supp) 25 mg RC Q8H PRN PRN Reason: Nausea/Vomiting Last Admin: 01/04/17 20:08 Dose: 25 mg - Labs Labs: 01/12/17 05:10 01/12/17 05:10 PT 14.7 Seconds (9.8-13.1) H 01/11/17 07:20 INR 1.4 (0.9-1.2) H 01/11/17 07:20 Attending/Attestation - Attestation I have personally seen and examined this patient.: Yes I have fully participated in the care of the patient.: Yes I have reviewed all pertinent clinical information, including history, physical exam and plan: Yes Notes (Text): 01/12/17 10:11 Patient seen with GI fellow on rounds this afternoon. Agree with assessment and plan. 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 Pt presenting with gastric outlet obstruction and painless jaundice due to liver mets s/p EGD/ ERCP with duodenal stent and biliary stent. Will get AXR today and 1 unit PRBC. TB downtrending. Will start small sips of clear liquid diet as tolerated. Continue supportive care with anti emetics and IVF and oncology follow up for palliative chemotherapy. Will follow closely. Discussed with Dr Chilel
[2017-01-12] MEDS: Ergocalciferol 50,000 Intl Units Cap PO SCH (08:40)
--- NOTE | 2017-01-12 08:59 | CP.PCM.PN ---
<Fermin Lopez - Last Filed: 01/12/17 09:00> Subjective - Date & Time of Evaluation Date of Evaluation: 01/12/17 Time of Evaluation: 08:15 - Subjective Subjective: General Surgery Progress Note for Dr. Najrea Patient seen and examined at bedside. No acute event overnight. Patient went for ERCP with stent yesterday. Patient refused feeding tube. She still has nausea and mild abdominal pain in the epigastric region. Denies fever/chills, SOB,CP. Objective - Vital Signs/Intake and Output Vital Signs (last 24 hours): Temp Pulse Resp BP Pulse Ox 98.9 F 105 H 18 119/73 96 01/12/17 07:26 01/12/17 07:26 01/12/17 07:26 01/12/17 07:26 01/12/17 07:26 - Medications Medications: Current Medications Albuterol/Ipratropium (Duoneb 3 Mg/0.5 Mg (3 Ml) Ud) 3 ml INH RQ6 PRN PRN Reason: Shortness of Breath Allopurinol (Zyloprim) 100 mg PO DAILY [facility] Last Admin: 01/12/17 08:41 Dose: 100 mg Ergocalciferol (Drisdol 50,000 Intl Units Cap) 1 cap PO ALIN [facility] Last Admin: 01/12/17 08:40 Dose: 1 cap Famotidine (Pepcid) 20 mg IVP Q12 [facility] Last Admin: 01/12/17 08:40 Dose: 20 mg Hydromorphone HCl (Dilaudid) 1 mg IVP Q4H PRN PRN Reason: Pain, severe (8-10) Last Admin: 01/10/17 17:20 Dose: 1 mg Hydroxyzine HCl (Atarax) 25 mg PO Q8 PRN PRN Reason: Itching / Pruritus Lactulose (Enulose) 10 gm PO DAILY PRN PRN Reason: Constipation Metoclopramide HCl (Reglan) 10 mg IVP Q6 PRN PRN Reason: Nausea/Vomiting Last Admin: 01/11/17 08:24 Dose: 10 mg Morphine Sulfate (Morphine) 4 mg IVP Q2 PRN PRN Reason: Pain, moderate (4-7) Last Admin: 01/11/17 10:02 Dose: 4 mg Ondansetron HCl (Zofran Inj) 4 mg IVP Q4 PRN PRN Reason: Nausea/Vomiting Last Admin: 01/12/17 02:12 Dose: 4 mg Prochlorperazine (Compazine Rectal Supp) 25 mg RC Q8H PRN PRN Reason: Nausea/Vomiting Last Admin: 01/04/17 20:08 Dose: 25 mg - Labs Labs: 01/12/17 05:10 01/12/17 05:10 PT 14.7 Seconds (9.8-13.1) H 01/11/17 07:20 INR 1.4 (0.9-1.2) H 01/11/17 07:20 - Constitutional Appears: Chronically Ill - Eye Exam Eye Exam: EOMI, Scleral icterus - Respiratory Exam Respiratory Exam: NORMAL BREATHING PATTERN - Cardiovascular Exam Cardiovascular Exam: Tachycardia - GI/Abdominal Exam GI & Abdominal Exam: Soft, Tenderness. absent: Distended, Firm - Neurological Exam Neurological Exam: Alert, Awake, Oriented x3 - Psychiatric Exam Psychiatric exam: Flat Affect - Skin Skin Exam: Dry, Intact Additional comments: jaundice Assessment and Plan - Assessment and Plan (Free Text) Plan: 51 F with PMH of metastatic gastric adenocarcinoma on palliative chemo with intractable nausea/vomiting and unable to tolerate PO - Pain and Nausea control - No plans for general surgery intervention at this time - Will continue to follow - DW Dr. Reinaldo Lopez PGY1 <Daniel Naik - Last Filed: 01/12/17 13:29> Subjective - Date & Time of Evaluation Time of Evaluation: 13:15 - Subjective Subjective: Patient was seen and examined at the bedside. Agree with resident's note above. Objective - Vital Signs/Intake and Output Vital Signs (last 24 hours): Temp Pulse Resp BP Pulse Ox 98.9 F 105 H 18 119/73 96 01/12/17 07:26 01/12/17 07:26 01/12/17 07:26 01/12/17 07:26 01/12/17 07:26 - Medications Medications: Current Medications Albuterol/Ipratropium (Duoneb 3 Mg/0.5 Mg (3 Ml) Ud) 3 ml INH RQ6 PRN PRN Reason: Shortness of Breath Allopurinol (Zyloprim) 100 mg PO DAILY [facility] Last Admin: 01/12/17 08:41 Dose: 100 mg Ergocalciferol (Drisdol 50,000 Intl Units Cap) 1 cap PO ALIN [facility] Last Admin: 01/12/17 08:40 Dose: 1 cap Famotidine (Pepcid) 20 mg IVP Q12 [facility] Last Admin: 01/12/17 08:40 Dose: 20 mg Hydromorphone HCl (Dilaudid) 1 mg IVP Q4H PRN PRN Reason: Pain, severe (8-10) Last Admin: 01/10/17 17:20 Dose: 1 mg Hydroxyzine HCl (Atarax) 25 mg PO Q8 PRN PRN Reason: Itching / Pruritus Potassium Chloride/Dextrose/Sod Cl (Potassium Chl 20 Meq In D5-Ns) 1,000 mls @ 100 mls/hr IV .Q10H [facility] Stop: 01/13/17 09:10 Lactulose (Enulose) 10 gm PO DAILY PRN PRN Reason: Constipation Metoclopramide HCl (Reglan) 10 mg IVP Q6 PRN PRN Reason: Nausea/Vomiting Last Admin: 01/11/17 08:24 Dose: 10 mg Morphine Sulfate (Morphine) 4 mg IVP Q2 PRN PRN Reason: Pain, moderate (4-7) Last Admin: 01/11/17 10:02 Dose: 4 mg Ondansetron HCl (Zofran Inj) 4 mg IVP Q4 PRN PRN Reason: Nausea/Vomiting Last Admin: 01/12/17 02:12 Dose: 4 mg Prochlorperazine (Compazine Rectal Supp) 25 mg RC Q8H PRN PRN Reason: Nausea/Vomiting Last Admin: 01/04/17 20:08 Dose: 25 mg - Labs Labs: 01/12/17 05:10 01/12/17 05:10 PT 14.7 Seconds (9.8-13.1) H 01/11/17 07:20 INR 1.4 (0.9-1.2) H 01/11/17 07:20 Assessment and Plan - Assessment and Plan (Free Text) Plan: - No general surgery intervention at present time - Continue care as per medical and GI teams - General surgery will sign off - Please re-consult as needed
[2017-01-12] MEDS ORDERED: Magnesium Sulfate 1 gm in D5W 1 GM/100 ML BAG IVPB ONE (09:07)
[2017-01-12 09:23] LABS: SQUAMOUS EPITHIAL 1 /hpf (0-5); URINE BACTERIA RARE (<OCC); URINE BILIRUBIN MODERATE (NEGATIVE); URINE BLOOD NEGATIVE (NEGATIVE); URINE CLARITY SLIGHTY-CLOUDY (Clear); URINE COLOR AMBER (YELLOW); URINE GLUCOSE (UA) 50 mg/dL (Normal); URINE HYALINE CAST 0-2 /hpf (0-2); URINE LEUKOCYTE ESTERASE NEG Leu/uL (Negative); URINE NITRATE NEGATIVE (NEGATIVE); URINE PROTEIN 30 mg/dL (NEGATIVE)
--- NOTE | 2017-01-12 09:23 | CP.PCM.PN ---
Subjective - Date & Time of Evaluation Date of Evaluation: 01/12/17 Time of Evaluation: 09:17 - Subjective Subjective: Pt is still having a fair amount of nausea, vomiting and pain. Yesterday she had a stent placed in the CBC and her bilirubin is already lower. There is also a stent in the jejunum because she did not want a feeding tube, She is unable to eat, but still refused the feeding tube, but wants everything done. Today the hgb is low(7.5gms), and we will transfuse her 2 units of packed cells. Objective - Vital Signs/Intake and Output Vital Signs (last 24 hours): Temp Pulse Resp BP Pulse Ox 98.9 F 105 H 18 119/73 96 01/12/17 07:26 01/12/17 07:26 01/12/17 07:26 01/12/17 07:26 01/12/17 07:26 - Medications Medications: Current Medications Albuterol/Ipratropium (Duoneb 3 Mg/0.5 Mg (3 Ml) Ud) 3 ml INH RQ6 PRN PRN Reason: Shortness of Breath Allopurinol (Zyloprim) 100 mg PO DAILY [facility] Last Admin: 01/12/17 08:41 Dose: 100 mg Ergocalciferol (Drisdol 50,000 Intl Units Cap) 1 cap PO ALIN [facility] Last Admin: 01/12/17 08:40 Dose: 1 cap Famotidine (Pepcid) 20 mg IVP Q12 [facility] Last Admin: 01/12/17 08:40 Dose: 20 mg Hydromorphone HCl (Dilaudid) 1 mg IVP Q4H PRN PRN Reason: Pain, severe (8-10) Last Admin: 01/10/17 17:20 Dose: 1 mg Hydroxyzine HCl (Atarax) 25 mg PO Q8 PRN PRN Reason: Itching / Pruritus Magnesium Sulfate/Dextrose (Magnesium Sulfate 1 Gm/100 Ml D5w) 1 gm in 100 mls @ 100 mls/hr IVPB ONCE ONE PRN Reason: 1 GM/HR Stop: 01/12/17 10:06 Potassium Chloride/Dextrose/Sod Cl (Potassium Chl 20 Meq In D5-Ns) 1,000 mls @ 100 mls/hr IV .Q10H [facility] Stop: 01/13/17 09:10 Lactulose (Enulose) 10 gm PO DAILY PRN PRN Reason: Constipation Metoclopramide HCl (Reglan) 10 mg IVP Q6 PRN PRN Reason: Nausea/Vomiting Last Admin: 01/11/17 08:24 Dose: 10 mg Morphine Sulfate (Morphine) 4 mg IVP Q2 PRN PRN Reason: Pain, moderate (4-7) Last Admin: 01/11/17 10:02 Dose: 4 mg Ondansetron HCl (Zofran Inj) 4 mg IVP Q4 PRN PRN Reason: Nausea/Vomiting Last Admin: 01/12/17 02:12 Dose: 4 mg Prochlorperazine (Compazine Rectal Supp) 25 mg RC Q8H PRN PRN Reason: Nausea/Vomiting Last Admin: 01/04/17 20:08 Dose: 25 mg - Labs Labs: 01/12/17 05:10 01/12/17 05:10 PT 14.7 Seconds (9.8-13.1) H 01/11/17 07:20 INR 1.4 (0.9-1.2) H 01/11/17 07:20
[2017-01-12] MEDS ORDERED: Magnesium Sulfate 1 GM in Dextrose 5% In Water 100 ML IV ONE (09:30)
--- NOTE | 2017-01-12 14:29 | RAD ---
HISTORY: s/p ERCP with biliary/duod. stent placement COMPARISON: 01/06/2017. CT abdomenAnd pelvis FINDINGS: BOWEL: Normal. No obstruction. No free air. BONES: Normal. OTHER FINDINGS: Status post common bile duct and duodenal stent placement. As can best be determined, the stents appear to be in satisfactory position and alignment. Status post cholecystectomy. Surgical clips right upper quadrant. IMPRESSION: Satisfactory postprocedural status.
[2017-01-12] MEDS: Potassium Chl 20 mEq in D5-NS 1,000 ML IV SCH (19:55)
[2017-01-12] MEDS: Morphine 4 MG/ML VIAL IVP PRN (21:15)
[2017-01-13] MEDS: Potassium Chl 20 mEq in D5-NS 1,000 ML IV SCH ×2 (06:05→07:26)
[2017-01-13 06:47] LABS: HEMOGLOBIN 8.7 g/dL (12.0-16.0); MEAN CELL VOLUME 86.3 fl (81.0-99.0); MEAN CORPUSCULAR HEMOGLOBIN 29.3 pg (27.0-31.0); MEAN CORPUSCULAR HGB CONC 33.9 g/dL (33.0-37.0); RBC 2.97 Mil/uL (3.80-5.20); RED CELL DISTRIBUTION WIDTH 18.3 % (11.5-14.5); WHITE BLOOD COUNT 6.7 K/uL (4.8-10.8)
[2017-01-13 06:50] LABS: ALB/GLOB RATIO 0.9 (1.0-2.1); ALBUMIN 2.5 g/dL (3.5-5.0); ALT/SGPT 56 U/L (9-52); AST/SGOT 96 U/L (14-36); BLOOD UREA NITROGEN 19 mg/dl (7-17); CALCIUM 8.2 mg/dL (8.4-10.2); GFR AFRICAN-AMERICAN > 60; GFR NON-AFRICAN AMERICAN > 60; MAGNESIUM 1.3 MG/DL (1.6-2.3)
[2017-01-13] MEDS: Morphine 4 MG/ML VIAL IVP PRN ×3 (07:22→15:42)
[2017-01-13] MEDS ORDERED: Magnesium Sulfate 2 GM in Sodium Chloride 0.9% 100 ML IVPB ONE (08:08)
--- NOTE | 2017-01-13 08:37 | PN ---
DATE: 01/12/2017 SUBJECTIVE: The patient was seen and examined. Interim events noted. Consult note is appreciated. The patient remains in regular medical floor . The patient still has significant pain, but controlled by medication. No chest pain. No shortness of breath PHYSICAL EXAMINATION: GENERAL: The patient is in no acute distress. VITAL SIGNS: Stable. HEART: S1 and S2 normal and regular. LUNGS: Good bilateral air exchange. ABDOMEN: Soft, nontender. No sign of acute abdomen. No guarding, no rigidity, no rebound. EXTREMITIES: No edema. No calf swelling or tenderness. No acute ischemia. CENTRAL NERVOUS SYSTEM: Essentially unchanged. DIAGNOSTIC DATA: Available diagnostic data is reviewed. ASSESSMENT : Overall, the patient's general medical condition is stable. PLAN: As ordered. Osmany Auguste MD
--- NOTE | 2017-01-13 08:51 | CP.PCM.PN ---
<Paola Hutson - Last Filed: 01/13/17 09:18> Subjective - Date & Time of Evaluation Date of Evaluation: 01/13/17 Time of Evaluation: 08:00 - Subjective Subjective: GI Fellow PGY4 Progress Note Pt seen and evaluated at bedside, pt still unable to hold down liquids and per nursing and pt she was throwing up last night anytime she took a sip of liquids. No improvement in nausea with IV Zofran and Reglan She is still having diffuse abdominal pain that is unchanged since admission. Pt did have a small formed BM last night, denies any fevers or chills. ROS: A 12pt ROS was obtained and was negative except as above. Objective - Vital Signs/Intake and Output Vital Signs (last 24 hours): Temp Pulse Resp BP Pulse Ox 98 F 84 20 125/74 99 01/13/17 08:20 01/13/17 08:20 01/13/17 08:20 01/13/17 08:20 01/13/17 08:20 - Medications Medications: Current Medications Albuterol/Ipratropium (Duoneb 3 Mg/0.5 Mg (3 Ml) Ud) 3 ml INH RQ6 PRN PRN Reason: Shortness of Breath Allopurinol (Zyloprim) 100 mg PO DAILY [facility] Last Admin: 01/12/17 08:41 Dose: 100 mg Ergocalciferol (Drisdol 50,000 Intl Units Cap) 1 cap PO ALIN [facility] Last Admin: 01/12/17 08:40 Dose: 1 cap Famotidine (Pepcid) 20 mg IVP Q12 [facility] Last Admin: 01/12/17 20:45 Dose: 20 mg Hydromorphone HCl (Dilaudid) 1 mg IVP Q4H PRN PRN Reason: Pain, severe (8-10) Last Admin: 01/10/17 17:20 Dose: 1 mg Hydroxyzine HCl (Atarax) 25 mg PO Q8 PRN PRN Reason: Itching / Pruritus Potassium Chloride/Dextrose/Sod Cl (Potassium Chl 20 Meq In D5-Ns) 1,000 mls @ 100 mls/hr IV .Q10H [facility] Stop: 01/13/17 09:10 Last Admin: 01/13/17 07:26 Dose: 100 mls/hr Magnesium Sulfate 2 gm/ Sodium (Chloride) 104 mls @ 104 mls/hr IVPB ONCE ONE PRN Reason: 2 GM/HR Stop: 01/13/17 09:07 Lactulose (Enulose) 10 gm PO DAILY PRN PRN Reason: Constipation Metoclopramide HCl (Reglan) 10 mg IVP Q6 PRN PRN Reason: Nausea/Vomiting Last Admin: 01/12/17 20:46 Dose: 10 mg Morphine Sulfate (Morphine) 4 mg IVP Q2 PRN PRN Reason: Pain, moderate (4-7) Last Admin: 01/13/17 07:22 Dose: 4 mg Ondansetron HCl (Zofran Inj) 4 mg IVP Q4 PRN PRN Reason: Nausea/Vomiting Last Admin: 01/13/17 04:34 Dose: 4 mg Prochlorperazine (Compazine Rectal Supp) 25 mg RC Q8H PRN PRN Reason: Nausea/Vomiting Last Admin: 01/04/17 20:08 Dose: 25 mg - Labs Labs: 01/13/17 06:10 01/13/17 06:10 PT 14.7 Seconds (9.8-13.1) H 01/11/17 07:20 INR 1.4 (0.9-1.2) H 01/11/17 07:20 - Constitutional Appears: Older Than Stated Age, Chronically Ill - Head Exam Head Exam: ATRAUMATIC, NORMAL INSPECTION, NORMOCEPHALIC - Eye Exam Eye Exam: EOMI, PERRL, Scleral icterus Pupil Exam: PERRL - ENT Exam ENT Exam: Mucous Membranes Moist, Normal Exam - Neck Exam Neck Exam: Full ROM, Normal Inspection - Respiratory Exam Respiratory Exam: Clear to Ausculation Bilateral, NORMAL BREATHING PATTERN - Cardiovascular Exam Cardiovascular Exam: RRR, +S1, +S2 - GI/Abdominal Exam GI & Abdominal Exam: Soft, Tenderness, Normal Bowel Sounds. 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 Pt presenting after recent treatment in November with nausea and vomiting. 1. Gastric adenocarcinoma with mets 2. Gastric outlet obstruction 2/2 malignant stricture s/p duodenal and billiary stent 3. Nausea and Vomiting 4. Abdominal ascites 5. Hyperbilirubinemia/Transaminitis 6. Coagulopathy 7. Pancytopenia Plan: -s/p ERCP with duodenal and billiary stent -Clear liquid diet as tolerated -Abdominal Xray shows good stent placement with no signs of obstruction -Anemia improved s/p 2UPRBC transfusion -Dehydration improving continue IVF hydration -Hyperbilirubinemia/Transaminitis, from liver mets and obstructive pathology now downtrending after stent placement, continue to monitor -Pt unable to tolerate any nutritional intake, palliative support at this time, pt refused PEJ tube prior, will discuss again as a possible source of nutrition -Will continue to follow pt closely <Jerry Ledbetter MD - Last Filed: 01/13/17 17:12> Objective - Vital Signs/Intake and Output Vital Signs (last 24 hours): Temp Pulse Resp BP Pulse Ox 99 F 100 H 18 124/83 99 01/13/17 15:57 01/13/17 15:57 01/13/17 15:57 01/13/17 15:57 01/13/17 15:57 - Medications Medications: Current Medications Albuterol/Ipratropium (Duoneb 3 Mg/0.5 Mg (3 Ml) Ud) 3 ml INH RQ6 PRN PRN Reason: Shortness of Breath Allopurinol (Zyloprim) 100 mg PO DAILY [facility] Last Admin: 01/13/17 10:13 Dose: Not Given Ergocalciferol (Drisdol 50,000 Intl Units Cap) 1 cap PO ALIN [facility] Last Admin: 01/12/17 08:40 Dose: 1 cap Famotidine (Pepcid) 20 mg IVP Q12 [facility] Last Admin: 01/13/17 10:05 Dose: 20 mg Hydromorphone HCl (Dilaudid) 1 mg IVP Q4H PRN PRN Reason: Pain, severe (8-10) Last Admin: 01/10/17 17:20 Dose: 1 mg Hydroxyzine HCl (Atarax) 25 mg PO Q8 PRN PRN Reason: Itching / Pruritus Lactulose (Enulose) 10 gm PO DAILY PRN PRN Reason: Constipation Metoclopramide HCl (Reglan) 10 mg IVP Q6 PRN PRN Reason: Nausea/Vomiting Last Admin: 01/13/17 10:05 Dose: 10 mg Morphine Sulfate (Morphine) 4 mg IVP Q2 PRN PRN Reason: Pain, moderate (4-7) Last Admin: 01/13/17 15:42 Dose: 4 mg Ondansetron HCl (Zofran Inj) 4 mg IVP Q4 PRN PRN Reason: Nausea/Vomiting Last Admin: 01/13/17 13:51 Dose: 4 mg Prochlorperazine (Compazine Rectal Supp) 25 mg RC Q8H PRN PRN Reason: Nausea/Vomiting Last Admin: 01/04/17 20:08 Dose: 25 mg - Labs Labs: 01/13/17 06:10 01/13/17 06:10 PT 14.7 Seconds (9.8-13.1) H 01/11/17 07:20 INR 1.4 (0.9-1.2) H 01/11/17 07:20 Attending/Attestation - Attestation I have personally seen and examined this patient.: Yes I have fully participated in the care of the patient.: Yes I have reviewed all pertinent clinical information, including history, physical exam and plan: Yes Notes (Text): 01/13/17 17:10 Patient seen with GI fellow on rounds this afternoon. Agree with assessment and plan. 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 Pt presenting with gastric outlet obstruction and painless jaundice due to liver mets s/p EGD/ ERCP with duodenal stent and biliary stent. TB downtrending. Still not tolerating oral sips. Will watch for 24 hours and then possibly get CT abdomen. Continue supportive care with anti emetics and IVF and oncology follow up for palliative chemotherapy. Will follow closely.
--- NOTE | 2017-01-13 09:52 | CP.PCM.PN ---
Subjective - Date & Time of Evaluation Date of Evaluation: 01/13/17 Time of Evaluation: 09:50 - Subjective Subjective: Pt's LFT are coming down but she still continues to have vomiting and is unable to keep anything sown. Will discuss with GI Objective - Vital Signs/Intake and Output Vital Signs (last 24 hours): Temp Pulse Resp BP Pulse Ox 98 F 84 20 125/74 99 01/13/17 08:20 01/13/17 08:20 01/13/17 08:20 01/13/17 08:20 01/13/17 08:20 - Medications Medications: Current Medications Albuterol/Ipratropium (Duoneb 3 Mg/0.5 Mg (3 Ml) Ud) 3 ml INH RQ6 PRN PRN Reason: Shortness of Breath Allopurinol (Zyloprim) 100 mg PO DAILY [facility] Last Admin: 01/12/17 08:41 Dose: 100 mg Ergocalciferol (Drisdol 50,000 Intl Units Cap) 1 cap PO ALIN [facility] Last Admin: 01/12/17 08:40 Dose: 1 cap Famotidine (Pepcid) 20 mg IVP Q12 [facility] Last Admin: 01/12/17 20:45 Dose: 20 mg Hydromorphone HCl (Dilaudid) 1 mg IVP Q4H PRN PRN Reason: Pain, severe (8-10) Last Admin: 01/10/17 17:20 Dose: 1 mg Hydroxyzine HCl (Atarax) 25 mg PO Q8 PRN PRN Reason: Itching / Pruritus Lactulose (Enulose) 10 gm PO DAILY PRN PRN Reason: Constipation Metoclopramide HCl (Reglan) 10 mg IVP Q6 PRN PRN Reason: Nausea/Vomiting Last Admin: 01/12/17 20:46 Dose: 10 mg Morphine Sulfate (Morphine) 4 mg IVP Q2 PRN PRN Reason: Pain, moderate (4-7) Last Admin: 01/13/17 07:22 Dose: 4 mg Ondansetron HCl (Zofran Inj) 4 mg IVP Q4 PRN PRN Reason: Nausea/Vomiting Last Admin: 01/13/17 04:34 Dose: 4 mg Prochlorperazine (Compazine Rectal Supp) 25 mg RC Q8H PRN PRN Reason: Nausea/Vomiting Last Admin: 01/04/17 20:08 Dose: 25 mg - Labs Labs: 01/13/17 06:10 01/13/17 06:10 PT 14.7 Seconds (9.8-13.1) H 01/11/17 07:20 INR 1.4 (0.9-1.2) H 01/11/17 07:20
[2017-01-13] MEDS ORDERED: Magnesium Sulfate 2 gm/50 ml 2 GM/50 ML BAG IVPB ONE (12:45)
[2017-01-14] MEDS: Morphine 4 MG/ML VIAL IVP PRN ×3 (01:11→16:06)
[2017-01-14 07:42] LABS: HEMOGLOBIN 7.2 g/dL (12.0-16.0); MEAN CORPUSCULAR HEMOGLOBIN 29.7 pg (27.0-31.0); MEAN CORPUSCULAR HGB CONC 33.8 g/dL (33.0-37.0); RBC 2.41 Mil/uL (3.80-5.20); RED CELL DISTRIBUTION WIDTH 18.6 % (11.5-14.5); WHITE BLOOD COUNT 5.8 K/uL (4.8-10.8)
[2017-01-14 07:49] LABS: ALBUMIN 2.4 g/dL (3.5-5.0); ALT/SGPT 50 U/L (9-52); AST/SGOT 78 U/L (14-36); BLOOD UREA NITROGEN 17 mg/dl (7-17); CALCIUM 7.9 mg/dL (8.4-10.2); GFR AFRICAN-AMERICAN > 60; GFR NON-AFRICAN AMERICAN > 60; MAGNESIUM 1.5 MG/DL (1.6-2.3)
--- NOTE | 2017-01-14 10:01 | CP.PCM.PN ---
<ShaniqueradhaloboKishor - Last Filed: 01/14/17 09:58> Subjective - Date & Time of Evaluation Date of Evaluation: 01/14/17 Time of Evaluation: 09:00 - Subjective Subjective: PGY5 GI Fellow Progress Note Patient seen and examined bedside this morning. The patient states that she continues to have nausea and vomiting within minutes of PO intake. Has not been able to tolerate liquid diet thusfar. Pain persists and is moderate, relieved by analgesic medications and often returns before next dose due. Small loose stool. 12 system ROS performed and negative except where stated. Objective - Vital Signs/Intake and Output Vital Signs (last 24 hours): Temp Pulse Resp BP Pulse Ox 97.8 F 98 H 18 119/71 96 01/14/17 07:30 01/14/17 07:30 01/14/17 07:30 01/14/17 07:30 01/14/17 07:30 - Medications Medications: Current Medications Albuterol/Ipratropium (Duoneb 3 Mg/0.5 Mg (3 Ml) Ud) 3 ml INH RQ6 PRN PRN Reason: Shortness of Breath Allopurinol (Zyloprim) 100 mg PO DAILY [facility] Last Admin: 01/14/17 09:11 Dose: Not Given Ergocalciferol (Drisdol 50,000 Intl Units Cap) 1 cap PO ALIN [facility] Last Admin: 01/12/17 08:40 Dose: 1 cap Famotidine (Pepcid) 20 mg IVP Q12 [facility] Last Admin: 01/14/17 09:06 Dose: 20 mg Hydromorphone HCl (Dilaudid) 1 mg IVP Q4H PRN PRN Reason: Pain, severe (8-10) Last Admin: 01/10/17 17:20 Dose: 1 mg Hydroxyzine HCl (Atarax) 25 mg PO Q8 PRN PRN Reason: Itching / Pruritus Potassium Chloride/Dextrose/Sod Cl (Potassium Chl 20 Meq In D5-Ns) 1,000 mls @ 100 mls/hr IV .Q10H [facility] Stop: 01/15/17 09:51 Lactulose (Enulose) 10 gm PO DAILY PRN PRN Reason: Constipation Metoclopramide HCl (Reglan) 10 mg IVP ACHS [facility] Morphine Sulfate (Morphine) 4 mg IVP Q2 PRN PRN Reason: Pain, moderate (4-7) Last Admin: 01/14/17 09:06 Dose: 4 mg Ondansetron HCl (Zofran Inj) 4 mg IVP Q4 PRN PRN Reason: Nausea/Vomiting Last Admin: 01/14/17 01:13 Dose: 4 mg Prochlorperazine (Compazine Rectal Supp) 25 mg RC Q8H PRN PRN Reason: Nausea/Vomiting Last Admin: 01/14/17 04:10 Dose: 25 mg - Labs Labs: 01/14/17 05:30 01/14/17 05:30 PT 14.7 Seconds (9.8-13.1) H 01/11/17 07:20 INR 1.4 (0.9-1.2) H 01/11/17 07:20 - Constitutional Appears: Non-toxic, No Acute Distress - Eye Exam Eye Exam: EOMI, PERRL, Scleral icterus - ENT Exam ENT Exam: Mucous Membranes Moist - Respiratory Exam Respiratory Exam: Clear to Ausculation Bilateral. absent: Rales, Rhonchi, Wheezes - Cardiovascular Exam Cardiovascular Exam: RRR, +S1, +S2 - GI/Abdominal Exam GI & Abdominal Exam: Soft, Tenderness, Normal Bowel Sounds. absent: Distended, Firm, Guarding, Rigid, Organomegaly - Extremities Exam Extremities Exam: Normal Inspection. 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 -Gastric adenocarcinoma -Gastric outlet obstruction 2/2 malignant stricture s/p duodenal stent placement -Coagulopathy -Hyperbilirubinemia, 2/2 obstructive jaundice s/p metal biliary stent placement -Pancytopenia, likely a result of chemotherapy -UTI Plan: -Schedule Reglan at 10mg IVP ACHS -Continue liquid diet; encourage pt to sit upright for 30min-2Hr following PO intake -Aspiration precautions; HOB@45degrees -LFTs continue to improve following biliary stent placement -Would benefit from bowel regimen with Miralax when she is more able to tolerate PO intake -Consider repeat CT scan with PO/IV if symptoms persists tomorrow -Continue supportive care <Allen Tejada - Last Filed: 01/14/17 10:29> Objective - Vital Signs/Intake and Output Vital Signs (last 24 hours): Temp Pulse Resp BP Pulse Ox 97.8 F 98 H 18 119/71 96 01/14/17 07:30 01/14/17 07:30 01/14/17 07:30 01/14/17 07:30 01/14/17 07:30 - Medications Medications: Current Medications Albuterol/Ipratropium (Duoneb 3 Mg/0.5 Mg (3 Ml) Ud) 3 ml INH RQ6 PRN PRN Reason: Shortness of Breath Allopurinol (Zyloprim) 100 mg PO DAILY [facility] Last Admin: 01/14/17 09:11 Dose: Not Given Ergocalciferol (Drisdol 50,000 Intl Units Cap) 1 cap PO ALIN [facility] Last Admin: 01/12/17 08:40 Dose: 1 cap Famotidine (Pepcid) 20 mg IVP Q12 [facility] Last Admin: 01/14/17 09:06 Dose: 20 mg Hydromorphone HCl (Dilaudid) 1 mg IVP Q4H PRN PRN Reason: Pain, severe (8-10) Last Admin: 01/10/17 17:20 Dose: 1 mg Hydroxyzine HCl (Atarax) 25 mg PO Q8 PRN PRN Reason: Itching / Pruritus Potassium Chloride/Dextrose/Sod Cl (Potassium Chl 20 Meq In D5-Ns) 1,000 mls @ 100 mls/hr IV .Q10H [facility] Stop: 01/15/17 09:51 Lactulose (Enulose) 10 gm PO DAILY PRN PRN Reason: Constipation Metoclopramide HCl (Reglan) 10 mg IVP ACHS [facility] Morphine Sulfate (Morphine) 4 mg IVP Q2 PRN PRN Reason: Pain, moderate (4-7) Last Admin: 01/14/17 09:06 Dose: 4 mg Ondansetron HCl (Zofran Inj) 4 mg IVP Q4 PRN PRN Reason: Nausea/Vomiting Last Admin: 01/14/17 01:13 Dose: 4 mg Prochlorperazine (Compazine Rectal Supp) 25 mg RC Q8H PRN PRN Reason: Nausea/Vomiting Last Admin: 01/14/17 04:10 Dose: 25 mg - Labs Labs: 01/14/17 05:30 01/14/17 05:30 PT 14.7 Seconds (9.8-13.1) H 01/11/17 07:20 INR 1.4 (0.9-1.2) H 01/11/17 07:20 Attending/Attestation - Attestation I have personally seen and examined this patient.: Yes I have fully participated in the care of the patient.: Yes I have reviewed all pertinent clinical information, including history, physical exam and plan: Yes Notes (Text): 01/14/17 10:27 51 year old female with gastric adenocarcinoma c/b gastric outlet obstruction and biliary obstruction s/p doudenal and biliary stents. 1. Gastric adenocarcinoma 2. Malignant biliary obstruction 3. Malignant gastric outlet obstruction Plan: -schedule reglan QID -liquid diet / small freq meals/ remain upright after drinking anything for 30 mins or so -aspiration precautions / HOB at 45 degrees -supportive care with IV fluids -if no improvement, will repeat CT tomorrow -bili is downtrending
--- NOTE | 2017-01-14 10:36 | PN ---
DATE: 01/14/2017 SUBJECTIVE: The patient seen and examined. Interim events noted. Consults noted appreciated. Gastroenterology followup and intervention noted and appreciated. The patient remains in regular medical floor, still complains of nausea every time she tries to eat or drink something. Pain is slightly better but still significantly present. PHYSICAL EXAMINATION: GENERAL: The patient is chronically sick looking female, in no acute distress. VITAL SIGNS: Stable. HEART: S1 and S2 normal and regular. LUNGS: Good bilateral air exchange. ABDOMEN: Soft, nontender. No sign of acute abdomen. No guarding, no rigidity, no rebound. EXTREMITIES: No edema. No calf swelling or tenderness. No acute ischemia. CENTRAL NERVOUS SYSTEM: Essentially is unchanged. SKIN: The patient does remain jaundiced. The patient is hemodynamically stable. Had a long discussion about possibility of alternate means of treatment was discussed with the patient and the patient is more amenable now. DIAGNOSTIC DATA: Available diagnostic data reviewed. ASSESSMENT: Overall, the patient's general medical condition is hemodynamically stable, although long-term prognosis remains poor. PLAN: As ordered. Osmany Auguste MD
--- NOTE | 2017-01-14 11:07 | CP.PCM.PN ---
Subjective - Date & Time of Evaluation Date of Evaluation: 01/14/17 Time of Evaluation: 11:04 - Subjective Subjective: Pt ois still unable to keep anything down. She is feeling very weak. Her bilirubin and LFT are going down since the stent was placed. Her hgb today was only 7.5gms. Will give 2 units of packed cells today. Objective - Vital Signs/Intake and Output Vital Signs (last 24 hours): Temp Pulse Resp BP Pulse Ox 97.8 F 98 H 18 119/71 96 01/14/17 07:30 01/14/17 07:30 01/14/17 07:30 01/14/17 07:30 01/14/17 07:30 - Medications Medications: Current Medications Albuterol/Ipratropium (Duoneb 3 Mg/0.5 Mg (3 Ml) Ud) 3 ml INH RQ6 PRN PRN Reason: Shortness of Breath Allopurinol (Zyloprim) 100 mg PO DAILY [facility] Last Admin: 01/14/17 09:11 Dose: Not Given Ergocalciferol (Drisdol 50,000 Intl Units Cap) 1 cap PO ALIN [facility] Last Admin: 01/12/17 08:40 Dose: 1 cap Famotidine (Pepcid) 20 mg IVP Q12 [facility] Last Admin: 01/14/17 09:06 Dose: 20 mg Hydromorphone HCl (Dilaudid) 1 mg IVP Q4H PRN PRN Reason: Pain, severe (8-10) Last Admin: 01/10/17 17:20 Dose: 1 mg Hydroxyzine HCl (Atarax) 25 mg PO Q8 PRN PRN Reason: Itching / Pruritus Potassium Chloride/Dextrose/Sod Cl (Potassium Chl 20 Meq In D5-Ns) 1,000 mls @ 100 mls/hr IV .Q10H [facility] Stop: 01/15/17 09:51 Lactulose (Enulose) 10 gm PO DAILY PRN PRN Reason: Constipation Metoclopramide HCl (Reglan) 10 mg IVP ACHS [facility] Morphine Sulfate (Morphine) 4 mg IVP Q2 PRN PRN Reason: Pain, moderate (4-7) Last Admin: 01/14/17 09:06 Dose: 4 mg Ondansetron HCl (Zofran Inj) 4 mg IVP Q4 PRN PRN Reason: Nausea/Vomiting Last Admin: 01/14/17 01:13 Dose: 4 mg Prochlorperazine (Compazine Rectal Supp) 25 mg RC Q8H PRN PRN Reason: Nausea/Vomiting Last Admin: 01/14/17 04:10 Dose: 25 mg - Labs Labs: 01/14/17 05:30 01/14/17 05:30 PT 14.7 Seconds (9.8-13.1) H 01/11/17 07:20 INR 1.4 (0.9-1.2) H 01/11/17 07:20
[2017-01-14] MEDS: Potassium Chl 20 mEq in D5-NS 1,000 ML IV SCH ×2 (11:42→20:00)
[2017-01-15] MEDS: Potassium Chl 20 mEq in D5-NS 1,000 ML IV SCH ×3 (05:30→23:46)
[2017-01-15 07:22] LABS: HEMOGLOBIN 9.2 g/dL (12.0-16.0); MEAN CORPUSCULAR HGB CONC 33.9 g/dL (33.0-37.0); RBC 3.16 Mil/uL (3.80-5.20); RED CELL DISTRIBUTION WIDTH 16.8 % (11.5-14.5); WHITE BLOOD COUNT 4.8 K/uL (4.8-10.8)
[2017-01-15 07:35] LABS: ALBUMIN 2.5 g/dL (3.5-5.0); ALT/SGPT 40 U/L (9-52); AST/SGOT 82 U/L (14-36); BLOOD UREA NITROGEN 15 mg/dl (7-17); GFR AFRICAN-AMERICAN > 60; GFR NON-AFRICAN AMERICAN > 60
[2017-01-15 07:59] LABS: MEAN CELL VOLUME 85.8 fl (81.0-99.0)
[2017-01-15] MEDS ORDERED: Iohexol 240 (50 ml) PO ONE (11:13)
--- NOTE | 2017-01-15 12:55 | PN ---
DATE: 01/15/2017 SUBJECTIVE: The patient is seen and examined. Interim events noted. Consults noted and appreciated. Gastroenterology follow up and interventional note appreciated. The patient remains in regular medical floor. She still complains of not able to hold anything down and on every attempt to drink water or food results in vomiting. She also complains of pain, controlled with current medication. No new chest pain or shortness of breath. PHYSICAL EXAMINATION: GENERAL: The patient is in no acute distress. VITAL SIGNS: Stable. HEART: S1 and S2, normal and regular. LUNGS: Good bilateral air exchange. ABDOMEN: Soft and nontender. EXTREMITIES: No edema. No calf swelling or tenderness. No acute ischemia. CENTRAL NERVOUS SYSTEM: Essentially unchanged. DIAGNOSTIC DATA: Available diagnostic data reviewed. ASSESSMENT: Overall, the patient is in general medical condition, although hemodynamically stable. Her long-term functional prognosis remains poor. PLAN: As ordered. Osmany Auguste MD
[2017-01-15] MEDS: Potassium CL 10 MEQ/50 ML 50 ML IVPB SCH ×6 (13:22→20:16)
--- NOTE | 2017-01-15 14:06 | CP.PCM.PN ---
Subjective - Date & Time of Evaluation Date of Evaluation: 01/15/17 Time of Evaluation: 14:04 - Subjective Subjective: RFV> Gastric cancer S: No improvement in diet. still with vomiting. bili downtrending. trying to sleep. Objective - Vital Signs/Intake and Output Vital Signs (last 24 hours): Temp Pulse Resp BP Pulse Ox 98.3 F 88 18 123/74 99 01/15/17 07:30 01/15/17 07:30 01/15/17 07:30 01/15/17 07:30 01/15/17 07:30 - Medications Medications: Current Medications Albuterol/Ipratropium (Duoneb 3 Mg/0.5 Mg (3 Ml) Ud) 3 ml INH RQ6 PRN PRN Reason: Shortness of Breath Allopurinol (Zyloprim) 100 mg PO DAILY [facility] Last Admin: 01/15/17 08:00 Dose: 100 mg Ergocalciferol (Drisdol 50,000 Intl Units Cap) 1 cap PO ALIN [facility] Last Admin: 01/12/17 08:40 Dose: 1 cap Famotidine (Pepcid) 20 mg IVP Q12 [facility] Last Admin: 01/15/17 08:00 Dose: 20 mg Hydromorphone HCl (Dilaudid) 1 mg IVP Q4H PRN PRN Reason: Pain, severe (8-10) Last Admin: 01/10/17 17:20 Dose: 1 mg Hydroxyzine HCl (Atarax) 25 mg PO Q8 PRN PRN Reason: Itching / Pruritus Potassium Chloride (Potassium Cl 10meq/50ml Sterile Water) 50 mls @ 50 mls/hr IVPB Q1 [facility] Stop: 01/15/17 17:59 Last Admin: 01/15/17 13:22 Dose: 50 mls/hr Potassium Chloride/Dextrose/Sod Cl (Potassium Chl 20 Meq In D5-Ns) 1,000 mls @ 100 mls/hr IV .Q10H [facility] Stop: 01/16/17 12:01 Lactulose (Enulose) 10 gm PO DAILY PRN PRN Reason: Constipation Metoclopramide HCl (Reglan) 10 mg IVP ACHS [facility] Last Admin: 01/15/17 11:09 Dose: 10 mg Morphine Sulfate (Morphine) 4 mg IVP Q2 PRN PRN Reason: Pain, moderate (4-7) Last Admin: 01/14/17 16:06 Dose: 4 mg Ondansetron HCl (Zofran Inj) 4 mg IVP Q4 PRN PRN Reason: Nausea/Vomiting Last Admin: 01/15/17 01:36 Dose: 4 mg Prochlorperazine (Compazine Rectal Supp) 25 mg RC Q8H PRN PRN Reason: Nausea/Vomiting Last Admin: 01/14/17 23:25 Dose: 25 mg - Labs Labs: 01/15/17 05:30 01/15/17 05:30 PT 14.7 Seconds (9.8-13.1) H 01/11/17 07:20 INR 1.4 (0.9-1.2) H 01/11/17 07:20 - Constitutional Appears: No Acute Distress - Head Exam Head Exam: ATRAUMATIC, NORMOCEPHALIC - Eye Exam Eye Exam: Scleral icterus Pupil Exam: PERRL - ENT Exam ENT Exam: Mucous Membranes Moist - Neck Exam Neck Exam: absent: Lymphadenopathy, Thyromegaly - Respiratory Exam Respiratory Exam: NORMAL BREATHING PATTERN - Cardiovascular Exam Cardiovascular Exam: +S1, +S2 - GI/Abdominal Exam GI & Abdominal Exam: Soft. absent: Tenderness - Neurological Exam Neurological Exam: Alert, Oriented x3 - Skin Additional comments: jaundice Assessment and Plan - Assessment and Plan (Free Text) Assessment: 51 year old female with gastric adenocarcinoma c/b gastric outlet obstruction and biliary obstruction s/p doudenal and biliary stents. 1. Gastric adenocarcinoma 2. Malignant biliary obstruction 3. Malignant gastric outlet obstruction Plan: -continue reglan -liquid diet / small freq meals/ remain upright after drinking anything for 30 mins or so -aspiration precautions / HOB at 45 degrees -supportive care with IV fluids -bili is downtrending -repeat ct abdomen today considering lack of improvement, po contrast if possible, iv contrast -may have more distal obstruction as well
[2017-01-15] MEDS: Morphine 4 MG/ML VIAL IVP PRN ×2 (14:20→23:40)
[2017-01-15] MEDS ORDERED: Sodium Chloride 0.9% 100 ML ONE (16:20)
[2017-01-15] MEDS ORDERED: Iohexol 300 100 ML IJ ONE (16:20)
--- NOTE | 2017-01-15 23:28 | CT ---
EXAM: CT Abdomen and Pelvis With Intravenous Contrast CLINICAL HISTORY: 51 years old, female; Pain; Abdominal pain; Generalized; Prior surgery; Surgery date: 1-6 months; Surgery type: Cholecystectomy/ stent october 2016; Patient HX: Unable to swallow. Former smoke; Additional info: Vomiting, gastric cancer, S/P biliary/duod stents TECHNIQUE: Axial computed tomography images of the abdomen and pelvis with intravenous contrast. This CT exam was performed using one or more of the following dose reduction techniques: automated exposure control, adjustment of the mA and/or kV according to patient size, and/or use of iterative reconstruction technique. Coronal and sagittal reformatted images were created and reviewed. CONTRAST: 98 mL of OMNIPAQUE administered intravenously. COMPARISON: CT - ABD PELVIS IV CONTRAST ONLY 01/06/2017 9:52:32 AM FINDINGS: Lower thorax: There is minimal bibasilar atelectasis. ABDOMEN: Liver: There are no focal liver lesions present. There is a diffuse decrease in hepatic parenchymal density, consistent with fatty infiltration. Gallbladder and bile ducts: There is a common bile duct stent in position. This leads to significant pneumobilia. There has been associated substantial reduction in the previously noted intrahepatic biliary ductal dilatation. There has been a cholecystectomy. Pancreas: The pancreatic duct is prominent measuring 4-5 mm in some regions. It is difficult to exclude underlying abnormality. Please correlate clinically and if indicated this could be further evaluated with MRCP or ERCP. Spleen: There are a few low density lesions in the spleen which are of uncertain etiology and significance. These were not present on the prior study dated 01/06/2017. Please correlate clinically. Adrenals: There are 1.5 CM right adrenal and 1.4 CM left adrenal lesions which are incompletely characterized on this postcontrast study. If indicated, these can be further evaluated with adrenal CT or renal MRI. Kidneys and ureters: There is stable moderate left hydronephrosis and hydroureter, unchanged from 01/06/2017. Multiple left renal cysts and parapelvic cysts again noted. The appearance is unchanged from 01/06/2017. Redemonstrated 4 mm nonobstructing calculus at the upper pole the left kidney. Stomach and bowel: There is a stent in position in the distal stomach and proximal duodenum. Stomach is predominantly decompressed and this limits evaluation. There is no evidence of intestinal obstruction. Appendix: No findings to suggest acute appendicitis. PELVIS: Bladder: Bladder is decompressed. Reproductive: Unremarkable as visualized. ABDOMEN and PELVIS: Intraperitoneal space: There is moderately large abdominopelvic ascites. This is substantially increased from 01/06/2017. Nodular enhancing lesions again noted in the omentum suspicious for omental caking and omental metastasis. There is no free intraperitoneal air. Bones/joints: There are mild degenerative changes present. No acute fracture. No dislocation. Soft tissues: Unremarkable. Vasculature: The aorta is normal. No abdominal aortic aneurysm. Lymph nodes: Redemonstrated is upper abdominal and retroperitoneal lymphadenopathy, little change from 01/06/2017. IMPRESSION: 1. There is a common bile duct stent in position. This leads to significant pneumobilia. There has been associated substantial reduction in the previously noted intrahepatic biliary ductal dilatation. 2. There is a stent in position in the distal stomach and proximal duodenum. No definite evidence for malpositioning or obstruction of the stent. No definite evidence for gastric or bowel obstruction. 3. There is moderately large abdominopelvic ascites. This is substantially increased from 01/06/2017. 4. There are a few low density lesions in the spleen which are of uncertain etiology and significance. These were not present on the prior study dated 01/06/2017. Please correlate clinically. 5. The pancreatic duct is prominent measuring 4-5 mm in some regions. It is difficult to exclude underlying abnormality. Please correlate clinically and if indicated this could be further evaluated with MRCP or ERCP. 6. There are 1.5 CM right adrenal and 1.4 CM left adrenal lesions which are incompletely characterized on this postcontrast study. If indicated, these can be further evaluated with adrenal CT or renal MRI. 7. There is stable moderate left hydronephrosis and hydroureter, unchanged from 01/06/2017. 8. Redemonstrated is upper abdominal and retroperitoneal lymphadenopathy, little change from 01/06/2017. 9. Stomach is predominantly decompressed and this limits evaluation. 10. Nodular enhancing lesions again noted in the omentum suspicious for omental caking and omental metastasis. 11. Additional incidental and/or chronic findings as described.
[2017-01-16] MEDS: Morphine 4 MG/ML VIAL IVP PRN ×4 (02:48→22:16)
[2017-01-16 05:52] LABS: HEMOGLOBIN 8.5 g/dL (12.0-16.0); MEAN CORPUSCULAR HEMOGLOBIN 29.1 pg (27.0-31.0); RBC 2.92 Mil/uL (3.80-5.20); RED CELL DISTRIBUTION WIDTH 16.5 % (11.5-14.5); WHITE BLOOD COUNT 4.8 K/uL (4.8-10.8)
[2017-01-16 06:00] LABS: ALBUMIN 2.5 g/dL (3.5-5.0); ALT/SGPT 48 U/L (9-52); AST/SGOT 85 U/L (14-36); BLOOD UREA NITROGEN 16 mg/dl (7-17); CALCIUM 8.2 mg/dL (8.4-10.2); GFR AFRICAN-AMERICAN > 60; GFR NON-AFRICAN AMERICAN > 60
[2017-01-16] MEDS: Potassium Chl 20 mEq in D5-NS 1,000 ML IV SCH ×2 (08:12→11:55)
--- NOTE | 2017-01-16 08:16 | CP.PCM.PN ---
<Paola Hutson - Last Filed: 01/16/17 14:11> Subjective - Date & Time of Evaluation Date of Evaluation: 01/16/17 Time of Evaluation: 07:45 - Subjective Subjective: GI Fellow PGY4 Progress Note Pt seen and evaluated at bedside, pt reports no change in nausea and vomiting with po intake. Pt states she is still vomiting after taking sips of any liquids and anti-emetics do not really help. Pt did have a BM last night. ROS: A 12pt ROS was obtained and was negative except as above. Objective - Vital Signs/Intake and Output Vital Signs (last 24 hours): Temp Pulse Resp BP Pulse Ox 98.9 F 90 18 102/50 L 100 01/16/17 07:18 01/16/17 07:18 01/16/17 07:18 01/16/17 07:18 01/16/17 07:18 - Medications Medications: Current Medications Albuterol/Ipratropium (Duoneb 3 Mg/0.5 Mg (3 Ml) Ud) 3 ml INH RQ6 PRN PRN Reason: Shortness of Breath Allopurinol (Zyloprim) 100 mg PO DAILY [facility] Last Admin: 01/15/17 08:00 Dose: 100 mg Ergocalciferol (Drisdol 50,000 Intl Units Cap) 1 cap PO ALIN [facility] Last Admin: 01/12/17 08:40 Dose: 1 cap Famotidine (Pepcid) 20 mg IVP Q12 [facility] Last Admin: 01/15/17 21:20 Dose: 20 mg Hydroxyzine HCl (Atarax) 25 mg PO Q8 PRN PRN Reason: Itching / Pruritus Potassium Chloride/Dextrose/Sod Cl (Potassium Chl 20 Meq In D5-Ns) 1,000 mls @ 100 mls/hr IV .Q10H [facility] Stop: 01/16/17 12:01 Last Admin: 01/15/17 23:46 Dose: 100 mls/hr Lactulose (Enulose) 10 gm PO DAILY PRN PRN Reason: Constipation Metoclopramide HCl (Reglan) 10 mg IVP ACHS [facility] Last Admin: 01/16/17 07:35 Dose: 10 mg Morphine Sulfate (Morphine) 4 mg IVP Q2 PRN PRN Reason: Pain, moderate (4-7) Last Admin: 01/16/17 02:48 Dose: 4 mg Ondansetron HCl (Zofran Inj) 4 mg IVP Q4 PRN PRN Reason: Nausea/Vomiting Last Admin: 01/15/17 15:28 Dose: 4 mg Prochlorperazine (Compazine Rectal Supp) 25 mg RC Q8H PRN PRN Reason: Nausea/Vomiting Last Admin: 01/14/17 23:25 Dose: 25 mg - Labs Labs: 01/16/17 05:00 01/16/17 05:00 PT 14.7 Seconds (9.8-13.1) H 01/11/17 07:20 INR 1.4 (0.9-1.2) H 01/11/17 07:20 - Constitutional Appears: Non-toxic, Older Than Stated Age, Chronically Ill - Head Exam Head Exam: ATRAUMATIC, NORMAL INSPECTION, NORMOCEPHALIC - Eye Exam Eye Exam: EOMI, Normal appearance Pupil Exam: PERRL Additional comments: Scleral icterus improved - ENT Exam ENT Exam: Mucous Membranes Moist, Normal Exam - Neck Exam Neck Exam: Full ROM, Normal Inspection - Respiratory Exam Respiratory Exam: Clear to Ausculation Bilateral, NORMAL BREATHING PATTERN - Cardiovascular Exam Cardiovascular Exam: RRR - GI/Abdominal Exam GI & Abdominal Exam: Soft, Normal Bowel Sounds. absent: Distended, Tenderness, Organomegaly - Rectal Exam Rectal Exam: Deferred - Extremities Exam Extremities Exam: Full ROM, Normal Inspection - Back Exam Back Exam: NORMAL INSPECTION - Neurological Exam Neurological Exam: Alert, Awake, Oriented x3 - Psychiatric Exam Psychiatric exam: Normal Affect, Normal Mood - Skin Skin Exam: Dry, Intact, Warm Additional comments: Jaundice has improved Assessment and Plan - Assessment and Plan (Free Text) Assessment: This is 51yF recently diagnosed with 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 Pt presenting after recent treatment in November with nausea and vomiting. 1. Gastric adenocarcinoma with metastasis 2. Malignant Biliary and Gastric outlet obstruction s/p duodenal and biliary stent 3. Nausea and Vomiting 4. Abdominal Ascites 5. Hyperbilirubinemia Plan: -s/p ERCP with duodenal and biliary stent -Liquid diet, discussed with nurse and pt about sitting up in a chair for 2- 3hrs for breakfast and try taking small sips of clears to see if she tolerates -Continue supportive care with IVF hydration, pain medication and anti-emetics -Hyperbilirubinemia from obstructive pathology now downtrending after stent placement, continue to monitor -CT Abdomen with duodenal stent in good position, no signs of distal obstruction -Abdominal ascites-send to IR for paracentesis -Will continue to follow pt closely <Jerry Ledbetter MD - Last Filed: 01/16/17 14:29> Objective - Vital Signs/Intake and Output Vital Signs (last 24 hours): Temp Pulse Resp BP Pulse Ox 98.9 F 90 18 102/50 L 100 01/16/17 07:18 01/16/17 07:18 01/16/17 07:18 01/16/17 07:18 01/16/17 07:18 - Medications Medications: Current Medications Albuterol/Ipratropium (Duoneb 3 Mg/0.5 Mg (3 Ml) Ud) 3 ml INH RQ6 PRN PRN Reason: Shortness of Breath Allopurinol (Zyloprim) 100 mg PO DAILY [facility] Last Admin: 01/16/17 08:14 Dose: Not Given Ergocalciferol (Drisdol 50,000 Intl Units Cap) 1 cap PO ALIN [facility] Last Admin: 01/12/17 08:40 Dose: 1 cap Famotidine (Pepcid) 20 mg IVP Q12 [facility] Last Admin: 01/16/17 08:11 Dose: 20 mg Hydroxyzine HCl (Atarax) 25 mg PO Q8 PRN PRN Reason: Itching / Pruritus Lactulose (Enulose) 10 gm PO DAILY PRN PRN Reason: Constipation Metoclopramide HCl (Reglan) 10 mg IVP ACHS [facility] Last Admin: 01/16/17 11:56 Dose: 10 mg Morphine Sulfate (Morphine) 4 mg IVP Q2 PRN PRN Reason: Pain, moderate (4-7) Last Admin: 01/16/17 10:29 Dose: 4 mg Ondansetron HCl (Zofran Inj) 4 mg IVP Q4 PRN PRN Reason: Nausea/Vomiting Last Admin: 01/15/17 15:28 Dose: 4 mg Prochlorperazine (Compazine Rectal Supp) 25 mg RC Q8H PRN PRN Reason: Nausea/Vomiting Last Admin: 01/14/17 23:25 Dose: 25 mg - Labs Labs: 01/16/17 05:00 01/16/17 05:00 PT 14.7 Seconds (9.8-13.1) H 01/11/17 07:20 INR 1.4 (0.9-1.2) H 01/11/17 07:20 Attending/Attestation - Attestation I have personally seen and examined this patient.: Yes I have fully participated in the care of the patient.: Yes I have reviewed all pertinent clinical information, including history, physical exam and plan: Yes Notes (Text): 01/16/17 14:26 Patient seen with GI fellow on rounds. This is a 51 year old female with gastric adenocarcinoma complicated by gastric outlet obstruction and biliary obstruction s/p doudenal and biliary stents. Has abdominal ascites which may contribute to elevated diaphragm and inability to hold liquids. Will get therapeutic tap and try small frequent sips of liquid. Continue anti emetics. Aspiration precations. Peritoneal mets may contribute to outlet obstruction. Consider NGT feeds or PPN
--- NOTE | 2017-01-16 09:19 | CP.PCM.PN ---
Subjective - Date & Time of Evaluation Date of Evaluation: 01/16/17 Time of Evaluation: 09:12 - Subjective Subjective: Pt is still not able to keep anything down. The ct of the abdomen showed a fair amount of ascitis and peritoneal stranding There is no distention of the stomach. May need to see the GI for further action. Objective - Vital Signs/Intake and Output Vital Signs (last 24 hours): Temp Pulse Resp BP Pulse Ox 98.9 F 90 18 102/50 L 100 01/16/17 07:18 01/16/17 07:18 01/16/17 07:18 01/16/17 07:18 01/16/17 07:18 - Medications Medications: Current Medications Albuterol/Ipratropium (Duoneb 3 Mg/0.5 Mg (3 Ml) Ud) 3 ml INH RQ6 PRN PRN Reason: Shortness of Breath Allopurinol (Zyloprim) 100 mg PO DAILY [facility] Last Admin: 01/16/17 08:14 Dose: Not Given Ergocalciferol (Drisdol 50,000 Intl Units Cap) 1 cap PO ALIN [facility] Last Admin: 01/12/17 08:40 Dose: 1 cap Famotidine (Pepcid) 20 mg IVP Q12 [facility] Last Admin: 01/16/17 08:11 Dose: 20 mg Hydroxyzine HCl (Atarax) 25 mg PO Q8 PRN PRN Reason: Itching / Pruritus Potassium Chloride/Dextrose/Sod Cl (Potassium Chl 20 Meq In D5-Ns) 1,000 mls @ 100 mls/hr IV .Q10H [facility] Stop: 01/16/17 12:01 Last Admin: 01/16/17 08:12 Dose: Not Given Lactulose (Enulose) 10 gm PO DAILY PRN PRN Reason: Constipation Metoclopramide HCl (Reglan) 10 mg IVP ACHS [facility] Last Admin: 01/16/17 07:35 Dose: 10 mg Morphine Sulfate (Morphine) 4 mg IVP Q2 PRN PRN Reason: Pain, moderate (4-7) Last Admin: 01/16/17 02:48 Dose: 4 mg Ondansetron HCl (Zofran Inj) 4 mg IVP Q4 PRN PRN Reason: Nausea/Vomiting Last Admin: 01/15/17 15:28 Dose: 4 mg Prochlorperazine (Compazine Rectal Supp) 25 mg RC Q8H PRN PRN Reason: Nausea/Vomiting Last Admin: 01/14/17 23:25 Dose: 25 mg - Labs Labs: 01/16/17 05:00 01/16/17 05:00 PT 14.7 Seconds (9.8-13.1) H 01/11/17 07:20 INR 1.4 (0.9-1.2) H 01/11/17 07:20
--- NOTE | 2017-01-16 10:21 | PN ---
DATE: 12/16/2016 SUBJECTIVE: The patient is seen and examined. Interim events noted. Consults noted and appreciated. Cardiology intervention noted and appreciated. Hospitalist intervention noted and appreciated. The patient remains progressive care unit on telemetry monitoring. At this time, the patient denies any chest pain or shortness of breath. PHYSICAL EXAMINATION GENERAL: The patient is in no acute distress. VITAL SIGNS: Stable. HEENT: S1 and S2 normal and regular. LUNGS: Good bilateral air entry. ABDOMEN: Soft and nontender. EXTREMITIES: No edema. No calf swelling or tenderness. No acute ischemia. CENTRAL NERVOUS SYSTEM: Essentially unchanged. DIAGNOSTIC DATA: Available diagnostic date is reviewed. Telemetry monitoring does not show . ASSESSMENT: Overall, the patient's general medical condition is stable. The patient is further workup for cardiac issues. PLAN: As ordered. Case and plan discussed with the patient. Osmany Auguste MD
[2017-01-16 10:39] LABS: MAGNESIUM 1.1 MG/DL (1.6-2.3)
[2017-01-16] MEDS ORDERED: Magnesium Sulfate 2 gm/50 ml 2 GM/50 ML BAG IVPB ONE (12:00)
[2017-01-16 15:52] LABS: INR 1.4 (0.9-1.2); PROTHROMBIN TIME 14.2 Seconds (9.8-13.1)
[2017-01-17] MEDS: Morphine 4 MG/ML VIAL IVP PRN ×5 (01:43→20:59)
[2017-01-17 06:32] LABS: HEMOGLOBIN 7.4 g/dL (12.0-16.0); MEAN CELL VOLUME 86.9 fl (81.0-99.0); MEAN CORPUSCULAR HEMOGLOBIN 29.5 pg (27.0-31.0); MEAN CORPUSCULAR HGB CONC 33.9 g/dL (33.0-37.0); RBC 2.52 Mil/uL (3.80-5.20); RED CELL DISTRIBUTION WIDTH 16.5 % (11.5-14.5); WHITE BLOOD COUNT 4.2 K/uL (4.8-10.8)
[2017-01-17 06:39] LABS: ALBUMIN 2.4 g/dL (3.5-5.0); ALT/SGPT 47 U/L (9-52); AST/SGOT 81 U/L (14-36); BLOOD UREA NITROGEN 13 mg/dl (7-17); CALCIUM 7.9 mg/dL (8.4-10.2); GFR AFRICAN-AMERICAN > 60; GFR NON-AFRICAN AMERICAN > 60; MAGNESIUM 1.5 MG/DL (1.6-2.3)
[2017-01-17 06:47] LABS: INR 1.5 (0.9-1.2)
--- NOTE | 2017-01-17 07:33 | CP.PCM.PN ---
Addendum entered and electronically signed by Paola Hutson DO 01/17/17 07:46: PE: Gen: AAOx3, NAD HEENT: PERRLA, EOMI Cardio: RRR, S1 and S2 Pulm: CTAB GI: Abd soft, no TTP, not distended, BSx4 Extrem: No LE edema Skin: No rash, jaundice improving Psych: Normal mood Neuro: Moving all 4 extremities, no focal deficit Original Note: <Paola Hutson - Last Filed: 01/17/17 07:34> Subjective - Date & Time of Evaluation Date of Evaluation: 01/17/17 Time of Evaluation: 06:50 - Subjective Subjective: GI Fellow PGY4 Progress Note Pt seen and evaluated at bedside, pt reports she is still throwing up liquids after taking small sips yesterday and trying to situp in bed. Pt initially was able to hold down liquids for breakfast yesterday but a few hours later she vomited. Discussed with pt about parenteral nutrition with dobhoff tube, she said she will think about it and let our team know. ROS: A 12pt ROS was obtained and was negative except as above. Objective - Vital Signs/Intake and Output Vital Signs (last 24 hours): Temp Pulse Resp BP Pulse Ox 98.8 F 98 H 20 119/78 98 01/17/17 00:31 01/17/17 00:31 01/17/17 00:31 01/17/17 00:31 01/17/17 00:31 - Medications Medications: Current Medications Albuterol/Ipratropium (Duoneb 3 Mg/0.5 Mg (3 Ml) Ud) 3 ml INH RQ6 PRN PRN Reason: Shortness of Breath Allopurinol (Zyloprim) 100 mg PO DAILY [facility] Last Admin: 01/16/17 08:14 Dose: Not Given Ergocalciferol (Drisdol 50,000 Intl Units Cap) 1 cap PO ALIN [facility] Last Admin: 01/12/17 08:40 Dose: 1 cap Famotidine (Pepcid) 20 mg IVP Q12 [facility] Last Admin: 01/16/17 21:13 Dose: 20 mg Hydroxyzine HCl (Atarax) 25 mg PO Q8 PRN PRN Reason: Itching / Pruritus Lactulose (Enulose) 10 gm PO DAILY PRN PRN Reason: Constipation Metoclopramide HCl (Reglan) 10 mg IVP ACHS [facility] Last Admin: 01/16/17 22:10 Dose: 10 mg Morphine Sulfate (Morphine) 4 mg IVP Q2 PRN PRN Reason: Pain, moderate (4-7) Last Admin: 01/17/17 05:28 Dose: 4 mg Ondansetron HCl (Zofran Inj) 4 mg IVP Q4 PRN PRN Reason: Nausea/Vomiting Last Admin: 01/17/17 01:40 Dose: 4 mg Prochlorperazine (Compazine Rectal Supp) 25 mg RC Q8H PRN PRN Reason: Nausea/Vomiting Last Admin: 01/14/17 23:25 Dose: 25 mg - Labs Labs: 01/17/17 05:50 01/17/17 05:50 PT 15.0 Seconds (9.8-13.1) H 01/17/17 05:50 INR 1.5 (0.9-1.2) H 01/17/17 05:50 Assessment and Plan - Assessment and Plan (Free Text) Assessment: This is 51yF recently diagnosed with 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 Pt presenting after recent treatment in November with nausea and vomiting. 1. Gastric adenocarcinoma with metastasis 2. Malignant Biliary and Gastric outlet obstruction s/p duodenal and biliary stent 3. Nausea and Vomiting 4. Abdominal Ascites 5. Hyperbilirubinemia Plan: -s/p ERCP with duodenal and biliary stent, stent in good position with no distal obstruction on imaging -Not tolerating liquids, discussed with pt about Dobhoff Tube and Parenteral Nutrition, she said she will think about it today and let us know -Continue supportive care with IVF hydration, pain medication and anti-emetics -Hyperbilirubinemia downtrending after stent placement -Abdominal ascites may be contributing to emesis, requested IR for paracentesis- maybe difficult due to low plts and elevated INR -Will continue to follow pt closely <Jerry Ledbetter MD - Last Filed: 01/17/17 15:01> Objective - Vital Signs/Intake and Output Vital Signs (last 24 hours): Temp Pulse Resp BP Pulse Ox 98.2 F 100 H 20 115/73 99 01/17/17 07:53 01/17/17 07:53 01/17/17 07:53 01/17/17 07:53 01/17/17 07:53 - Medications Medications: Current Medications Albuterol/Ipratropium (Duoneb 3 Mg/0.5 Mg (3 Ml) Ud) 3 ml INH RQ6 PRN PRN Reason: Shortness of Breath Allopurinol (Zyloprim) 100 mg PO DAILY [facility] Last Admin: 01/17/17 10:03 Dose: Not Given Ergocalciferol (Drisdol 50,000 Intl Units Cap) 1 cap PO ALIN [facility] Last Admin: 01/12/17 08:40 Dose: 1 cap Famotidine (Pepcid) 20 mg IVP Q12 [facility] Last Admin: 01/17/17 10:03 Dose: 20 mg Hydroxyzine HCl (Atarax) 25 mg PO Q8 PRN PRN Reason: Itching / Pruritus Amino Acids (Clinimix 4.25%-10% 1000 Ml) 1,000 mls @ 42 mls/hr IV .[id number] [facility] Stop: 01/18/17 13:33 Lactulose (Enulose) 10 gm PO DAILY PRN PRN Reason: Constipation Metoclopramide HCl (Reglan) 10 mg IVP ACHS [facility] Last Admin: 01/17/17 13:26 Dose: Not Given Morphine Sulfate (Morphine) 4 mg IVP Q2 PRN PRN Reason: Pain, moderate (4-7) Last Admin: 01/17/17 13:20 Dose: 4 mg Ondansetron HCl (Zofran Inj) 4 mg IVP Q4 PRN PRN Reason: Nausea/Vomiting Last Admin: 01/17/17 13:25 Dose: 4 mg Prochlorperazine (Compazine Rectal Supp) 25 mg RC Q8H PRN PRN Reason: Nausea/Vomiting Last Admin: 01/14/17 23:25 Dose: 25 mg - Labs Labs: 01/17/17 05:50 01/17/17 05:50 PT 15.0 Seconds (9.8-13.1) H 01/17/17 05:50 INR 1.5 (0.9-1.2) H 01/17/17 05:50 Attending/Attestation - Attestation I have personally seen and examined this patient.: Yes I have fully participated in the care of the patient.: Yes I have reviewed all pertinent clinical information, including history, physical exam and plan: Yes Notes (Text): 01/17/17 15:01 Patient seen with GI fellow on rounds. This is a 51 year old female with gastric adenocarcinoma complicated by gastric outlet obstruction and biliary obstruction s/p doudenal and biliary stents. Has abdominal ascites which may contribute to elevated diaphragm and inability to hold liquids. Continue anti emetics. Small oral feeds sitting up. Aspiration precautions. Peritoneal mets may contribute to outlet obstruction. Consider NGT feeds or PPN. Discussed with the team 01/17/17 15:01
--- NOTE | 2017-01-17 12:28 | CP.PCM.PN ---
Subjective - Date & Time of Evaluation Date of Evaluation: 01/17/17 Time of Evaluation: 12:26 - Subjective Subjective: Pt is still unable to swallow. She has been started on ppn. Her brother wants to take her to [facility] for a second opinion. He is making arrangements for the same. Objective - Vital Signs/Intake and Output Vital Signs (last 24 hours): Temp Pulse Resp BP Pulse Ox 98.2 F 100 H 20 115/73 99 01/17/17 07:53 01/17/17 07:53 01/17/17 07:53 01/17/17 07:53 01/17/17 07:53 - Medications Medications: Current Medications Albuterol/Ipratropium (Duoneb 3 Mg/0.5 Mg (3 Ml) Ud) 3 ml INH RQ6 PRN PRN Reason: Shortness of Breath Allopurinol (Zyloprim) 100 mg PO DAILY [facility] Last Admin: 01/17/17 10:03 Dose: Not Given Ergocalciferol (Drisdol 50,000 Intl Units Cap) 1 cap PO ALIN [facility] Last Admin: 01/12/17 08:40 Dose: 1 cap Famotidine (Pepcid) 20 mg IVP Q12 [facility] Last Admin: 01/17/17 10:03 Dose: 20 mg Hydroxyzine HCl (Atarax) 25 mg PO Q8 PRN PRN Reason: Itching / Pruritus Lactulose (Enulose) 10 gm PO DAILY PRN PRN Reason: Constipation Metoclopramide HCl (Reglan) 10 mg IVP ACHS [facility] Last Admin: 01/17/17 09:58 Dose: 10 mg Morphine Sulfate (Morphine) 4 mg IVP Q2 PRN PRN Reason: Pain, moderate (4-7) Last Admin: 01/17/17 10:13 Dose: 4 mg Ondansetron HCl (Zofran Inj) 4 mg IVP Q4 PRN PRN Reason: Nausea/Vomiting Last Admin: 01/17/17 01:40 Dose: 4 mg Prochlorperazine (Compazine Rectal Supp) 25 mg RC Q8H PRN PRN Reason: Nausea/Vomiting Last Admin: 01/14/17 23:25 Dose: 25 mg - Labs Labs: 01/17/17 05:50 01/17/17 05:50 PT 15.0 Seconds (9.8-13.1) H 01/17/17 05:50 INR 1.5 (0.9-1.2) H 01/17/17 05:50
[2017-01-17] MEDS ORDERED: Magnesium Sulfate 2 gm/50 ml 2 GM/50 ML BAG IVPB ONE (13:00)
--- NOTE | 2017-01-17 13:40 | PN ---
DATE: 01/16/2017 SUBJECTIVE: She still has nausea and she vomits even she is on clear diet. PHYSICAL EXAMINATION VITAL SIGNS: Blood pressure is 120/84,temperature 99.3, respiratory rate 20, and pulse 100. HEENT: Pupils are equal and reactive to light. Normal-appearing mucosa of the conjunctivae, oropharyngeal, and nasal membrane mucosa. NECK: Supple. No JVD. No carotid bruit. No lymph node. No thyromegaly. CHEST AND LUNGS: Bilateral symmetrical expansion. Good air exchange. No rales. No rhonchi. CARDIOVASCULAR SYSTEM: PMI not localized. S1 and S2. No additional sounds. ABDOMEN: Slight tenderness all over the abdomen with no rebound tenderness, no rigidity. EXTREMITIES: No cyanosis. No clubbing. No edema. CENTRAL NERVOUS SYSTEM: Alert, awake, and oriented x2. No neurological deficit could be appreciated. 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 PLAN: Continue IV fluids and follow GI recommendations. The patient's brother spoke to the nurse requesting that he is expressing the desire for transferring the patient to [facility]. This was explained to the brother. We need a check-in physician at this point for transfer. Guarded prognosis. Kiko Chilel MD
[2017-01-17] MEDS ORDERED: Amino Acids/Dextrose 1,000 ML IV ONE (13:45)
--- NOTE | 2017-01-17 20:34 | PN ---
DAILY PROGRESS NOTE DATE: 01/17/2017 SUBJECTIVE: She still has nausea and vomiting and very little that she can keep down in her stomach. The patient had repeated CAT scan done on that showed proper position of the gastroduodenal stents and the biliary stent. PHYSICAL EXAMINATION: VITAL SIGNS: Blood pressure 117/77, temperature 98.4, respiratory rate 18, and pulse 90. HEENT: Pupils are equal and reactive to light. Normal appearing mucosa of the conjunctiva, oropharyngeal, and nasal membrane mucosa. NECK: Supple. No JVD. No carotid bruit. No lymph node. No thyromegaly. CHEST AND LUNGS: Bilaterally symmetrical expansion and good air exchange. No rales and no rhonchi. CARDIOVASCULAR: PMI not localized. S1 and S2. No additional sounds. ABDOMEN: Normoactive bowel sounds. No tenderness. No organomegaly. No masses. There is some ascites with some generalized tenderness, but no rebound tenderness or rigidity. EXTREMITIES: No cyanosis. No clubbing. No edema. CENTRAL NERVOUS SYSTEM: Alert, awake, and oriented x2. No neurological deficit could be appreciated. ASSESSMENT: Metastatic malignant gastric ulcer status post biliary stenting for cholestasis as well as gastroduodenal stenting. PLAN: The patient's family brought the name of Dr. Fry who is an oncologist in [place]. Discussed the case in detail with Dr. Fry who stated that for oncology treatment the patient has to be discharged. In case the patient has to be transferred to [facility] she has to be accepted by a medical physician who will consult gastroenterology and oncology. The patient also is being transfused packed RBCs due to dropping of the hemoglobin to 7.4 today. The patient's platelets is low at 36 of undetermined etiology. Follow up hematology recommendations. Kiko Chilel MD [facility]
[2017-01-18] MEDS: Morphine 4 MG/ML VIAL IVP PRN ×5 (00:12→20:58)
[2017-01-18 02:24] VITALS: O2SAT 99
[2017-01-18 07:54] LABS: MEAN CORPUSCULAR HEMOGLOBIN 28.8 pg (27.0-31.0); MEAN CORPUSCULAR HGB CONC 33.9 g/dL (33.0-37.0); RBC 3.4 Mil/uL (3.80-5.20); RED CELL DISTRIBUTION WIDTH 16.8 % (11.5-14.5); WHITE BLOOD COUNT 4.6 K/uL (4.8-10.8)
[2017-01-18 08:11] LABS: HEMOGLOBIN 9.8 g/dL (12.0-16.0)
[2017-01-18 08:44] LABS: ALBUMIN 2.5 g/dL (3.5-5.0); ALT/SGPT 41 U/L (9-52); AST/SGOT 88 U/L (14-36); BLOOD UREA NITROGEN 14 mg/dl (7-17); CALCIUM 8.2 mg/dL (8.4-10.2); GFR AFRICAN-AMERICAN > 60; GFR NON-AFRICAN AMERICAN > 60; MAGNESIUM 1.4 MG/DL (1.6-2.3)
[2017-01-18] MEDS ORDERED: Magnesium Sulfate 2 gm/50 ml 2 GM/50 ML BAG IVPB ONE (11:38)
--- NOTE | 2017-01-18 11:58 | CP.PCM.PN ---
<HareshPaola - Last Filed: 01/18/17 11:58> Subjective - Date & Time of Evaluation Date of Evaluation: 01/18/17 Time of Evaluation: 07:20 - Subjective Subjective: GI Fellow PGY4 Progress Note Pt seen and evaluated at bedside, pt still unable to hold down liquids. Per nursing pt was transfused 2U PRBC and started on PPN per primary team. Possible transfer to [facility]. ROS: A 12pt ROS was obtained and was negative except as above. Objective - Vital Signs/Intake and Output Vital Signs (last 24 hours): Temp Pulse Resp BP Pulse Ox 98.4 F 89 20 113/70 99 01/18/17 07:48 01/18/17 07:48 01/18/17 07:48 01/18/17 07:48 01/18/17 07:48 - Medications Medications: Current Medications Albuterol/Ipratropium (Duoneb 3 Mg/0.5 Mg (3 Ml) Ud) 3 ml INH RQ6 PRN PRN Reason: Shortness of Breath Allopurinol (Zyloprim) 100 mg PO DAILY [facility] Last Admin: 01/18/17 09:22 Dose: Not Given Ergocalciferol (Drisdol 50,000 Intl Units Cap) 1 cap PO ALIN [facility] Last Admin: 01/12/17 08:40 Dose: 1 cap Famotidine (Pepcid) 20 mg IVP Q12 [facility] Last Admin: 01/18/17 09:57 Dose: 20 mg Hydroxyzine HCl (Atarax) 25 mg PO Q8 PRN PRN Reason: Itching / Pruritus Amino Acids (Clinimix 4.25%-10% 1000 Ml) 1,000 mls @ 42 mls/hr IV .[id number] ONE Stop: 01/18/17 13:33 Last Admin: 01/18/17 03:23 Dose: 42 mls/hr Magnesium Sulfate (Magnesium Sulfate 2 Gm/50 Ml Water) 2 gm in 50 mls @ 50 mls/ hr IVPB ONCE ONE PRN Reason: 2 GM/HR Stop: 01/18/17 12:37 Lactulose (Enulose) 10 gm PO DAILY PRN PRN Reason: Constipation Metoclopramide HCl (Reglan) 10 mg IVP ACHS [facility] Last Admin: 08/09/17 09:56 Dose: 10 mg Morphine Sulfate (Morphine) 4 mg IVP Q2 PRN PRN Reason: Pain, moderate (4-7) - Labs Labs: 01/18/17 06:50 01/18/17 06:50 PT 15.0 Seconds (9.8-13.1) H 01/17/17 05:50 INR 1.5 (0.9-1.2) H 01/17/17 05:50 - Constitutional Appears: Non-toxic, No Acute Distress, Older Than Stated Age - Head Exam Head Exam: ATRAUMATIC, NORMAL INSPECTION, NORMOCEPHALIC - Eye Exam Eye Exam: EOMI, PERRL, Scleral icterus Pupil Exam: PERRL - ENT Exam ENT Exam: Mucous Membranes Moist, Normal Exam - Neck Exam Neck Exam: Full ROM, Normal Inspection - Respiratory Exam Respiratory Exam: Clear to Ausculation Bilateral, NORMAL BREATHING PATTERN - Cardiovascular Exam Cardiovascular Exam: REGULAR RHYTHM, RRR, +S1, +S2 - GI/Abdominal Exam GI & Abdominal Exam: Soft, Normal Bowel Sounds. absent: Guarding, Tenderness - Rectal Exam Rectal Exam: Deferred - Extremities Exam Extremities Exam: Full ROM, Normal Inspection - Back Exam Back Exam: NORMAL INSPECTION - Neurological Exam Neurological Exam: Alert, Awake, Oriented x3 - Psychiatric Exam Psychiatric exam: Normal Affect, Normal Mood - Skin Skin Exam: Dry, Intact, Warm Additional comments: jaundice improving Assessment and Plan - Assessment and Plan (Free Text) Assessment: This is 51yF recently diagnosed with 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 Pt presenting after recent treatment in November with nausea and vomiting. 1. Gastric adenocarcinoma with metastasis 2. Malignant Biliary and Gastric outlet obstruction s/p duodenal and biliary stent 3. Nausea and Vomiting 4. Abdominal Ascites 5. Hyperbilirubinemia 6. Anemia Plan: -s/p ERCP with duodenal and biliary stent, stent in good position with no distal obstruction on imaging -Not tolerating liquids, started on PPN -Continue supportive care with IVF hydration, pain medication and anti-emetics- will stop IV Morphine and Zofran which can be exacerbating nausea -Hyperbilirubinemia downtrending after stent placement -Anemia, no signs of active GI bleed, s/p 2U PRBC -Will continue to follow pt closely <Jerry Ledbetter MD - Last Filed: 01/18/17 12:28> Objective - Vital Signs/Intake and Output Vital Signs (last 24 hours): Temp Pulse Resp BP Pulse Ox 98.4 F 89 20 113/70 99 01/18/17 07:48 01/18/17 07:48 01/18/17 07:48 01/18/17 07:48 01/18/17 07:48 - Medications Medications: Current Medications Albuterol/Ipratropium (Duoneb 3 Mg/0.5 Mg (3 Ml) Ud) 3 ml INH RQ6 PRN PRN Reason: Shortness of Breath Allopurinol (Zyloprim) 100 mg PO DAILY [facility] Last Admin: 01/18/17 09:22 Dose: Not Given Ergocalciferol (Drisdol 50,000 Intl Units Cap) 1 cap PO ALIN [facility] Last Admin: 01/12/17 08:40 Dose: 1 cap Famotidine (Pepcid) 20 mg IVP Q12 [facility] Last Admin: 01/18/17 09:57 Dose: 20 mg Hydroxyzine HCl (Atarax) 25 mg PO Q8 PRN PRN Reason: Itching / Pruritus Amino Acids (Clinimix 4.25%-10% 1000 Ml) 1,000 mls @ 42 mls/hr IV .[id number] ONE Stop: 01/18/17 13:33 Last Admin: 01/18/17 03:23 Dose: 42 mls/hr Magnesium Sulfate (Magnesium Sulfate 2 Gm/50 Ml Water) 2 gm in 50 mls @ 50 mls/ hr IVPB ONCE ONE PRN Reason: 2 GM/HR Stop: 01/18/17 12:37 Lactulose (Enulose) 10 gm PO DAILY PRN PRN Reason: Constipation Metoclopramide HCl (Reglan) 10 mg IVP ACHS [facility] Last Admin: 01/18/17 12:05 Dose: Not Given Morphine Sulfate (Morphine) 4 mg IVP Q2 PRN PRN Reason: Pain, moderate (4-7) - Labs Labs: 01/18/17 06:50 01/18/17 06:50 PT 15.0 Seconds (9.8-13.1) H 01/17/17 05:50 INR 1.5 (0.9-1.2) H 01/17/17 05:50 Attending/Attestation - Attestation I have personally seen and examined this patient.: Yes I have fully participated in the care of the patient.: Yes I have reviewed all pertinent clinical information, including history, physical exam and plan: Yes Notes (Text): 01/18/17 12:27 Patient seen with GI fellow on rounds. This is a 51 year old female with gastric adenocarcinoma complicated by gastric outlet obstruction and biliary obstruction s/p doudenal and biliary stents. Has abdominal ascites which may contribute to elevated diaphragm and inability to hold liquids. Ascitic tap not done due to low platelets. Continue anti emetics. Discontinue morphine and continue dilaudid. Discontinue zofran and continue reglan. Aspiration precations. Peritoneal mets may contribute to outlet obstruction. Continue PPN
[2017-01-18 12:20] LABS: URIC ACID 2.3 mg/Dl (2.2-7.5)
[2017-01-18] MEDS ORDERED: Multivitamin (MVI) 10 ML, Chromium/Copper/Manganese/Zinc 3 ML in Amino/Dex E 4.25/10 10... IV ONE (16:00)
[2017-01-18 16:31] VITALS: BP 103/67; PULSE 92; RESP 18; TEMP 98.5
--- NOTE | 2017-01-18 21:00 | CP.PCM.CON ---
History of Present Illness - History of Present Illness History of Present Illness: pt is seen and examined by me, full consult is dictated #[id number] 1. 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 gastric ca s/p urine lytes, osm uric acid c/w siadh pt is being transferred to [facility] for possible second opinion for cancer treatment Past Patient History - Infectious Disease Hx of Infectious Diseases: None - Past Medical History & Family History Past Medical History?: Yes - Past Social History Smoking Status: Former Smoker - CARDIAC Hx Pacemaker: No - PULMONARY Hx Respiratory Disorders: No - NEUROLOGICAL Hx Neurological Disorder: No - HEENT Hx HEENT Problems: No Other/Comment: reading glasses - RENAL Hx Chronic Kidney Disease: Yes (ARF) - ENDOCRINE/METABOLIC Hx Endocrine Disorders: No - HEMATOLOGICAL/ONCOLOGICAL Hx Blood Disorders: (stomach ca) - INTEGUMENTARY Hx Dermatological Problems: Yes Other/Comment: Body rash. - MUSCULOSKELETAL/RHEUMATOLOGICAL Hx [place]: No - GASTROINTESTINAL Hx Gastrointestinal Disorders: Yes Hx Nausea: Yes Hx Vomiting: Yes Other/Comment: gallstone. stomach Ca - GENITOURINARY/GYNECOLOGICAL Hx Genitourinary Disorders: No - PSYCHIATRIC Hx Substance Use: No - SURGICAL HISTORY Hx Cholecystectomy: Yes (October 2016) - ANESTHESIA Hx Anesthesia: Yes Hx Anesthesia Reactions: No Hx Malignant Hyperthermia: No Meds Allergies/Adverse Reactions: Allergies Allergy/AdvReac Type Severity Reaction Status Date / Time peach Allergy Mild RASH Verified 01/11/17 15:00 tramadol AdvReac Mild RASH Verified 01/11/17 14:59 pcn AdvReac Mild ITCHING Uncoded 01/11/17 15:00 - Medications Medications: Current Medications Albuterol/Ipratropium (Duoneb 3 Mg/0.5 Mg (3 Ml) Ud) 3 ml INH RQ6 PRN PRN Reason: Shortness of Breath Allopurinol (Zyloprim) 100 mg PO DAILY [facility] Last Admin: 01/18/17 09:22 Dose: Not Given Ergocalciferol (Drisdol 50,000 Intl Units Cap) 1 cap PO ALIN [facility] Last Admin: 01/12/17 08:40 Dose: 1 cap Famotidine (Pepcid) 20 mg IVP Q12 [facility] Last Admin: 01/18/17 09:57 Dose: 20 mg Hydroxyzine HCl (Atarax) 25 mg PO Q8 PRN PRN Reason: Itching / Pruritus Multivitamins/Vitamin C 10 ml/Chromium/Copper/Manganese/Zinc 3 ml/ Amino Acids/ Electrolytes/Dextrose 1,013 mls @ 62.5 mls/hr IV .[id number] ONE Stop: 01/19/17 08:12 Last Admin: 01/18/17 18:41 Dose: 62.5 mls/hr Amino Acids/Electrolytes/Dextrose (Clinimix E 4.25/10 1000 Ml) 1,000 mls @ 62.5 mls/hr IV .Q16H ONE Stop: 01/20/17 00:11 Lactulose (Enulose) 10 gm PO DAILY PRN PRN Reason: Constipation Metoclopramide HCl (Reglan) 10 mg IVP ACHS [facility] Last Admin: 01/18/17 16:48 Dose: Not Given Morphine Sulfate (Morphine) 4 mg IVP Q2 PRN PRN Reason: Pain, moderate (4-7) Last Admin: 01/18/17 16:44 Dose: 4 mg Results - Vital Signs Recent Vital Signs: Last Vital Signs Temp 98.5 F 01/18/17 16:30 Pulse 92 H 01/18/17 16:30 Resp 18 01/18/17 16:30 BP 103/67 01/18/17 16:30 Pulse Ox 99 01/18/17 16:30 - Labs Result Diagrams: 01/18/17 06:50 01/18/17 06:50 Labs: Laboratory Results - last 24 hr 01/17/17 01/18/17 01/18/17 14:00 06:50 06:50 WBC 4.6 L RBC 3.40 L Hgb 9.8 L D Hct 28.9 L MCV 85.0 MCH 28.8 MCHC 33.9 RDW 16.8 H Plt Count 40 L Sodium 125 L Potassium 4.3 Chloride 93 L Carbon Dioxide 28 Anion Gap 8 L BUN 14 Creatinine 0.6 L Est GFR ( Amer) > 60 Est GFR (Non-Af Amer) > 60 Random Glucose 91 Serum Osmolality Uric Acid Calcium 8.2 L Phosphorus 3.1 Magnesium 1.4 L Total Bilirubin 4.8 H AST 88 H ALT 41 Alkaline Phosphatase 199 H Total Protein 5.0 L Albumin 2.5 L Globulin 2.5 Albumin/Globulin Ratio 1.0 Triglycerides 156 H TSH 3rd Generation Urine Osmolality Ur Random Sodium Ur Random Potassium Blood Type O POSITIVE Antibody Screen Negative Crossmatch See Detail BBK History Checked Patient has bt 01/18/17 01/18/17 01/18/17 11:40 11:40 14:00 WBC RBC Hgb Hct MCV MCH MCHC RDW Plt Count Sodium Potassium Chloride Carbon Dioxide Anion Gap BUN Creatinine Est GFR ( Amer) Est GFR (Non-Af Amer) Random Glucose Serum Osmolality 268 L Uric Acid 2.3 Calcium Phosphorus Magnesium Total Bilirubin AST ALT Alkaline Phosphatase Total Protein Albumin Globulin Albumin/Globulin Ratio Triglycerides TSH 3rd Generation 2.77 Urine Osmolality 530 Ur Random Sodium 169 Ur Random Potassium 17.9 Blood Type Antibody Screen Crossmatch BBK History Checked
[2017-01-19] MEDS ORDERED: Amino/Dex E 4.25/10 1000 ML 1,000 ML IV ONE (08:12)
--- NOTE | 2017-01-19 11:59 | CON ---
RENAL CONSULTATION LOCATION: The patient is located in room 654, bed 2. REQUESTED BY: Kiko Chilel MD. REASON FOR RENAL CONSULTATION: Hyponatremia for further evaluation. HISTORY OF PRESENT ILLNESS: Mrs. Guille Neumann is a 51-year-old female with past medical history significant for biopsy-proven poorly-differentiated gastric adenocarcinoma with duodenal mass and peritoneal mass in November 2016 with palliative chemotherapy in November one cycle. The patient was admitted on 01/05/2017 with pancytopenia, dehydration and found to have an electrolyte imbalance, acute renal failure, status post hypokalemia, hypomagnesemia, being treated for nausea, vomiting and dehydration. Now, the patient is on TPN. The patient is complaining of nausea, vomiting, and poor p.o. intake for the last few weeks. The patient denies any chest pain or palpitations. Denies any dysuria or frequency. Denies any swelling of the legs. PAST MEDICAL HISTORY: Significant for recently diagnosed poorly-differentiated adenocarcinoma of the gastric cancer with duodenal mass. PAST SURGICAL HISTORY: Status post Port-A-Cath placement on the left subclavian region and gastric biopsy. ALLERGIES: ALLERGIC TO PEACH AND TRAMADOL AND QUESTIONABLE PENICILLIN. SOCIAL HISTORY: Denies any smoking, former smoker. No alcohol. No drug abuse. FAMILY HISTORY: Not significant. CURRENT MEDICATIONS: Include as follows: Atarax 25 mg p.o. q. 8 hours and TPN and also lactulose 10 g p.o. daily, morphine sulfate 4 mg IV q. 2 hours p.r.n. and Reglan 10 mg IV a.c. and at bedtime and Pepcid 20 mg IV q. 12 hours and allopurinol 100 mg p.o. daily. REVIEW OF SYSTEMS: Significant for nausea, vomiting, and decreased p.o. intake. All other review of systems are reviewed as per HPI. PHYSICAL EXAMINATION: As follows: GENERAL: Ms. Guille Neumann is a 51-year-old middle-aged female with a history of gastric CA, moderately built, moderately nourished, not in acute distress. VITAL SIGNS: Blood pressure 103/67, pulse 92, respirations 18, temperature 98.5 and saturation is 99%. Height 5 feet 4 inches and weight 134 pounds. BMI 23. HEENT: Pupils are normal and reactive to light and accommodation. Conjunctivae are slightly pale. Sclerae anicteric. Tongue is moist and the trachea is midline. LUNGS: Symmetry on both sides, bilateral breath sounds present. No crackles. CARDIOVASCULAR SYSTEM: [place] at the fifth intercostal space, *------* midclavicular line. S1 and S2 audible. No murmur or gallop. ABDOMEN: Normal in appearance. Soft and tympanic. No guarding. No rigidity. No hepatosplenomegaly. CENTRAL NERVOUS SYSTEM: The patient is alert, awake, and oriented x3. Nonfocal neuro examination. Cranial nerves II through XII grossly intact. Sensory and motor system is within normal limits. EXTREMITIES: No cyanosis. No clubbing. No edema. LABORATORY DATA: Include as follows; as of 01/17/2017, WBC 4.2, hemoglobin 7.4, hematocrit is 21.9, platelets 36. Sodium 129, potassium 3.8, chloride 95, CO2 of 28, BUN 13, creatinine 0.6, glucose is 94, calcium 7.9 and magnesium is 1.5. Total bilirubin 4.5, AST is 81, ALT is 47, alkaline phosphate is 202, total protein 4.8, albumin is 2.4. Another laboratory data as of 01/18/2017, WBC 4.6, hemoglobin 9.8, hematocrit 28.9, platelets 40. Sodium 125, potassium 4.3, chloride 93, CO2 of 28, BUN 14, creatinine 0.6, glucose is 91, calcium 8.2, phosphorus 3.1 and magnesium is 1.4. Total bilirubin is 4.8, AST is 88, ALT is 41, alkaline phosphate is 199, total protein 5.0 and albumin is 2.5. Triglycerides 156. TSH 2.77. Serum osmolality 268, serum uric acid 2.3. Urine osmolality is 530, urine sodium is 169 and urine potassium is 17.9. The other reports, CT of the abdomen and pelvis as of 01/15/2017, impression is, in the intraperitoneal space, there is moderately large abdominopelvic ascites. This is substantially increased from 01/06/2017, nodular echogenic lesion again noted in the omentum, suspicious for omental caking and omental metastasis. There is no free intraperitoneal air. In bones and joint, there are mild degenerative changes present. No acute fracture noted in this location. There is a stent in position in the distal stomach and proximal duodenum. No definitive evidence of malposition in the position of the stent. No definitive evidence of gastric or bowel obstruction. There is moderately large abdominopelvic ascites that is substantially increased from 01/06/2017. There are few low density lesions in the spleen, which are of uncertain etiology and no significance. These were not present on the prior study dated 01/06/2017. The pancreatic duct is prominent measuring 4.5 mm. In some regions, it is difficult to exclude underlying abnormality. Please correlate clinically and if indicated, this could be further evaluated with MRCP and ERCP. There are 1.4 cm right adrenal and 1.4 cm left adrenal lesions, which are incompletely characterized of this post-contrast study. If indicated, this can be further evaluated with adrenal CT or renal MRI. There is stable moderate left hydronephrosis and hydroureter unchanged from 01/06/2017. Re-demonstrated is a large abdominal and retroperitoneal lymphadenopathy, little change from 01/06/2017. Since stomach is predominantly decompressed, this limits evaluation. Nodular-enhancing lesions again noted in the omentum suspicious for the omental caking and omental metastasis. Additional incidental and chronic findings as described. As of 01/03/2017, ultrasound of the abdomen, a 3 cm hypoechoic lesion seen at the right lobe liver abutting the gallbladder fossa potentially reflecting focal fatty sparing. However, a primary metastatic hepatic lesion not excluded and followup MRI is advised without contrast. A separate lesion is suggested posterior to the right lobe of the liver, in the upper right pararenal space, which is not seen in the prior CT, may be artifactual and the MRI can further characterize this area as well. Prior cholecystectomy again evident and prominent central intrahepatic and extrahepatic biliary dilatation is appreciated once again. Mild hydronephrosis 3.6 cm simple cyst renal again evident. ASSESSMENT AND PLAN: In summary, Ms. Guille Neumann is a 51-year-old middle-aged female with history of poorly-differentiated adenocarcinoma of the stomach with omental mass, status post duodenal stent, status post cholecystectomy, was admitted with nausea, vomiting, decreased p.o. intake, pancytopenia, electrolyte imbalance, renal failure, on total parenteral nutrition with low serum sodium. 1. Hyponatremia secondary to hypotonic euvolemic hyponatremia, secondary to syndrome of inappropriate antidiuretic hormone, secondary to gastric carcinoma. 2. Gastric carcinoma with metastasis to omentum. 3. Anemia secondary to gastric carcinoma and recent chemotherapy. 4. Thrombocytopenia. 5. Metastatic gastric carcinoma. The patient is being transferred for possible second opinion for gastric cancer treatment to [facility]. Consider tolvaptan 15 mg p.o. daily and adjust as needed. Overall prognosis is very, very poor. Thank you for allowing me to participate in your patient's care. Porfirio Hurt MD
--- NOTE | 2017-01-19 18:41 | DS ---
REASON FOR ADMISSION: This is a 51 years old female who has history of metastatic malignant gastric ulcer who was admitted for persistent nausea and vomiting. COURSE OF HOSPITALIZATION: The patient was admitted to medical floor and she was started on IV fluid and antiemetics. The patient also was continued on H2 blockers. The patient had a GI consultation by Dr. Hernández's group. The patient started to develop jaundice and CAT scan showed liver metastasis with cholestasis. The patient underwent ERCP with biliary stent as well as gastroduodenal stent placement. Due to persistent nausea, the patient desired to be transferred to [facility] for a second opinion, GI as well as oncology [place]. I spoke with the oncologist as well as with the hospitalist medical team that will receive the patient. The patient is hemodynamically stable and she is being transferred to [facility] with all the lab work as well as CAT scans and imaging that all were endorsed in details to the receiving hospitalist team. FINAL DIAGNOSES: 1. Metastatic gastric adenocarcinoma. 2. With hepatic metastasis as well as lymphadenopathy. 3. Status post cholecystectomy. 4. Status post endoscopic retrograde cholangio-pancreatography with stent biliary as well as gastroduodenal stent placement. Kiko Chilel MD
== END 2017-01-18 21:20 | disposition short-term general hospital (02) | DRG 444 ==
LOC: H.ER 11:33 → H.ERHOLD 15:28 → H.TEL 18:08 → OBSVTOIN 01-03 11:24 → H.MEDSURG1 01-07 15:30
PROVIDERS: ADMIT Internal Medicine; ATTEND Internal Medicine
PROC: 30233K1 Transfusion of Nonautologous Frozen Plasma into Peripheral Vein, Percutaneous Approach (ICD-10-PCS; principal; 2017-01-05)
PROC: 3E0336Z Introduction of Nutritional Substance into Peripheral Vein, Percutaneous Approach (ICD-10-PCS; 2017-01-06)
PROC: 30233N1 Transfusion of Nonautologous Red Blood Cells into Peripheral Vein, Percutaneous Approach (ICD-10-PCS; 2017-01-11)
PROC: 0F798DZ Dilation of Common Bile Duct with Intraluminal Device, Via Natural or Artificial Opening Endoscopic (ICD-10-PCS; 2017-01-11)
PROC: BF10YZZ Fluoroscopy of Bile Ducts using Other Contrast (ICD-10-PCS; 2017-01-11)
DX: K83.1 Obstruction of bile duct (principal); D61.810 Antineoplastic chemotherapy induced pancytopenia; C78.4 Secondary malignant neoplasm of small intestine; C78.6 Secondary malignant neoplasm of retroperitoneum and peritoneum; C16.9 Malignant neoplasm of stomach, unspecified; C78.7 Secondary malignant neoplasm of liver and intrahepatic bile duct; E22.2 Syndrome of inappropriate secretion of antidiuretic hormone; D68.9 Coagulation defect, unspecified; R18.8 Other ascites; K31.1 Adult hypertrophic pyloric stenosis; N39.0 Urinary tract infection, site not specified; K25.9 Gastric ulcer, unspecified as acute or chronic, without hemorrhage or perforation; E83.42 Hypomagnesemia; E83.51 Hypocalcemia; E86.0 Dehydration; E87.6 Hypokalemia; D64.81 Anemia due to antineoplastic chemotherapy; D63.0 Anemia in neoplastic disease; D69.59 Other secondary thrombocytopenia; B96.1 Klebsiella pneumoniae [K. pneumoniae] as the cause of diseases classified elsewhere; Z87.891 Personal history of nicotine dependence; Z90.49 Acquired absence of other specified parts of digestive tract; Z88.0 Allergy status to penicillin